=== PATIENT | male | born 1980 | race Caucasian/White ===

== ENCOUNTER 2018-12-18 14:22 | Emergency (ER) | payer OTHER ==
--- NOTE | 2018-12-18 14:38 | PDOC ---
History of Present Illness - General Chief Complaint: Seizure Stated Complaint: Seizure Time Seen by Provider: 12/18/18 14:38 - History of Present Illness Initial Comments: 38 year old male with PMH of seizures presenting from [place] for a seizure ( witnessed by staff at 13:15, lasting three minutes). They noted tonic clonic movement. They were concerned because of a prolonged pos-ictal phase. They say that he is currently not back to his baseline. His baseline is non-verbal, wheelchair bound but he is interactive with staff and plays. They were told by his physicians to bring him in for seizures that last over 3 minutes. Staff deny nausea, vomiting, fevers, chills, medication non-compliance or other issues. 12/18/18 15:05 Past History - Past Medical History Allergies/Adverse Reactions: Allergies Allergy/AdvReac Type Severity Reaction Status Date / Time No Known Allergies Allergy Verified 12/18/18 14:41 Home Medications: Ambulatory Orders Acetaminophen [Tylenol .Regular Strength -] 650 mg GT Q4H PRN 08/10/13 Bisacodyl Suppository [Dulcolax *Suppository*] 10 mg RC ONCE PRN 08/10/13 Calcium Carbonate/Vitamin D3 [Oyst-Alex-D 500 mg Tablet] 1 each GT BID 08/10/13 Clindamycin 1% Gel [Cleocin] 0 gm TP BID 08/10/13 Diazepam Rectal Gel [Diastat Rectal Gel -] 10 mg RC PRN PRN 08/10/13 FA/Mv,Ca,Iron,Min/Lycopene/Lut [Centrum Tablet] 1 each GT 08/10/13 Polyethylene Glycol 3350 [Miralax 255 gm Btl -] 17 gm GT DAILY 08/10/13 Sennosides [Senokot] 2 tab GT DAILY 08/10/13 levETIRAcetam [Keppra Oral Solution -] 1,500 mg PO BID #0 ml 08/21/13 Albuterol 2.5/Ipratropium 0.5 [Duoneb -] 1 neb NEB Q6H #0 vial 08/23/13 Lansoprazole [Prevacid] 30 mg GT DAILY #0 cap.sr.24h 08/23/13 predniSONE [Deltasone -] 50 mg PO DAILY #1 tablet 08/23/13 Cardiac Disorders: Yes (non traumatic epidural bleed.) CVA: (profund retardation, legally blind, cataracts) Seizures: Yes (EPILEPSY) - Surgical History Abdominal Surgery: (PEG) Neurologic Surgery: Yes (epilepsy, hematoma) Orthopedic Surgery: Yes (LT HIP/CONGENITAL DISLOCATION) - Suicide/Smoking/Psychosocial Hx Smoking Status: No Smoking History: Never smoked Have you smoked in the past 12 months: No Number of Cigarettes Smoked Daily: 0 Hx Alcohol Use: No Drug/Substance Use Hx: No Substance Use Type: None Hx Substance Use Treatment: No Review of Systems - Review of Systems Able to Perform ROS?: No (non verbal so difficult) Constitutional: No: Chills, Diaphoresis, Fever HEENTM: No: Eye Pain, Blurred Vision Respiratory: No: Cough, Orthopnea Cardiac (ROS): No: Chest Pain ABD/GI: No: Diarrhea, Nausea, Vomiting *Physical Exam - Physical Exam General Appearance: Yes: Nourished, Appropriately Dressed, Other (patient sleeping with upper arms pulled toward body). No: Apparent Distress HEENT: positive: Other (unable to open eys as patient was activly resisiting) Neck: positive: Trachea midline, Normal Thyroid, Supple. negative: Tender, Rigid Respiratory/Chest: positive: Lungs Clear, Normal Breath Sounds. negative: Chest Tender, Respiratory Distress Gastrointestinal/Abdominal: positive: Flat, Soft. negative: Tender Lymphatic: negative: Adenopathy, Tenderness Musculoskeletal: positive: Muscle Spasm. negative: Normal Inspection (upper arms contracted) Extremity: positive: Normal Capillary Refill. negative: Normal Inspection, Normal Range of Motion, Tender Integumentary: positive: Normal Color, Dry, Warm Neurologic: positive: Alert (sleeping but arrousable), Motor Strength 5/5. negative: Fully Oriented ED Treatment Course - LABORATORY CBC & Chemistry Diagram: 12/18/18 15:31 12/18/18 15:31 Medical Decision Making - Medical Decision Making 38 year old with history of seizures presenting from [place] for another seizure. Labs WNL here and keppra level sent. Patient had no more siezures and returned to his baseline. Spoke to Director Of Sales "RICARDA" at [facility] and will DC patient back. 12/18/18 19:51 *DC/Admit/Observation/Transfer Diagnosis at time of Disposition: Seizure - Discharge Dispostion Disposition: GROUP HOME FACILITY Condition at time of disposition: Stable Decision to Admit order: No - Referrals Referrals: Meek Lebron MD [Primary Care Provider] - - Patient Instructions Printed Discharge Instructions: DI for Seizure Disorder -- Adult Additional Instructions: Please call back to follow up on the Keppra level in a few days to adjust the Keppra dosage for the patient as needed. Please follow up with the neurologist at your facility. Please return to the ED if you have any new or worsening symptoms. - Post Discharge Activity
[2018-12-18 14:48] VITALS: BMI 35.2
--- NOTE | 2018-12-18 15:23 | PDOC ---
Attending Attestation - Resident Resident Name: MonaRonnakamrachelle - ED Attending Attestation I have performed the following: I have examined & evaluated the patient, The case was reviewed & discussed with the resident, I agree w/resident's findings & plan, Exceptions are as noted - HPI HPI: 12/18/18 15:27 Mr Emerson is a 38 yo M h/o cerebral palsy, profound mental retardation, non verbal at baseline, adrenal insufficiency, seizure disorder (on Keppra), PEG feeding tube placement, who presents to the ER from [place] due to seizure. Although pt has a h/o seizures, he apparently had a 3 minute seizure which is longer than his baseline No fevers or chills No recent illness The patient's ROS is limited due to patient's condition. - Physicial Exam PE: 12/18/18 15:40 General Appearance: Yes: resting, resists examiner opening his eyes, breathing comfortably HEENT: positive: Pupils are difficult to examine due to resistance. Respiratory/Chest: positive: Coarse breath sounds bilaterally Cardiovascular: Regular Rhythm, Regular Rate, S1, S2 Gastrointestinal/Abdominal: PEG feeding tube in place, site cleaned, No abdominal distention Extremity: positive: Contracted LUE Integumentary: Normal Color, Dry, Warm Neurologic: positive: Poorly cooperative, non verbal and does not follow command - Medical Decision Making 12/18/18 15:43 Labs pending Awaiting pt return to neurologic baseline Pt signed out to Dr. Yen
[2018-12-18 16:00] LABS: ALBUMIN 3.3 g/dl (3.4-5.0); ALK PHOS 103 U/L (45-117); ANION GAP 7 MMOL/L (8-16); BILIRUBIN,TOTAL 0.2 mg/dL (0.2-1); BLOOD UREA NITROGEN 13 mg/dL (7-18); CALCIUM 8.8 mg/dL (8.5-10.1); CHLORIDE 101 mmol/L (98-107); CO2 30 mmol/L (21-32); CREATININE 0.5 mg/dL (0.55-1.3); GLUCOSE,RANDOM 99 mg/dL (74-106); POTASSIUM 4.1 mmol/L (3.5-5.1); SGOT/AST 37 U/L (15-37); SGPT/ALT 67 U/L (13-61); SODIUM 138 mmol/L (136-145); TOT PROT 6.5 g/dl (6.4-8.2)
[2018-12-18 16:05] LABS: BASO % 0.5 % (0-2.0); EOS % 1.3 % (0-4.5); HEMATOCRIT 40.7 % (35.4-49); HEMOGLOBIN 14.1 GM/dL (11.7-16.9); MCH 31.2 pg (25.7-33.7); MCHC 34.8 g/dl (32.0-35.9); MEAN CELL VOLUME 89.7 fl (80-96); MEAN PLT VOLUME 12.3 fl (7.5-11.1); MONO % 7.9 % (3.8-10.2); NEUT % 67.3 % (42.8-82.8); PLATELET COUNT 138 K/MM3 (134-434); RBC 4.54 M/mm3 (4.00-5.60); RDW 12.8 % (11.9-15.9); WHITE BLOOD COUNT 6.3 K/mm3 (4.0-10.0)
[2018-12-18 16:31] VITALS: BP 97/61; TEMP 97.1
[2018-12-18 16:49] VITALS: PULSE 54
== END 2018-12-18 21:22 ==
LOC: JER 14:22
DX: G40.802 Other epilepsy, not intractable, without status epilepticus (principal); R47.01 Aphasia; F73 Profound intellectual disabilities; H54.8 Legal blindness, as defined in USA; Q65.02 Congenital dislocation of left hip, unilateral; Z99.3 Dependence on wheelchair
CPT/HCPCS: 36415; 80053; 80177; 85025; 99282-25

== ENCOUNTER 2019-07-23 18:38 | Inpatient (IN) | payer OTHER ==
--- NOTE | 2019-07-23 18:51 | PDOC ---
Rapid Medical Evaluation Time Seen by Provider: 07/23/19 18:48 Medical Evaluation: Allergies Allergy/AdvReac Type Severity Reaction Status Date / Time No Known Allergies Allergy Verified 12/18/18 14:41 07/23/19 18:49 The patient presents with a chief complaint of: lethargic and hypothermic today , sz x 2 today, hx sx, sent to r/o uti I have performed a brief in-person evaluation of this patient. Pertinent physical exam findings: vss ( no temp taken in triage needs rectal and in wheelchair), lcta I have ordered the following: labs, urine, cxr The patient will proceed to the ED for further evaluation. Discharge Disposition - Diagnosis Seizure - Discharge Dispostion Condition at time of disposition: Guarded - Referrals - Patient Instructions - Post Discharge Activity
[2019-07-23 19:55] LABS: BASO % 0.3 % (0-2.0); EOS % 1.9 % (0-4.5); HEMOGLOBIN 14.9 GM/dL (11.7-16.9); LYMPH % 20.6 % (8-40); MCH 30.1 pg (25.7-33.7); MCHC 33.2 g/dl (32.0-35.9); MEAN CELL VOLUME 90.7 fl (80-96); MEAN PLT VOLUME 12.3 fl (7.5-11.1); MONO % 7.3 % (3.8-10.2); NEUT % 69.9 % (42.8-82.8); PLATELET COUNT 128 K/MM3 (134-434); RBC 4.96 M/mm3 (4.00-5.60); RDW 13.2 % (11.9-15.9)
[2019-07-23 20:19] LABS: ALBUMIN 3.5 g/dl (3.4-5.0); BILIRUBIN,TOTAL 0.2 mg/dL (0.2-1); BLOOD UREA NITROGEN 13.1 mg/dL (7-18); CALCIUM 9.6 mg/dL (8.5-10.1); CREATININE 0.7 mg/dL (0.55-1.3); POTASSIUM 3.7 mmol/L (3.5-5.1); TOT PROT 7.2 g/dl (6.4-8.2)
--- NOTE | 2019-07-23 20:59 | PDOC ---
Attending Attestation - Resident Resident Name: JoseBinh - ED Attending Attestation I have performed the following: I have examined & evaluated the patient, The case was reviewed & discussed with the resident, I agree w/resident's findings & plan - HPI HPI: 07/23/19 21:46 see resident hpi - Physicial Exam PE: 07/23/19 21:46 see resident exam - Medical Decision Making 07/23/19 21:46 39-year-old male with history of seizure disorder now with multiple seizures witnessed by staff and altered mental status Plan for sepsis evaluation as well as CT scan of the brain Ativan for apparent focal seizure activity in the emergency department Patient will likely require admission for further evaluation
[2019-07-23 22:08] LABS: URINE APPEARANCE TURBID; URINE BILIRUBIN NEGATIVE (NEGATIVE); URINE COLOR RED; URINE GLUCOSE (UA) NEGATIVE (NEGATIVE); URINE KETONE NEGATIVE (NEGATIVE); URINE LEUK ESTERASE 3+ (NEGATIVE); URINE NITRITE POSITIVE (NEGATIVE); URINE PROTEIN 2+ (NEGATIVE); URINE UROBILINOGEN 0.2 mg/dL (0.2-1.0)
[2019-07-23] MEDS ORDERED: LORazepam 2 MG/ML SDV VIAL ONE (22:09)
[2019-07-23] MEDS ORDERED: CEFTRIAXONE 1,000 MG in DEXTROSE 5%-WATER - 50 ML IVPB ONE (22:20)
[2019-07-23] MEDS ORDERED: CEFTRIAXONE 1 GM/50 ML BAG ONE (22:30)
[2019-07-23 22:53] LABS: EPI CELLS 0.4 /HPF (0-5/HPF); HYALINE CASTS 24.16 /lpf (0-8); URINE BACTERIA 231.4 /hpf (NEGATIVE); URINE RBC 2389.3 /hpf (0-4); URINE WBC 55.9 /hpf (0-5)
--- NOTE | 2019-07-23 23:40 | PDOC ---
History of Present Illness - General Chief Complaint: Seizure Stated Complaint: POSSIBLE SEIZURE Time Seen by Provider: 07/23/19 18:48 History Source: Correction Records Exam Limitations: Clinical Condition - History of Present Illness Initial Comments: 07/23/19 23:34 39M with a PMH of cerebral palsy, profound mental retardation, non verbal at baseline, adrenal insufficiency, seizure disorder (on Keppra, 1500mg BID) who presents to the ER from [facility] for hypothermia and seizures. The patient is nonverbal and cannot provide any history. Aide is at bedside and does not know why the patient is here. Per [place] records, pt is here for evaluation of seizures x 2 today and hypothermia with concern for UTI. Past History - Past Medical History Allergies/Adverse Reactions: Allergies Allergy/AdvReac Type Severity Reaction Status Date / Time No Known Allergies Allergy Verified 07/23/19 18:52 Home Medications: Ambulatory Orders Unobtainable 07/23/19 Cardiac Disorders: Yes (non traumatic epidural bleed.) CVA: (profund retardation, legally blind, cataracts) COPD: No Seizures: Yes (EPILEPSY) Other medical history: QUAD - Surgical History Abdominal Surgery: (PEG) Neurologic Surgery: Yes (epilepsy, hematoma) Orthopedic Surgery: Yes (LT HIP/CONGENITAL DISLOCATION) - Suicide/Smoking/Psychosocial Hx Smoking Status: No Smoking History: Never smoked Have you smoked in the past 12 months: No Number of Cigarettes Smoked Daily: 0 Hx Alcohol Use: No Drug/Substance Use Hx: No Substance Use Type: None Hx Substance Use Treatment: No Review of Systems - Review of Systems Able to Perform ROS?: No (nonverbal) *Physical Exam - Vital Signs Last Vital Signs Temp Pulse Resp BP Pulse Ox 95.8 F L 52 L 12 103/70 99 07/23/19 20:38 07/23/19 18:45 07/23/19 18:45 07/23/19 18:45 07/23/19 18:45 - Physical Exam Comments: 07/23/19 23:36 GENERAL: Well developed, well nourished. No acute distress. HEENT: Normocephalic, atraumatic. Hearing grossly normal. Moist mucous membranes. PERRLA, EOMI. No conjunctival pallor. Sclera are non-icteric. NECK: Supple. Contracted. No JVD. CARDIOVASCULAR: Regular rate and rhythm. No murmurs, rubs, or gallops. PULMONARY: No evidence of respiratory distress. Lungs clear to auscultation bilaterally. No wheezing, rales or rhonchi. ABDOMINAL: Soft. Non-tender. Non-distended. No rebound or guarding. MUSCULOSKELETAL: Contracted with limited ROM. No bony deformities or tenderness. EXTREMITIES: No cyanosis. No clubbing. No edema. No calf tenderness or swelling. SKIN: Warm and dry. Normal capillary refill. No rashes. No jaundice. NEUROLOGICAL: Cranial nerves 2-12 intact. Normal speech. Gait is normal without ataxia. ED Treatment Course - LABORATORY CBC & Chemistry Diagram: 07/23/19 19:32 07/23/19 19:32 - ADDITIONAL ORDERS Additional order review: Laboratory Results 07/23/19 07/23/19 07/23/19 21:59 19:32 19:32 Sodium 138 Potassium 3.7 Chloride 98 Carbon Dioxide 35 H Anion Gap 5 L BUN 13.1 Creatinine 0.7 Est GFR (CKD-EPI)AfAm 135.86 Est GFR (CKD-EPI)NonAf 117.22 Random Glucose 91 Lactic Acid 1.1 Calcium 9.6 Total Bilirubin 0.2 AST 78 H ALT 122 H Alkaline Phosphatase 130 H Total Protein 7.2 Albumin 3.5 Urine Color Red Urine Appearance Turbid Urine pH 6.0 Ur Specific [place] 1.012 Urine Protein 2+ H Urine Glucose (UA) Negative Urine Ketones Negative Urine Blood 3+ H Urine Nitrite Positive H Urine Bilirubin Negative Urine Urobilinogen 0.2 Ur Leukocyte Esterase 3+ H Urine WBC (Auto) 55.9 Urine RBC (Auto) 2389.3 Urine Casts (Auto) 24.16 U Pathogenic Cast Auto None U Epithel Cells (Auto) 0.4 Urine Bacteria (Auto) 231.4 07/23/19 19:32 RBC 4.96 MCV 90.7 MCHC 33.2 RDW 13.2 MPV 12.3 H Neutrophils % 69.9 Lymphocytes % 20.6 Monocytes % 7.3 Eosinophils % 1.9 Basophils % 0.3 - RADIOLOGY Radiology Studies Ordered: Category Date Time Status HEAD CT WITHOUT CONTRAST [CT] Stat CT Scan 07/23/19 20:38 Taken - Medications Given in the ED: ED Medications Discontinued Medications Generic Name Dose Route Start Last Admin Trade Name Freq PRN Reason Stop Dose Admin Ceftriaxone Sodium 1,000 mg/ 50 mls @ 100 mls/hr 07/23/19 22:20 07/23/19 22: 31 Dextrose IVPB 07/23/19 22:49 100 mls/hr ONCE ONE Administration Lorazepam 0.5 mg 07/23/19 22:02 07/23/19 22:13 Ativan Injection - IVPUSH 07/23/19 22:03 0.5 mg ONCE ONE Administration Medical Decision Making - Medical Decision Making 07/23/19 23:38 39M with MMP who presents from [place] for evaluation of multiple seizures. CBC WNL. CMP shows mild transaminitis and alk phos elevation with normal T-bili. Rectal temp 95.9. Septic protocol being followed. Lactate WNL. UA shows UTI. Giving ceftriaxone. Will admit for UTI causing sepsis and decreasing seizure threshold. Pending CTH. 07/23/19 23:52 CTH negative for acute pathology. Will admit for seizure obs. 07/24/19 01:[address] Hinojosa for admission. *DC/Admit/Observation/Transfer Diagnosis at time of Disposition: Seizure - Discharge Dispostion Condition at time of disposition: Guarded Decision to Admit order: Yes Decision to Admit order Date/Time: Decision to Admit Order Category Date Time Status Decision to Admit to Hospital Routine Admission 07/23/19 22:55 Active - Referrals - Patient Instructions - Post Discharge Activity
--- NOTE | 2019-07-24 01:50 | HP ---
CHIEF COMPLAINT: seizure PCP: Dr. 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 The patient at baseline is awake but has been noted to be more lethargic over the last several days. Today it was noted by the [facility] that the patient had a witnessed 2 minute long seizure. Vitals at the time were HR 75, BP 117/77, temp <95, saturation of 95% on room air. Prior to this seizure, the staff did not know when his previous one was, however notes from this hospital note a seizure in December. Staff stated that all medications were administered regularly without any missed doses, no new medications were prescribed, no changes in diet (all feeds through G tube), no sick contacts. Patient was sent to the ED for further evaluation. Spoken with nurse Watson for history ([phone]) ER course was notable for: (1) UA 2+ protein, 3+ blood, + nitrities, 3+ LE, 56 WBC, 231 bacteria (2) Head CT with extensive chronic encephalomalacia involving the R cerebral hemisphere, anterior R frontal lobe, R cerebellum (3) Given ceftriaxone 1g, Ativan 0.5 PAST MEDICAL HISTORY: as above PAST SURGICAL HISTORY: PEG tube Social History: Smoking: negative Alcohol: negative Drugs: negative Lives at [facility] Family History: unknown due to patient's condition Allergies No Known Allergies Allergy (Verified 07/23/19 18:52) HOME MEDICATIONS: Home Medications Medication Instructions Recorded Unobtainable 07/23/19 REVIEW OF SYSTEMS Unable to obtain review of systems secondary to patient's medical conditions. All events noted from prior ED documentation and conversation with nursing staff at [facility] as above. PHYSICAL EXAMINATION Vital Signs - 24 hr 07/23/19 07/23/19 07/23/19 18:45 20:38 23:38 Temperature 95.8 F L Pulse Rate 52 L Pulse Rate [ 82 Apical] Respiratory 12 16 Rate Blood Pressure 103/70 Blood Pressure 98/60 [Right Arm] O2 Sat by Pulse 99 98 Oximetry (%) GENERAL: Sleeping in bed, no reaction to voice or tactile stimuli. HEAD: Mild bradycephalia noted, R sided scar temporally noted. EYES: Complete corneal opacity noted bilaterally. No pupil visualized. EARS, NOSE, THROAT: Moist mucous membranes. NECK: No noted JVD LUNGS: Breath sounds difficult to appreciate secondary to snoring. No wheezing, crackles appreciated. HEART: Regular rate and rhythm, normal S1 and S2 without murmur, rub. ABDOMEN: Soft, nontender, not distended, normoactive bowel sounds, no guarding, no rebound, no masses. MUSCULOSKELETAL: Contracted upper and lower extremities. UPPER EXTREMITIES: 2+ pulses, warm, well-perfused. No cyanosis. No clubbing. No peripheral edema. LOWER EXTREMITIES: 2+ pulses, warm, well-perfused. No calf tenderness. No peripheral edema. NEUROLOGICAL: Not awake, contracted extremities, spastic upper extremities, partially flaccid lower extremities, mild withdrawal and grimace to painful stimuli. SKIN: Warm, dry, normal turgor, no rashes or lesions noted, normal capillary refill. Laboratory Results - last 24 hr 07/23/19 07/23/19 07/23/19 19:32 19:32 19:32 WBC 7.0 RBC 4.96 Hgb 14.9 Hct 45.0 MCV 90.7 MCH 30.1 MCHC 33.2 RDW 13.2 Plt Count 128 L MPV 12.3 H Absolute Neuts (auto) 4.9 Neutrophils % 69.9 Lymphocytes % 20.6 Monocytes % 7.3 Eosinophils % 1.9 Basophils % 0.3 Nucleated RBC % 0 Sodium 138 Potassium 3.7 Chloride 98 Carbon Dioxide 35 H Anion Gap 5 L BUN 13.1 Creatinine 0.7 Est GFR (CKD-EPI)AfAm 135.86 Est GFR (CKD-EPI)NonAf 117.22 Random Glucose 91 Lactic Acid 1.1 Calcium 9.6 Total Bilirubin 0.2 AST 78 H ALT 122 H Alkaline Phosphatase 130 H Total Protein 7.2 Albumin 3.5 Urine Color Urine Appearance Urine pH Ur Specific [place] Urine Protein Urine Glucose (UA) Urine Ketones Urine Blood Urine Nitrite Urine Bilirubin Urine Urobilinogen Ur Leukocyte Esterase Urine WBC (Auto) Urine RBC (Auto) Urine Casts (Auto) U Pathogenic Cast Auto U Epithel Cells (Auto) Urine Bacteria (Auto) 07/23/19 21:59 WBC RBC Hgb Hct MCV MCH MCHC RDW Plt Count MPV Absolute Neuts (auto) Neutrophils % Lymphocytes % Monocytes % Eosinophils % Basophils % Nucleated RBC % Sodium Potassium Chloride Carbon Dioxide Anion Gap BUN Creatinine Est GFR (CKD-EPI)AfAm Est GFR (CKD-EPI)NonAf Random Glucose Lactic Acid Calcium Total Bilirubin AST ALT Alkaline Phosphatase Total Protein Albumin Urine Color Red Urine Appearance Turbid Urine pH 6.0 Ur Specific [place] 1.012 Urine Protein 2+ H Urine Glucose (UA) Negative Urine Ketones Negative Urine Blood 3+ H Urine Nitrite Positive H Urine Bilirubin Negative Urine Urobilinogen 0.2 Ur Leukocyte Esterase 3+ H Urine WBC (Auto) 55.9 Urine RBC (Auto) 2389.3 Urine Casts (Auto) 24.16 U Pathogenic Cast Auto None U Epithel Cells (Auto) 0.4 Urine Bacteria (Auto) 231.4 ASSESSMENT/PLAN: Jordan Emerson is a 39 year old male with a past medical history of cerebral palsy (secondary to intracranial hemorrhage), profound mental retardation, non- verbal at baseline, adrenal insufficiency, seizure disorder admitted for breakthrough seizure likely secondary to UTI. Seizure UTI Elevated LFTs Bradycardia Seizure - likely breakthrough secondary to UTI - continue home seizure medication Keppra and Lamictal - seizure precautions - monitor for any electrolyte abnormalities - neurology consulted UTI - UA positive for infection - given ceftriaxone, continue ceftriaxone - pending cultures Elevated LFTs - unclear reason for rise - RUQ U/S - hepatitis panel - continue to monitor Bradycardia - chronic, unclear reason - repeat EKG FEN - D5-NS at 75cc/hr, can titrate down and remove once feeds restarted - continue to monitor electrolytes and replete as necessary - NPO, tube feeds once calculated by rejector, on [employer] feeds at institution Prophylaxis - heparin 5000 units subq tid Code - full code ALEXANDER LOPEZ DO - PGY-1 Visit type - Emergency Visit Emergency Visit: Yes ED Registration Date: 07/23/19 Care time: The patient presented to the Emergency Department on the above date and was hospitalized for further evaluation of their emergent condition. - New Patient This patient is new to me today: Yes Date on this admission: 07/24/19 - Critical Care Critical Care patient: No
[2019-07-24] MEDS ORDERED: HEPARIN NA (PORCINE) 5,000 UNITS/ML 1ML VIAL SQ SCH (02:00)
[2019-07-24] MEDS: DEXTROSE 5%-NORMAL SALINE 1,000 ML IV SCH (02:48)
[2019-07-24] MEDS ORDERED: MAG CARB PEG SCH (06:00)
[2019-07-24] MEDS ORDERED: MAG HYDROX/AL HYDROX/SIMETH 30 ML UNIT-DOSE CUP PO PRN (06:00)
[2019-07-24] MEDS ORDERED: ALGIN PEG SCH (06:00)
[2019-07-24] MEDS ORDERED: [UNRECOGNIZED DRUG - OTHER] PEG SCH (06:00)
[2019-07-24] MEDS ORDERED: ALUMINUM HYDROX PEG SCH (06:00)
--- NOTE | 2019-07-24 06:58 | PN ---
Teaching Attending Note Name of Resident: Bernabe Kc ATTENDING PHYSICIAN STATEMENT I saw and evaluated the patient. I reviewed the resident's note and discussed the case with the resident. I agree with the resident's findings and plan as documented. 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 Seizure was 2 min long, tonic clonic. In ER was found to be bradycardic and hypothermic. OBJECTIVE: Last Vital Signs Temp Pulse Resp BP Pulse Ox 95.8 F L 82 18 90/57 L 97 07/23/19 20:38 07/24/19 06:51 07/24/19 06:51 07/24/19 06:51 07/24/19 06:51 general- bedbound, nontoxic heent -opaque eyes right head scar chest - b/l breath sounds cv-s1+s2+rrr abd - soft, nt - peg ext -contracted Abnormal Lab Results 07/23/19 07/23/19 07/23/19 19:32 19:32 21:59 Plt Count 128 L MPV 12.3 H Carbon Dioxide 35 H Anion Gap 5 L AST 78 H ALT 122 H Alkaline Phosphatase 130 H Urine Protein 2+ H Urine Blood 3+ H Urine Nitrite Positive H Ur Leukocyte Esterase 3+ H ASSESSMENT AND PLAN: S/p breakthrough seizure Possible UTI Cerebral palsy with profound MR adrenal insufficiency transaminitis -admit to med/surg -neurowatch -neuro consult -ceftriaxone for possible uti -urine culture -supplemental o2 -monitor VS closely -c/w home meds -neuro consult for possible med adjustment -NPO for now -aspiration precautions -elevate head of bed -liver u/s for transaminitis -send viral hepatitis serologies -trend LFTS -dvt ppx
[2019-07-24] MEDS: predniSONE 1 MG TABLET (FP) PEG SCH (07:15)
[2019-07-24 07:46] LABS: BASO % 0.5 % (0-2.0); EOS % 0.8 % (0-4.5); HEMATOCRIT 42.7 % (35.4-49); HEMOGLOBIN 14.2 GM/dL (11.7-16.9); LYMPH % 1.4 % (8-40); MCH 30.3 pg (25.7-33.7); MCHC 33.3 g/dl (32.0-35.9); MEAN CELL VOLUME 90.8 fl (80-96); MEAN PLT VOLUME 12.9 fl (7.5-11.1); MONO % 1.3 % (3.8-10.2); PLATELET COUNT 102 K/MM3 (134-434); RDW 13.5 % (11.9-15.9); WHITE BLOOD COUNT 12.7 K/mm3 (4.0-10.0)
[2019-07-24 07:51] LABS: ALBUMIN 3.3 g/dl (3.4-5.0); BILIRUBIN,TOTAL 0.4 mg/dL (0.2-1); BLOOD UREA NITROGEN 14.6 mg/dL (7-18); CALCIUM 9.7 mg/dL (8.5-10.1); CREATININE 1.5 mg/dL (0.55-1.3); MAGNESIUM 1.9 mg/dL (1.8-2.4); POTASSIUM 3.1 mmol/L (3.5-5.1); TOT PROT 6.6 g/dl (6.4-8.2)
[2019-07-24] MEDS: BUDESONIDE 0.5 MG/2 ML INH SUSP VIAL NEB SCH (08:05)
--- NOTE | 2019-07-24 08:37 | PN ---
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 The patient at baseline is awake but has been noted to be more lethargic over the last several days. Today it was noted by the halfway that the patient had a witnessed 2 minute long seizure. Vitals at the time were HR 75, BP 117/77, temp <95, saturation of 95% on room air. Prior to this seizure, the staff did not know when his previous one was, however notes from this hospital note a seizure in December. Staff stated that all medications were administered regularly without any missed doses, no new medications were prescribed, no changes in diet (all feeds through G tube), no sick contacts. Patient was sent to the ED for further evaluation. Spoken with nurse Watson for history ([phone]) - Current Medication List Current Medications: Active Medications Al Hydroxide/Mg Hydroxide (Mylanta Oral Suspension -) 30 ml PO TID PRN PRN Reason: INDIGESTION Budesonide (Pulmicort 0.5 Mg Nebulizer -) 1 amp NEB RBID AHYLEE Calcium Carbonate/Cholecalciferol (Os-Alex 500+D -) 1 tab PO BID HAYLEE Heparin Sodium (Porcine) (Heparin -) 5,000 unit SQ TID HAYLEE Ceftriaxone Sodium 1 gm/ (Dextrose) 50 mls @ 100 mls/hr IVPB DAILY HAYLEE; Protocol Dextrose/Sodium Chloride (D5-Ns -) 1,000 mls @ 75 mls/hr IV ASDIR HAYLEE Last Admin: 07/24/19 02:48 Dose: 75 mls/hr Lactulose (Cephulac (Oral Use)) 20 gm PO BID HAYLEE Lamotrigine (Lamictal -) 25 mg PO BID HAYLEE Levetiracetam (Keppra Oral Solution -) 1,500 mg PO BID HAYLEE Prednisone (Deltasone -) 1 mg PEG AM HAYLEE Ranitidine HCl (Zantac -) 150 mg PO BID HAYLEE - Objective Vital Signs: Vital Signs Temperature 95.8 F L 07/23/19 20:38 Pulse Rate 82 07/24/19 06:51 Respiratory Rate 18 07/24/19 06:51 Blood Pressure 90/57 L 07/24/19 06:51 O2 Sat by Pulse Oximetry (%) 97 07/24/19 06:51 Additional Findings/Remarks: GENERAL: supine on stretcher no reaction to voice or tactile stimuli. HEAD: Mild bradycephalia noted, R sided scar temporally noted. EYES: Complete corneal opacity noted bilaterally. No pupil visualized. EARS, NOSE, THROAT: Moist mucous membranes. NECK: No noted JVD LUNGS: Breath sounds difficult to appreciate secondary to snoring. No wheezing, crackles appreciated. HEART: Regular rate and rhythm, normal S1 and S2 without murmur, rub. ABDOMEN: Soft, nontender, not distended, normoactive bowel sounds, no guarding, no rebound, no masses. MUSCULOSKELETAL: Contracted upper and lower extremities. UPPER EXTREMITIES: 2+ pulses, warm, well-perfused. No cyanosis. No clubbing. No peripheral edema. LOWER EXTREMITIES: 2+ pulses, warm, well-perfused. No calf tenderness. No peripheral edema. NEUROLOGICAL: Not awake, contracted extremities, spastic upper extremities, partially flaccid lower extremities, mild withdrawal and grimace to painful stimuli. SKIN: Warm, dry, normal turgor, no rashes or lesions noted, normal capillary refill. Labs: CBC, BMP 07/24/19 06:45 07/24/19 06:45 - ....Imaging Cat Scan: Report Reviewed (Head CT with extensive chronic encephalomalacia involving the R cerebral hemisphere, anterior R frontal lobe, R cerebellum) Problem List - Problems (1) Prophylactic measure Assessment/Plan: FEN D5-NS at 75cc/hr, can titrate down and remove once feeds restarted - continue to monitor electrolytes and replete as necessary - NPO, tube feeds once calculated by nougat candy maker helper, on [facility] feeds at [facility] DVT heparin sq Dispo maintain as inpatient full code discharge planning Code(s): Z29.9 - ENCOUNTER FOR PROPHYLACTIC MEASURES, UNSPECIFIED (2) LFTs abnormal Assessment/Plan: unclear retiology - RUQ U/S pending - hepatitis panel pending - continue to monitor Code(s): R94.5 - ABNORMAL RESULTS OF LIVER FUNCTION STUDIES (3) UTI (urinary tract infection) Assessment/Plan: UA positive c/w ceftriaxone pending cultures Code(s): N39.0 - URINARY TRACT INFECTION, SITE NOT SPECIFIED (4) Cerebral palsy Assessment/Plan: supportive care PT eval Code(s): G80.9 - CEREBRAL PALSY, UNSPECIFIED (5) Seizure Assessment/Plan: leveteracitam and lamotrigine levels pending Continue leveteracitam 1500 mg BID via GT Continue lamotrigine 25 mg BID via GT Code(s): R56.9 - UNSPECIFIED CONVULSIONS Visit type - Emergency Visit Emergency Visit: Yes ED Registration Date: 07/23/19 Care time: The patient presented to the Emergency Department on the above date and was hospitalized for further evaluation of their emergent condition. - New Patient This patient is new to me today: Yes Date on this admission: 07/24/19 - Critical Care Critical Care patient: No - Discharge Referral Referred to [facility] Med P.C.: No
[2019-07-24] MEDS ORDERED: PT OWN MED DRAWER 7, Y5N ONE ×2 (08:50→22:20)
[2019-07-24] MEDS: lamoTRIgine 25 MG TABLET PO SCH (09:47)
[2019-07-24] MEDS: LACTULOSE 20 GM/30 ML UDC (FOR ORAL USE ONLY) PO SCH ×2 (09:47→22:16)
[2019-07-24] MEDS: levETIRAcetam 500 MG/5 ML ORAL SOLUTION (UNIT-DOSE CUPS) PO SCH (09:47)
[2019-07-24] MEDS: CALCIUM 500MG/VIT-D 200 UNITS COMBO TABLET (FP) PO SCH ×2 (09:47→22:16)
[2019-07-24] MEDS: RANITIDINE HCL 150 MG TABLET (FP) PO SCH ×2 (09:47→22:16)
[2019-07-24] MEDS ORDERED: PATIENT'S OWN MEDICATION (NON-FORMULARY) (Lactulose [Lactulose] 30 ML) PEG SCH (10:00)
[2019-07-24] MEDS ORDERED: LEVETIRACETAM PEG SCH (10:00)
--- NOTE | 2019-07-24 11:10 | EKG ---
Test Reason : Blood Pressure : / mmHG Vent. Rate : 089 BPM Atrial Rate : 089 BPM P-R Int : 132 ms QRS Dur : 086 ms QT Int : 336 ms P-R-T Axes : 041 030 055 degrees QTc Int : 408 ms NORMAL SINUS RHYTHM T WAVE ABNORMALITY, CONSIDER ANTERIOR ISCHEMIA ABNORMAL ECG WHEN COMPARED WITH ECG OF 06-AUG-2013 16:59, VENT. RATE HAS INCREASED BY 35 BPM QRS DURATION HAS DECREASED T WAVE INVERSION NOW EVIDENT IN ANTERIOR LEADS Confirmed by IWONA CARRERA MD ([id number]) on 07/24/2019 11:09:59 AM Referred By: Toñito BALES Confirmed By:IWONA CARRERA MD
[2019-07-24 12:19] LABS: ANISOCYTOSIS 0; MACROCYTOSIS 0; PLATELET ESTIMATE DECREASED
--- NOTE | 2019-07-24 12:22 | CONSULT ---
Consult - text type - Consultation Consultation Note: NEUROLOGY CONSULT GREATLY APPRECIATED: This 39 yo man lives in [facility] and essentially W/C bound. NH attendant at bedside. PMHX: R cerebral palsy s/p ICH, dysphagia s/p PEG, seizures, L hip congenital deformity, cataracts, blindness. On: budesonide, OsCal, heparin, lactulose, lamotrigine 25 mg BID, leveteracitam 1500 mg BID, prednisone 1 mg qd (?), ranitidine. Per NH, patient sent to ED for new onset lethargy, hypothermia and 2 seizures. Now S/P IV Ativan 0.5 mg x 1, with resolution of seizure. No prior description of seizure or events can be provided by patient or attendant. Head CT in ER (reviewed): Large dense area of encephalomalacia of R cerebrum as well as left frontal region with ex vacuo ventricular dilation. WBC= 12.7 Urine WBC= 55.9 K now on IV ceftriaxone AST- 78, ALT- 172, ALk phos - 130; Mg- 1.9 NHUNG: Old surgical scar R hemicranium. T95.8. Cor reg. Neck supple. Fixed L arm/ wrist contracture. Early contractures knees. Wearing diaper. PEG. NEURO: Found sleeping, but moans to tactile stimuli. Follows no commands. + glabella, snout, suck CNII-CNXII: Blind. Resists eye opening. Motor: Unable to test drift or strength. No clonus. Reflexes normal. Toes downgoing. Coordination: Unable to test. Sensation: Semipurposeful mvm'ts of R hand over face with pinch to right side and left leg. Gait: deferred. Impression: Moderate-Severe R cerebral dysfunction (secondary to ICH and/or Left hemiplegic Cerebral Palsy). Seizure Disorder Worsened by Toxic-Metabolic Encephalopathy (urosepsis) Suggest: Continue antibiotics and hydration per ID Check leveteracitam and lamotrigine levels Continue leveteracitam 1500 mg BID via GT Increase lamotrigine to 50 mg BID via GT Thank you very much, Jordan Butler MD
[2019-07-24] MEDS: HEPARIN NA (PORCINE) 5,000 UNITS/ML 1ML VIAL SQ SCH ×2 (13:18→22:24)
[2019-07-24] MEDS ORDERED: SODIUM CHLORIDE 1,000 ML IV STA (16:42)
[2019-07-24] MEDS: ACETAMINOPHEN 1000 MG/100 ML VIAL (NON FORMULARY) IVPB PRN (18:08)
[2019-07-24] MEDS ORDERED: cefTRIAXone SODIUM 1 GM VIAL ONE (22:04)
[2019-07-24] MEDS ORDERED: DEXTROSE 5%-WATER - 50 ML IVPB ONE (22:04)
[2019-07-24] MEDS: CEFTRIAXONE 1 GM in DEXTROSE 5%-WATER - 50 ML IVPB SCH (22:15)
[2019-07-25] MEDS: lamoTRIgine 25 MG TABLET PO SCH ×3 (00:18→22:30)
[2019-07-25] MEDS: levETIRAcetam 500 MG/5 ML ORAL SOLUTION (UNIT-DOSE CUPS) PO SCH ×3 (00:18→22:29)
[2019-07-25] MEDS ORDERED: PT OWN MED DRAWER 7, Y5N ONE ×2 (05:40→08:54)
[2019-07-25] MEDS: DEXTROSE 5%-NORMAL SALINE 1,000 ML IV SCH (06:17)
[2019-07-25] MEDS: HEPARIN NA (PORCINE) 5,000 UNITS/ML 1ML VIAL SQ SCH ×3 (06:17→22:30)
[2019-07-25] MEDS ORDERED: POTASSIUM CHLORIDE ORAL LIQUID 20 MEQ/15 ML GT ONE (08:03)
[2019-07-25] MEDS ORDERED: SODIUM CHLORIDE 1,000 ML IV STA (08:05)
--- NOTE | 2019-07-25 08:06 | PN ---
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 The patient at baseline is awake but has been noted to be more lethargic over the last several days. Today it was noted by the senior care that the patient had a witnessed 2 minute long seizure. Vitals at the time were HR 75, BP 117/77, temp <95, saturation of 95% on room air. Prior to this seizure, the staff did not know when his previous one was, however notes from this hospital note a seizure in December. Staff stated that all medications were administered regularly without any missed doses, no new medications were prescribed, no changes in diet (all feeds through G tube), no sick contacts. Patient was sent to the ED for further evaluation. Spoken with nurse Watson for history ([phone]) - Current Medication List Current Medications: Active Medications Acetaminophen (Ofirmev Injection -) 1,000 mg IVPB Q6H PRN PRN Reason: PAIN OR FEVER Last Admin: 07/24/19 18:08 Dose: 1,000 mg Al Hydroxide/Mg Hydroxide (Mylanta Oral Suspension -) 30 ml PO TID PRN PRN Reason: INDIGESTION Budesonide (Pulmicort 0.5 Mg Nebulizer -) 1 amp NEB RBID HAYLEE Last Admin: 07/24/19 08:05 Dose: 1 amp Calcium Carbonate/Cholecalciferol (Os-Alxe 500+D -) 1 tab PO BID HAYLEE Last Admin: 07/24/19 22:16 Dose: 1 tab Heparin Sodium (Porcine) (Heparin -) 5,000 unit SQ TID HAYLEE Last Admin: 07/25/19 06:17 Dose: 5,000 unit Ceftriaxone Sodium 1 gm/ (Dextrose) 50 mls @ 100 mls/hr IVPB DAILY HAYLEE; Protocol Last Admin: 07/24/19 22:15 Dose: 100 mls/hr Dextrose/Sodium Chloride (D5-Ns -) 1,000 mls @ 75 mls/hr IV ASDIR HAYLEE Last Admin: 07/25/19 06:17 Dose: 75 mls/hr Sodium Chloride (Normal Saline -) 1,000 mls @ 1,000 mls/hr IV ASDIR STA Stop: 07/25/19 09:04 Lactulose (Cephulac (Oral Use)) 20 gm PO BID [facility] Last Admin: 07/24/19 22:16 Dose: 20 gm Lamotrigine (Lamictal -) 25 mg PO BID [facility] Last Admin: 07/25/19 00:18 Dose: 25 mg Levetiracetam (Keppra Oral Solution -) 1,500 mg PO BID [facility] Last Admin: 07/25/19 00:18 Dose: 1,500 mg Prednisone (Deltasone -) 1 mg PEG AM [facility] Last Admin: 07/24/19 07:15 Dose: 1 mg Ranitidine HCl (Zantac -) 150 mg PO BID [facility] Last Admin: 07/24/19 22:16 Dose: 150 mg - Objective Vital Signs: Vital Signs Temperature 98.2 F 07/25/19 06:00 Pulse Rate 84 07/25/19 06:00 Respiratory Rate 17 07/25/19 06:00 Blood Pressure 113/71 07/25/19 06:00 O2 Sat by Pulse Oximetry (%) 100 07/24/19 22:42 Additional Findings/Remarks: GENERAL: supine on stretcher no reaction to voice or tactile stimuli. HEAD: Mild bradycephalia noted, R sided scar temporally noted. EYES: Complete corneal opacity noted bilaterally. No pupil visualized. EARS, NOSE, THROAT: Moist mucous membranes. NECK: No noted JVD LUNGS: Breath sounds difficult to appreciate secondary to snoring. No wheezing, crackles appreciated. HEART: Regular rate and rhythm, normal S1 and S2 without murmur, rub. ABDOMEN: Soft, nontender, not distended, normoactive bowel sounds, no guarding, no rebound, no masses. MUSCULOSKELETAL: Contracted upper and lower extremities. UPPER EXTREMITIES: 2+ pulses, warm, well-perfused. No cyanosis. No clubbing. No peripheral edema. LOWER EXTREMITIES: 2+ pulses, warm, well-perfused. No calf tenderness. No peripheral edema. NEUROLOGICAL: Not awake, contracted extremities, spastic upper extremities, partially flaccid lower extremities, mild withdrawal and grimace to painful stimuli. SKIN: Warm, dry, normal turgor, no rashes or lesions noted, normal capillary refill. Labs: CBC, BMP 07/24/19 06:45 07/24/19 06:45 Problem List - Problems (1) Prophylactic measure Assessment/Plan: FEN D5-NS at 75cc/hr, can titrate down and remove once feeds restarted - continue to monitor electrolytes and replete as necessary - jevity at 20cc and increase as per protocol, on [facility] feeds at [facility] DVT heparin sq Dispo maintain as inpatient full code discharge planning Code(s): Z29.9 - ENCOUNTER FOR PROPHYLACTIC MEASURES, UNSPECIFIED (2) LFTs abnormal Assessment/Plan: unclear retiology - RUQ U/S with fatty liver vs hepatocellular dz - hepatitis panel pending - continue to monitor Code(s): R94.5 - ABNORMAL RESULTS OF LIVER FUNCTION STUDIES (3) UTI (urinary tract infection) Assessment/Plan: UA positive c/w ceftriaxone cultures w/ LF neg bacilli Code(s): N39.0 - URINARY TRACT INFECTION, SITE NOT SPECIFIED (4) Cerebral palsy Assessment/Plan: supportive care PT eval Code(s): G80.9 - CEREBRAL PALSY, UNSPECIFIED (5) Seizure Assessment/Plan: leveteracitam and lamotrigine levels pending Continue leveteracitam 1500 mg BID via GT increase lamotrigine 50 mg BID via GT appreciate neurology consultation Code(s): R56.9 - UNSPECIFIED CONVULSIONS (6) CHENTE (acute kidney injury) Assessment/Plan: Cr increased to 1.5 from baseline of .7 most likely dehydrated, absence of TF fluid resuscitated with NS if Cr does not come back to baseline will consult renal Code(s): N17.9 - ACUTE KIDNEY FAILURE, UNSPECIFIED Visit type - Emergency Visit Emergency Visit: Yes ED Registration Date: 07/23/19 Care time: The patient presented to the Emergency Department on the above date and was hospitalized for further evaluation of their emergent condition. - New Patient This patient is new to me today: No - Critical Care Critical Care patient: No - Discharge Referral Referred to [facility] Med P.C.: No
[2019-07-25] MEDS: BUDESONIDE 0.5 MG/2 ML INH SUSP VIAL NEB SCH ×2 (08:50→20:42)
[2019-07-25] MEDS ORDERED: cefTRIAXone SODIUM 1 GM VIAL ONE (08:54)
[2019-07-25] MEDS ORDERED: DEXTROSE 5%-WATER - 50 ML IVPB ONE (08:54)
[2019-07-25 09:33] LABS: BASO % 0.1 % (0-2.0); EOS % 0.3 % (0-4.5); HEMATOCRIT 46.2 % (35.4-49); LYMPH % 4.7 % (8-40); MCH 29.5 pg (25.7-33.7); MCHC 32.4 g/dl (32.0-35.9); MEAN CELL VOLUME 90.9 fl (80-96); MEAN PLT VOLUME 14.2 fl (7.5-11.1); MONO % 9.3 % (3.8-10.2); NEUT % 85.6 % (42.8-82.8); PLATELET COUNT 72 K/MM3 (134-434); RBC 5.08 M/mm3 (4.00-5.60); WHITE BLOOD COUNT 21.5 K/mm3 (4.0-10.0)
[2019-07-25 09:51] LABS: ALBUMIN 2.7 g/dl (3.4-5.0); BILIRUBIN,TOTAL 0.4 mg/dL (0.2-1); BLOOD UREA NITROGEN 20.5 mg/dL (7-18); CALCIUM 9.3 mg/dL (8.5-10.1); CREATININE 1.2 mg/dL (0.55-1.3); MAGNESIUM 2.4 mg/dL (1.8-2.4); POTASSIUM 3.5 mmol/L (3.5-5.1); TOT PROT 6.1 g/dl (6.4-8.2)
[2019-07-25] MEDS: predniSONE 1 MG TABLET (FP) PEG SCH (09:52)
[2019-07-25] MEDS: LACTULOSE 20 GM/30 ML UDC (FOR ORAL USE ONLY) PO SCH ×2 (09:52→22:29)
[2019-07-25] MEDS: CEFTRIAXONE 1 GM in DEXTROSE 5%-WATER - 50 ML IVPB SCH (09:53)
[2019-07-25] MEDS: RANITIDINE HCL 150 MG TABLET (FP) PO SCH ×2 (09:53→22:30)
[2019-07-25] MEDS: CALCIUM 500MG/VIT-D 200 UNITS COMBO TABLET (FP) PO SCH ×2 (09:54→22:30)
[2019-07-25 11:23] LABS: ANISOCYTOSIS 0; MACROCYTOSIS 0; PLATELET ESTIMATE DECREASED
[2019-07-25 11:57] LABS: TOXIC GRANULATION 2+
[2019-07-25 15:25] VITALS: BMI 23.1
[2019-07-25] MEDS: ACETAMINOPHEN 1000 MG/100 ML VIAL (NON FORMULARY) IVPB PRN (22:59)
[2019-07-26] MEDS: HEPARIN NA (PORCINE) 5,000 UNITS/ML 1ML VIAL SQ SCH ×3 (06:12→22:08)
[2019-07-26] MEDS: predniSONE 1 MG TABLET (FP) PEG SCH (06:12)
--- NOTE | 2019-07-26 08:22 | PN ---
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 The patient at baseline is awake but has been noted to be more lethargic over the last several days. Today it was noted by the snf that the patient had a witnessed 2 minute long seizure. Vitals at the time were HR 75, BP 117/77, temp <95, saturation of 95% on room air. Prior to this seizure, the staff did not know when his previous one was, however notes from this hospital note a seizure in December. Staff stated that all medications were administered regularly without any missed doses, no new medications were prescribed, no changes in diet (all feeds through G tube), no sick contacts. Patient was sent to the ED for further evaluation. Spoken with nurse Watson for history ([phone]) - Current Medication List Current Medications: Active Medications Acetaminophen (Ofirmev Injection -) 1,000 mg IVPB Q6H PRN PRN Reason: PAIN OR FEVER Last Admin: 07/25/19 22:59 Dose: 1,000 mg Al Hydroxide/Mg Hydroxide (Mylanta Oral Suspension -) 30 ml PO TID PRN PRN Reason: INDIGESTION Budesonide (Pulmicort 0.5 Mg Nebulizer -) 1 amp NEB RBID HAYLEE Last Admin: 07/25/19 20:42 Dose: 1 amp Calcium Carbonate/Cholecalciferol (Os-Alex 500+D -) 1 tab PO BID HAYLEE Last Admin: 07/25/19 22:30 Dose: 1 tab Heparin Sodium (Porcine) (Heparin -) 5,000 unit SQ TID HAYLEE Last Admin: 07/26/19 06:12 Dose: 5,000 unit Ceftriaxone Sodium 1 gm/ (Dextrose) 50 mls @ 100 mls/hr IVPB DAILY HAYLEE; Protocol Last Admin: 07/25/19 09:53 Dose: 100 mls/hr Dextrose/Sodium Chloride (D5-Ns -) 1,000 mls @ 75 mls/hr IV ASDIR HAYLEE Last Admin: 07/25/19 06:17 Dose: 75 mls/hr Lactulose (Cephulac (Oral Use)) 20 gm PO BID HAYLEE Last Admin: 07/25/19 22:29 Dose: 20 gm Lamotrigine (Lamictal -) 50 mg PO BID [facility] Last Admin: 07/25/19 22:30 Dose: 50 mg Levetiracetam (Keppra Oral Solution -) 1,500 mg PO BID [facility] Last Admin: 07/25/19 22:29 Dose: 1,500 mg Prednisone (Deltasone -) 1 mg PEG AM [facility] Last Admin: 07/26/19 06:12 Dose: 1 mg Ranitidine HCl (Zantac -) 150 mg PO BID [facility] Last Admin: 07/25/19 22:30 Dose: 150 mg - Objective Vital Signs: Vital Signs Temperature 98.8 F 07/26/19 05:00 Pulse Rate 89 07/26/19 05:00 Respiratory Rate 18 07/26/19 05:00 Blood Pressure 114/67 07/26/19 05:00 O2 Sat by Pulse Oximetry (%) 98 07/25/19 21:00 Additional Findings/Remarks: GENERAL: supine on stretcher no reaction to voice or tactile stimuli. HEAD: Mild bradycephalia noted, R sided scar temporally noted. EYES: Complete corneal opacity noted bilaterally. No pupil visualized. EARS, NOSE, THROAT: Moist mucous membranes. NECK: No noted JVD LUNGS: Breath sounds difficult to appreciate secondary to snoring. No wheezing, crackles appreciated. HEART: Regular rate and rhythm, normal S1 and S2 without murmur, rub. ABDOMEN: Soft, nontender, not distended, normoactive bowel sounds, no guarding, no rebound, no masses. GT noted MUSCULOSKELETAL: Contracted upper and lower extremities. UPPER EXTREMITIES: 2+ pulses, warm, well-perfused. No cyanosis. No clubbing. RUE edematous compared to LUE. LOWER EXTREMITIES: 2+ pulses, warm, well-perfused. No calf tenderness. No peripheral edema. NEUROLOGICAL: Not awake, contracted extremities, spastic upper extremities, partially flaccid lower extremities, mild withdrawal and grimace to painful stimuli. SKIN: Warm, dry, normal turgor, no rashes or lesions noted, normal capillary refill. Problem List - Problems (1) Prophylactic measure Assessment/Plan: FEN D5-NS at 75cc/hr, can titrate down and remove once feeds restarted - continue to monitor electrolytes and replete as necessary - jevity at goal on [facility] feeds at [facility] DVT heparin sq Dispo maintain as inpatient full code discharge planning Code(s): Z29.9 - ENCOUNTER FOR PROPHYLACTIC MEASURES, UNSPECIFIED (2) LFTs abnormal Assessment/Plan: unclear retiology - RUQ U/S with fatty liver vs hepatocellular dz - hepatitis panel negative - continue to monitor Code(s): R94.5 - ABNORMAL RESULTS OF LIVER FUNCTION STUDIES (3) UTI (urinary tract infection) Assessment/Plan: UA positive c/w ceftriaxone UCX with ESBL-ID following isolation precautions Code(s): N39.0 - URINARY TRACT INFECTION, SITE NOT SPECIFIED (4) Cerebral palsy Assessment/Plan: supportive care PT eval Code(s): G80.9 - CEREBRAL PALSY, UNSPECIFIED (5) Seizure Assessment/Plan: leveteracitam (pending) and lamotrigine 1.8 (low) Continue leveteracitam 1500 mg BID via GT increase lamotrigine 50 mg BID via GT appreciate neurology consultation (6) CHENTE (acute kidney injury) Assessment/Plan: Cr increased to 1.5 from baseline of .7 yesterday-hydrated overnight and back to .8 Code(s): N17.9 - ACUTE KIDNEY FAILURE, UNSPECIFIED (7) Edema of upper extremity Assessment/Plan: edema to RUE compared to left Venous doppler pending elevation of arm, no IV placed Code(s): R60.0 - LOCALIZED EDEMA Visit type - Emergency Visit Emergency Visit: Yes ED Registration Date: 07/23/19 Care time: The patient presented to the Emergency Department on the above date and was hospitalized for further evaluation of their emergent condition. - New Patient This patient is new to me today: No - Critical Care Critical Care patient: No - Discharge Referral Referred to [facility] Med P.C.: No
[2019-07-26] MEDS: BUDESONIDE 0.5 MG/2 ML INH SUSP VIAL NEB SCH ×2 (08:25→20:15)
[2019-07-26 08:28] LABS: BASO % 0.1 % (0-2.0); EOS % 1.5 % (0-4.5); HEMATOCRIT 42.6 % (35.4-49); HEMOGLOBIN 14.1 GM/dL (11.7-16.9); LYMPH % 9.9 % (8-40); MCH 30.1 pg (25.7-33.7); MCHC 33.1 g/dl (32.0-35.9); MEAN CELL VOLUME 90.8 fl (80-96); MEAN PLT VOLUME 13.9 fl (7.5-11.1); MONO % 6.3 % (3.8-10.2); NEUT % 82.2 % (42.8-82.8); PLATELET COUNT 64 K/MM3 (134-434); RBC 4.69 M/mm3 (4.00-5.60); RDW 14.4 % (11.9-15.9); WHITE BLOOD COUNT 15.3 K/mm3 (4.0-10.0)
[2019-07-26] MEDS ORDERED: cefTRIAXone SODIUM 1 GM VIAL ONE (09:02)
[2019-07-26 09:03] LABS: ALBUMIN 2.6 g/dl (3.4-5.0); BILIRUBIN,TOTAL 0.3 mg/dL (0.2-1); BLOOD UREA NITROGEN 15.9 mg/dL (7-18); CREATININE 0.8 mg/dL (0.55-1.3); MAGNESIUM 2.1 mg/dL (1.8-2.4); TOT PROT 5.9 g/dl (6.4-8.2)
[2019-07-26] MEDS ORDERED: DEXTROSE 5%-WATER - 50 ML IVPB ONE (09:03)
[2019-07-26] MEDS ORDERED: RANITIDINE HCL 150 MG TABLET (FP) PO SCH (09:31)
[2019-07-26] MEDS ORDERED: RANITIDINE HCL 150 MG TABLET (FP) NR SCH (09:35)
[2019-07-26] MEDS ORDERED: LACTULOSE 20 GM/30 ML UDC (FOR ORAL USE ONLY) GT SCH (09:35)
[2019-07-26] MEDS ORDERED: MAG HYDROX/AL HYDROX/SIMETH 30 ML UNIT-DOSE CUP GT PRN (09:35)
[2019-07-26] MEDS ORDERED: PT OWN MED DRAWER 7, Y5N ONE ×2 (10:12→10:28)
[2019-07-26] MEDS: CEFTRIAXONE 1 GM in DEXTROSE 5%-WATER - 50 ML IVPB SCH (10:26)
[2019-07-26] MEDS ORDERED: levETIRAcetam 500 MG/5 ML ORAL SOLUTION (UNIT-DOSE CUPS) GT SCH ×2 (11:07→11:30)
[2019-07-26] MEDS ORDERED: CALCIUM 500MG/VIT-D 200 UNITS COMBO TABLET (FP) GT SCH (11:08)
[2019-07-26] MEDS: CALCIUM 500MG/VIT-D 200 UNITS COMBO TABLET (FP) PO SCH (11:52)
[2019-07-26] MEDS: levETIRAcetam 500 MG/5 ML ORAL SOLUTION (UNIT-DOSE CUPS) PO SCH (11:52)
[2019-07-26] MEDS: DEXTROSE 5%-NORMAL SALINE 1,000 ML IV SCH (11:52)
[2019-07-26 11:54] LABS: ANISOCYTOSIS 2+; MACROCYTOSIS 0; PLATELET ESTIMATE DECREASED; TEAR DROP CELLS 1+
[2019-07-26] MEDS: lamoTRIgine 25 MG TABLET PO SCH (12:19)
--- NOTE | 2019-07-26 14:24 | PN ---
Progress Note (short form) - Note Progress Note: NEUROLOGY PROGRESS: Events reviewed and discussed with RN this afternoon. Lamictal level noted at 1.8 mg/L. No further seizure activity noted on leveteracitam 1500 mg Q12 and increased lamictal 50 mg q12H via GT. Urine culture + > 100,000 ESBL and on IV Ceftriaxone. WBC 21.5 -> 12.5K. AST 78-> 424; ALT 122-> 161; Alk P 130-> 170 NEURO: Resting comfortably and groans with fine touch. More vocalizations today. Follows no commands. + glabella, snout, suck Resists eye opening. Spastic L arm hemiparesis. Hyperreflexic L > R. Feels pinch in all fours with groan. Impression: R cerebral dysfunction (R ICH) Seizures Worsened by Toxic Metabolic Encephalopathy (urosepsis, ? Worsening transaminitis) Suggest: Continue antibiotics and hydration Continue leveteracitam 1500 mg Q12 and lamictal 50 mg q12 Check GGTP and ammonia levels Hepatology consult to evaluate transaminitis Thank you very much, Jordan Butler MD
[2019-07-26] MEDS ORDERED: SODIUM CHLORIDE 1,000 ML IV SCH (16:45)
--- NOTE | 2019-07-26 17:36 | HOSP ---
Subjective - Review of Symptoms Gastrointestinal: Yes: Vomiting (bilious emesis approx 200cc) Physical Examination Vital Signs: Vital Signs Temperature 97.8 F 07/26/19 13:32 Pulse Rate 94 H 07/26/19 13:32 Respiratory Rate 20 07/26/19 13:32 Blood Pressure 115/81 07/26/19 13:32 O2 Sat by Pulse Oximetry (%) 98 07/26/19 09:00 Gastrointestinal: Yes: Normal Bowel Sounds, Soft, Vomiting, Other (GT noted) Labs: CBC, BMP 07/26/19 06:50 07/26/19 06:50 Hospitalist Encounter Assessment: 200cc biluous vomitus when turned in bed AXR ordered TF to be held, no residual noted rectal exam done and negative for occult blood protonix IV x 1 given if continued vomiting or findings on AXR, with consult GI
[2019-07-26] MEDS: PANTOPRAZOLE SODIUM 40 MG VIAL IVPUSH SCH (18:21)
[2019-07-26] MEDS: levETIRAcetam 500 MG/5 ML INJECTION VIAL IVPB SCH (22:08)
[2019-07-26] MEDS: SODIUM CHLORIDE 1,000 ML IV SCH (23:07)
[2019-07-27] MEDS: SODIUM CHLORIDE 1,000 ML IV SCH (04:38)
[2019-07-27] MEDS: DEXTROSE 5%-NORMAL SALINE 1,000 ML IV SCH (04:41)
[2019-07-27] MEDS: HEPARIN NA (PORCINE) 5,000 UNITS/ML 1ML VIAL SQ SCH ×3 (06:04→22:24)
[2019-07-27] MEDS: BUDESONIDE 0.5 MG/2 ML INH SUSP VIAL NEB SCH ×2 (08:01→20:36)
[2019-07-27 08:04] LABS: BASO % 0.2 % (0-2.0); EOS % 0.3 % (0-4.5); HEMATOCRIT 37.9 % (35.4-49); HEMOGLOBIN 12.6 GM/dL (11.7-16.9); LYMPH % 12.3 % (8-40); MCH 29.9 pg (25.7-33.7); MCHC 33.1 g/dl (32.0-35.9); MEAN CELL VOLUME 90.4 fl (80-96); MEAN PLT VOLUME 12.2 fl (7.5-11.1); MONO % 7.2 % (3.8-10.2); PLATELET COUNT 62 K/MM3 (134-434); RBC 4.19 M/mm3 (4.00-5.60); RDW 14.1 % (11.9-15.9); WHITE BLOOD COUNT 15.2 K/mm3 (4.0-10.0)
[2019-07-27 08:52] LABS: ALBUMIN 2.4 g/dl (3.4-5.0); BILIRUBIN,TOTAL 0.4 mg/dL (0.2-1); CALCIUM 9.2 mg/dL (8.5-10.1); CREATININE 0.6 mg/dL (0.55-1.3); MAGNESIUM 1.6 mg/dL (1.8-2.4); TOT PROT 5.4 g/dl (6.4-8.2)
[2019-07-27] MEDS ORDERED: DEXTROSE 5%-WATER - 50 ML IVPB ONE (09:11)
[2019-07-27] MEDS ORDERED: cefTRIAXone SODIUM 1 GM VIAL ONE (09:11)
[2019-07-27] MEDS: PANTOPRAZOLE SODIUM 40 MG VIAL IVPUSH SCH (09:53)
[2019-07-27] MEDS: CEFTRIAXONE 1 GM in DEXTROSE 5%-WATER - 50 ML IVPB SCH (09:54)
[2019-07-27 10:26] LABS: ANISOCYTOSIS 0; MACROCYTOSIS 0; PLATELET ESTIMATE DECREASED
[2019-07-27] MEDS: levETIRAcetam 500 MG/5 ML INJECTION VIAL IVPB SCH ×2 (10:47→22:24)
--- NOTE | 2019-07-27 12:14 | PN ---
Physical Exam: Jordan Emerson is a 39 year old male with a past medical history of cerebral palsy (secondary to intracranial hemorrhage), profound mental retardation, non- verbal at baseline, adrenal insufficiency, seizure disorder. The patient at baseline is awake but has been noted to be more lethargic over the last several days. Today it was noted by the snf that the patient had a witnessed 2 minute long seizure. Vitals at the time were HR 75, BP 117/77, temp <95, saturation of 95% on room air. Prior to this seizure, the staff did not know when his previous one was, however notes from this hospital note a seizure in December. Staff stated that all medications were administered regularly without any missed doses, no new medications were prescribed, no changes in diet (all feeds through G tube), no sick contacts. Patient was sent to the ED for further evaluation. Spoken with nurse Watson for history ([phone]) SUBJECTIVE: Patient seen and examined OBJECTIVE: Vital Signs Period Temp Pulse Resp BP Sys/Vences Pulse Ox Last 24 Hr 97.3 F-98.7 F 68-95 18-20 115-142/67-90 96 GENERAL: supine on stretcher no reaction to voice or tactile stimuli. HEAD: Mild bradycephalia noted, R sided scar temporally noted. EYES: Complete corneal opacity noted bilaterally. No pupil visualized. EARS, NOSE, THROAT: Moist mucous membranes. NECK: No noted JVD LUNGS: Breath sounds difficult to appreciate secondary to snoring. No wheezing, crackles appreciated. HEART: Regular rate and rhythm, normal S1 and S2 without murmur, rub. ABDOMEN: Soft, nontender, not distended, normoactive bowel sounds, no guarding, no rebound, no masses. GT noted MUSCULOSKELETAL: Contracted upper and lower extremities. UPPER EXTREMITIES: 2+ pulses, warm, well-perfused. No cyanosis. No clubbing. RUE edematous compared to LUE. LOWER EXTREMITIES: 2+ pulses, warm, well-perfused. No calf tenderness. No peripheral edema. NEUROLOGICAL: Not awake, contracted extremities, spastic upper extremities, partially flaccid lower extremities, mild withdrawal and grimace to painful stimuli. SKIN: Warm, dry, normal turgor, no rashes or lesions noted, normal capillary refill. Laboratory Results - last 24 hr 07/26/19 07/27/19 07/27/19 06:50 06:30 06:30 WBC 15.2 H RBC 4.19 Hgb 12.6 Hct 37.9 MCV 90.4 MCH 29.9 MCHC 33.1 RDW 14.1 Plt Count 62 L MPV 12.2 H D Absolute Neuts (auto) 12.2 H Neutrophils % 80.0 Neutrophils % (Manual) 68.0 86.8 H D Band Neutrophils % 16.0 0.0 Lymphocytes % 12.3 D Lymphocytes % (Manual) 1.0 L D 6.1 L D Monocytes % 7.2 Monocytes % (Manual) 5 6 Eosinophils % 0.3 Eosinophils % (Manual) 0.0 0.0 Basophils % 0.2 Basophils % (Manual) 0.0 0.0 Myelocytes % (Man) 0 0 Promyelocytes % (Man) 0 0 Blast Cells % (Manual) 0 0 Nucleated RBC % 0 Metamyelocytes 8 H D 0 D Hypochromia 0 0 Platelet Estimate Decreased Decreased Platelet Comment Present Present Polychromasia 1+ 0 Poikilocytosis 1+ 0 Anisocytosis 2+ 0 Microcytosis 1+ 0 Macrocytosis 0 0 Spherocytes 1+ Tear Drop Cells 1+ Acanthocytes (Spur) 1+ Sodium 141 Potassium 4.0 Chloride 106 Carbon Dioxide 29 Anion Gap 6 L BUN 17.0 Creatinine 0.6 Est GFR (CKD-EPI)AfAm 144.74 Est GFR (CKD-EPI)NonAf 124.89 Random Glucose 61 L Calcium 9.2 Magnesium 1.6 L Total Bilirubin 0.4 AST 294 H ALT 136 H Alkaline Phosphatase 179 H Ammonia Total Protein 5.4 L Albumin 2.4 L 07/27/19 06:30 WBC RBC Hgb Hct MCV MCH MCHC RDW Plt Count MPV Absolute Neuts (auto) Neutrophils % Neutrophils % (Manual) Band Neutrophils % Lymphocytes % Lymphocytes % (Manual) Monocytes % Monocytes % (Manual) Eosinophils % Eosinophils % (Manual) Basophils % Basophils % (Manual) Myelocytes % (Man) Promyelocytes % (Man) Blast Cells % (Manual) Nucleated RBC % Metamyelocytes Hypochromia Platelet Estimate Platelet Comment Polychromasia Poikilocytosis Anisocytosis Microcytosis Macrocytosis Spherocytes Tear Drop Cells Acanthocytes (Spur) Sodium Potassium Chloride Carbon Dioxide Anion Gap BUN Creatinine Est GFR (CKD-EPI)AfAm Est GFR (CKD-EPI)NonAf Random Glucose Calcium Magnesium Total Bilirubin AST ALT Alkaline Phosphatase Ammonia 20.30 Total Protein Albumin Active Medications Generic Name Dose Route Start Last Admin Trade Name Paulina PRN Reason Stop Dose Admin Acetaminophen 1,000 mg 07/24/19 18:00 07/25/19 22:59 Ofirmev Injection - IVPB 1,000 mg Q6H PRN Administration PAIN OR FEVER Budesonide 1 amp 07/24/19 08:00 07/27/19 08:01 Pulmicort 0.5 Mg Nebulizer - NEB 1 amp RBID HAYLEE Administration Heparin Sodium (Porcine) 5,000 unit 07/24/19 07:06 07/27/19 06:04 Heparin - SQ 5,000 unit TID HAYLEE Administration Ceftriaxone Sodium 1 gm/ 50 mls @ 100 mls/hr 07/24/19 22:30 07/27/19 09:54 Dextrose IVPB 100 mls/hr DAILY HAYLEE Administration Protocol Sodium Chloride 1,000 mls @ 75 mls/hr 07/26/19 19:22 07/27/19 04:38 Normal Saline - IV 07/27/19 16:32 75 mls/hr ASDIR HAYLEE Administration Lamotrigine 50 mg 07/25/19 17:36 07/26/19 12:19 Lamictal - PO 50 mg BID HAYLEE Administration Levetiracetam 1,500 mg 07/26/19 22:00 07/27/19 10:47 Keppra Injection - IVPB 1,500 mg BID HAYLEE Administration Pantoprazole Sodium 40 mg 07/26/19 16:45 07/27/19 09:53 Protonix Iv IVPUSH 40 mg DAILY HAYLEE Administration ASSESSMENT/PLAN: Problem List - Problems (1) Prophylactic measure Assessment/Plan: FEN D5-NS at 75cc/hr, can titrate down and remove once feeds restarted - continue to monitor electrolytes and replete as necessary - jevity at goal on [employer] feeds at [facility] DVT heparin sq Dispo maintain as inpatient full code discharge planning Code(s): Z29.9 - ENCOUNTER FOR PROPHYLACTIC MEASURES, UNSPECIFIED (2) LFTs abnormal Assessment/Plan: unclear retiology - RUQ U/S with fatty liver vs hepatocellular dz - hepatitis panel negative - continue to monitor Code(s): R94.5 - ABNORMAL RESULTS OF LIVER FUNCTION STUDIES (3) UTI (urinary tract infection) Assessment/Plan: UA positive c/w ceftriaxone UCX with ESBL-ID following isolation precautions Code(s): N39.0 - URINARY TRACT INFECTION, SITE NOT SPECIFIED (4) Cerebral palsy Assessment/Plan: supportive care PT eval Code(s): G80.9 - CEREBRAL PALSY, UNSPECIFIED (5) Seizure Assessment/Plan: leveteracitam (pending) and lamotrigine 1.8 (low) Continue leveteracitam 1500 mg BID IV Hold lamotrigine 50 mg BID until Pt can handle feedings. No new IV meds recommended Per Neuro-Dr. Butler. (6) CHENTE (acute kidney injury) Assessment/Plan: Cr increased to 1.5 from baseline of .7 yesterday-hydrated overnight and back to .8 Code(s): N17.9 - ACUTE KIDNEY FAILURE, UNSPECIFIED (7) Edema of upper extremity Assessment/Plan: edema to RUE compared to left Venous doppler pending elevation of arm, no IV placed Code(s): R60.0 - LOCALIZED EDEMA Visit type - Emergency Visit Emergency Visit: Yes ED Registration Date: 07/23/19 Care time: The patient presented to the Emergency Department on the above date and was hospitalized for further evaluation of their emergent condition. - New Patient This patient is new to me today: Yes Date on this admission: 07/28/19 - Critical Care Critical Care patient: No - Discharge Referral Referred to [facility] Med P.C.: No
--- NOTE | 2019-07-27 13:54 | CONSULT ---
Consult Consult Specialty:: General Surgery Reason for Consultation:: abdominal distension - History of Present Illness Chief Complaint: non-communicative History of Present Illness: 39 yo male PMH cerebral palsy (secondary to intracranial hemorrhage), profound mental retardation, non-verbal at baseline, adrenal insufficiency, seizure disorder. The patient at baseline is awake but has been noted to be more lethargic over the last several days. Today it was noted by the [facility] that the patient had a witnessed 2 minute long seizure. Vitals at the time were HR 75, BP 117/77, temp <95, saturation of 95% on room air. Prior to this seizure , the staff did not know when his previous one was, however notes from this hospital note a seizure in December. Staff stated that all medications were administered regularly without any missed doses, no new medications were prescribed, no changes in diet (all feeds through G tube), no sick contacts. Patient was sent to the ED for further evaluation. - History Source History Provided By: Medical Record, Caregiver Limitations to Obtaining History: No Limitations - Past Medical History Additional Medical History: 1. CP. 2. MR. 3. Chronic Respiratory Failure. 4. Chronic Hypothermia. 5. h/o Adrenal Insufficiency. 6. Recurrent HCAP's. 7. PEG Tube Dysfunction. 8. h/o epidural hematoma. 9. chronic encephalomalacia - Alcohol/Substance Use Hx Alcohol Use: No History of Substance Use: reports: None - Smoking History Smoking history: Never smoked Have you smoked in the past 12 months: No Aproximately how many cigarettes per day: 0 - Social History Usual Living Arrangement: Group Home ADL: Support Services History of Recent Travel: No Home Medications - Allergies Allergies/Adverse Reactions: Allergies Allergy/AdvReac Type Severity Reaction Status Date / Time No Known Allergies Allergy Verified 07/23/19 18:52 - Home Medications Home Medications: Ambulatory Orders Budesonide [Pulmicort 0.5 mg Nebulizer -] 1 amp IN BID 07/24/19 Calcium Citrate/Vitamin D3 [Calcium Cit 315-Vit D3 250 Cpt] 1 tab PEG BID Diazepam Rectal Gel [Diastat Rectal Gel -] 10 mg [place] PRN 07/24/19 Lactulose 30 ml PEG BID 07/24/19 Lamotrigine [Lamictal] 25 mg PEG BID 07/24/19 Mag Carb/Aluminum Hydrox/Algin [Gaviscon Extra Strength Liquid] 2 tbs PEG TID Nut.tx.pulm.disord.soy,Lacfree [Pulmocare] 4 can PEG AM 07/24/19 Ranitidine HCl [Zantac] 150 mg PEG BID 07/24/19 levETIRAcetam [levETIRAcetam ORAL SUSPENSION] 15 ml PEG BID 07/24/19 predniSONE [Deltasone -] 1 mg PEG AM 07/24/19 Review of Systems - Review of Systems Constitutional: denies: Chills, Fever Eyes: denies: Blind Spots, Recent Change in Vision HENT: denies: Difficult Swallowing, Throat Pain Neck: denies: Swollen Glands, Tenderness Cardiovascular: denies: Chest Pain, Palpitations Respiratory: denies: Cough, SOB Gastrointestinal: reports: Abdominal Pain, Vomiting. denies: Bloating, Constipation Breasts: reports: No Symptoms Reported. denies: Pain, Skin Changes Musculoskeletal: denies: Joint Pain, Muscle Pain Integumentary: denies: Incision, Pallor Neurological: denies: Seizure, Syncope Endocrine: denies: Unexplained Weight Gain, Unexplained Weight Loss Hematology/Lymphatic: denies: Easily Bruised, Excessive Bleeding Psychiatric: denies: Anxiety, Depression, Suicidal Physical Exam Vital Signs: Vital Signs Temperature 97.3 F L 07/27/19 10:00 Pulse Rate 68 07/27/19 10:00 Respiratory Rate 20 07/27/19 10:00 Blood Pressure 136/84 07/27/19 10:00 O2 Sat by Pulse Oximetry (%) 96 07/26/19 21:00 Constitutional: Yes: No Distress, Calm, Thin Eyes: Yes: Conjunctiva Clear, EOM Intact HENT: Yes: Atraumatic, Drooling, Other (microcepahlic) Neck: Yes: Supple, Trachea Midline Cardiovascular: Yes: Regular Rate and Rhythm, S1, S2 Respiratory: Yes: Regular, CTA Bilaterally Gastrointestinal: Yes: Normal Bowel Sounds, Soft, Other (PEG) ...Rectal Exam: Yes: Sphincter Tone Normal. No: Hemorrhoids/External, Hemorrhoids/Internal, Induration, Inflammation, Mass Renal/: No: CVA Tenderness - Left, CVA Tenderness - Right Breast(s): No: Dimpling, Gynecomastia, Mass Musculoskeletal: No: Muscle Pain, Muscle Weakness Extremities: No: Cool, Cyanosis Edema: No Peripheral Pulses WNL: Yes Integumentary: No: Tenting, Venous Stasis Changes Neurological: Yes: Alert, Other (non-verbal, profounfly developmetally delayed) . No: Oriented Psychiatric: Yes: Alert. No: Oriented Labs: CBC, BMP 07/27/19 06:30 07/27/19 06:30 Imaging - Results X-ray: Report Reviewed, Image Reviewed (mostly colonic distension with distal stool) Cat Scan: Pending Problem List - Problems (1) Colon atonic Assessment/Plan: 39 yo male MMP with colonic atony functional CT scan of Abdomen and Pelvis with PO contrast suppository daily correct electrolyes, send lactic acid will follow Thank you for the opportunity to participate in the care of this patient. Code(s): K59.8 - OTHER SPECIFIED FUNCTIONAL INTESTINAL DISORDERS (2) Constipation by delayed colonic transit Code(s): K59.01 - SLOW TRANSIT CONSTIPATION (3) CHENTE (acute kidney injury) Code(s): N17.9 - ACUTE KIDNEY FAILURE, UNSPECIFIED (4) Cerebral palsy Code(s): G80.9 - CEREBRAL PALSY, UNSPECIFIED (5) Seizure Code(s): R56.9 - UNSPECIFIED CONVULSIONS (6) UTI (urinary tract infection) Code(s): N39.0 - URINARY TRACT INFECTION, SITE NOT SPECIFIED
[2019-07-28] MEDS: HEPARIN NA (PORCINE) 5,000 UNITS/ML 1ML VIAL SQ SCH ×3 (06:57→22:40)
[2019-07-28] MEDS: BUDESONIDE 0.5 MG/2 ML INH SUSP VIAL NEB SCH ×2 (07:38→19:50)
[2019-07-28] MEDS ORDERED: PT OWN MED DRAWER 7, Y5N ONE ×2 (07:46→23:04)
[2019-07-28 08:15] LABS: BASO % 0.3 % (0-2.0); EOS % 1.1 % (0-4.5); HEMATOCRIT 36.1 % (35.4-49); HEMOGLOBIN 12.2 GM/dL (11.7-16.9); LYMPH % 17.7 % (8-40); MCH 30.3 pg (25.7-33.7); MCHC 33.7 g/dl (32.0-35.9); MEAN CELL VOLUME 89.9 fl (80-96); MEAN PLT VOLUME 11.7 fl (7.5-11.1); NEUT % 69.9 % (42.8-82.8); PLATELET COUNT 61 K/MM3 (134-434); RBC 4.01 M/mm3 (4.00-5.60); RDW 13.7 % (11.9-15.9); WHITE BLOOD COUNT 9.8 K/mm3 (4.0-10.0)
[2019-07-28 08:29] LABS: ALBUMIN 2.4 g/dl (3.4-5.0); BILIRUBIN,TOTAL 0.5 mg/dL (0.2-1); BLOOD UREA NITROGEN 15.7 mg/dL (7-18); CALCIUM 8.8 mg/dL (8.5-10.1); CREATININE 0.4 mg/dL (0.55-1.3); MAGNESIUM 1.7 mg/dL (1.8-2.4); POTASSIUM 3.7 mmol/L (3.5-5.1); TOT PROT 5.3 g/dl (6.4-8.2)
--- NOTE | 2019-07-28 09:26 | PN ---
Progress Note, Physician Chief Complaint: Non verbal, grimaces on exam History of Present Illness: Jordan Emerson is a 39 year old male with a past medical history of cerebral palsy (secondary to intracranial hemorrhage), profound mental retardation, non- verbal at baseline, adrenal insufficiency, seizure disorder. The patient at baseline is awake but has been noted to be more lethargic over the last several days. Today it was noted by the [facility] that the patient had a witnessed 2 minute long seizure. Vitals at the time were HR 75, BP 117/77, temp <95, saturation of 95% on room air. Prior to this seizure, the staff did not know when his previous one was, however notes from this hospital note a seizure in December. Staff stated that all medications were administered regularly without any missed doses, no new medications were prescribed, no changes in diet (all feeds through G tube), no sick contacts. Patient was sent to the ED for further evaluation. Spoken with nurse Watson for history ([phone]) - Current Medication List Current Medications: Active Medications Acetaminophen (Ofirmev Injection -) 1,000 mg IVPB Q6H PRN PRN Reason: PAIN OR FEVER Last Admin: 07/25/19 22:59 Dose: 1,000 mg Budesonide (Pulmicort 0.5 Mg Nebulizer -) 1 amp NEB RBID [facility] Last Admin: 07/28/19 07:38 Dose: 1 amp Heparin Sodium (Porcine) (Heparin -) 5,000 unit SQ TID HAYLEE Last Admin: 07/28/19 06:57 Dose: 5,000 unit Dextrose/Sodium Chloride (D5-Ns -) 1,000 mls @ 42 mls/hr IV ASDIR HAYLEE Lamotrigine (Lamictal -) 50 mg PO BID [facility] Last Admin: 07/26/19 12:19 Dose: 50 mg Levetiracetam (Keppra Injection -) 1,500 mg IVPB BID [facility] Last Admin: 07/27/19 22:24 Dose: 1,500 mg Pantoprazole Sodium (Protonix Iv) 40 mg IVPUSH DAILY [facility] Last Admin: 07/27/19 09:53 Dose: 40 mg - Objective Vital Signs: Vital Signs Temperature 97.7 F 07/28/19 07:01 Pulse Rate 76 07/28/19 07:01 Respiratory Rate 20 07/28/19 07:01 Blood Pressure 137/79 09/15/19 07:01 O2 Sat by Pulse Oximetry (%) 97 07/27/19 21:00 Additional Findings/Remarks: GENERAL: supine on stretcher no reaction to voice or tactile stimuli. HEAD: Mild bradycephalia noted, R sided scar temporally noted. EYES: Complete corneal opacity noted bilaterally. No pupil visualized. EARS, NOSE, THROAT: Moist mucous membranes. NECK: No noted JVD LUNGS: Breath sounds difficult to appreciate secondary to snoring. No wheezing, crackles appreciated. HEART: Regular rate and rhythm, normal S1 and S2 without murmur, rub. ABDOMEN: Soft, nontender, mildly distended, normoactive bowel sounds, grimaces on palpation. GT noted MUSCULOSKELETAL: Contracted upper and lower extremities. UPPER EXTREMITIES: 2+ pulses, warm, well-perfused. No cyanosis. No clubbing. RUE edematous compared to LUE. LOWER EXTREMITIES: 2+ pulses, warm, well-perfused. No calf tenderness. No peripheral edema. NEUROLOGICAL: Not awake, contracted extremities, spastic upper extremities, partially flaccid lower extremities, mild withdrawal and grimace to painful stimuli. SKIN: Warm, dry, normal turgor, no rashes or lesions noted, normal capillary refill. Labs: CBC, BMP 07/28/19 06:30 07/28/19 06:30 - ....Imaging X-ray: Report Reviewed (AXR with pattern of loops of dilated bowel and cecal enlargement consistent with ileus), Image Reviewed Problem List - Problems (1) Prophylactic measure Assessment/Plan: FEN D5-NS at 42cc continue to monitor electrolytes and replete as necessary TF on hold DVT heparin sq Dispo maintain as inpatient full code discharge planning Code(s): Z29.9 - ENCOUNTER FOR PROPHYLACTIC MEASURES, UNSPECIFIED (2) LFTs abnormal Assessment/Plan: unclear etiology - RUQ U/S with fatty liver vs hepatocellular dz - hepatitis panel negative - continue to monitor Code(s): R94.5 - ABNORMAL RESULTS OF LIVER FUNCTION STUDIES (3) UTI (urinary tract infection) Assessment/Plan: UA positive c/w ceftriaxone UCX with ESBL ID consultation requested isolation precautions Code(s): N39.0 - URINARY TRACT INFECTION, SITE NOT SPECIFIED (4) Cerebral palsy Assessment/Plan: supportive care PT eval Code(s): G80.9 - CEREBRAL PALSY, UNSPECIFIED (5) Seizure Assessment/Plan: leveteracitam (pending) and lamotrigine 1.8 (low) Continue leveteracitam 1500 mg IV lamotrigine 50 mg BID on hold (no need for additional anti- epileptic agent ) appreciate neurology consultation (6) CHENTE (acute kidney injury) Assessment/Plan: Resolved with hydration Code(s): N17.9 - ACUTE KIDNEY FAILURE, UNSPECIFIED (7) Edema of upper extremity Assessment/Plan: edema to RUE compared to left Venous doppler negative for DVT elevation of arm Code(s): R60.0 - LOCALIZED EDEMA (8) Ileus Assessment/Plan: AXR with pattern of loops of dilated bowel and cecal enlargement sugical consult by Dr Huddleston appreciated Maintain ARJUN abd/pelvic CT with oral contrast to r/o SBO rectal exam with no stool in vault ducolax [facility] Code(s): K56.7 - ILEUS, UNSPECIFIED Visit type - Emergency Visit Emergency Visit: Yes ED Registration Date: 07/23/19 Care time: The patient presented to the Emergency Department on the above date and was hospitalized for further evaluation of their emergent condition. - New Patient This patient is new to me today: No - Critical Care Critical Care patient: No - Discharge Referral Referred to [facility] Med P.C.: No
[2019-07-28] MEDS ORDERED: BISACODYL 10 MG SUPP.RECT RC ONE (10:00)
[2019-07-28] MEDS: levETIRAcetam 500 MG/5 ML INJECTION VIAL IVPB SCH ×2 (10:05→22:40)
[2019-07-28] MEDS: PANTOPRAZOLE SODIUM 40 MG VIAL IVPUSH SCH (10:05)
[2019-07-28] MEDS: lamoTRIgine 25 MG TABLET PO SCH ×2 (10:06→22:40)
[2019-07-28] MEDS: DEXTROSE 5%-NORMAL SALINE 1,000 ML IV SCH (10:06)
[2019-07-28 11:41] LABS: ANISOCYTOSIS 1+; MACROCYTOSIS 0; PLATELET ESTIMATE DECREASED; TARGET CELLS 1+; TEAR DROP CELLS 1+; TOXIC GRANULATION 2+
[2019-07-28] MEDS ORDERED: BISACODYL 10 MG SUPP.RECT PR PRN (12:15)
[2019-07-28] MEDS ORDERED: CEFTRIAXONE 1 GM in DEXTROSE 5%-WATER - 50 ML IVPB SCH (16:00)
[2019-07-28] MEDS ORDERED: cefTRIAXone SODIUM 1 GM VIAL ONE (16:25)
[2019-07-28] MEDS ORDERED: DEXTROSE 5%-WATER - 50 ML IVPB ONE (16:25)
--- NOTE | 2019-07-28 21:21 | CON.ID ---
Consult - History of Present Illness History of Present Illness: Asked to evaluate this 39 y.o. male with PMH of Cerebral Palsy, mental retardation, ICH, encephalomalacia, adrenal insufficiency, seizure d.o., chronic resp failure, and recurrent PNAs initially admitted after a witnessed seizure and hypothermia. Pt was noted to have a UTI and Ceftriaxone was initiated. Neurology currently following for seizure management. During hospitalization pt had worsening leukocytosis up to 21K. Pt noted to develop abdominal distension and vomiting with AXR on 07/26/2019 revealing possible ileus vs. distal obstruction. Currently pt without leukocytosis, afebrile, awaiting CTAP. Urine culture +ESBL E. coli. At bedside pt is afebrile, without distress, nonverbal at baseline. - History Source History Provided By: Medical Record Limitations to Obtaining History: No Limitations - Past Medical History FABRICATION WELDER: Yes: Seizure, Other (cerebral palsy, mental retardation, s/p ICH) Endocrine: Yes: Other (adrenal insufficiency) Additional Medical History: 1. CP. 2. MR. 3. Chronic Respiratory Failure. 4. Chronic Hypothermia. 5. h/o Adrenal Insufficiency. 6. Recurrent HCAP's. 7. PEG Tube Dysfunction. 8. h/o epidural hematoma. 9. chronic encephalomalacia - Alcohol/Substance Use Hx Alcohol Use: No History of Substance Use: reports: None - Smoking History Smoking history: Never smoked Have you smoked in the past 12 months: No Aproximately how many cigarettes per day: 0 - Social History Usual Living Arrangement: Prison ADL: Support Services History of Recent Travel: No Home Medications - Allergies Allergies/Adverse Reactions: Allergies Allergy/AdvReac Type Severity Reaction Status Date / Time No Known Allergies Allergy Verified 07/23/19 18:52 - Home Medications Home Medications: Ambulatory Orders Budesonide [Pulmicort 0.5 mg Nebulizer -] 1 amp IN BID 07/24/19 Calcium Citrate/Vitamin D3 [Calcium Cit 315-Vit D3 250 Cpt] 1 tab PEG BID Diazepam Rectal Gel [Diastat Rectal Gel -] 10 mg [place] PRN 07/24/19 Lactulose 30 ml PEG BID 07/24/19 Lamotrigine [Lamictal] 25 mg PEG BID 07/24/19 Mag Carb/Aluminum Hydrox/Algin [Gaviscon Extra Strength Liquid] 2 tbs PEG TID Nut.tx.pulm.disord.soy,Lacfree [Pulmocare] 4 can PEG AM 07/24/19 Ranitidine HCl [Zantac] 150 mg PEG BID 07/24/19 levETIRAcetam [levETIRAcetam ORAL SUSPENSION] 15 ml PEG BID 07/24/19 predniSONE [Deltasone -] 1 mg PEG AM 07/24/19 Review of Systems Unable to obtain ROS, reason: mental retardation Physical Exam Vital Signs: Vital Signs Temperature 98.3 F 07/28/19 19:09 Pulse Rate 78 07/28/19 19:09 Respiratory Rate 20 07/28/19 19:09 Blood Pressure 144/60 07/28/19 19:09 O2 Sat by Pulse Oximetry (%) 98 07/28/19 09:00 Constitutional: Yes: No Distress, Calm Eyes: Yes: Conjunctiva Clear HENT: Yes: Atraumatic Neck: Yes: Supple Cardiovascular: Yes: Regular Rate and Rhythm Respiratory: Yes: CTA Bilaterally Gastrointestinal: Yes: Soft, Hypoactive Bowel Sounds Renal/: Yes: [place] Present Musculoskeletal: Yes: Other (contracted extremities) Integumentary: Yes: WNL Neurological: Yes: Other (noncommunicative at baseline) Labs: CBC, BMP 07/28/19 06:30 07/28/19 06:30 Microbiology 07/23/19 19:32 Blood - Peripheral Venous Blood Culture - Final NO GROWTH AFTER 5 DAYS INCUBATION 07/23/19 19:32 Blood - Peripheral Venous Blood Culture - Final NO GROWTH AFTER 5 DAYS INCUBATION 07/23/19 21:59 Urine - Urine Clean Catch Urine Culture - Final Escherichia Coli Esbl [employer] [facility] - Results Chest X-ray: Report Reviewed X-ray: Report Reviewed Cat Scan: Pending Problem List - Problems (1) CHENTE (acute kidney injury) Code(s): N17.9 - ACUTE KIDNEY FAILURE, UNSPECIFIED (2) Cerebral palsy Code(s): G80.9 - CEREBRAL PALSY, UNSPECIFIED (3) Constipation by delayed colonic transit Code(s): K59.01 - SLOW TRANSIT CONSTIPATION (4) Ileus Code(s): K56.7 - ILEUS, UNSPECIFIED (5) Seizure Code(s): R56.9 - UNSPECIFIED CONVULSIONS (6) UTI (urinary tract infection) Code(s): N39.0 - URINARY TRACT INFECTION, SITE NOT SPECIFIED Assessment/Plan Asked to evaluate this 39 y.o. male with PMH of Cerebral Palsy, mental retardation, ICH, encephalomalacia, adrenal insufficiency, seizure d.o., chronic resp failure, and recurrent PNAs initially admitted after a witnessed seizure and hypothermia. Developed worsening leukocytosis, low grade fever, abdominal distension. Currently on Ceftriaxone for UTI. ESBL + E. coli UTI Ileus vs. SBO Seizures Cerebral palsy mental retardation Hx of ICH Adrenal insufficiency Chronic respiratory failure -- d/c Ceftriaxone -- In light of recent seizures will avoid Carbapenems -- Start Ceftazidime-avibactam and Flagyl IV -- CTAP pending, if no evidence of obstruction will consider d/c Flagyl -- continue monitor vitals/cbc -- seizure/aspiration precautions Will follow Thank you
[2019-07-28] MEDS: CEFTAZIDIME/AVIBACTAM 2.5 GM in DEXTROSE 5%-WATER - 250 ML IVPB SCH (23:01)
[2019-07-29] MEDS: ACETAMINOPHEN 1000 MG/100 ML VIAL (NON FORMULARY) IVPB PRN (00:21)
[2019-07-29] MEDS ORDERED: CEFTAZIDIME/AVIBACTAM 2.5 GM in DEXTROSE 5%-WATER - 250 ML IVPB SCH ×2 (06:19→06:23)
[2019-07-29] MEDS: HEPARIN NA (PORCINE) 5,000 UNITS/ML 1ML VIAL SQ SCH ×3 (06:26→21:15)
[2019-07-29] MEDS: CEFTAZIDIME/AVIBACTAM 2.5 GM in DEXTROSE 5%-WATER - 250 ML IVPB SCH ×4 (07:06→11:46)
[2019-07-29 07:30] LABS: BASO % 0.1 % (0-2.0); EOS % 2.1 % (0-4.5); HEMATOCRIT 33.5 % (35.4-49); HEMOGLOBIN 11.5 GM/dL (11.7-16.9); LYMPH % 24.4 % (8-40); MCH 30.4 pg (25.7-33.7); MCHC 34.3 g/dl (32.0-35.9); MEAN CELL VOLUME 88.7 fl (80-96); MEAN PLT VOLUME 11.5 fl (7.5-11.1); MONO % 21.3 % (3.8-10.2); NEUT % 52.1 % (42.8-82.8); PLATELET COUNT 71 K/MM3 (134-434); RBC 3.78 M/mm3 (4.00-5.60); RDW 13.4 % (11.9-15.9); WHITE BLOOD COUNT 6.6 K/mm3 (4.0-10.0)
--- NOTE | 2019-07-29 07:59 | PN ---
Progress Note, Physician Chief Complaint: Non verbal, grimaces on abdominal exam History of Present Illness: Jordan Emerson is a 39 year old male with a past medical history of cerebral palsy (secondary to intracranial hemorrhage), profound mental retardation, non- verbal at baseline, adrenal insufficiency, seizure disorder. The patient at baseline is awake but has been noted to be more lethargic over the last several days. Today it was noted by the retirement that the patient had a witnessed 2 minute long seizure. Vitals at the time were HR 75, BP 117/77, temp <95, saturation of 95% on room air. Prior to this seizure, the staff did not know when his previous one was, however notes from this hospital note a seizure in December. Staff stated that all medications were administered regularly without any missed doses, no new medications were prescribed, no changes in diet (all feeds through G tube), no sick contacts. Patient was sent to the ED for further evaluation. Spoken with nurse Watson for history ([phone]) - Current Medication List Current Medications: Active Medications Acetaminophen (Ofirmev Injection -) 1,000 mg IVPB Q6H PRN PRN Reason: PAIN OR FEVER Last Admin: 07/29/19 00:21 Dose: 1,000 mg Bisacodyl (Dulcolax Suppository -) 10 mg RC DAILY [facility] Budesonide (Pulmicort 0.5 Mg Nebulizer -) 1 amp NEB RBID [facility] Last Admin: 07/28/19 19:50 Dose: 1 amp Heparin Sodium (Porcine) (Heparin -) 5,000 unit SQ TID [facility] Last Admin: 07/29/19 06:26 Dose: 5,000 unit Dextrose/Sodium Chloride (D5-Ns -) 1,000 mls @ 42 mls/hr IV ASDIR [facility] Last Admin: 07/28/19 10:06 Dose: 42 mls/hr Metronidazole (Flagyl 500mg Premixed Ivpb -) 500 mg in 100 mls @ 100 mls/hr IVPB TID [facility] Last Admin: 07/29/19 06:25 Dose: 100 mls/hr Ceftazidime/Avibactam 2.5 gm/ (Dextrose) 250 mls @ 125 mls/hr IVPB Q8H-IV [facility]; Protocol Last Admin: 07/29/19 07:26 Dose: Not Given Lamotrigine (Lamictal -) 50 mg PO BID [facility] Last Admin: 07/28/19 22:40 Dose: 50 mg Levetiracetam (Keppra Injection -) 1,500 mg IVPB BID [facility] Last Admin: 07/28/19 22:40 Dose: 1,500 mg Pantoprazole Sodium (Protonix Iv) 40 mg IVPUSH DAILY [facility] Last Admin: 07/28/19 10:05 Dose: 40 mg - Objective Vital Signs: Vital Signs Temperature 98.5 F 07/29/19 06:00 Pulse Rate 71 07/29/19 06:00 Respiratory Rate 18 07/29/19 06:00 Blood Pressure 108/50 L 07/29/19 06:00 O2 Sat by Pulse Oximetry (%) 97 07/28/19 21:00 Additional Findings/Remarks: GENERAL: supine on stretcher no reaction to voice or tactile stimuli. HEAD: Mild bradycephalia noted, R sided scar temporally noted. EYES: Complete corneal opacity noted bilaterally. No pupil visualized. EARS, NOSE, THROAT: Moist mucous membranes. NECK: No noted JVD LUNGS: Breath sounds difficult to appreciate secondary to snoring. No wheezing, crackles appreciated. HEART: Regular rate and rhythm, normal S1 and S2 without murmur, rub. ABDOMEN: Soft, grimaces to palpation, mildly distended, normoactive bowel sounds , grimaces on palpation. GT noted MUSCULOSKELETAL: Contracted upper and lower extremities. UPPER EXTREMITIES: 2+ pulses, warm, well-perfused. No cyanosis. No clubbing. RUE edematous compared to LUE. LOWER EXTREMITIES: 2+ pulses, warm, well-perfused. No calf tenderness. No peripheral edema. NEUROLOGICAL: Not awake, contracted extremities, spastic upper extremities, partially flaccid lower extremities, mild withdrawal and grimace to painful stimuli. SKIN: Warm, dry, normal turgor, no rashes or lesions noted, normal capillary refill. Labs: CBC, BMP 07/29/19 06:19 - ....Imaging Chest X-ray: Image Reviewed X-ray: Image Reviewed, Other (AXR with pattern of loops of dilated bowel and cecal enlargement consistent with ileus) Cat Scan: Image Reviewed (CT A/P: mild inflammatory standing about the parcreas suggestive of pancreatatis) Problem List - Problems (1) LFTs abnormal Assessment/Plan: unclear etiology - RUQ U/S with fatty liver vs hepatocellular dz - hepatitis panel negative - continue to monitor Code(s): R94.5 - ABNORMAL RESULTS OF LIVER FUNCTION STUDIES (2) UTI (urinary tract infection) Assessment/Plan: UCX with ESBL ID consultation appreciated isolation precautions d/c Ceftriaxone -- In light of recent seizures will avoid Carbapenems -- Start Ceftazidime-avibactam and Flagyl IV Code(s): N39.0 - URINARY TRACT INFECTION, SITE NOT SPECIFIED (3) Cerebral palsy Assessment/Plan: supportive care PT eval Code(s): G80.9 - CEREBRAL PALSY, UNSPECIFIED (4) Seizure Assessment/Plan: leveteracitam (pending) and lamotrigine 1.8 (low) Continue leveteracitam 1500 mg IV lamotrigine 50 mg BID on hold (no need for additional anti- epileptic agent as Dr Butler)) appreciate neurology consultation (5) CHENTE (acute kidney injury) Assessment/Plan: Resolved with hydration Code(s): N17.9 - ACUTE KIDNEY FAILURE, UNSPECIFIED (6) Edema of upper extremity Assessment/Plan: edema to RUE compared to left Venous doppler negative for DVT elevation of arm Code(s): R60.0 - LOCALIZED EDEMA (7) Ileus Assessment/Plan: AXR with pattern of loops of dilated bowel and cecal enlargement CT A/P: mild inflammatory standing about the parcreas suggestive of pancreatatis , no SBO surgical consult by Dr Huddleston appreciated Maintain NPO rectal exam with no stool in vault however large amount of stool seen ducolax and if no response then enema Code(s): K56.7 - ILEUS, UNSPECIFIED (8) Prophylactic measure Assessment/Plan: FEN Clinimix started continue to monitor electrolytes and replete as necessary TF on hold DVT heparin sq Dispo maintain as inpatient full code discharge planning Code(s): Z29.9 - ENCOUNTER FOR PROPHYLACTIC MEASURES, UNSPECIFIED (9) Acute pancreatitis Assessment/Plan: CT A/P: mild inflammatory standing about the parcreas suggestive of pancreatatis , no SBO Lip 765 will cont to trend Maintain NPO will review medication for contributing factors clinimix started while NPO Code(s): K85.90 - ACUTE PANCREATITIS WITHOUT NECROSIS OR INFECTION, UNSP Visit type - Emergency Visit Emergency Visit: Yes ED Registration Date: 07/23/19 Care time: The patient presented to the Emergency Department on the above date and was hospitalized for further evaluation of their emergent condition. - New Patient This patient is new to me today: No - Critical Care Critical Care patient: No - Discharge Referral Referred to [facility] Med P.C.: No
[2019-07-29 08:16] LABS: ALBUMIN 2.2 g/dl (3.4-5.0); BILIRUBIN,TOTAL 0.4 mg/dL (0.2-1); BLOOD UREA NITROGEN 9.3 mg/dL (7-18); CALCIUM 8.4 mg/dL (8.5-10.1); CREATININE 0.4 mg/dL (0.55-1.3); MAGNESIUM 1.9 mg/dL (1.8-2.4); POTASSIUM 3.1 mmol/L (3.5-5.1); TOT PROT 5.1 g/dl (6.4-8.2)
[2019-07-29] MEDS: levETIRAcetam 500 MG/5 ML INJECTION VIAL IVPB SCH ×2 (10:58→21:15)
[2019-07-29] MEDS: PANTOPRAZOLE SODIUM 40 MG VIAL IVPUSH SCH (11:01)
[2019-07-29] MEDS: BISACODYL 10 MG SUPP.RECT RC SCH (11:02)
[2019-07-29] MEDS: DEXTROSE 5%-NORMAL SALINE 1,000 ML IV SCH (11:02)
[2019-07-29 11:22] LABS: ANISOCYTOSIS 1+; MACROCYTOSIS 0; PLATELET ESTIMATE DECREASED
[2019-07-29] MEDS: lamoTRIgine 25 MG TABLET PO SCH ×2 (11:34→21:15)
--- NOTE | 2019-07-29 11:46 | PN ---
Progress Note, Physician History of Present Illness: stable no new issues - Current Medication List Current Medications: Active Medications Acetaminophen (Ofirmev Injection -) 1,000 mg IVPB Q6H PRN PRN Reason: PAIN OR FEVER Last Admin: 07/29/19 00:21 Dose: 1,000 mg Bisacodyl (Dulcolax Suppository -) 10 mg RC DAILY [facility] Last Admin: 07/29/19 11:02 Dose: 10 mg Budesonide (Pulmicort 0.5 Mg Nebulizer -) 1 amp NEB RBID [facility] Last Admin: 07/28/19 19:50 Dose: 1 amp Heparin Sodium (Porcine) (Heparin -) 5,000 unit SQ TID [facility] Last Admin: 07/29/19 06:26 Dose: 5,000 unit Dextrose/Sodium Chloride (D5-Ns -) 1,000 mls @ 42 mls/hr IV ASDIR [facility] Last Admin: 07/29/19 11:02 Dose: Not Given Metronidazole (Flagyl 500mg Premixed Ivpb -) 500 mg in 100 mls @ 100 mls/hr IVPB TID [facility] Last Admin: 07/29/19 06:25 Dose: 100 mls/hr Ceftazidime/Avibactam 2.5 gm/ (Dextrose) 250 mls @ 125 mls/hr IVPB Q8H-IV [facility]; Protocol Last Admin: 07/29/19 07:26 Dose: Not Given Lamotrigine (Lamictal -) 50 mg PO BID [facility] Last Admin: 07/29/19 11:34 Dose: Not Given Levetiracetam (Keppra Injection -) 1,500 mg IVPB BID [facility] Last Admin: 07/29/19 10:58 Dose: 1,500 mg Pantoprazole Sodium (Protonix Iv) 40 mg IVPUSH DAILY [facility] Last Admin: 07/29/19 11:01 Dose: 40 mg - Objective Vital Signs: Vital Signs Temperature 97.9 F 07/29/19 10:00 Pulse Rate 75 07/29/19 10:00 Respiratory Rate 20 07/29/19 10:00 Blood Pressure 129/70 07/29/19 10:00 O2 Sat by Pulse Oximetry (%) 97 07/28/19 21:00 Constitutional: Yes: No Distress, Calm Cardiovascular: Yes: S1, S2 Respiratory: Yes: Regular, CTA Bilaterally Gastrointestinal: Yes: Soft, Distention, Other Musculoskeletal: Yes: WNL Extremities: Yes: Other Neurological: Yes: Other Psychiatric: Yes: Other Labs: CBC, BMP 07/29/19 06:19 07/29/19 06:19 Assessment/Plan Problem List - Problems (1) CHENTE (acute kidney injury) Code(s): N17.9 - ACUTE KIDNEY FAILURE, UNSPECIFIED (2) Cerebral palsy Code(s): G80.9 - CEREBRAL PALSY, UNSPECIFIED (3) Constipation by delayed colonic transit Code(s): K59.01 - SLOW TRANSIT CONSTIPATION (4) Ileus Code(s): K56.7 - ILEUS, UNSPECIFIED (5) Seizure Code(s): R56.9 - UNSPECIFIED CONVULSIONS (6) UTI (urinary tract infection) Code(s): N39.0 - URINARY TRACT INFECTION, SITE NOT SPECIFIED 7 pancreatitis plan will change abx to meropenam rest continue current mgmt close watch
[2019-07-29] MEDS ORDERED: MEROPENEM 1 GM VIAL (RESTRICTED TO ID) IVPB ONE (13:14)
[2019-07-29] MEDS ORDERED: DEXTROSE 5%-WATER 100 ML IVPB ONE (13:15)
[2019-07-29] MEDS: MEROPENEM 1 GM in DEXTROSE 5%-WATER 100 ML IVPB SCH ×2 (13:23→20:24)
--- NOTE | 2019-07-29 13:51 | PN ---
Progress Note, Physician Chief Complaint: abdominal distension History of Present Illness: 39 yo male PMH cerebral palsy (secondary to intracranial hemorrhage), profound mental retardation, non-verbal at baseline, adrenal insufficiency, seizure disorder. CT scan show some pancreatitis and fecal impaction - Current Medication List Current Medications: Active Medications Acetaminophen (Ofirmev Injection -) 1,000 mg IVPB Q6H PRN PRN Reason: PAIN OR FEVER Last Admin: 07/29/19 00:21 Dose: 1,000 mg Bisacodyl (Dulcolax Suppository -) 10 mg RC DAILY [facility] Last Admin: 07/29/19 11:02 Dose: 10 mg Budesonide (Pulmicort 0.5 Mg Nebulizer -) 1 amp NEB RBID [facility] Last Admin: 07/28/19 19:50 Dose: 1 amp Heparin Sodium (Porcine) (Heparin -) 5,000 unit SQ TID [facility] Last Admin: 07/29/19 06:26 Dose: 5,000 unit Dextrose/Sodium Chloride (D5-Ns -) 1,000 mls @ 42 mls/hr IV ASDIR [facility] Last Admin: 07/29/19 11:02 Dose: Not Given Metronidazole (Flagyl 500mg Premixed Ivpb -) 500 mg in 100 mls @ 100 mls/hr IVPB TID [facility] Last Admin: 07/29/19 06:25 Dose: 100 mls/hr Meropenem 1 gm/ Dextrose 100 mls @ 200 mls/hr IVPB Q8H-IV [facility] Last Admin: 07/29/19 13:23 Dose: 200 mls/hr Lamotrigine (Lamictal -) 50 mg PO BID [facility] Last Admin: 07/29/19 11:34 Dose: Not Given Levetiracetam (Keppra Injection -) 1,500 mg IVPB BID [facility] Last Admin: 07/29/19 10:58 Dose: 1,500 mg Pantoprazole Sodium (Protonix Iv) 40 mg IVPUSH DAILY [facility] Last Admin: 07/29/19 11:01 Dose: 40 mg - Objective Vital Signs: Vital Signs Temperature 97.9 F 07/29/19 10:00 Pulse Rate 75 07/29/19 10:00 Respiratory Rate 20 07/29/19 10:00 Blood Pressure 129/70 07/29/19 10:00 O2 Sat by Pulse Oximetry (%) 97 07/28/19 21:00 Vital Signs Period Temp Pulse Resp BP Sys/Vences Pulse Ox Last 24 Hr 97.8 F-98.5 F 71-81 18-20 108-144/50-91 97 Constitutional: Yes: Well Nourished, No Distress, Calm Eyes: Yes: Conjunctiva Clear, EOM Intact HENT: Yes: Atraumatic, Drooling, Other (microcephalic). No: Normocephalic Neck: Yes: Supple, Trachea Midline Cardiovascular: Yes: Regular Rate and Rhythm, S1, S2 Respiratory: Yes: Regular, CTA Bilaterally Gastrointestinal: Yes: Soft, Distention, Hypoactive Bowel Sounds, Tenderness, Epigastrium (minimal). No: Normal Bowel Sounds, Hepatomegaly, Hernia, Melena, Splenomegaly Genitourinary: No: CVA Tenderness - Left, CVA Tenderness - Right Breast(s): No: Dimpling, Mass, Skin Changes Musculoskeletal: No: Muscle Pain, Muscle Weakness Extremities: No: Cool, Cyanosis Edema: No Peripheral Pulses WNL: Yes Peripheral Pulses: Left Radial: 2+, Right Radial: 2+, Left Doralis Pedis: 2+, Right Dorsalis Pedis: 2+, Left Femoral: 2+, Right Femoral: 2+ Integumentary: No: Jaundice, Rash Neurological: Yes: Alert. No: Oriented Psychiatric: No: Oriented Labs: CBC, BMP 07/29/19 06:19 07/29/19 06:19 Problem List - Problems (1) Colon atonic Assessment/Plan: 39 yo male MMP with colonic atony functional, pancreatitis seen on CT scan. Lipase >700, no clear gallstone disease. Recovering from non-stone related pancreatitis there is no indication for surgical intervention NPO and IVF is the mainstay of management of pancreatitis serial labs suppository daily consider enemas and manual disimpaction correct electrolyes GI evaluation recall as needed. Code(s): K59.8 - OTHER SPECIFIED FUNCTIONAL INTESTINAL DISORDERS (2) Constipation by delayed colonic transit Code(s): K59.01 - SLOW TRANSIT CONSTIPATION (3) CHENTE (acute kidney injury) Code(s): N17.9 - ACUTE KIDNEY FAILURE, UNSPECIFIED (4) Cerebral palsy Code(s): G80.9 - CEREBRAL PALSY, UNSPECIFIED (5) Seizure Code(s): R56.9 - UNSPECIFIED CONVULSIONS (6) UTI (urinary tract infection) Code(s): N39.0 - URINARY TRACT INFECTION, SITE NOT SPECIFIED
[2019-07-29] MEDS ORDERED: AMINO ACIDS 4.25%/D5W 1,000 ML IV SCH (14:45)
[2019-07-29] MEDS: KCL 10 MEQ IVPB 10 MEQ/100 ML INFUS.BAG IVPB SCH ×2 (15:31→17:36)
[2019-07-29] MEDS: BUDESONIDE 0.5 MG/2 ML INH SUSP VIAL NEB SCH ×2 (20:23→20:35)
[2019-07-29] MEDS: POTASSIUM CHLORIDE 40 MEQ in AMINO ACIDS 4.25%/D5W 1,000 ML IVPB SCH (23:13)
[2019-07-30] MEDS: MEROPENEM 1 GM in DEXTROSE 5%-WATER 100 ML IVPB SCH ×3 (01:07→18:34)
[2019-07-30] MEDS: HEPARIN NA (PORCINE) 5,000 UNITS/ML 1ML VIAL SQ SCH ×3 (05:17→22:40)
[2019-07-30] MEDS: BUDESONIDE 0.5 MG/2 ML INH SUSP VIAL NEB SCH ×2 (08:00→20:40)
[2019-07-30] MEDS ORDERED: DEXTROSE 5%-WATER 100 ML IVPB ONE ×2 (09:03→18:17)
[2019-07-30] MEDS ORDERED: MEROPENEM 1 GM VIAL (RESTRICTED TO ID) IVPB ONE ×2 (09:03→18:16)
--- NOTE | 2019-07-30 10:34 | PN ---
Progress Note, Physician History of Present Illness: Patient is a 39 year old male with a past medical history of cerebral palsy ( secondary to intracranial hemorrhage), profound mental retardation, non-verbal at baseline, adrenal insufficiency, seizure disorder. The patient at baseline is awake but has been noted to be more lethargic over the last several days at the facility. He was noted by the intermediate that the patient had a witnessed 2 minute long seizure. Patient found to have esbl in urine, with a repeat urine showing no growth. his lipase is 793 and he is being treated for pancreatitis and is therefore NPO. He is also noted to have fecal impaction on imaging. He is being followed by surgery and ID. Awaiting today's labs. including lipase. start on IVF. he has been NPO since (on clinimax). - Current Medication List Current Medications: Active Medications Acetaminophen (Ofirmev Injection -) 1,000 mg IVPB Q6H PRN PRN Reason: PAIN OR FEVER Last Admin: 07/29/19 00:21 Dose: 1,000 mg Bisacodyl (Dulcolax Suppository -) 10 mg RC DAILY [facility] Last Admin: 07/29/19 11:02 Dose: 10 mg Budesonide (Pulmicort 0.5 Mg Nebulizer -) 1 amp NEB RBID [facility] Last Admin: 07/30/19 08:00 Dose: Not Given Heparin Sodium (Porcine) (Heparin -) 5,000 unit SQ TID [facility] Last Admin: 07/30/19 05:17 Dose: 5,000 unit Metronidazole (Flagyl 500mg Premixed Ivpb -) 500 mg in 100 mls @ 100 mls/hr IVPB TID [facility] Last Admin: 07/30/19 05:18 Dose: 100 mls/hr Meropenem 1 gm/ Dextrose 100 mls @ 200 mls/hr IVPB Q8H-IV [facility] Last Admin: 07/30/19 01:07 Dose: 200 mls/hr Potassium Chloride 40 meq/ (Amino Acids) 1,020 mls @ 42 mls/hr IVPB Q24H [facility] Last Admin: 07/29/19 23:13 Dose: 42 mls/hr Lamotrigine (Lamictal -) 50 mg PO BID [facility] Last Admin: 07/29/19 21:15 Dose: Not Given Levetiracetam (Keppra Injection -) 1,500 mg IVPB BID [facility] Last Admin: 07/29/19 21:15 Dose: 1,500 mg Pantoprazole Sodium (Protonix Iv) 40 mg IVPUSH DAILY [facility] Last Admin: 07/29/19 11:01 Dose: 40 mg - Objective Vital Signs: Vital Signs Temperature 98.3 F 07/30/19 07:09 Pulse Rate 73 07/30/19 07:09 Respiratory Rate 20 07/30/19 07:09 Blood Pressure 117/69 07/30/19 07:09 O2 Sat by Pulse Oximetry (%) 97 07/29/19 21:00 Constitutional: Yes: No Distress, Calm Eyes: Yes: WNL HENT: Yes: WNL Neck: Yes: Supple Cardiovascular: Yes: Regular Rate and Rhythm Respiratory: Yes: CTA Bilaterally Gastrointestinal: Yes: Distention, Other (+ bowel sounds.) ...Rectal Exam: Yes: Deferred Musculoskeletal: Yes: Muscle Weakness Extremities: Yes: Deformity Edema: No Wound/Incision: Yes: Other Labs: CBC, BMP 07/29/19 06:19 07/29/19 06:19 Problem List - Problems (1) Acute pancreatitis Assessment/Plan: CT A/P: mild inflammatory standing about the pancreas suggestive of pancreatatis , no SBO Lip 800s Maintain NPO On clinimix Code(s): K85.90 - ACUTE PANCREATITIS WITHOUT NECROSIS OR INFECTION, UNSP (2) CHENTE (acute kidney injury) Assessment/Plan: Resolved with hydration. monitor daily. Code(s): N17.9 - ACUTE KIDNEY FAILURE, UNSPECIFIED (3) Cerebral palsy Assessment/Plan: continue supportive care Code(s): G80.9 - CEREBRAL PALSY, UNSPECIFIED (4) Colon atonic Assessment/Plan: AXR with pattern of loops of dilated bowel and cecal enlargement CT A/P: mild inflammatory standing about the parcreas suggestive of pancreatatis , no SBO surgical consult by Dr Huddleston appreciated Maintain NPO rectal exam with no stool in vault however large amount of stool seen ducolax and if no response then enema GI consulted Code(s): K59.8 - OTHER SPECIFIED FUNCTIONAL INTESTINAL DISORDERS (5) Constipation by delayed colonic transit Assessment/Plan: daily enema and monitor Code(s): K59.01 - SLOW TRANSIT CONSTIPATION (6) Edema of upper extremity Code(s): R60.0 - LOCALIZED EDEMA (7) Ileus Code(s): K56.7 - ILEUS, UNSPECIFIED (8) LFTs abnormal Assessment/Plan: trending down, monitor daily Code(s): R94.5 - ABNORMAL RESULTS OF LIVER FUNCTION STUDIES (9) Seizure Assessment/Plan: leveteracitam levels slightly elevated and lamotrigine 1.8 (low) Continue leveteracitam 1500 mg IV lamotrigine 50 mg BID on hold (no need for additional anti-epileptic agent as Dr Butler)) appreciate neurology consultation Code(s): R56.9 - UNSPECIFIED CONVULSIONS (10) UTI (urinary tract infection) Assessment/Plan: UCX with ESBL ID consultation appreciated isolation precautions d/c Ceftriaxone -- In light of recent seizures will avoid Carbapenems -- Start Ceftazidime-avibactam and Flagyl Code(s): N39.0 - URINARY TRACT INFECTION, SITE NOT SPECIFIED (11) Prophylactic measure Assessment/Plan: Clinimix started continue to monitor electrolytes and replete as necessary TF on hold DVT heparin sq Dispo maintain as inpatient full code Code(s): Z29.9 - ENCOUNTER FOR PROPHYLACTIC MEASURES, UNSPECIFIED Visit type - Emergency Visit Emergency Visit: Yes ED Registration Date: 07/23/19 Care time: The patient presented to the Emergency Department on the above date and was hospitalized for further evaluation of their emergent condition. - New Patient This patient is new to me today: Yes Date on this admission: 07/30/19 - Critical Care Critical Care patient: No - Discharge Referral Referred to [facility] Med P.C.: No
[2019-07-30] MEDS: PANTOPRAZOLE SODIUM 40 MG VIAL IVPUSH SCH (10:58)
[2019-07-30] MEDS: levETIRAcetam 500 MG/5 ML INJECTION VIAL IVPB SCH ×2 (10:58→22:39)
[2019-07-30] MEDS: lamoTRIgine 25 MG TABLET PO SCH ×2 (10:59→22:42)
[2019-07-30] MEDS: BISACODYL 10 MG SUPP.RECT RC SCH (10:59)
--- NOTE | 2019-07-30 11:52 | PN ---
Progress Note, Physician History of Present Illness: patient stable no new issues - Current Medication List Current Medications: Active Medications Acetaminophen (Ofirmev Injection -) 1,000 mg IVPB Q6H PRN PRN Reason: PAIN OR FEVER Last Admin: 07/29/19 00:21 Dose: 1,000 mg Bisacodyl (Dulcolax Suppository -) 10 mg RC DAILY [facility] Last Admin: 07/30/19 10:59 Dose: 10 mg Budesonide (Pulmicort 0.5 Mg Nebulizer -) 1 amp NEB RBID [facility] Last Admin: 07/30/19 08:00 Dose: Not Given Heparin Sodium (Porcine) (Heparin -) 5,000 unit SQ TID [facility] Last Admin: 07/30/19 05:17 Dose: 5,000 unit Metronidazole (Flagyl 500mg Premixed Ivpb -) 500 mg in 100 mls @ 100 mls/hr IVPB TID [facility] Last Admin: 07/30/19 05:18 Dose: 100 mls/hr Meropenem 1 gm/ Dextrose 100 mls @ 200 mls/hr IVPB Q8H-IV [facility] Last Admin: 07/30/19 10:59 Dose: 200 mls/hr Potassium Chloride 40 meq/ (Amino Acids) 1,020 mls @ 42 mls/hr IVPB Q24H [facility] Last Admin: 07/29/19 23:13 Dose: 42 mls/hr Sodium Chloride (Normal Saline -) 1,000 mls @ 100 mls/hr IV ASDIR [facility] Lamotrigine (Lamictal -) 50 mg PO BID [facility] Last Admin: 07/30/19 10:59 Dose: Not Given Levetiracetam (Keppra Injection -) 1,500 mg IVPB BID [facility] Last Admin: 07/30/19 10:58 Dose: 1,500 mg Pantoprazole Sodium (Protonix Iv) 40 mg IVPUSH DAILY [facility] Last Admin: 07/30/19 10:58 Dose: 40 mg - Objective Vital Signs: Vital Signs Temperature 98.3 F 07/30/19 07:09 Pulse Rate 73 07/30/19 07:09 Respiratory Rate 20 07/30/19 07:09 Blood Pressure 117/69 07/30/19 07:09 O2 Sat by Pulse Oximetry (%) 97 07/29/19 21:00 Constitutional: Yes: No Distress, Calm Cardiovascular: Yes: S1, S2 Gastrointestinal: Yes: Normal Bowel Sounds, Soft Musculoskeletal: Yes: WNL Extremities: Yes: WNL Neurological: Yes: Alert, Other Psychiatric: Yes: Other Labs: CBC, BMP 07/29/19 06:19 07/29/19 06:19 Assessment/Plan Problem List - Problems (1) CHENTE (acute kidney injury) Code(s): N17.9 - ACUTE KIDNEY FAILURE, UNSPECIFIED (2) Cerebral palsy Code(s): G80.9 - CEREBRAL PALSY, UNSPECIFIED (3) Constipation by delayed colonic transit Code(s): K59.01 - SLOW TRANSIT CONSTIPATION (4) Ileus Code(s): K56.7 - ILEUS, UNSPECIFIED (5) Seizure Code(s): R56.9 - UNSPECIFIED CONVULSIONS (6) UTI (urinary tract infection) Code(s): N39.0 - URINARY TRACT INFECTION, SITE NOT SPECIFIED 7 pancreatitis plan meropenam monitor rest as per the team
[2019-07-30] MEDS: SODIUM CHLORIDE 1,000 ML IV SCH ×2 (12:12→22:42)
[2019-07-30 12:59] LABS: BASO % 0.4 % (0-2.0); EOS % 0.8 % (0-4.5); HEMOGLOBIN 11.6 GM/dL (11.7-16.9); LYMPH % 14.4 % (8-40); MEAN CELL VOLUME 88.1 fl (80-96); MEAN PLT VOLUME 10.4 fl (7.5-11.1); MONO % 15.7 % (3.8-10.2); NEUT % 68.7 % (42.8-82.8); PLATELET COUNT 129 K/MM3 (134-434); RBC 3.86 M/mm3 (4.00-5.60); RDW 13.1 % (11.9-15.9); WHITE BLOOD COUNT 11.1 K/mm3 (4.0-10.0)
[2019-07-30 13:36] LABS: ALBUMIN 2.3 g/dl (3.4-5.0); BILIRUBIN,TOTAL 0.4 mg/dL (0.2-1); BLOOD UREA NITROGEN 6.6 mg/dL (7-18); CALCIUM 8.3 mg/dL (8.5-10.1); CREATININE 0.5 mg/dL (0.55-1.3); MAGNESIUM 1.7 mg/dL (1.8-2.4); POTASSIUM 3.1 mmol/L (3.5-5.1); TOT PROT 5.6 g/dl (6.4-8.2)
[2019-07-30] MEDS ORDERED: MAGNESIUM SULF 50% (8.12 MEQ/2 ML-1 GM VIAL) IVPB ONE (15:29)
[2019-07-30] MEDS: KCL 10 MEQ IVPB 10 MEQ/100 ML INFUS.BAG IVPB SCH (16:14)
--- NOTE | 2019-07-30 17:35 | CON.GI ---
Consult Consult Specialty:: GI Referred by:: Hospitalist DIRECTOR CORPORATE Reason for Consultation:: Pancreatitis - History of Present Illness Chief Complaint: Patient non-verbal. History obtained from the chart History of Present Illness: 39 year old male with a past medical history of cerebral palsy (secondary to intracranial hemorrhage), profound mental retardation, non-verbal at baseline, adrenal insufficiency, seizure disorder admitted for increased lethargy. he was also noted to have a 2 minute long seizure. There was no vomiting described leading up to admission. An X-Ray was done on 07/26 secondary to vomiting? that revealed ? ileus. this led to a CT scan being performed that revealed a right breast mass, fecal impaction and some stranding around the pancrease. Lipase was noted 700-800 (ULN 393). Asked to evaluate for pancreatitis. LFTs have been elevated since admission. Unclear if there has been a recent change in his medication regimen. He is being treated with Abx. for a UTI. No vomiting today. Abdominal US 07/24 revealed course liver echogenicity, no gallstones and no dilated biliary tract. - Past Medical History DIRECTOR OF BUSINESS APPLICATIONS: Yes: Seizure, Other (cerebral palsy, mental retardation, s/p ICH) Endocrine: Yes: Other (adrenal insufficiency) Additional Medical History: 1. CP. 2. MR. 3. Chronic Respiratory Failure. 4. Chronic Hypothermia. 5. h/o Adrenal Insufficiency. 6. Recurrent HCAP's. 7. PEG Tube Dysfunction. 8. h/o epidural hematoma. 9. chronic encephalomalacia - Alcohol/Substance Use Hx Alcohol Use: No History of Substance Use: reports: None - Smoking History Smoking history: Never smoked Have you smoked in the past 12 months: No Aproximately how many cigarettes per day: 0 - Social History Usual Living Arrangement: Intermediate ADL: Support Services History of Recent Travel: No Home Medications - Allergies Allergies/Adverse Reactions: Allergies Allergy/AdvReac Type Severity Reaction Status Date / Time No Known Allergies Allergy Verified 07/23/19 18:52 - Home Medications Home Medications: Ambulatory Orders Budesonide [Pulmicort 0.5 mg Nebulizer -] 1 amp IN BID 07/24/19 Calcium Citrate/Vitamin D3 [Calcium Cit 315-Vit D3 250 Cpt] 1 tab PEG BID Diazepam Rectal Gel [Diastat Rectal Gel -] 10 mg DE PRN 07/24/19 Lactulose 30 ml PEG BID 07/24/19 Lamotrigine [Lamictal] 25 mg PEG BID 07/24/19 Mag Carb/Aluminum Hydrox/Algin [Gaviscon Extra Strength Liquid] 2 tbs PEG TID Nut.tx.pulm.disord.soy,Lacfree [Pulmocare] 4 can PEG AM 07/24/19 Ranitidine HCl [Zantac] 150 mg PEG BID 07/24/19 levETIRAcetam [levETIRAcetam ORAL SUSPENSION] 15 ml PEG BID 07/24/19 predniSONE [Deltasone -] 1 mg PEG AM 07/24/19 Family Disease History - Family Disease History Family History: Unable to Obtain Review of Systems Unable to obtain ROS, reason: Patient non verbal Physical Exam-GI Vital Signs: Vital Signs Temperature 98.4 F 07/30/19 14:50 Pulse Rate 86 07/30/19 14:50 Respiratory Rate 20 07/30/19 14:50 Blood Pressure 113/77 07/30/19 14:50 O2 Sat by Pulse Oximetry (%) 97 07/29/19 21:00 Constitutional: Yes: Calm Eyes: No: Sclera Icterus Cardiovascular: Yes: Regular Rate and Rhythm Respiratory: Yes: Diminished (at bases) Gastrointestinal Inspection: Yes: Scars (midline vertical upper abdominal scar, + 20Fr. G-Tube in upper abomen). No: Distention ...Auscultate: Yes: Normoactive Bowel Sounds ...Palpate: Yes: Other (Unable to ascertain if palpation elicited any tenderness as the patient is non verbal and had spontaneous movement both before and during my exam) ...Percussion: No: Tympanitic ...Rectal Exam: Yes: Other (Pasty stool in diaper and rectal vault. No fecal impaction amenable to manual disimpaction.) Extremities: Yes: Other (Contracted extremities) Edema: No Neurological: Yes: Other (Awake) Labs: CBC, BMP 07/30/19 12:27 07/30/19 12:27 Problem List - Problems (1) Elevated lipase Assessment/Plan: Unclear if true pancreatitis. Patient non verbal and abdominal exam unreliable Repeat CT scan of the abdomen with and without contrast (pancreatic protocol, no PO contrast required) No need to hold tube feeds from GI perspective. Suspect fecal impaction contributing to vomiting. Needs aggressive bowel regimen. Add MiraLAX 17g via G-tube BID More aggressive IV hydration for now. Increased IV fluids to 200cc/hr for 1 liter Code(s): R74.8 - ABNORMAL LEVELS OF OTHER SERUM ENZYMES (2) Abnormal liver function Assessment/Plan: Abnl LFTs: Improving ? medication induced, ? if component of rhabdo in setting of seizure activity Avoid hepatotoxic agents as feasible. I discontinued tylenol. Monitor LFTs Screening hepatitis A/B/C serologies Code(s): R94.5 - ABNORMAL RESULTS OF LIVER FUNCTION STUDIES
[2019-07-30] MEDS ORDERED: SODIUM CHLORIDE 1,000 ML IV SCH (17:45)
[2019-07-30] MEDS: POTASSIUM CHLORIDE 40 MEQ in AMINO ACIDS 4.25%/D5W 1,000 ML IVPB SCH (17:58)
[2019-07-30] MEDS: POLYETHYLENE GLYCOL 3350 119 GM BTL GT SCH (22:40)
[2019-07-30] MEDS ORDERED: PT OWN MED DRAWER 7, Y5N ONE (23:44)
[2019-07-31] MEDS ORDERED: PT OWN MED DRAWER 7, Y5N ONE ×3 (00:29→23:59)
[2019-07-31] MEDS ORDERED: DEXTROSE 5%-WATER 100 ML IVPB ONE ×3 (01:51→16:57)
[2019-07-31] MEDS ORDERED: MEROPENEM 1 GM VIAL (RESTRICTED TO ID) IVPB ONE ×3 (01:51→16:57)
[2019-07-31] MEDS: MEROPENEM 1 GM in DEXTROSE 5%-WATER 100 ML IVPB SCH ×3 (01:56→19:22)
[2019-07-31] MEDS: HEPARIN NA (PORCINE) 5,000 UNITS/ML 1ML VIAL SQ SCH ×3 (06:06→21:46)
[2019-07-31] MEDS: BUDESONIDE 0.5 MG/2 ML INH SUSP VIAL NEB SCH ×2 (07:35→20:49)
[2019-07-31 07:56] LABS: BASO % 0.3 % (0-2.0); EOS % 1.3 % (0-4.5); HEMATOCRIT 32.4 % (35.4-49); HEMOGLOBIN 11.1 GM/dL (11.7-16.9); LYMPH % 13.9 % (8-40); MCH 30.3 pg (25.7-33.7); MCHC 34.2 g/dl (32.0-35.9); MEAN CELL VOLUME 88.6 fl (80-96); MEAN PLT VOLUME 9.9 fl (7.5-11.1); MONO % 12.7 % (3.8-10.2); NEUT % 71.8 % (42.8-82.8); PLATELET COUNT 174 K/MM3 (134-434); RBC 3.66 M/mm3 (4.00-5.60); RDW 13.5 % (11.9-15.9); WHITE BLOOD COUNT 9.9 K/mm3 (4.0-10.0)
[2019-07-31 08:36] LABS: ALBUMIN 2.1 g/dl (3.4-5.0); BILIRUBIN,TOTAL 0.8 mg/dL (0.2-1); BLOOD UREA NITROGEN 7.8 mg/dL (7-18); CALCIUM 7.7 mg/dL (8.5-10.1); CREATININE 0.3 mg/dL (0.55-1.3); MAGNESIUM 2.1 mg/dL (1.8-2.4); POTASSIUM 3.6 mmol/L (3.5-5.1); TOT PROT 5.2 g/dl (6.4-8.2)
[2019-07-31 10:03] LABS: ANISOCYTOSIS 0; HELMET CELLS 0; HOWELL-JOLLY BODIES 0; MACROCYTOSIS 0; OVALOCYTE 0; PLATELET ESTIMATE NORMAL; ROULEAU 0; SICKELED CELLS 0; TARGET CELLS 0; TEAR DROP CELLS 0; TOXIC GRANULATION 0
--- NOTE | 2019-07-31 11:11 | PN ---
Progress Note, Physician History of Present Illness: stable no new issues afebrile - Current Medication List Current Medications: Active Medications Bisacodyl (Dulcolax Suppository -) 10 mg RC DAILY [facility] Last Admin: 07/30/19 10:59 Dose: 10 mg Budesonide (Pulmicort 0.5 Mg Nebulizer -) 1 amp NEB RBID [facility] Last Admin: 07/31/19 07:35 Dose: 1 amp Heparin Sodium (Porcine) (Heparin -) 5,000 unit SQ TID [facility] Last Admin: 07/31/19 06:06 Dose: 5,000 unit Metronidazole (Flagyl 500mg Premixed Ivpb -) 500 mg in 100 mls @ 100 mls/hr IVPB TID [facility] Last Admin: 07/31/19 06:06 Dose: 100 mls/hr Meropenem 1 gm/ Dextrose 100 mls @ 200 mls/hr IVPB Q8H-IV [facility] Last Admin: 07/31/19 01:56 Dose: 200 mls/hr Potassium Chloride 40 meq/ (Amino Acids) 1,020 mls @ 42 mls/hr IVPB Q24H [facility] Last Admin: 07/30/19 17:58 Dose: 42 mls/hr Sodium Chloride (Normal Saline -) 1,000 mls @ 100 mls/hr IV ASDIR [facility] Last Admin: 07/30/19 12:12 Dose: 100 mls/hr Sodium Chloride (Normal Saline -) 1,000 mls @ 150 mls/hr IV ASDIR [facility] Last Admin: 07/30/19 22:42 Dose: 150 mls/hr Lamotrigine (Lamictal -) 50 mg PO BID [facility] Last Admin: 07/30/19 10:59 Dose: Not Given Levetiracetam (Keppra Injection -) 1,500 mg IVPB BID [facility] Last Admin: 07/30/19 22:39 Dose: 1,500 mg Polyethylene Glycol (Miralax (For Daily Use) -) 17 gm GT BID [facility] Last Admin: 07/30/19 22:40 Dose: 17 gm - Objective Vital Signs: Vital Signs Temperature 98.9 F 07/31/19 06:10 Pulse Rate 74 07/31/19 06:10 Respiratory Rate 20 07/31/19 06:10 Blood Pressure 105/66 07/31/19 06:10 O2 Sat by Pulse Oximetry (%) 98 09/17/19 21:00 Constitutional: Yes: No Distress, Calm Cardiovascular: Yes: S1, S2 Respiratory: Yes: Regular, CTA Bilaterally Gastrointestinal: Yes: Normal Bowel Sounds, Soft Musculoskeletal: Yes: Other Extremities: Yes: Other (contracted) Neurological: Yes: Alert, Other Psychiatric: Yes: Other Labs: CBC, BMP 07/31/19 06:45 07/31/19 06:45 Assessment/Plan Problem List - Problems (1) CHENTE (acute kidney injury) Code(s): N17.9 - ACUTE KIDNEY FAILURE, UNSPECIFIED (2) Cerebral palsy Code(s): G80.9 - CEREBRAL PALSY, UNSPECIFIED (3) Constipation by delayed colonic transit Code(s): K59.01 - SLOW TRANSIT CONSTIPATION (4) Ileus Code(s): K56.7 - ILEUS, UNSPECIFIED (5) Seizure Code(s): R56.9 - UNSPECIFIED CONVULSIONS (6) UTI (urinary tract infection) Code(s): N39.0 - URINARY TRACT INFECTION, SITE NOT SPECIFIED 7 pancreatitis plan continue current mgmt hydration rest as per the team gi on board
[2019-07-31] MEDS: levETIRAcetam 500 MG/5 ML INJECTION VIAL IVPB SCH ×2 (11:13→21:46)
[2019-07-31] MEDS: lamoTRIgine 25 MG TABLET PO SCH ×2 (11:13→21:46)
[2019-07-31] MEDS: BISACODYL 10 MG SUPP.RECT RC SCH (11:13)
[2019-07-31] MEDS: POLYETHYLENE GLYCOL 3350 119 GM BTL GT SCH ×2 (11:14→21:47)
--- NOTE | 2019-07-31 11:37 | PN.GI ---
GI Progress Note Subjective: Pt seen/examined at bedside. Nonverbal. Appears comfortable. No vomiting reported. Moving bowels per nursing staff. CT pending. - Objective Vital Signs: Vital Signs Temperature 98.4 F 07/31/19 10:00 Pulse Rate 77 07/31/19 10:00 Respiratory Rate 20 07/31/19 10:00 Blood Pressure 138/71 07/31/19 10:00 O2 Sat by Pulse Oximetry (%) 98 07/31/19 09:00 Constitutional: No Distress, Calm, Other (Nonverbal) Cardiovascular: Yes: WNL, Regular Rate and Rhythm Respiratory: Yes: WNL, Regular, CTA Bilaterally ...Palpate: Yes: Other (Abd soft, no tenderness elicited, non distended, +PEG in place) Labs: CBC, BMP 07/31/19 06:45 07/31/19 06:45 Problem List - Problems (1) Elevated lipase Assessment/Plan: 39yo male h/o cerebral palsy, profound mental retardation, non-verbal at baseline, adrenal insufficiency, seizure disorder admitted for increased lethargy with elevated lipase without definitive criteria currently for diagnosis of acute pancreatitis. Moving bowels and no further vomiting reported. Repeat CT with contrast pending. -Continue supportive measures, IVF -Follow up results of repeat CT -If no acute findings can resume feeds as tolerated -Continue miralax bid Code(s): R74.8 - ABNORMAL LEVELS OF OTHER SERUM ENZYMES (2) Abnormal liver function Assessment/Plan: Likely multifactorial, possibly secondary to medications, sepsis, rhabdomyolysis with recent seizure activity noted. LFTs downtrending. -Follow up results of complete hepatitis panel -Continue to monitor LFTs to ensure normalization -Continue to avoid nonessential hepatotoxic medications Code(s): R94.5 - ABNORMAL RESULTS OF LIVER FUNCTION STUDIES
--- NOTE | 2019-07-31 12:51 | PN ---
Progress Note, Physician History of Present Illness: Patient is a 39 year old male with a past medical history of cerebral palsy ( secondary to intracranial hemorrhage), profound mental retardation, non-verbal at baseline, adrenal insufficiency, seizure disorder. The patient at baseline is awake but has been noted to be more lethargic over the last several days at the facility. He was noted by the [facility] that the patient had a witnessed 2 minute long seizure. Patient found to have esbl in urine, with a repeat urine showing no growth. his lipase is 793 and he is being treated for pancreatitis and is therefore NPO. He is also noted to have fecal impaction on imaging. He is being followed by surgery and ID. He is pending a cat scan today. will restart feeds after ct scan results. GI following. - Current Medication List Current Medications: Active Medications Bisacodyl (Dulcolax Suppository -) 10 mg RC DAILY [facility] Last Admin: 07/31/19 11:13 Dose: 10 mg Budesonide (Pulmicort 0.5 Mg Nebulizer -) 1 amp NEB RBID [facility] Last Admin: 07/31/19 07:35 Dose: 1 amp Heparin Sodium (Porcine) (Heparin -) 5,000 unit SQ TID [facility] Last Admin: 07/31/19 06:06 Dose: 5,000 unit Metronidazole (Flagyl 500mg Premixed Ivpb -) 500 mg in 100 mls @ 100 mls/hr IVPB TID [facility] Last Admin: 07/31/19 06:06 Dose: 100 mls/hr Meropenem 1 gm/ Dextrose 100 mls @ 200 mls/hr IVPB Q8H-IV [facility] Last Admin: 07/31/19 11:14 Dose: 200 mls/hr Potassium Chloride 40 meq/ (Amino Acids) 1,020 mls @ 42 mls/hr IVPB Q24H [facility] Last Admin: 07/30/19 17:58 Dose: 42 mls/hr Sodium Chloride (Normal Saline -) 1,000 mls @ 100 mls/hr IV ASDIR [facility] Last Admin: 07/30/19 12:12 Dose: 100 mls/hr Sodium Chloride (Normal Saline -) 1,000 mls @ 150 mls/hr IV ASDIR [facility] Last Admin: 07/30/19 22:42 Dose: 150 mls/hr Lamotrigine (Lamictal -) 50 mg PO BID [facility] Last Admin: 07/31/19 11:13 Dose: 50 mg Levetiracetam (Keppra Injection -) 1,500 mg IVPB BID [facility] Last Admin: 07/31/19 11:13 Dose: 1,500 mg Polyethylene Glycol (Miralax (For Daily Use) -) 17 gm GT BID [facility] Last Admin: 07/31/19 11:14 Dose: 17 gm - Objective Vital Signs: Vital Signs Temperature 98.4 F 07/31/19 10:00 Pulse Rate 77 07/31/19 10:00 Respiratory Rate 20 07/31/19 10:00 Blood Pressure 138/71 07/31/19 10:00 O2 Sat by Pulse Oximetry (%) 98 07/31/19 09:00 Constitutional: Yes: Well Nourished, No Distress HENT: Yes: Atraumatic Neck: Yes: Supple Cardiovascular: Yes: Regular Rate and Rhythm Respiratory: Yes: Regular Gastrointestinal: Yes: Other (peg tube) ...Rectal Exam: Yes: Deferred Musculoskeletal: Yes: WNL Extremities: Yes: Deformity Edema: No Peripheral Pulses WNL: No Integumentary: Yes: WNL Neurological: Yes: Alert Labs: CBC, BMP 07/31/19 06:45 07/31/19 06:45 Problem List - Problems (1) Acute pancreatitis Assessment/Plan: CT A/P: mild inflammatory standing about the pancreas suggestive of pancreatatis , no SBO Lipase 800s Repeat ct scan/abdomen today to further evaluate. GI following Maintain NPO until after ct scan results. On clinimix at 42cc/hr and IV hydration (NS @ 150cc/hr) Code(s): K85.90 - ACUTE PANCREATITIS WITHOUT NECROSIS OR INFECTION, UNSP (2) CHENTE (acute kidney injury) Assessment/Plan: Resolved with hydration. monitor daily. Code(s): N17.9 - ACUTE KIDNEY FAILURE, UNSPECIFIED (3) Cerebral palsy Assessment/Plan: continue supportive care Code(s): G80.9 - CEREBRAL PALSY, UNSPECIFIED (4) Colon atonic Assessment/Plan: AXR with pattern of loops of dilated bowel and cecal enlargement CT A/P: mild inflammatory standing about the pancreas suggestive of pancreatatis , no SBO surgical consult by Dr Huddleston appreciated has been having BMs daily, no bm today. GI consulted Code(s): K59.8 - OTHER SPECIFIED FUNCTIONAL INTESTINAL DISORDERS (5) Constipation by delayed colonic transit Assessment/Plan: daily enema and monitor Code(s): K59.01 - SLOW TRANSIT CONSTIPATION (6) Edema of upper extremity Code(s): R60.0 - LOCALIZED EDEMA (7) Ileus Code(s): K56.7 - ILEUS, UNSPECIFIED (8) LFTs abnormal Assessment/Plan: trending down, monitor daily Code(s): R94.5 - ABNORMAL RESULTS OF LIVER FUNCTION STUDIES (9) Seizure Assessment/Plan: leveteracitam levels slightly elevated and lamotrigine 1.8 (low) Continue leveteracitam 1500 mg IV lamotrigine 50 mg BID on hold (no need for additional anti-epileptic agent as Dr Butler)) appreciate neurology consultation Code(s): R56.9 - UNSPECIFIED CONVULSIONS (10) UTI (urinary tract infection) Assessment/Plan: UCX with ESBL ID consultation appreciated isolation precautions d/c Ceftriaxone In light of recent seizures will avoid Carbapenems On meropenem and Flagyl Code(s): N39.0 - URINARY TRACT INFECTION, SITE NOT SPECIFIED (11) Elevated creatine kinase Assessment/Plan: elevated CPK. On aggressive hydration of IVF NS @ 150cc/hr monitor CPK daily Code(s): R74.8 - ABNORMAL LEVELS OF OTHER SERUM ENZYMES (12) Prophylactic measure Assessment/Plan: Clinimix started continue to monitor electrolytes and replete as necessary TF on hold DVT heparin sq Dispo maintain as inpatient full code Code(s): Z29.9 - ENCOUNTER FOR PROPHYLACTIC MEASURES, UNSPECIFIED Visit type - Emergency Visit Emergency Visit: Yes ED Registration Date: 07/23/19 Care time: The patient presented to the Emergency Department on the above date and was hospitalized for further evaluation of their emergent condition. - New Patient This patient is new to me today: No - Critical Care Critical Care patient: No - Discharge Referral [facility]erred to [facility] Med P.C.: No
[2019-07-31] MEDS: SODIUM CHLORIDE 1,000 ML IV SCH (15:58)
[2019-07-31] MEDS: POTASSIUM CHLORIDE 40 MEQ in AMINO ACIDS 4.25%/D5W 1,000 ML IVPB SCH (16:01)
[2019-08-01] MEDS ORDERED: MEROPENEM 1 GM VIAL (RESTRICTED TO ID) IVPB ONE ×2 (01:43→10:07)
[2019-08-01] MEDS ORDERED: DEXTROSE 5%-WATER 100 ML IVPB ONE ×2 (01:43→10:07)
[2019-08-01] MEDS: MEROPENEM 1 GM in DEXTROSE 5%-WATER 100 ML IVPB SCH ×3 (01:52→17:25)
[2019-08-01] MEDS: HEPARIN NA (PORCINE) 5,000 UNITS/ML 1ML VIAL SQ SCH ×3 (05:54→22:25)
[2019-08-01 07:28] LABS: BASO % 0.4 % (0-2.0); EOS % 2.7 % (0-4.5); HEMATOCRIT 33.9 % (35.4-49); HEMOGLOBIN 11.4 GM/dL (11.7-16.9); LYMPH % 20.5 % (8-40); MCH 29.9 pg (25.7-33.7); MCHC 33.5 g/dl (32.0-35.9); MEAN CELL VOLUME 89.1 fl (80-96); MEAN PLT VOLUME 9.9 fl (7.5-11.1); MONO % 12.6 % (3.8-10.2); NEUT % 63.8 % (42.8-82.8); PLATELET COUNT 194 K/MM3 (134-434); RBC 3.81 M/mm3 (4.00-5.60); RDW 13.5 % (11.9-15.9); WHITE BLOOD COUNT 6.9 K/mm3 (4.0-10.0)
[2019-08-01] MEDS: BUDESONIDE 0.5 MG/2 ML INH SUSP VIAL NEB SCH ×2 (07:30→20:50)
[2019-08-01 07:56] LABS: BILIRUBIN,TOTAL 0.4 mg/dL (0.2-1); BLOOD UREA NITROGEN 5.4 mg/dL (7-18); CALCIUM 7.7 mg/dL (8.5-10.1); CREATININE 0.3 mg/dL (0.55-1.3); MAGNESIUM 1.9 mg/dL (1.8-2.4); POTASSIUM 3.2 mmol/L (3.5-5.1); TOT PROT 4.9 g/dl (6.4-8.2)
[2019-08-01] MEDS ORDERED: PT OWN MED DRAWER 7, Y5N ONE (10:08)
[2019-08-01] MEDS: levETIRAcetam 500 MG/5 ML INJECTION VIAL IVPB SCH ×2 (10:13→22:25)
[2019-08-01] MEDS: BISACODYL 10 MG SUPP.RECT RC SCH (10:14)
--- NOTE | 2019-08-01 10:26 | PN ---
Progress Note, Physician History of Present Illness: stable doing well no issues - Current Medication List Current Medications: Active Medications Bisacodyl (Dulcolax Suppository -) 10 mg RC DAILY [facility] Last Admin: 08/01/19 10:14 Dose: 10 mg Budesonide (Pulmicort 0.5 Mg Nebulizer -) 1 amp NEB RBID [facility] Last Admin: 07/31/19 20:49 Dose: 1 amp Heparin Sodium (Porcine) (Heparin -) 5,000 unit SQ TID [facility] Last Admin: 08/01/19 05:54 Dose: 5,000 unit Meropenem 1 gm/ Dextrose 100 mls @ 200 mls/hr IVPB Q8H-IV [facility] Last Admin: 08/01/19 01:52 Dose: 200 mls/hr Potassium Chloride 40 meq/ (Amino Acids) 1,020 mls @ 42 mls/hr IVPB Q24H [facility] Last Admin: 07/31/19 16:01 Dose: 42 mls/hr Sodium Chloride (Normal Saline -) 1,000 mls @ 100 mls/hr IV ASDIR [facility] Last Admin: 07/31/19 15:58 Dose: 100 mls/hr Sodium Chloride (Normal Saline -) 1,000 mls @ 150 mls/hr IV ASDIR [facility] Last Admin: 08/01/19 00:00 Dose: 150 mls/hr Lamotrigine (Lamictal -) 50 mg PO BID [facility] Last Admin: 07/31/19 21:46 Dose: 50 mg Levetiracetam (Keppra Injection -) 1,500 mg IVPB BID [facility] Last Admin: 08/01/19 10:13 Dose: 1,500 mg Polyethylene Glycol (Miralax (For Daily Use) -) 17 gm GT BID [facility] Last Admin: 07/31/19 21:47 Dose: 17 gm - Objective Vital Signs: Vital Signs Temperature 97.6 F 08/01/19 06:13 Pulse Rate 78 08/01/19 06:13 Respiratory Rate 20 08/01/19 06:13 Blood Pressure 119/78 08/01/19 06:13 O2 Sat by Pulse Oximetry (%) 98 07/31/19 21:00 Constitutional: Yes: No Distress, Calm Cardiovascular: Yes: S1, S2 Respiratory: Yes: Regular, CTA Bilaterally Gastrointestinal: Yes: Soft, Other Musculoskeletal: Yes: WNL Extremities: Yes: Other (contracted) Neurological: Yes: Alert, Other Psychiatric: Yes: Other Labs: CBC, BMP 08/01/19 06:30 08/01/19 06:30 Assessment/Plan Problem List - Problems (1) CHENTE (acute kidney injury) Code(s): N17.9 - ACUTE KIDNEY FAILURE, UNSPECIFIED (2) Cerebral palsy Code(s): G80.9 - CEREBRAL PALSY, UNSPECIFIED (3) Constipation by delayed colonic transit Code(s): K59.01 - SLOW TRANSIT CONSTIPATION (4) Ileus Code(s): K56.7 - ILEUS, UNSPECIFIED (5) Seizure Code(s): R56.9 - UNSPECIFIED CONVULSIONS (6) UTI (urinary tract infection) Code(s): N39.0 - URINARY TRACT INFECTION, SITE NOT SPECIFIED 7 pancreatitis plan continue current mgmt hydration rest as per the team gi on board abx to complete the course
[2019-08-01] MEDS: lamoTRIgine 25 MG TABLET PO SCH ×2 (10:52→22:26)
[2019-08-01] MEDS: POLYETHYLENE GLYCOL 3350 119 GM BTL GT SCH ×2 (10:52→22:26)
[2019-08-01] MEDS: KCL 10 MEQ IVPB 10 MEQ/100 ML INFUS.BAG IVPB SCH ×2 (13:01→13:58)
[2019-08-01] MEDS: SODIUM CHLORIDE 1,000 ML IV SCH ×3 (13:58→22:27)
[2019-08-01] MEDS: POTASSIUM CHLORIDE 40 MEQ in AMINO ACIDS 4.25%/D5W 1,000 ML IVPB SCH ×2 (14:19→19:08)
--- NOTE | 2019-08-01 14:40 | PN ---
Progress Note, Physician Chief Complaint: patient is non verbal at baseline History of Present Illness: Patient is a 39 year old male with a past medical history of cerebral palsy ( secondary to intracranial hemorrhage), profound mental retardation, non-verbal at baseline, adrenal insufficiency, seizure disorder. The patient at baseline is awake but has been noted to be more lethargic over the last several days at the facility. He was noted by the snf that the patient had a witnessed 2 minute long seizure. Patient found to have esbl in urine, with a repeat urine showing no growth. his lipase is 793 and he is being treated for pancreatitis and is therefore NPO. He is also noted to have fecal impaction on imaging. He is being followed by surgery and ID. CTAP with IV contrast 07/31/2019: Thickening of the sigmoid and rectum which could be in the asis of stercoral colitis. underlying colitis not excluded. lungs: atelectasis/infiltration of the left base pancreas: peripancreatic stranding identifed at the body/tail with thickening of the body/tail suggesting edema. No pancreatic necrosis seen. the pancreatic duct is not dilated. - Current Medication List Current Medications: Active Medications Bisacodyl (Dulcolax Suppository -) 10 mg RC DAILY [facility] Last Admin: 08/01/19 10:14 Dose: 10 mg Budesonide (Pulmicort 0.5 Mg Nebulizer -) 1 amp NEB RBID [facility] Last Admin: 08/01/19 07:30 Dose: 1 amp Heparin Sodium (Porcine) (Heparin -) 5,000 unit SQ TID [facility] Last Admin: 08/01/19 13:58 Dose: 5,000 unit Meropenem 1 gm/ Dextrose 100 mls @ 200 mls/hr IVPB Q8H-IV [facility] Last Admin: 08/01/19 10:50 Dose: 200 mls/hr Potassium Chloride 40 meq/ (Amino Acids) 1,020 mls @ 42 mls/hr IVPB Q24H [facility] Last Admin: 08/01/19 14:19 Dose: Not Given Sodium Chloride (Normal Saline -) 1,000 mls @ 150 mls/hr IV ASDIR [facility] Last Admin: 08/01/19 13:58 Dose: 150 mls/hr Potassium Chloride (Potassium Chloride 10 Meq Premix Ivpb -) 10 meq in 100 mls @ 100 mls/hr IVPB Q60M [facility] Stop: 08/01/19 14:44 Last Admin: 08/01/19 13:58 Dose: 100 mls/hr Lamotrigine (Lamictal -) 50 mg PO BID [facility] Last Admin: 08/01/19 10:52 Dose: 50 mg Levetiracetam (Keppra Injection -) 1,500 mg IVPB BID [facility] Last Admin: 08/01/19 10:13 Dose: 1,500 mg Polyethylene Glycol (Miralax (For Daily Use) -) 17 gm GT BID [facility] Last Admin: 08/01/19 10:52 Dose: 17 gm - Objective Vital Signs: Vital Signs Temperature 98.3 F 08/01/19 10:00 Pulse Rate 78 08/01/19 10:00 Respiratory Rate 18 08/01/19 10:00 Blood Pressure 129/78 08/01/19 10:00 O2 Sat by Pulse Oximetry (%) 98 07/31/19 21:00 Constitutional: Yes: No Distress, Calm Eyes: Yes: WNL HENT: Yes: WNL, Atraumatic Neck: Yes: WNL Cardiovascular: Yes: WNL, Regular Rate and Rhythm Respiratory: Yes: CTA Bilaterally Gastrointestinal: Yes: Soft ...Rectal Exam: Yes: Deferred Genitourinary: Yes: WNL Musculoskeletal: Yes: Muscle Weakness Extremities: Yes: WNL Edema: No Integumentary: Yes: WNL Wound/Incision: Yes: Other Neurological: Yes: Alert Psychiatric: Yes: Alert Labs: CBC, BMP 08/01/19 06:30 08/01/19 06:30 Problem List - Problems (1) Acute pancreatitis Assessment/Plan: CTAP with IV contrast 07/31/2019: Thickening of the sigmoid and rectum which could be in the asis of stercoral colitis. underlying colitis not excluded. lungs: atelectasis/infiltration of the left base pancreas: peripancreatic stranding identifed at the body/tail with thickening of the body/tail suggesting edema. No pancreatic necrosis seen. the pancreatic duct is not dilated. Lipase 790 GI following, awaiting further recommendations from GI. Maintain NPO until cleared by GI to restart Jevity 1.5 On clinimix at 42cc/hr and IV hydration (NS @ 150cc/hr) Code(s): K85.90 - ACUTE PANCREATITIS WITHOUT NECROSIS OR INFECTION, UNSP (2) CHENTE (acute kidney injury) Assessment/Plan: Resolved with hydration. monitor daily. Code(s): N17.9 - ACUTE KIDNEY FAILURE, UNSPECIFIED (3) Cerebral palsy Assessment/Plan: continue supportive care Code(s): G80.9 - CEREBRAL PALSY, UNSPECIFIED (4) Colon atonic Assessment/Plan: AXR with pattern of loops of dilated bowel and cecal enlargement CT A/P: mild inflammatory standing about the pancreas suggestive of pancreatatis , no SBO surgical consult by Dr Huddleston appreciated has been having BMs daily, no bm today. GI consulted Code(s): K59.8 - OTHER SPECIFIED FUNCTIONAL INTESTINAL DISORDERS (5) Constipation by delayed colonic transit Assessment/Plan: daily enema and monitor on miralax bid Code(s): K59.01 - SLOW TRANSIT CONSTIPATION (6) Edema of upper extremity Code(s): R60.0 - LOCALIZED EDEMA (7) Ileus Code(s): K56.7 - ILEUS, UNSPECIFIED (8) LFTs abnormal Assessment/Plan: trending down, monitor daily Code(s): R94.5 - ABNORMAL RESULTS OF LIVER FUNCTION STUDIES (9) Seizure Assessment/Plan: leveteracitam levels slightly elevated and lamotrigine 1.8 (low) Continue leveteracitam 1500 mg IV lamotrigine 50 mg BID on hold (no need for additional anti-epileptic agent as Dr Butler)) appreciate neurology consultation Code(s): R56.9 - UNSPECIFIED CONVULSIONS (10) UTI (urinary tract infection) Assessment/Plan: UCX with ESBL ID consultation appreciated isolation precautions d/c Ceftriaxone In light of recent seizures will avoid Carbapenems On meropenem and Flagyl Code(s): N39.0 - URINARY TRACT INFECTION, SITE NOT SPECIFIED (11) Elevated creatine kinase Assessment/Plan: elevated CPK. On aggressive hydration of IVF NS @ 150cc/hr monitor CPK daily Code(s): R74.8 - ABNORMAL LEVELS OF OTHER SERUM ENZYMES (12) Prophylactic measure Assessment/Plan: Clinimix started continue to monitor electrolytes and replete as necessary TF on hold DVT heparin sq Dispo maintain as inpatient full code Code(s): Z29.9 - ENCOUNTER FOR PROPHYLACTIC MEASURES, UNSPECIFIED Visit type - Emergency Visit Emergency Visit: Yes ED Registration Date: 07/23/19 Care time: The patient presented to the Emergency Department on the above date and was hospitalized for further evaluation of their emergent condition. - New Patient This patient is new to me today: No - Critical Care Critical Care patient: No - Discharge Referral Referred to [facility] No
--- NOTE | 2019-08-01 15:41 | PN.GI ---
GI Progress Note Subjective: Patient resting comfortably No acute events On clinimix On imipenem Repeat CT scan reveals stranding and thickening at the body / tail of pancreas. No necrosis noted. CPK was elevated as well - Objective Vital Signs: Vital Signs Temperature 98.6 F 08/01/19 14:57 Pulse Rate 88 08/01/19 14:57 Respiratory Rate 18 08/01/19 14:57 Blood Pressure 114/71 08/01/19 14:57 O2 Sat by Pulse Oximetry (%) 98 07/31/19 21:00 Constitutional: Calm Eyes: No: Sclera Icterus Cardiovascular: Yes: Regular Rate and Rhythm Respiratory: Yes: Diminished (at bases but with poor insp effort) ...Auscultate: Yes: Normoactive Bowel Sounds ...Palpate: Yes: Soft. No: Tenderness (No grimacing upon palpation, difficult to interpret) ...Percussion: No: Tympanitic Neurological: Yes: Other (Somnolent) Labs: CBC, BMP 08/01/19 06:30 08/01/19 06:30 Laboratory Tests 07/31/19 06:45 Hep A IgM Ab Confirm Pending Hepatitis A Ab Total Pending Hep Bs Antigen Pending Hep Bs Antibody Pending Hep B Core Total Ab Pending Hep B Core IgM Ab Pending Hepatitis Be Antibody Pending Hepatitis Be Antigen Pending Hep C Ab Diagnostic 0.1 Problem List - Problems (1) Abnormal liver function Assessment/Plan: Likely multifactorial including rhabdomyolysis, indection. No gallstones or biliary tract dilatation that would be suggestive of biliary etiology hepatitis seroliogies pending. hep C Ab neg Avoid hepatotoxic agents Monitor LFTs Code(s): R94.5 - ABNORMAL RESULTS OF LIVER FUNCTION STUDIES (2) Acute pancreatitis Assessment/Plan: By ragiographic findings with mild lipase elevation. ? etiology. Abd US without gallstone or dilated biliary tract that would suggest bikliary source. Abdominal exam difficult to interpret No need to hold tube feeds. Restart them. Enteral feeding is beneficial in even severe pancreatitis. Parenteral nutrion is of no benefit in most circumstances. No need for empiric antibiotic coverage for interstitial pancreatitis. No need for imipenem from GI standpoint IV hydration. This will help treat his rhabdomyolysis as well. Treatment of rhabdo per primary team. Code(s): K85.90 - ACUTE PANCREATITIS WITHOUT NECROSIS OR INFECTION, UNSP (3) Breast mass in male Assessment/Plan: Noted on initial CT scan scan. Further evaluation per primary team Code(s): N63.0 - UNSPECIFIED LUMP IN UNSPECIFIED BREAST
[2019-08-01 23:10] LABS: HEP B CORE AB, TOT Negative (Negative)
[2019-08-02] MEDS ORDERED: MEROPENEM 1 GM VIAL (RESTRICTED TO ID) IVPB ONE ×3 (01:50→19:18)
[2019-08-02] MEDS ORDERED: DEXTROSE 5%-WATER 100 ML IVPB ONE ×3 (01:50→19:18)
[2019-08-02] MEDS: MEROPENEM 1 GM in DEXTROSE 5%-WATER 100 ML IVPB SCH ×3 (02:06→18:20)
[2019-08-02] MEDS: HEPARIN NA (PORCINE) 5,000 UNITS/ML 1ML VIAL SQ SCH ×3 (06:24→21:51)
[2019-08-02] MEDS: SODIUM CHLORIDE 1,000 ML IV SCH (06:24)
[2019-08-02] MEDS: BUDESONIDE 0.5 MG/2 ML INH SUSP VIAL NEB SCH ×2 (07:30→20:34)
[2019-08-02 09:02] LABS: ALBUMIN 2.1 g/dl (3.4-5.0); BILIRUBIN,TOTAL 0.3 mg/dL (0.2-1); BLOOD UREA NITROGEN 5.1 mg/dL (7-18); CALCIUM 8.3 mg/dL (8.5-10.1); CREATININE 0.4 mg/dL (0.55-1.3); MAGNESIUM 1.8 mg/dL (1.8-2.4); POTASSIUM 3.7 mmol/L (3.5-5.1); TOT PROT 5.3 g/dl (6.4-8.2)
--- NOTE | 2019-08-02 11:09 | PN ---
Progress Note, Physician History of Present Illness: stable no new issues - Current Medication List Current Medications: Active Medications Bisacodyl (Dulcolax Suppository -) 10 mg RC DAILY [facility] Last Admin: 08/01/19 10:14 Dose: 10 mg Budesonide (Pulmicort 0.5 Mg Nebulizer -) 1 amp NEB RBID [facility] Last Admin: 08/02/19 07:30 Dose: 1 amp Heparin Sodium (Porcine) (Heparin -) 5,000 unit SQ TID [facility] Last Admin: 08/02/19 06:24 Dose: 5,000 unit Meropenem 1 gm/ Dextrose 100 mls @ 200 mls/hr IVPB Q8H-IV [facility] Last Admin: 08/02/19 02:06 Dose: 200 mls/hr Potassium Chloride 40 meq/ (Amino Acids) 1,020 mls @ 42 mls/hr IVPB Q24H [facility] Last Admin: 08/01/19 19:08 Dose: 42 mls/hr Sodium Chloride (Normal Saline -) 1,000 mls @ 150 mls/hr IV ASDIR [facility] Last Admin: 08/02/19 06:24 Dose: 150 mls/hr Lamotrigine (Lamictal -) 50 mg PO BID [facility] Last Admin: 08/01/19 22:26 Dose: 50 mg Levetiracetam (Keppra Injection -) 1,500 mg IVPB BID [facility] Last Admin: 08/01/19 22:25 Dose: 1,500 mg Polyethylene Glycol (Miralax (For Daily Use) -) 17 gm GT BID [facility] Last Admin: 08/01/19 22:26 Dose: 17 gm - Objective Vital Signs: Vital Signs Temperature 98.5 F 08/02/19 06:11 Pulse Rate 71 08/02/19 06:11 Respiratory Rate 18 08/02/19 06:11 Blood Pressure 133/73 08/02/19 06:11 O2 Sat by Pulse Oximetry (%) 97 08/01/19 21:00 Constitutional: Yes: No Distress, Calm Cardiovascular: Yes: S1, S2 Respiratory: Yes: Regular, CTA Bilaterally Gastrointestinal: Yes: Normal Bowel Sounds, Soft Musculoskeletal: Yes: Other Extremities: Yes: Other Neurological: Yes: Other Psychiatric: Yes: Other Labs: CBC, BMP 08/02/19 07:40 08/02/19 07:40 Assessment/Plan Problem List - Problems (1) CHENTE (acute kidney injury) Code(s): N17.9 - ACUTE KIDNEY FAILURE, UNSPECIFIED (2) Cerebral palsy Code(s): G80.9 - CEREBRAL PALSY, UNSPECIFIED (3) Constipation by delayed colonic transit Code(s): K59.01 - SLOW TRANSIT CONSTIPATION (4) Ileus Code(s): K56.7 - ILEUS, UNSPECIFIED (5) Seizure Code(s): R56.9 - UNSPECIFIED CONVULSIONS (6) UTI (urinary tract infection) Code(s): N39.0 - URINARY TRACT INFECTION, SITE NOT SPECIFIED 7 pancreatitis plan continue current mgmt hydration rest as per the team gi on board abx to complete the course
[2019-08-02] MEDS: BISACODYL 10 MG SUPP.RECT RC SCH (11:15)
[2019-08-02] MEDS: lamoTRIgine 25 MG TABLET PO SCH ×2 (11:15→21:50)
[2019-08-02] MEDS: levETIRAcetam 500 MG/5 ML INJECTION VIAL IVPB SCH ×2 (11:15→21:50)
[2019-08-02] MEDS: POLYETHYLENE GLYCOL 3350 119 GM BTL GT SCH ×2 (11:16→21:51)
--- NOTE | 2019-08-02 15:00 | PN ---
Progress Note, Physician Chief Complaint: patient is non verbal at baseline History of Present Illness: Patient is a 39 year old male with a past medical history of cerebral palsy ( secondary to intracranial hemorrhage), profound mental retardation, non-verbal at baseline, adrenal insufficiency, seizure disorder. The patient at baseline is awake but has been noted to be more lethargic over the last several days at the facility. He was noted by the senior living that the patient had a witnessed 2 minute long seizure. Patient found to have esbl in urine, with a repeat urine showing no growth. his lipase is 793 and he is being treated for pancreatitis and is therefore NPO. He is also noted to have fecal impaction on imaging. He is being followed by surgery and ID. CTAP with IV contrast 07/31/2019: Thickening of the sigmoid and rectum which could be in the asis of stercoral colitis. underlying colitis not excluded. lungs: atelectasis/infiltration of the left base pancreas: peripancreatic stranding identifed at the body/tail with thickening of the body/tail suggesting edema. No pancreatic necrosis seen. the pancreatic duct is not dilated. - Current Medication List Current Medications: Active Medications Bisacodyl (Dulcolax Suppository -) 10 mg RC DAILY [facility] Last Admin: 08/02/19 11:15 Dose: 10 mg Budesonide (Pulmicort 0.5 Mg Nebulizer -) 1 amp NEB RBID [facility] Last Admin: 08/02/19 07:30 Dose: 1 amp Heparin Sodium (Porcine) (Heparin -) 5,000 unit SQ TID [facility] Last Admin: 08/02/19 13:49 Dose: 5,000 unit Meropenem 1 gm/ Dextrose 100 mls @ 200 mls/hr IVPB Q8H-IV [facility] Last Admin: 08/02/19 11:14 Dose: 200 mls/hr Sodium Chloride (Normal Saline -) 1,000 mls @ 150 mls/hr IV ASDIR [facility] Last Admin: 08/02/19 06:24 Dose: 150 mls/hr Lamotrigine (Lamictal -) 50 mg PO BID [facility] Last Admin: 08/02/19 11:15 Dose: 50 mg Levetiracetam (Keppra Injection -) 1,500 mg IVPB BID [facility] Last Admin: 08/02/19 11:15 Dose: 1,500 mg Polyethylene Glycol (Miralax (For Daily Use) -) 17 gm GT BID [facility] Last Admin: 08/02/19 11:16 Dose: 17 gm - Objective Vital Signs: Vital Signs Temperature 98.8 F 08/02/19 14:00 Pulse Rate 89 08/02/19 14:00 Respiratory Rate 17 08/02/19 14:00 Blood Pressure 139/82 08/02/19 14:00 O2 Sat by Pulse Oximetry (%) 97 08/01/19 21:00 Constitutional: Yes: No Distress, Calm Eyes: Yes: WNL HENT: Yes: Atraumatic Neck: Yes: Supple Cardiovascular: Yes: Regular Rate and Rhythm Respiratory: Yes: Regular, CTA Bilaterally Gastrointestinal: Yes: Normal Bowel Sounds ...Rectal Exam: Yes: Deferred Musculoskeletal: Yes: WNL Extremities: Yes: WNL Edema: No Labs: CBC, BMP 08/02/19 07:40 08/02/19 07:40 Problem List - Problems (1) Acute pancreatitis Assessment/Plan: CTAP with IV contrast 07/31/2019: Thickening of the sigmoid and rectum which could be in the basis of stercoral colitis. underlying colitis not excluded. lungs: atelectasis/infiltration of the left base pancreas: peripancreatic stranding identified at the body/tail with thickening of the body/tail suggesting edema. No pancreatic necrosis seen. the pancreatic duct is not dilated. Lipase 400s GI following, recommendations noted and appreciated. will re-start feeds and monitor. On IV hydration (NS @ 150cc/hr) Code(s): K85.90 - ACUTE PANCREATITIS WITHOUT NECROSIS OR INFECTION, UNSP (2) CHENTE (acute kidney injury) Assessment/Plan: Resolved with hydration. monitor daily. Code(s): N17.9 - ACUTE KIDNEY FAILURE, UNSPECIFIED (3) Cerebral palsy Assessment/Plan: continue supportive care Code(s): G80.9 - CEREBRAL PALSY, UNSPECIFIED (4) Colon atonic Assessment/Plan: AXR with pattern of loops of dilated bowel and cecal enlargement CT A/P: mild inflammatory standing about the pancreas suggestive of pancreatatis , no SBO surgical consult by Dr Huddleston appreciated has been having BMs daily GI consulted and following. appreciate recommendations. Code(s): K59.8 - OTHER SPECIFIED FUNCTIONAL INTESTINAL DISORDERS (5) Constipation by delayed colonic transit Assessment/Plan: daily enema and monitor on miralax bid Code(s): K59.01 - SLOW TRANSIT CONSTIPATION (6) Edema of upper extremity Assessment/Plan: no edema Code(s): R60.0 - LOCALIZED EDEMA (7) Ileus Code(s): K56.7 - ILEUS, UNSPECIFIED (8) LFTs abnormal Assessment/Plan: trending down, monitor daily Code(s): R94.5 - ABNORMAL RESULTS OF LIVER FUNCTION STUDIES (9) Seizure Assessment/Plan: leveteracitam levels slightly elevated and lamotrigine 1.8 (low) Continue leveteracitam 1500 mg IV lamotrigine 50 mg BID on hold (no need for additional anti-epileptic agent as Dr Butler)) appreciate neurology consultation Code(s): R56.9 - UNSPECIFIED CONVULSIONS (10) UTI (urinary tract infection) Assessment/Plan: UCX with ESBL ID consultation appreciated isolation precautions On meropenem Code(s): N39.0 - URINARY TRACT INFECTION, SITE NOT SPECIFIED (11) Elevated creatine kinase Assessment/Plan: elevated CPK improving. On aggressive hydration of IVF NS @ 150cc/hr monitor CPK daily until normalizes Code(s): R74.8 - ABNORMAL LEVELS OF OTHER SERUM ENZYMES (12) Prophylactic measure Assessment/Plan: Clinimix stopped, jevity feeds started continue to monitor electrolytes and replete as necessary DVT heparin sq Dispo maintain as inpatient full code Code(s): Z29.9 - ENCOUNTER FOR PROPHYLACTIC MEASURES, UNSPECIFIED Visit type - Emergency Visit Emergency Visit: Yes ED Registration Date: 07/23/19 Care time: The patient presented to the Emergency Department on the above date and was hospitalized for further evaluation of their emergent condition. - New Patient This patient is new to me today: No - Critical Care Critical Care patient: No - Discharge Referral Referred to [facility] No
[2019-08-02] MEDS ORDERED: PT OWN MED DRAWER 7, Y5N ONE (22:54)
[2019-08-03] MEDS ORDERED: MEROPENEM 1 GM VIAL (RESTRICTED TO ID) IVPB ONE ×3 (00:58→16:56)
[2019-08-03] MEDS ORDERED: DEXTROSE 5%-WATER 100 ML IVPB ONE ×3 (00:58→16:56)
[2019-08-03] MEDS: MEROPENEM 1 GM in DEXTROSE 5%-WATER 100 ML IVPB SCH ×3 (01:03→17:37)
[2019-08-03] MEDS: SODIUM CHLORIDE 1,000 ML IV SCH ×2 (01:03→05:40)
[2019-08-03] MEDS: HEPARIN NA (PORCINE) 5,000 UNITS/ML 1ML VIAL SQ SCH ×3 (05:40→21:31)
[2019-08-03 07:50] LABS: BASO % 0.4 % (0-2.0); EOS % 3.3 % (0-4.5); HEMATOCRIT 34.2 % (35.4-49); HEMOGLOBIN 11.7 GM/dL (11.7-16.9); LYMPH % 30.5 % (8-40); MCH 30.3 pg (25.7-33.7); MCHC 34.2 g/dl (32.0-35.9); MEAN CELL VOLUME 88.5 fl (80-96); MEAN PLT VOLUME 10.4 fl (7.5-11.1); MONO % 12.7 % (3.8-10.2); NEUT % 53.1 % (42.8-82.8); PLATELET COUNT 303 K/MM3 (134-434); RBC 3.86 M/mm3 (4.00-5.60); RDW 13.5 % (11.9-15.9); WHITE BLOOD COUNT 4.6 K/mm3 (4.0-10.0)
[2019-08-03] MEDS: BUDESONIDE 0.5 MG/2 ML INH SUSP VIAL NEB SCH ×2 (08:00→21:10)
[2019-08-03 08:23] LABS: ALBUMIN 2.2 g/dl (3.4-5.0); BILIRUBIN,TOTAL 0.3 mg/dL (0.2-1); CALCIUM 8.5 mg/dL (8.5-10.1); CREATININE 0.3 mg/dL (0.55-1.3); MAGNESIUM 1.9 mg/dL (1.8-2.4); POTASSIUM 3.7 mmol/L (3.5-5.1); TOT PROT 5.5 g/dl (6.4-8.2)
[2019-08-03 08:50] LABS: BLOOD UREA NITROGEN 2.7 mg/dL (7-18)
[2019-08-03] MEDS ORDERED: PT OWN MED DRAWER 7, Y5N ONE (09:55)
--- NOTE | 2019-08-03 10:34 | PN ---
Progress Note, Physician History of Present Illness: stable no new issues - Current Medication List Current Medications: Active Medications Bisacodyl (Dulcolax Suppository -) 10 mg RC DAILY [facility] Last Admin: 08/02/19 11:15 Dose: 10 mg Budesonide (Pulmicort 0.5 Mg Nebulizer -) 1 amp NEB RBID [facility] Last Admin: 08/03/19 08:00 Dose: 1 amp Heparin Sodium (Porcine) (Heparin -) 5,000 unit SQ TID [facility] Last Admin: 08/03/19 05:40 Dose: 5,000 unit Meropenem 1 gm/ Dextrose 100 mls @ 200 mls/hr IVPB Q8H-IV [facility] Last Admin: 08/03/19 01:03 Dose: 200 mls/hr Sodium Chloride (Normal Saline -) 1,000 mls @ 150 mls/hr IV ASDIR [facility] Last Admin: 08/03/19 05:40 Dose: 150 mls/hr Lamotrigine (Lamictal -) 50 mg PO BID [facility] Last Admin: 08/02/19 21:50 Dose: 50 mg Levetiracetam (Keppra Injection -) 1,500 mg IVPB BID [facility] Last Admin: 08/02/19 21:50 Dose: 1,500 mg Polyethylene Glycol (Miralax (For Daily Use) -) 17 gm GT BID [facility] Last Admin: 08/02/19 21:51 Dose: 17 gm - Objective Vital Signs: Vital Signs Temperature 97.5 F L 08/02/19 22:00 Pulse Rate 90 08/02/19 22:00 Respiratory Rate 20 08/02/19 22:00 Blood Pressure 128/55 L 08/02/19 22:00 O2 Sat by Pulse Oximetry (%) 98 08/02/19 21:00 Constitutional: Yes: No Distress, Calm Cardiovascular: Yes: S1, S2 Respiratory: Yes: Regular, CTA Bilaterally Gastrointestinal: Yes: Normal Bowel Sounds, Soft Musculoskeletal: Yes: WNL Extremities: Yes: WNL Neurological: Yes: Alert, Other Psychiatric: Yes: Other Labs: CBC, BMP 08/03/19 06:05 08/03/19 06:05 Assessment/Plan Problem List - Problems (1) CHENTE (acute kidney injury) Code(s): N17.9 - ACUTE KIDNEY FAILURE, UNSPECIFIED (2) Cerebral palsy Code(s): G80.9 - CEREBRAL PALSY, UNSPECIFIED (3) Constipation by delayed colonic transit Code(s): K59.01 - SLOW TRANSIT CONSTIPATION (4) Ileus Code(s): K56.7 - ILEUS, UNSPECIFIED (5) Seizure Code(s): R56.9 - UNSPECIFIED CONVULSIONS (6) UTI (urinary tract infection) Code(s): N39.0 - URINARY TRACT INFECTION, SITE NOT SPECIFIED 7 pancreatitis plan continue current mgmt hydration rest as per the team complete course of abx
[2019-08-03] MEDS: lamoTRIgine 25 MG TABLET PO SCH ×2 (11:08→21:34)
[2019-08-03] MEDS: levETIRAcetam 500 MG/5 ML INJECTION VIAL IVPB SCH ×2 (11:08→21:31)
[2019-08-03] MEDS: BISACODYL 10 MG SUPP.RECT RC SCH (11:09)
[2019-08-03] MEDS: POLYETHYLENE GLYCOL 3350 119 GM BTL GT SCH ×2 (11:09→21:37)
--- NOTE | 2019-08-03 13:21 | PN ---
Physical Exam: SUBJECTIVE: Patient seen and examined at the bedside. non verbal. appears to be at his baseline. grinds his teeth often, no sure if it can be related to anxiety. OBJECTIVE: Patient is a 39 year old male with a past medical history of cerebral palsy ( secondary to intracranial hemorrhage), profound mental retardation, non-verbal at baseline, adrenal insufficiency, seizure disorder. The patient at baseline is awake but has been noted to be more lethargic over the last several days at [facility]. He was noted by the snf that the patient had a witnessed 2 minute long seizure. On admission, he was found to have esbl in urine, with a repeat urine showing no growth. his lipase was elevated in the 700s and GI is following. CTAP with IV contrast 07/31/2019: Thickening of the sigmoid and rectum which could be in the basis of stercoral colitis. underlying colitis not excluded. lungs: atelectasis/infiltration of the left base pancreas: peripancreatic stranding identifed at the body/tail with thickening of the body/tail suggesting edema. No pancreatic necrosis seen. the pancreatic duct is not dilated. Vital Signs Period Temp Pulse Resp BP Sys/Vences Pulse Ox Last 24 Hr 97.5 F-98.8 F 85-90 17-20 107-139/55-87 98 GENERAL: awake, alert, non verbal. teeth grinding HEAD: Normal with no signs of trauma. EYES: PERRL, extraocular movements intact, sclera anicteric, conjunctiva clear. No ptosis. ENT: Ears normal, nares patent, oropharynx clear without exudates, moist mucous membranes. NECK: Trachea midline, full range of motion, supple. LUNGS: Breath sounds equal, clear to auscultation bilaterally HEART: Regular rate and rhythm ABDOMEN: Soft, nontender, nondistended, normoactive bowel sounds + peg tube. EXTREMITIES: no edema. NEUROLOGICAL: Normal speech, bedbound PSYCH: Normal mood, normal affect. Laboratory Results - last 24 hr 08/03/19 08/03/19 06:05 06:05 WBC 4.6 RBC 3.86 L Hgb 11.7 Hct 34.2 L MCV 88.5 MCH 30.3 MCHC 34.2 RDW 13.5 Plt Count 303 D MPV 10.4 Absolute Neuts (auto) 2.5 Neutrophils % 53.1 Lymphocytes % 30.5 D Monocytes % 12.7 H Eosinophils % 3.3 Basophils % 0.4 Nucleated RBC % 0 Sodium 143 Potassium 3.7 Chloride 107 Carbon Dioxide 29 Anion Gap 6 L BUN 2.7 L* Creatinine 0.3 L Est GFR (CKD-EPI)AfAm 192.45 Est GFR (CKD-EPI)NonAf 166.05 Random Glucose 103 Calcium 8.5 Magnesium 1.9 Total Bilirubin 0.3 AST 40 H ALT 51 Alkaline Phosphatase 191 H Creatine Kinase 245 Creatine Kinase Index 0.6 CK-MB (CK-2) 1.6 Total Protein 5.5 L Albumin 2.2 L Active Medications Generic Name Dose Route Start Last Admin Trade Name Freq PRN Reason Stop Dose Admin Bisacodyl 10 mg 07/29/19 10:00 08/03/19 11:09 Dulcolax Suppository - RC 10 mg DAILY [facility] Administration Budesonide 1 amp 07/24/19 08:00 08/03/19 08:00 Pulmicort 0.5 Mg Nebulizer - NEB 1 amp RBID [facility] Administration Heparin Sodium (Porcine) 5,000 unit 07/24/19 07:06 08/03/19 05:40 Heparin - SQ 5,000 unit TID [facility] Administration Meropenem 1 gm/ Dextrose 100 mls @ 200 mls/hr 07/29/19 12:00 08/03/19 11:07 IVPB 200 mls/hr Q8H-IV [facility] Administration Sodium Chloride 1,000 mls @ 150 mls/hr 07/30/19 23:00 08/03/19 05:40 Normal Saline - IV 150 mls/hr ASDIR [facility]E Administration Lamotrigine 50 mg 07/25/19 17:36 08/03/19 11:08 Lamictal - PO 50 mg BID [facility] Administration Levetiracetam 1,500 mg 07/26/19 22:00 08/03/19 11:08 Keppra Injection - IVPB 1,500 mg BID [facility] Administration Polyethylene Glycol 17 gm 07/30/19 22:00 08/03/19 11:09 Miralax (For Daily Use) - GT 17 gm BID [facility] Administration ASSESSMENT/PLAN: Problem List - Problems (1) Acute pancreatitis Assessment/Plan: CTAP with IV contrast 07/31/2019: Thickening of the sigmoid and rectum which could be in the basis of stercoral colitis. underlying colitis not excluded. lungs: atelectasis/infiltration of the left base pancreas: peripancreatic stranding identified at the body/tail with thickening of the body/tail suggesting edema. No pancreatic necrosis seen. the pancreatic duct is not dilated. Lipase 700s, will repeat lipase in a.m. GI following, recommendations noted and appreciated. will re-start feeds and monitor. stop ivf Code(s): K85.90 - ACUTE PANCREATITIS WITHOUT NECROSIS OR INFECTION, UNSP (2) CHENTE (acute kidney injury) Assessment/Plan: Resolved with hydration. monitor daily. Code(s): N17.9 - ACUTE KIDNEY FAILURE, UNSPECIFIED (3) Cerebral palsy Assessment/Plan: continue supportive care Code(s): G80.9 - CEREBRAL PALSY, UNSPECIFIED (4) Colon atonic Assessment/Plan: AXR with pattern of loops of dilated bowel and cecal enlargement CT A/P: mild inflammatory standing about the pancreas suggestive of pancreatatis , no SBO surgical consult by Dr Huddleston appreciated has been having [facility] daily GI consulted and following. appreciate recommendations. Code(s): K59.8 - OTHER SPECIFIED FUNCTIONAL INTESTINAL DISORDERS (5) Constipation by delayed colonic transit Assessment/Plan: daily enema and monitor on miralax bid Code(s): K59.01 - SLOW TRANSIT CONSTIPATION (6) Ileus Code(s): K56.7 - ILEUS, UNSPECIFIED (7) LFTs abnormal Assessment/Plan: trending down, monitor daily Code(s): R94.5 - ABNORMAL RESULTS OF LIVER FUNCTION STUDIES (8) Seizure Assessment/Plan: leveteracitam levels slightly elevated and lamotrigine 1.8 (low) Continue leveteracitam 1500 mg IV lamotrigine 50 mg BID on hold (no need for additional anti-epileptic agent as Dr Butler)) appreciate neurology consultation Code(s): R56.9 - UNSPECIFIED CONVULSIONS (9) UTI (urinary tract infection) Assessment/Plan: UCX with ESBL ID consultation appreciated isolation precautions On meropenem Code(s): N39.0 - URINARY TRACT INFECTION, SITE NOT SPECIFIED (10) Elevated creatine kinase Assessment/Plan: resolved. Code(s): R74.8 - ABNORMAL LEVELS OF OTHER SERUM ENZYMES (11) Abnormal liver function Assessment/Plan: monitor ast/alt Code(s): R94.5 - ABNORMAL RESULTS OF LIVER FUNCTION STUDIES (12) Breast mass in male Assessment/Plan: soft tissue mass seen on imaging. will need outpatient follow up. Code(s): N63.0 - UNSPECIFIED LUMP IN UNSPECIFIED BREAST (13) Elevated lipase Assessment/Plan: lipase 700s, repeat in a.m. Code(s): R74.8 - ABNORMAL LEVELS OF OTHER SERUM ENZYMES (14) Prophylactic measure Assessment/Plan: Clinimix stopped, jevity feeds started continue to monitor electrolytes and replete as necessary DVT heparin sq Dispo maintain as inpatient full code Code(s): Z29.9 - ENCOUNTER FOR PROPHYLACTIC MEASURES, UNSPECIFIED Visit type - Emergency Visit Emergency Visit: Yes ED Registration Date: 07/23/19 Care time: The patient presented to the Emergency Department on the above date and was hospitalized for further evaluation of their emergent condition. - New Patient This patient is new to me today: No - Critical Care Critical Care patient: No - Discharge Referral Referred to [facility] Med P.C.: No
[2019-08-04] MEDS ORDERED: DEXTROSE 5%-WATER 100 ML IVPB ONE ×2 (00:58→09:03)
[2019-08-04] MEDS ORDERED: MEROPENEM 1 GM VIAL (RESTRICTED TO ID) IVPB ONE ×3 (00:58→17:06)
[2019-08-04] MEDS: MEROPENEM 1 GM in DEXTROSE 5%-WATER 100 ML IVPB SCH ×3 (01:23→17:23)
[2019-08-04] MEDS: HEPARIN NA (PORCINE) 5,000 UNITS/ML 1ML VIAL SQ SCH ×3 (05:34→21:55)
[2019-08-04] MEDS: BUDESONIDE 0.5 MG/2 ML INH SUSP VIAL NEB SCH ×2 (08:00→19:10)
[2019-08-04] MEDS ORDERED: PT OWN MED DRAWER 7, Y5N ONE (09:04)
[2019-08-04 09:37] LABS: EOS % 4.6 % (0-4.5); HEMATOCRIT 35.6 % (35.4-49); HEMOGLOBIN 12.2 GM/dL (11.7-16.9); LYMPH % 44.6 % (8-40); MCH 30.2 pg (25.7-33.7); MCHC 34.2 g/dl (32.0-35.9); MEAN CELL VOLUME 88.5 fl (80-96); MEAN PLT VOLUME 9.8 fl (7.5-11.1); MONO % 13.7 % (3.8-10.2); NEUT % 36.1 % (42.8-82.8); PLATELET COUNT 384 K/MM3 (134-434); RBC 4.02 M/mm3 (4.00-5.60); RDW 13.9 % (11.9-15.9); WHITE BLOOD COUNT 4.9 K/mm3 (4.0-10.0)
[2019-08-04 09:55] LABS: MAGNESIUM 2.1 mg/dL (1.8-2.4)
[2019-08-04 10:10] LABS: ALBUMIN 2.3 g/dl (3.4-5.0); BILIRUBIN,TOTAL 0.3 mg/dL (0.2-1); CALCIUM 8.7 mg/dL (8.5-10.1); CREATININE 0.4 mg/dL (0.55-1.3); POTASSIUM 3.6 mmol/L (3.5-5.1); TOT PROT 5.6 g/dl (6.4-8.2)
[2019-08-04 10:13] LABS: BLOOD UREA NITROGEN 2.9 mg/dL (7-18)
[2019-08-04] MEDS: levETIRAcetam 500 MG/5 ML INJECTION VIAL IVPB SCH ×2 (10:56→21:55)
[2019-08-04] MEDS: lamoTRIgine 25 MG TABLET PO SCH ×2 (10:56→21:56)
[2019-08-04] MEDS: BISACODYL 10 MG SUPP.RECT RC SCH (10:56)
[2019-08-04] MEDS: POLYETHYLENE GLYCOL 3350 119 GM BTL GT SCH ×2 (10:57→21:56)
--- NOTE | 2019-08-04 11:25 | PN ---
Progress Note, Physician History of Present Illness: stable no new issues - Current Medication List Current Medications: Active Medications Bisacodyl (Dulcolax Suppository -) 10 mg RC DAILY [facility] Last Admin: 08/04/19 10:56 Dose: 10 mg Budesonide (Pulmicort 0.5 Mg Nebulizer -) 1 amp NEB RBID [facility] Last Admin: 08/04/19 08:00 Dose: 1 amp Heparin Sodium (Porcine) (Heparin -) 5,000 unit SQ TID [facility] Last Admin: 08/04/19 05:34 Dose: 5,000 unit Meropenem 1 gm/ Dextrose 100 mls @ 200 mls/hr IVPB Q8H-IV [facility] Last Admin: 08/04/19 10:56 Dose: 200 mls/hr Lamotrigine (Lamictal -) 50 mg PO BID [facility] Last Admin: 08/04/19 10:56 Dose: 50 mg Levetiracetam (Keppra Injection -) 1,500 mg IVPB BID [facility] Last Admin: 08/04/19 10:56 Dose: 1,500 mg Polyethylene Glycol (Miralax (For Daily Use) -) 17 gm GT BID [facility] Last Admin: 08/04/19 10:57 Dose: 17 gm - Objective Vital Signs: Vital Signs Temperature 99.1 F 08/04/19 06:00 Pulse Rate 84 08/04/19 06:00 Respiratory Rate 18 08/04/19 06:00 Blood Pressure 113/76 08/04/19 06:00 O2 Sat by Pulse Oximetry (%) 98 08/02/19 21:00 Constitutional: Yes: No Distress, Calm Cardiovascular: Yes: S1, S2 Respiratory: Yes: Regular, CTA Bilaterally Gastrointestinal: Yes: Normal Bowel Sounds, Soft Musculoskeletal: Yes: Other Extremities: Yes: Other Neurological: Yes: Other Labs: CBC, BMP 08/04/19 09:15 08/04/19 09:15 Assessment/Plan Problem List - Problems (1) CHENTE (acute kidney injury) Code(s): N17.9 - ACUTE KIDNEY FAILURE, UNSPECIFIED (2) Cerebral palsy Code(s): G80.9 - CEREBRAL PALSY, UNSPECIFIED (3) Constipation by delayed colonic transit Code(s): K59.01 - SLOW TRANSIT CONSTIPATION (4) Ileus Code(s): K56.7 - ILEUS, UNSPECIFIED (5) Seizure Code(s): R56.9 - UNSPECIFIED CONVULSIONS (6) UTI (urinary tract infection) Code(s): N39.0 - URINARY TRACT INFECTION, SITE NOT SPECIFIED 7 pancreatitis plan continue current mgmt hydration rest as per the team complete course of abx
--- NOTE | 2019-08-04 12:02 | PN ---
Physical Exam: SUBJECTIVE: Patient seen and examined at the bedside. non verbal. appears more anxious today, reported to have increased teeth grinding all morning. . OBJECTIVE: Patient is a 39 year old male with a past medical history of cerebral palsy ( secondary to intracranial hemorrhage), profound mental retardation, non-verbal at baseline, adrenal insufficiency, seizure disorder. The patient at baseline is awake but has been noted to be more lethargic over the last several days at [place]. He was noted by the [facility] that the patient had a witnessed 2 minute long seizure. On admission, he was found to have esbl in urine, with a repeat urine showing no growth. his lipase increased today and GI is following. CTAP with IV contrast 07/31/2019: Thickening of the sigmoid and rectum which could be in the basis of stercoral colitis. underlying colitis not excluded. lungs: atelectasis/infiltration of the left base pancreas: peripancreatic stranding identified at the body/tail with thickening of the body/tail suggesting edema. No pancreatic necrosis seen. the pancreatic duct is not dilated. OBJECTIVE: Vital Signs Period Temp Pulse Resp BP Sys/Vences Pulse Ox Last 24 Hr 97.9 F-99.1 F 82-90 18-20 113-126/74-84 GENERAL: awake, alert, non verbal. teeth grinding increased. will give ativan. HEAD: Normal with no signs of trauma. EYES: PERRL, extraocular movements intact, sclera anicteric, conjunctiva clear. No ptosis. ENT: Ears normal, nares patent, oropharynx clear without exudates, moist mucous membranes. NECK: Trachea midline, full range of motion, supple. LUNGS: Breath sounds equal, clear to auscultation bilaterally HEART: Regular rate and rhythm ABDOMEN: Soft, nontender, nondistended, normoactive bowel sounds + peg tube. EXTREMITIES: no edema. NEUROLOGICAL: Normal speech, bedbound PSYCH: Normal mood, normal affect. Laboratory Results - last 24 hr 08/04/19 08/04/19 08/04/19 09:15 09:15 09:15 WBC 4.9 RBC 4.02 Hgb 12.2 Hct 35.6 MCV 88.5 MCH 30.2 MCHC 34.2 RDW 13.9 Plt Count 384 D MPV 9.8 Absolute Neuts (auto) 1.8 Neutrophils % 36.1 L D Lymphocytes % 44.6 H D Monocytes % 13.7 H Eosinophils % 4.6 H Basophils % 1.0 Nucleated RBC % 0 Sodium 143 Potassium 3.6 Chloride 105 Carbon Dioxide 33 H Anion Gap 5 L BUN 2.9 L* Creatinine 0.4 L Est GFR (CKD-EPI)AfAm 170.99 Est GFR (CKD-EPI)NonAf 147.53 Random Glucose 114 H Calcium 8.7 Magnesium 2.1 Total Bilirubin 0.3 AST 41 H ALT 51 Alkaline Phosphatase 188 H Creatine Kinase 485 H Creatine Kinase Index 0.4 CK-MB (CK-2) 2.1 Total Protein 5.6 L Albumin 2.3 L Lipase 904 H Active Medications Generic Name Dose Route Start Last Admin Trade Name Freq PRN Reason Stop Dose Admin Bisacodyl 10 mg 07/29/19 10:00 08/04/19 10:56 Dulcolax Suppository - RC 10 mg DAILY HAYLEE Administration Budesonide 1 amp 07/24/19 08:00 08/04/19 08:00 Pulmicort 0.5 Mg Nebulizer - NEB 1 amp RBID HAYLEE Administration Heparin Sodium (Porcine) 5,000 unit 07/24/19 07:06 08/04/19 05:34 Heparin - SQ 5,000 unit TID HAYLEE Administration Meropenem 1 gm/ Dextrose 100 mls @ 200 mls/hr 07/29/19 12:00 08/04/19 10:56 IVPB 200 mls/hr Q8H-IV HAYLEE Administration Lamotrigine 50 mg 07/25/19 17:36 08/04/19 10:56 Lamictal - PO 50 mg BID [facility]LEE Administration Levetiracetam 1,500 mg 07/26/19 22:00 08/04/19 10:56 Keppra Injection - IVPB 1,500 mg BID [facility]AYLEE Administration Polyethylene Glycol 17 gm 07/30/19 22:00 08/04/19 10:57 Miralax (For Daily Use) - GT 17 gm BID HAYLEE Administration ASSESSMENT/PLAN: Problem List - Problems (1) Acute pancreatitis Assessment/Plan: lipase elevated in the 900s. GI following and notes/recommendations greatly appreciated. will continue feeds. CTAP with IV contrast 07/31/2019: Thickening of the sigmoid and rectum which could be in the basis of stercoral colitis. underlying colitis not excluded. lungs: atelectasis/infiltration of the left base pancreas: peripancreatic stranding identified at the body/tail with thickening of the body/tail suggesting edema. No pancreatic necrosis seen. the pancreatic duct is not dilated. Code(s): K85.90 - ACUTE PANCREATITIS WITHOUT NECROSIS OR INFECTION, UNSP (2) CHENTE (acute kidney injury) Assessment/Plan: Resolved with hydration. monitor daily. bun low, value noted. Code(s): N17.9 - ACUTE KIDNEY FAILURE, UNSPECIFIED (3) Cerebral palsy Assessment/Plan: continue supportive care Code(s): G80.9 - CEREBRAL PALSY, UNSPECIFIED (4) Colon atonic Assessment/Plan: AXR with pattern of loops of dilated bowel and cecal enlargement CT A/P: mild inflammatory standing about the pancreas suggestive of pancreatatis , no SBO surgical consult by Dr Huddleston appreciated has been having [facility] daily GI consulted and following. appreciate recommendations. Code(s): K59.8 - OTHER SPECIFIED FUNCTIONAL INTESTINAL DISORDERS (5) Constipation by delayed colonic transit Assessment/Plan: daily enema and monitor on miralax bid Code(s): K59.01 - SLOW TRANSIT CONSTIPATION (6) Ileus Code(s): K56.7 - ILEUS, UNSPECIFIED (7) LFTs abnormal Assessment/Plan: trending down, monitor daily Code(s): R94.5 - ABNORMAL RESULTS OF LIVER FUNCTION STUDIES (8) Seizure Assessment/Plan: leveteracitam levels slightly elevated and lamotrigine 1.8 (low) Continue leveteracitam 1500 mg IV appreciate neurology consultation Code(s): R56.9 - UNSPECIFIED CONVULSIONS (9) UTI (urinary tract infection) Code(s): N39.0 - URINARY TRACT INFECTION, SITE NOT SPECIFIED (10) Elevated creatine kinase Assessment/Plan: elevated again, no reported seizures. will trend until normalizes. Code(s): R74.8 - ABNORMAL LEVELS OF OTHER SERUM ENZYMES (11) Abnormal liver function Assessment/Plan: monitor ast/alt Code(s): R94.5 - ABNORMAL RESULTS OF LIVER FUNCTION STUDIES (12) Breast mass in male Assessment/Plan: soft tissue mass seen on imaging. will need outpatient follow up. Code(s): N63.0 - UNSPECIFIED LUMP IN UNSPECIFIED BREAST (13) Elevated lipase Assessment/Plan: lipase 900s, monitor. continue feeds per gi. Code(s): R74.8 - ABNORMAL LEVELS OF OTHER SERUM ENZYMES (14) Bruxism (teeth grinding) Assessment/Plan: appears to be anxiety related. on ativan 0.5mg prn. can increase ativan if this dose is ineffective. Code(s): F45.8 - OTHER SOMATOFORM DISORDERS (15) Prophylactic measure Assessment/Plan: Clinimix stopped, jevity feeds started continue to monitor electrolytes and replete as necessary DVT heparin sq Dispo maintain as inpatient full code Code(s): Z29.9 - ENCOUNTER FOR PROPHYLACTIC MEASURES, UNSPECIFIED Visit type - Emergency Visit Emergency Visit: Yes ED Registration Date: 07/23/19 Care time: The patient presented to the Emergency Department on the above date and was hospitalized for further evaluation of their emergent condition. - New Patient This patient is new to me today: No - Critical Care Critical Care patient: No - Discharge Referral Referred to [facility] Med [facility].C.: No
[2019-08-04] MEDS ORDERED: LORazepam 2 MG/ML SDV VIAL IVPUSH ONE (12:30)
--- NOTE | 2019-08-04 14:32 | PN.GI ---
GI Progress Note Subjective: coveriing for Dr Gaxiola patient seen yesturday Tolerating tube feeds, no nausea and no vomiting, no melena ct --mild peripancreatic stranding lipase mildly elevated, lfts mild elevation - Objective Vital Signs: Vital Signs Temperature 99.1 F 08/04/19 06:00 Pulse Rate 84 08/04/19 06:00 Respiratory Rate 18 08/04/19 06:00 Blood Pressure 113/76 08/04/19 06:00 O2 Sat by Pulse Oximetry (%) 98 08/02/19 21:00 Constitutional: No Distress Eyes: Yes: Conjunctiva Clear HENT: Yes: Atraumatic ...Palpate: Yes: Soft. No: Firm/Rigid, Guarding, Hepatomegaly, Pulsatile Mass, Splenomegaly, Tenderness, Tenderness, Epigastium Labs: CBC, BMP 08/04/19 09:15 08/04/19 09:15 Problem List - Problems (1) Abnormal liver function Assessment/Plan: multifactorial possibly secondary to medication Code(s): R94.5 - ABNORMAL RESULTS OF LIVER FUNCTION STUDIES (2) Elevated lipase Assessment/Plan: R> continue tube feeds serial abdiominal examinations Code(s): R74.8 - ABNORMAL LEVELS OF OTHER SERUM ENZYMES
[2019-08-05] MEDS ORDERED: MEROPENEM 1 GM VIAL (RESTRICTED TO ID) IVPB ONE ×3 (01:29→17:13)
[2019-08-05] MEDS ORDERED: DEXTROSE 5%-WATER 100 ML IVPB ONE ×3 (01:30→17:13)
[2019-08-05] MEDS: MEROPENEM 1 GM in DEXTROSE 5%-WATER 100 ML IVPB SCH ×3 (01:58→17:19)
[2019-08-05] MEDS ORDERED: PT OWN MED DRAWER 7, Y5N ONE (02:18)
[2019-08-05] MEDS: HEPARIN NA (PORCINE) 5,000 UNITS/ML 1ML VIAL SQ SCH ×3 (06:32→22:13)
[2019-08-05] MEDS: BUDESONIDE 0.5 MG/2 ML INH SUSP VIAL NEB SCH ×2 (07:25→20:00)
--- NOTE | 2019-08-05 08:07 | PN ---
Progress Note, Physician History of Present Illness: no new issues - Current Medication List Current Medications: Active Medications Bisacodyl (Dulcolax Suppository -) 10 mg RC DAILY [facility] Last Admin: 08/04/19 10:56 Dose: 10 mg Budesonide (Pulmicort 0.5 Mg Nebulizer -) 1 amp NEB RBID [facility] Last Admin: 08/05/19 07:25 Dose: 1 amp Heparin Sodium (Porcine) (Heparin -) 5,000 unit SQ TID [facility] Last Admin: 08/05/19 06:32 Dose: 5,000 unit Meropenem 1 gm/ Dextrose 100 mls @ 200 mls/hr IVPB Q8H-IV [facility] Last Admin: 08/05/19 01:58 Dose: 200 mls/hr Lamotrigine (Lamictal -) 50 mg PO BID [facility] Last Admin: 08/04/19 21:56 Dose: 50 mg Levetiracetam (Keppra Injection -) 1,500 mg IVPB BID [facility] Last Admin: 08/04/19 21:55 Dose: 1,500 mg Lorazepam (Ativan Injection -) 0.5 mg IVPUSH Q6H PRN PRN Reason: ANXIETY Polyethylene Glycol (Miralax (For Daily Use) -) 17 gm GT BID [facility] Last Admin: 08/04/19 21:56 Dose: Not Given - Objective Vital Signs: Vital Signs Temperature 98.2 F 08/05/19 06:00 Pulse Rate 104 H 08/05/19 06:00 Respiratory Rate 18 08/05/19 06:00 Blood Pressure 122/76 08/05/19 06:00 O2 Sat by Pulse Oximetry (%) 96 08/04/19 21:00 Constitutional: Yes: No Distress, Calm Cardiovascular: Yes: S1, S2 Respiratory: Yes: Regular, CTA Bilaterally Musculoskeletal: Yes: Other Extremities: Yes: Other (contracted) Neurological: Yes: Alert, Other Labs: CBC, BMP 08/04/19 09:15 08/04/19 09:15 Assessment/Plan Problem List - Problems (1) CHENTE (acute kidney injury) Code(s): N17.9 - ACUTE KIDNEY FAILURE, UNSPECIFIED (2) Cerebral palsy Code(s): G80.9 - CEREBRAL PALSY, UNSPECIFIED (3) Constipation by delayed colonic transit Code(s): K59.01 - SLOW TRANSIT CONSTIPATION (4) Ileus Code(s): K56.7 - ILEUS, UNSPECIFIED (5) Seizure Code(s): R56.9 - UNSPECIFIED CONVULSIONS (6) UTI (urinary tract infection) Code(s): N39.0 - URINARY TRACT INFECTION, SITE NOT SPECIFIED 7 pancreatitis plan continue current mgmt hydration rest as per the team complete course of abx total 14 days
[2019-08-05] MEDS: levETIRAcetam 500 MG/5 ML INJECTION VIAL IVPB SCH ×2 (10:30→22:14)
[2019-08-05] MEDS: BISACODYL 10 MG SUPP.RECT RC SCH (10:31)
[2019-08-05] MEDS: POLYETHYLENE GLYCOL 3350 119 GM BTL GT SCH ×2 (10:31→22:15)
[2019-08-05] MEDS: lamoTRIgine 25 MG TABLET PO SCH ×2 (10:31→22:14)
--- NOTE | 2019-08-05 13:02 | PN ---
Physical Exam: SUBJECTIVE: Patient seen and examined OBJECTIVE: Patient is a 39 year old male with a past medical history of cerebral palsy ( secondary to intracranial hemorrhage), profound mental retardation, non-verbal at baseline, adrenal insufficiency, seizure disorder. The patient at baseline is awake but has been noted to be more lethargic over the last several days at [place]. He was noted by the mcc that the patient had a witnessed 2 minute long seizure. On admission, he was found to have esbl in urine, with a repeat urine showing no growth. his lipase is elevated and GI is following. CTAP with IV contrast 07/31/2019: Thickening of the sigmoid and rectum which could be in the basis of stercoral colitis. underlying colitis not excluded. lungs: atelectasis/infiltration of the left base pancreas: peripancreatic stranding identified at the body/tail with thickening of the body/tail suggesting edema. No pancreatic necrosis seen. the pancreatic duct is not dilated. Vital Signs Period Temp Pulse Resp BP Sys/Vences Pulse Ox Last 24 Hr 98.2 F-98.9 F 93-108 18-20 111-127/70-95 96-96 GENERAL: awake, alert, non verbal. teeth grinding increased. will give ativan. HEAD: Normal with no signs of trauma. EYES: PERRL, extraocular movements intact, sclera anicteric, conjunctiva clear. No ptosis. ENT: Ears normal, nares patent, oropharynx clear without exudates, moist mucous membranes. NECK: Trachea midline, full range of motion, supple. LUNGS: Breath sounds equal, clear to auscultation bilaterally HEART: Regular rate and rhythm ABDOMEN: Soft, nontender, nondistended, normoactive bowel sounds + peg tube. EXTREMITIES: no edema. Active Medications Generic Name Dose Route Start Last Admin Trade Name Freq PRN Reason Stop Dose Admin Bisacodyl 10 mg 07/29/19 10:00 08/05/19 10:31 Dulcolax Suppository - RC Not Given DAILY HAYLEE Budesonide 1 amp 07/24/19 08:00 08/05/19 07:25 Pulmicort 0.5 Mg Nebulizer - NEB 1 amp RBID H[facility]E Administration Heparin Sodium (Porcine) 5,000 unit 07/24/19 07:06 08/05/19 06:32 Heparin - SQ 5,000 unit TID H[facility]E Administration Meropenem 1 gm/ Dextrose 100 mls @ 200 mls/hr 07/29/19 12:00 08/05/19 10:29 IVPB 200 mls/hr Q8H-IV [facility]E Administration Lamotrigine 50 mg 07/25/19 17:36 08/05/19 10:31 Lamictal - PO 50 mg BID H[facility]E Administration Levetiracetam 1,500 mg 07/26/19 22:00 08/05/19 10:30 Keppra Injection - IVPB 1,500 mg BID H[facility]E Administration Lorazepam 0.5 mg 08/04/19 12:19 Ativan Injection - IVPUSH Q6H PRN ANXIETY Polyethylene Glycol 17 gm 07/30/19 22:00 08/05/19 10:31 Miralax (For Daily Use) - GT Not Given BID [facility] ASSESSMENT/PLAN: Problem List - Problems (1) Acute pancreatitis Assessment/Plan: lipase elevated in the 900s. GI following and notes/recommendations greatly appreciated. will continue feeds. abdomen soft, non distended, having daily BMs. CTAP with IV contrast 07/31/2019: Thickening of the sigmoid and rectum which could be in the basis of stercoral colitis. underlying colitis not excluded. lungs: atelectasis/infiltration of the left base pancreas: peripancreatic stranding identified at the body/tail with thickening of the body/tail suggesting edema. No pancreatic necrosis seen. the pancreatic duct is not dilated. Code(s): K85.90 - ACUTE PANCREATITIS WITHOUT NECROSIS OR INFECTION, UNSP (2) CHENTE (acute kidney injury) Assessment/Plan: Resolved with hydration. monitor daily. bun low, value noted. Code(s): N17.9 - ACUTE KIDNEY FAILURE, UNSPECIFIED (3) Cerebral palsy Assessment/Plan: continue supportive care Code(s): G80.9 - CEREBRAL PALSY, UNSPECIFIED (4) Colon atonic Assessment/Plan: AXR with pattern of loops of dilated bowel and cecal enlargement CT A/P: mild inflammatory standing about the pancreas suggestive of pancreatatis , no SBO surgical consult by Dr Huddleston appreciated has been having BMs daily GI consulted and following. appreciate recommendations. Code(s): K59.8 - OTHER SPECIFIED FUNCTIONAL INTESTINAL DISORDERS (5) Constipation by delayed colonic transit Assessment/Plan: daily enema and monitor on miralax bid Code(s): K59.01 - SLOW TRANSIT CONSTIPATION (6) Ileus Code(s): K56.7 - ILEUS, UNSPECIFIED (7) LFTs abnormal Assessment/Plan: trending down, monitor daily Code(s): R94.5 - ABNORMAL RESULTS OF LIVER FUNCTION STUDIES (8) Seizure Assessment/Plan: leveteracitam levels slightly elevated and lamotrigine 1.8 (low) Continue leveteracitam 1500 mg IV appreciate neurology consultation Code(s): R56.9 - UNSPECIFIED CONVULSIONS (9) UTI (urinary tract infection) Assessment/Plan: UCX with ESBL ID consultation appreciated isolation precautions On meropenem. per ID will need 14 days total of meropenem (started 07/29/19) Code(s): N39.0 - URINARY TRACT INFECTION, SITE NOT SPECIFIED (10) Elevated creatine kinase Assessment/Plan: elevated again, no reported seizures. will trend until normalizes. Code(s): R74.8 - ABNORMAL LEVELS OF OTHER SERUM ENZYMES (11) Abnormal liver function Assessment/Plan: monitor ast/alt Code(s): R94.5 - ABNORMAL RESULTS OF LIVER FUNCTION STUDIES (12) Breast mass in male Assessment/Plan: soft tissue mass seen on imaging. will need outpatient follow up Code(s): N63.0 - UNSPECIFIED LUMP IN UNSPECIFIED BREAST (13) Elevated lipase Assessment/Plan: lipase 900s, monitor. continue feeds per gi. Code(s): R74.8 - ABNORMAL LEVELS OF OTHER SERUM ENZYMES (14) Bruxism (teeth grinding) Assessment/Plan: appears to be anxiety related. on ativan 0.5mg prn. can increase ativan if this dose is ineffective. Code(s): F45.8 - OTHER SOMATOFORM DISORDERS (15) Prophylactic measure Assessment/Plan: Clinimix stopped, jevity feeds being tolerated continue to monitor electrolytes and replete as necessary DVT heparin sq Dispo maintain as inpatient full code Code(s): Z29.9 - ENCOUNTER FOR PROPHYLACTIC MEASURES, UNSPECIFIED Visit type - Emergency Visit Emergency Visit: Yes ED Registration Date: 07/23/19 Care time: The patient presented to the Emergency Department on the above date and was hospitalized for further evaluation of their emergent condition. - New Patient This patient is new to me today: No - Critical Care Critical Care patient: No - Discharge Referral Referred to [facility] Med P.C.: No
[2019-08-05 13:15] LABS: BASO % 0.7 % (0-2.0); EOS % 2.7 % (0-4.5); HEMATOCRIT 35.3 % (35.4-49); HEMOGLOBIN 11.9 GM/dL (11.7-16.9); LYMPH % 32.8 % (8-40); MCHC 33.6 g/dl (32.0-35.9); MEAN CELL VOLUME 89.4 fl (80-96); MEAN PLT VOLUME 9.9 fl (7.5-11.1); MONO % 17.8 % (3.8-10.2); PLATELET COUNT 421 K/MM3 (134-434); RBC 3.95 M/mm3 (4.00-5.60); RDW 13.7 % (11.9-15.9); WHITE BLOOD COUNT 5.5 K/mm3 (4.0-10.0)
[2019-08-05] MEDS: LORazepam 2 MG/ML SDV VIAL IVPUSH PRN ×2 (13:24→22:18)
[2019-08-05 14:02] LABS: ALBUMIN 2.4 g/dl (3.4-5.0); BILIRUBIN,TOTAL 0.2 mg/dL (0.2-1); BLOOD UREA NITROGEN 6.5 mg/dL (7-18); CREATININE 0.4 mg/dL (0.55-1.3); POTASSIUM 4.1 mmol/L (3.5-5.1); TOT PROT 5.7 g/dl (6.4-8.2)
--- NOTE | 2019-08-05 14:18 | PN.GI ---
GI Progress Note Subjective: Pt seen/examined at bedside, nonverbal. Tolerating feeds at goal per nursing staff. Moving bowels. Teeth grinding noted, not new per staff. - Objective Vital Signs: Vital Signs Temperature 98.9 F 08/05/19 13:55 Pulse Rate 96 H 08/05/19 13:55 Respiratory Rate 20 08/05/19 13:55 Blood Pressure 118/65 08/05/19 13:55 O2 Sat by Pulse Oximetry (%) 96 08/05/19 09:00 Constitutional: No Distress, Calm, Other (nonverbal) Cardiovascular: Yes: WNL, Regular Rate and Rhythm Respiratory: Yes: WNL, Regular, CTA Bilaterally ...Palpate: Yes: Other (Abd soft, no tenderness elicited (examination limited), PEG in place, no rebound, guarding or rigidity) Labs: CBC, BMP 08/05/19 12:40 08/05/19 12:40 Problem List - Problems (1) Elevated lipase Assessment/Plan: CT imaging revealing peripancreatic edema consistent with pancreatitis, no obvious fluid collections. Exact etiology unclear. No stones or biliary dilation. Unable to determine if pt with abdominal pain. Tolerating feeds at goal and moving bowels. -Recommend continue enteral feeds as tolerated -Check triglycerides -Continue to monitor LFT trend -No indication for antibiotics for treatment of pancreatitis as this time as previously noted Code(s): R74.8 - ABNORMAL LEVELS OF OTHER SERUM ENZYMES (2) Abnormal liver function Assessment/Plan: Likely multifactorial, possibly secondary to medications, sepsis, rhabdomyolysis. LFTs have improved overall. Hepatitis panel negative ( consistent with HBV immunity) -Continue to monitor LFTs to ensure normalization -Continue to avoid nonessential hepatotoxic medications -Treatment of rhabdomyolysis per primary team Code(s): R94.5 - ABNORMAL RESULTS OF LIVER FUNCTION STUDIES
[2019-08-06] MEDS: MEROPENEM 1 GM in DEXTROSE 5%-WATER 100 ML IVPB SCH ×3 (02:17→17:13)
[2019-08-06] MEDS ORDERED: MEROPENEM 1 GM VIAL (RESTRICTED TO ID) IVPB ONE ×3 (03:06→17:07)
[2019-08-06] MEDS ORDERED: DEXTROSE 5%-WATER 100 ML IVPB ONE ×3 (03:07→17:07)
[2019-08-06] MEDS: HEPARIN NA (PORCINE) 5,000 UNITS/ML 1ML VIAL SQ SCH ×3 (05:36→22:34)
[2019-08-06] MEDS: BUDESONIDE 0.5 MG/2 ML INH SUSP VIAL NEB SCH ×2 (07:44→20:16)
--- NOTE | 2019-08-06 08:40 | PN ---
Progress Note, Physician Chief Complaint: Non verbal, grimaces and teeth grinding noted on exam History of Present Illness: Jordan Emerson is a 39 year old male with a past medical history of cerebral palsy (secondary to intracranial hemorrhage), profound mental retardation, non- verbal at baseline, adrenal insufficiency, seizure disorder. The patient at baseline is awake but has been noted to be more lethargic over the last several days. Today it was noted by the mcc that the patient had a witnessed 2 minute long seizure. Vitals at the time were HR 75, BP 117/77, temp <95, saturation of 95% on room air. Prior to this seizure, the staff did not know when his previous one was, however notes from this hospital note a seizure in December. Staff stated that all medications were administered regularly without any missed doses, no new medications were prescribed, no changes in diet (all feeds through G tube), no sick contacts. Patient was sent to the ED for further evaluation. Spoken with nurse Watson for history ([phone]) - Current Medication List Current Medications: Active Medications Bisacodyl (Dulcolax Suppository -) 10 mg RC DAILY [facility] Last Admin: 08/05/19 10:31 Dose: Not Given Budesonide (Pulmicort 0.5 Mg Nebulizer -) 1 amp NEB RBID [facility]LEE Last Admin: 08/06/19 07:44 Dose: 1 amp Heparin Sodium (Porcine) (Heparin -) 5,000 unit SQ TID [facility]AYLEE Last Admin: 08/06/19 05:36 Dose: 5,000 unit Meropenem 1 gm/ Dextrose 100 mls @ 200 mls/hr IVPB Q8H-IV [facility]E Last Admin: 08/06/19 02:17 Dose: 200 mls/hr Lamotrigine (Lamictal -) 50 mg PO BID [facility]E Last Admin: 08/05/19 22:14 Dose: 50 mg Levetiracetam (Keppra Injection -) 1,500 mg IVPB BID [facility]LEE Last Admin: 08/05/19 22:14 Dose: 1,500 mg Lorazepam (Ativan Injection -) 0.5 mg IVPUSH Q6H PRN PRN Reason: ANXIETY Last Admin: 08/05/19 22:18 Dose: 0.5 mg Polyethylene Glycol (Miralax (For Daily Use) -) 17 gm GT BID HAYLEE Last Admin: 08/05/19 22:15 Dose: 17 gm - Objective Vital Signs: Vital Signs Temperature 98.4 F 08/06/19 06:00 Pulse Rate 92 H 08/06/19 06:00 Respiratory Rate 20 08/06/19 06:00 Blood Pressure 130/71 08/06/19 06:00 O2 Sat by Pulse Oximetry (%) 95 08/05/19 21:00 Constitutional: Yes: Well Nourished, No Distress, Anxious (during exam) Eyes: Yes: WNL, Conjunctiva Clear HENT: Yes: WNL, Atraumatic, Normocephalic Neck: Yes: WNL, Supple, Trachea Midline Cardiovascular: Yes: WNL, Regular Rate and Rhythm Respiratory: Yes: WNL, Regular, CTA Bilaterally Gastrointestinal: Yes: WNL, Normal Bowel Sounds, Soft ...Rectal Exam: Yes: Deferred Genitourinary: Yes: Incontinence Breast(s): Yes: WNL Musculoskeletal: Yes: Joint Stiffness, Other (contracted to upper and lower extrem) Extremities: Yes: WNL Edema: No Peripheral Pulses WNL: Yes Peripheral Pulses: Left Radial: 2+, Right Radial: 2+, Left Doralis Pedis: 2+, Right Dorsalis Pedis: 2+, Left Femoral: 2+, Right Femoral: 2+ Integumentary: Yes: WNL Neurological: Yes: Other (resposive to tactile stimuli) - ....Imaging Cat Scan: Report Reviewed (CTAP with IV contrast 07/31/2019: Thickening of the sigmoid and rectum which could be in the basis of stercoral colitis. underlying colitis not excluded. lungs: atelectasis/infiltration of the left base pancreas: peripancreatic stranding identified at the body/tail with thickening of the body/tail suggesting edema. No pancreatic necrosis seen. the pancreatic duct is not dilated.) Problem List - Problems (1) LFTs abnormal Assessment/Plan: - RUQ U/S with fatty liver vs hepatocellular dz - hepatitis panel negative - trending down, continue to monitor -Continue to avoid nonessential hepatotoxic medications Code(s): R94.5 - ABNORMAL RESULTS OF LIVER FUNCTION STUDIES (2) UTI (urinary tract infection) Assessment/Plan: UCX with ESBL ID consultation appreciated isolation precautions On meropenem. per ID will need 14 days total of meropenem (started 07/29/19) Code(s): N39.0 - URINARY TRACT INFECTION, SITE NOT SPECIFIED (3) Cerebral palsy Assessment/Plan: supportive care PT eval Code(s): G80.9 - CEREBRAL PALSY, UNSPECIFIED (4) Seizure Assessment/Plan: change leveteracitam 1500 mg IV back to PO c/w lamictal appreciate neurology consultation (5) CHENTE (acute kidney injury) Assessment/Plan: Resolved with hydration Code(s): N17.9 - ACUTE KIDNEY FAILURE, UNSPECIFIED (6) Edema of upper extremity Assessment/Plan: edema resolved Venous doppler negative for DVT Code(s): R60.0 - LOCALIZED EDEMA (7) Ileus Assessment/Plan: resolved tolerating TF, having BMs c/w bowel regimen Code(s): K56.7 - ILEUS, UNSPECIFIED (8) Prophylactic measure Assessment/Plan: FEN Clinimix stopped, jevity feeds being tolerated continue to monitor electrolytes and replete as necessary DVT heparin sq Dispo maintain as inpatient full code discharge planning back to [place] when abx complete Code(s): Z29.9 - ENCOUNTER FOR PROPHYLACTIC MEASURES, UNSPECIFIED (9) Acute pancreatitis Assessment/Plan: lipase elevated in the 900s, cont to trend GI following and notes/recommendations greatly appreciated. will continue feeds. abdomen soft, non distended, having daily BMs. CTAP with IV contrast 07/31/2019:Thickening of the sigmoid and rectum which could be in the basis of stercoral colitis.l Code(s): K85.90 - ACUTE PANCREATITIS WITHOUT NECROSIS OR INFECTION, UNSP (10) Colon atonic Assessment/Plan: c/w bowel regimen Code(s): K59.8 - OTHER SPECIFIED FUNCTIONAL INTESTINAL DISORDERS (11) Constipation by delayed colonic transit Assessment/Plan: daily enema and monitor on miralax bid Code(s): K59.01 - SLOW TRANSIT CONSTIPATION (12) Elevated creatine kinase Assessment/Plan: elevated again, no reported seizures. will trend until normalizes. Code(s): R74.8 - ABNORMAL LEVELS OF OTHER SERUM ENZYMES (13) Elevated lipase Assessment/Plan: lipase 900s, monitor. continue feeds per GI cont to trend Code(s): R74.8 - ABNORMAL LEVELS OF OTHER SERUM ENZYMES (14) Bruxism (teeth grinding) Assessment/Plan: appears to be anxiety related c/w ativan 0.5mg prn Code(s): F45.8 - OTHER SOMATOFORM DISORDERS Visit type - Emergency Visit Emergency Visit: Yes ED Registration Date: 07/23/19 Care time: The patient presented to the Emergency Department on the above date and was hospitalized for further evaluation of their emergent condition. - New Patient This patient is new to me today: No - Critical Care Critical Care patient: No - Discharge Referral Referred to [facility] Med P.C.: No
[2019-08-06 08:43] LABS: BASO % 0.7 % (0-2.0); HEMATOCRIT 38.9 % (35.4-49); HEMOGLOBIN 13.1 GM/dL (11.7-16.9); MCH 30.6 pg (25.7-33.7); MCHC 33.7 g/dl (32.0-35.9); MEAN CELL VOLUME 90.6 fl (80-96); MEAN PLT VOLUME 10.1 fl (7.5-11.1); MONO % 17.8 % (3.8-10.2); NEUT % 37.5 % (42.8-82.8); PLATELET COUNT 472 K/MM3 (134-434); RBC 4.29 M/mm3 (4.00-5.60); RDW 13.9 % (11.9-15.9); WHITE BLOOD COUNT 5.7 K/mm3 (4.0-10.0)
[2019-08-06 09:13] LABS: ALBUMIN 2.6 g/dl (3.4-5.0); BILIRUBIN,TOTAL 0.3 mg/dL (0.2-1); CALCIUM 9.1 mg/dL (8.5-10.1); CREATININE 0.5 mg/dL (0.55-1.3); MAGNESIUM 2.3 mg/dL (1.8-2.4); TOT PROT 6.2 g/dl (6.4-8.2)
[2019-08-06] MEDS: lamoTRIgine 25 MG TABLET PO SCH ×2 (10:09→22:34)
[2019-08-06] MEDS: BISACODYL 10 MG SUPP.RECT RC SCH (10:10)
[2019-08-06] MEDS: POLYETHYLENE GLYCOL 3350 119 GM BTL GT SCH ×2 (10:11→22:36)
[2019-08-06] MEDS: levETIRAcetam 500 MG/5 ML INJECTION VIAL IVPB SCH (10:11)
--- NOTE | 2019-08-06 12:14 | PN ---
Progress Note, Physician History of Present Illness: no new issues - Current Medication List Current Medications: Active Medications Bisacodyl (Dulcolax Suppository -) 10 mg RC DAILY [facility] Last Admin: 08/06/19 10:10 Dose: 10 mg Budesonide (Pulmicort 0.5 Mg Nebulizer -) 1 amp NEB RBID [facility] Last Admin: 08/06/19 07:44 Dose: 1 amp Heparin Sodium (Porcine) (Heparin -) 5,000 unit SQ TID [facility] Last Admin: 08/06/19 05:36 Dose: 5,000 unit Meropenem 1 gm/ Dextrose 100 mls @ 200 mls/hr IVPB Q8H-IV [facility] Last Admin: 08/06/19 09:48 Dose: 200 mls/hr Lamotrigine (Lamictal -) 50 mg PO BID [facility] Last Admin: 08/06/19 10:09 Dose: 50 mg Levetiracetam (Keppra Injection -) 1,500 mg IVPB BID [facility] Last Admin: 08/06/19 10:11 Dose: 1,500 mg Lorazepam (Ativan Injection -) 0.5 mg IVPUSH Q6H PRN PRN Reason: ANXIETY Last Admin: 08/05/19 22:18 Dose: 0.5 mg Polyethylene Glycol (Miralax (For Daily Use) -) 17 gm GT BID [facility] Last Admin: 08/06/19 10:11 Dose: 17 gm - Objective Vital Signs: Vital Signs Temperature 98.4 F 08/06/19 06:00 Pulse Rate 92 H 08/06/19 06:00 Respiratory Rate 20 08/06/19 06:00 Blood Pressure 130/71 08/06/19 06:00 O2 Sat by Pulse Oximetry (%) 95 08/05/19 21:00 Constitutional: Yes: No Distress, Calm Cardiovascular: Yes: S1, S2 Respiratory: Yes: Regular, CTA Bilaterally Gastrointestinal: Yes: Normal Bowel Sounds, Soft Musculoskeletal: Yes: WNL Extremities: Yes: WNL Neurological: Yes: Other Psychiatric: Yes: Other Labs: CBC, BMP 08/06/19 08:10 08/06/19 08:10 Assessment/Plan Problem List - Problems (1) CHENTE (acute kidney injury) Code(s): N17.9 - ACUTE KIDNEY FAILURE, UNSPECIFIED (2) Cerebral palsy Code(s): G80.9 - CEREBRAL PALSY, UNSPECIFIED (3) Constipation by delayed colonic transit Code(s): K59.01 - SLOW TRANSIT CONSTIPATION (4) Ileus Code(s): K56.7 - ILEUS, UNSPECIFIED (5) Seizure Code(s): R56.9 - UNSPECIFIED CONVULSIONS (6) UTI (urinary tract infection) Code(s): N39.0 - URINARY TRACT INFECTION, SITE NOT SPECIFIED 7 pancreatitis plan continue current mgmt hydration rest as per the team complete course of abx total 14 days
[2019-08-06] MEDS ORDERED: PT OWN MED DRAWER 7, Y5N ONE (21:23)
[2019-08-06] MEDS: levETIRAcetam 500 MG/5 ML ORAL SOLUTION (UNIT-DOSE CUPS) GT SCH (22:34)
[2019-08-07] MEDS ORDERED: MEROPENEM 1 GM VIAL (RESTRICTED TO ID) IVPB ONE ×3 (00:52→17:22)
[2019-08-07] MEDS ORDERED: DEXTROSE 5%-WATER 100 ML IVPB ONE ×3 (00:52→17:23)
[2019-08-07] MEDS: MEROPENEM 1 GM in DEXTROSE 5%-WATER 100 ML IVPB SCH ×3 (01:07→17:42)
[2019-08-07] MEDS: HEPARIN NA (PORCINE) 5,000 UNITS/ML 1ML VIAL SQ SCH ×3 (06:23→23:06)
--- NOTE | 2019-08-07 08:02 | PN ---
Progress Note, Physician Chief Complaint: Non verbal, grimaces no teeth grinding noted on exam today History of Present Illness: Jordan Emerson is a 39 year old male with a past medical history of cerebral palsy (secondary to intracranial hemorrhage), profound mental retardation, non- verbal at baseline, adrenal insufficiency, seizure disorder. The patient at baseline is awake but has been noted to be more lethargic over the last several days. Today it was noted by the skilled nursing that the patient had a witnessed 2 minute long seizure. Vitals at the time were HR 75, BP 117/77, temp <95, saturation of 95% on room air. Prior to this seizure, the staff did not know when his previous one was, however notes from this hospital note a seizure in December. Staff stated that all medications were administered regularly without any missed doses, no new medications were prescribed, no changes in diet (all feeds through G tube), no sick contacts. Patient was sent to the ED for further evaluation. Spoken with nurse Watson for history ([phone]) - Current Medication List Current Medications: Active Medications Bisacodyl (Dulcolax Suppository -) 10 mg RC DAILY [facility] Last Admin: 08/06/19 10:10 Dose: 10 mg Budesonide (Pulmicort 0.5 Mg Nebulizer -) 1 amp NEB RBID [facility] Last Admin: 08/06/19 20:16 Dose: 1 amp Heparin Sodium (Porcine) (Heparin -) 5,000 unit SQ TID [facility] Last Admin: 08/07/19 06:23 Dose: 5,000 unit Meropenem 1 gm/ Dextrose 100 mls @ 200 mls/hr IVPB Q8H-IV [facility] Last Admin: 08/07/19 01:07 Dose: 200 mls/hr Lamotrigine (Lamictal -) 50 mg PO BID [facility]LEE Last Admin: 08/06/19 22:34 Dose: 50 mg Levetiracetam (Keppra Oral Solution -) 1,500 mg GT BID [facility]LEE Last Admin: 08/06/19 22:34 Dose: 1,500 mg Lorazepam (Ativan Injection -) 0.5 mg IVPUSH Q6H PRN PRN Reason: ANXIETY Last Admin: 08/05/19 22:18 Dose: 0.5 mg Polyethylene Glycol (Miralax (For Daily Use) -) 17 gm GT BID HAYLEE Last Admin: 08/06/19 22:36 Dose: 17 gm - Objective Vital Signs: Vital Signs Temperature 97.7 F 08/07/19 06:26 Pulse Rate 85 08/07/19 06:26 Respiratory Rate 17 08/07/19 06:26 Blood Pressure 113/56 L 08/07/19 06:26 O2 Sat by Pulse Oximetry (%) 98 08/06/19 21:00 Constitutional: Yes: Well Nourished, No Distress, Calm Eyes: Yes: WNL, Conjunctiva Clear HENT: Yes: WNL, Atraumatic, Normocephalic Neck: Yes: WNL, Supple, Trachea Midline Cardiovascular: Yes: WNL, Regular Rate and Rhythm Respiratory: Yes: WNL, Regular, CTA Bilaterally Gastrointestinal: Yes: WNL, Normal Bowel Sounds, Other (PEG noted with TF) ...Rectal Exam: Yes: Deferred Genitourinary: Yes: Incontinence Breast(s): Yes: WNL Musculoskeletal: Yes: Other (contractues to upper and lower extrem) Extremities: Yes: Deformity Edema: No Peripheral Pulses WNL: Yes Peripheral Pulses: Left Radial: 2+, Right Radial: 2+, Left Doralis Pedis: 2+, Right Dorsalis Pedis: 2+, Left Femoral: 2+, Right Femoral: 2+ Integumentary: Yes: WNL Neurological: Yes: Other (responds to voice) ...Motor Strength: LUE (resists with UE), RUE Problem List - Problems (1) LFTs abnormal Assessment/Plan: - RUQ U/S with fatty liver vs hepatocellular dz - hepatitis panel negative - trending down, continue to monitor -Continue to avoid nonessential hepatotoxic medications Code(s): R94.5 - ABNORMAL RESULTS OF LIVER FUNCTION STUDIES (2) UTI (urinary tract infection) Assessment/Plan: UCX with ESBL ID consultation appreciated isolation precautions On meropenem. per ID will need 14 days total of meropenem (started 07/29/19, last dose 08/12) Code(s): N39.0 - URINARY TRACT INFECTION, SITE NOT SPECIFIED (3) Cerebral palsy Assessment/Plan: supportive care PT eval Code(s): G80.9 - CEREBRAL PALSY, UNSPECIFIED (4) Seizure Assessment/Plan: c/w leveteracitam c/w lamictal appreciate neurology consultation (5) CHENTE (acute kidney injury) Assessment/Plan: Resolved with hydration Problems reviewed: Yes Code(s): N17.9 - ACUTE KIDNEY FAILURE, UNSPECIFIED (6) Edema of upper extremity Assessment/Plan: edema resolved Venous doppler negative for DVT Problems reviewed: Yes Code(s): R60.0 - LOCALIZED EDEMA (7) Ileus Assessment/Plan: resolved tolerating TF, having BMs c/w bowel regimen Problems reviewed: Yes Code(s): K56.7 - ILEUS, UNSPECIFIED (8) Prophylactic measure Assessment/Plan: FEN Jevity feeds being tolerated continue to monitor electrolytes and replete as necessary DVT heparin sq Dispo maintain as inpatient full code discharge planning back to [place] when abx complete Code(s): Z29.9 - ENCOUNTER FOR PROPHYLACTIC MEASURES, UNSPECIFIED (9) Acute pancreatitis Assessment/Plan: lipase elevated in the 900s, cont to trend GI following and notes/recommendations greatly appreciated. will continue feeds. abdomen soft, non distended, having daily BMs. CTAP with IV contrast 07/31/2019:Thickening of the sigmoid and rectum which could be in the basis of stercoral colitis.l Code(s): K85.90 - ACUTE PANCREATITIS WITHOUT NECROSIS OR INFECTION, UNSP (10) Colon atonic Assessment/Plan: c/w bowel regimen Code(s): K59.8 - OTHER SPECIFIED FUNCTIONAL INTESTINAL DISORDERS (11) Constipation by delayed colonic transit Assessment/Plan: daily enema and monitor on miralax bid Code(s): K59.01 - SLOW TRANSIT CONSTIPATION (12) Elevated creatine kinase Assessment/Plan: trending down Code(s): R74.8 - ABNORMAL LEVELS OF OTHER SERUM ENZYMES (13) Elevated lipase Assessment/Plan: lipase 177 continue feeds per GI cont to trend Code(s): R74.8 - ABNORMAL LEVELS OF OTHER SERUM ENZYMES (14) Bruxism (teeth grinding) Assessment/Plan: appears to be anxiety related c/w ativan 0.5mg prn Code(s): F45.8 - OTHER SOMATOFORM DISORDERS Visit type - Emergency Visit Emergency Visit: Yes ED Registration Date: 07/23/19 Care time: The patient presented to the Emergency Department on the above date and was hospitalized for further evaluation of their emergent condition. - New Patient This patient is new to me today: No - Critical Care Critical Care patient: No - Discharge Referral Referred to [facility] No
[2019-08-07 08:19] LABS: BASO % 0.4 % (0-2.0); EOS % 0.6 % (0-4.5); HEMATOCRIT 40.5 % (35.4-49); HEMOGLOBIN 13.5 GM/dL (11.7-16.9); LYMPH % 17.9 % (8-40); MCH 30.1 pg (25.7-33.7); MCHC 33.4 g/dl (32.0-35.9); MEAN CELL VOLUME 90.1 fl (80-96); MEAN PLT VOLUME 10.6 fl (7.5-11.1); MONO % 16.3 % (3.8-10.2); NEUT % 64.8 % (42.8-82.8); PLATELET COUNT 528 K/MM3 (134-434); RBC 4.49 M/mm3 (4.00-5.60); WHITE BLOOD COUNT 6.9 K/mm3 (4.0-10.0)
[2019-08-07] MEDS: BUDESONIDE 0.5 MG/2 ML INH SUSP VIAL NEB SCH ×2 (08:24→20:54)
[2019-08-07 08:44] LABS: ALBUMIN 2.7 g/dl (3.4-5.0); BILIRUBIN,TOTAL 0.4 mg/dL (0.2-1); BLOOD UREA NITROGEN 10.9 mg/dL (7-18); CALCIUM 9.7 mg/dL (8.5-10.1); CREATININE 0.5 mg/dL (0.55-1.3); MAGNESIUM 2.4 mg/dL (1.8-2.4); POTASSIUM 4.8 mmol/L (3.5-5.1); TOT PROT 6.9 g/dl (6.4-8.2)
[2019-08-07] MEDS: POLYETHYLENE GLYCOL 3350 119 GM BTL GT SCH ×2 (10:52→23:06)
[2019-08-07] MEDS: lamoTRIgine 25 MG TABLET PO SCH ×2 (10:53→23:06)
[2019-08-07] MEDS: BISACODYL 10 MG SUPP.RECT RC SCH (10:54)
[2019-08-07] MEDS: levETIRAcetam 500 MG/5 ML ORAL SOLUTION (UNIT-DOSE CUPS) GT SCH ×2 (10:54→23:06)
--- NOTE | 2019-08-07 12:11 | PN ---
Progress Note, Physician History of Present Illness: no new issues - Current Medication List Current Medications: Active Medications Bisacodyl (Dulcolax Suppository -) 10 mg RC DAILY [facility] Last Admin: 08/07/19 10:54 Dose: 10 mg Budesonide (Pulmicort 0.5 Mg Nebulizer -) 1 amp NEB RBID [facility] Last Admin: 08/07/19 08:24 Dose: 1 amp Heparin Sodium (Porcine) (Heparin -) 5,000 unit SQ TID [facility] Last Admin: 08/07/19 06:23 Dose: 5,000 unit Meropenem 1 gm/ Dextrose 100 mls @ 200 mls/hr IVPB Q8H-IV [facility] Stop: 08/12/19 02:29 Last Admin: 08/07/19 10:53 Dose: 200 mls/hr Lamotrigine (Lamictal -) 50 mg PO BID [facility] Last Admin: 08/07/19 10:53 Dose: 50 mg Levetiracetam (Keppra Oral Solution -) 1,500 mg GT BID [facility] Last Admin: 08/07/19 10:54 Dose: 1,500 mg Lorazepam (Ativan Injection -) 0.5 mg IVPUSH Q6H PRN PRN Reason: ANXIETY Last Admin: 08/05/19 22:18 Dose: 0.5 mg Polyethylene Glycol (Miralax (For Daily Use) -) 17 gm GT BID [facility] Last Admin: 08/07/19 10:52 Dose: 17 gm - Objective Vital Signs: Vital Signs Temperature 98.1 F 08/07/19 10:00 Pulse Rate 92 H 08/07/19 10:00 Respiratory Rate 20 08/07/19 10:00 Blood Pressure 124/78 08/07/19 10:00 O2 Sat by Pulse Oximetry (%) 98 08/06/19 21:00 Constitutional: Yes: No Distress, Calm Cardiovascular: Yes: S1, S2 Respiratory: Yes: Regular, Other Gastrointestinal: Yes: Normal Bowel Sounds, Soft, Other (peg) Musculoskeletal: Yes: WNL Extremities: Yes: Other Neurological: Yes: Other Labs: CBC, BMP 08/07/19 06:15 08/07/19 06:59 Assessment/Plan Problem List - Problems (1) CHENTE (acute kidney injury) Code(s): N17.9 - ACUTE KIDNEY FAILURE, UNSPECIFIED (2) Cerebral palsy Code(s): G80.9 - CEREBRAL PALSY, UNSPECIFIED (3) Constipation by delayed colonic transit Code(s): K59.01 - SLOW TRANSIT CONSTIPATION (4) Ileus Code(s): K56.7 - ILEUS, UNSPECIFIED (5) Seizure Code(s): R56.9 - UNSPECIFIED CONVULSIONS (6) UTI (urinary tract infection) Code(s): N39.0 - URINARY TRACT INFECTION, SITE NOT SPECIFIED 7 pancreatitis plan continue current mgmt hydration rest as per the team complete course of abx total 14 days
[2019-08-08] MEDS: MEROPENEM 1 GM in DEXTROSE 5%-WATER 100 ML IVPB SCH ×3 (02:15→17:32)
[2019-08-08] MEDS ORDERED: MEROPENEM 1 GM VIAL (RESTRICTED TO ID) IVPB ONE ×3 (02:29→17:09)
[2019-08-08] MEDS ORDERED: DEXTROSE 5%-WATER 100 ML IVPB ONE ×3 (02:29→17:09)
[2019-08-08] MEDS: HEPARIN NA (PORCINE) 5,000 UNITS/ML 1ML VIAL SQ SCH ×3 (05:19→22:07)
[2019-08-08] MEDS: BUDESONIDE 0.5 MG/2 ML INH SUSP VIAL NEB SCH ×2 (07:25→20:16)
[2019-08-08 08:12] LABS: ALBUMIN 2.7 g/dl (3.4-5.0); BILIRUBIN,TOTAL 0.4 mg/dL (0.2-1); BLOOD UREA NITROGEN 9.7 mg/dL (7-18); CALCIUM 9.4 mg/dL (8.5-10.1); CREATININE 0.5 mg/dL (0.55-1.3); MAGNESIUM 2.4 mg/dL (1.8-2.4); POTASSIUM 4.5 mmol/L (3.5-5.1); TOT PROT 6.8 g/dl (6.4-8.2)
--- NOTE | 2019-08-08 08:18 | PN ---
Progress Note, Physician Chief Complaint: Non verbal, no teeth grinding noted on exam today History of Present Illness: Jordan Emerson is a 39 year old male with a past medical history of cerebral palsy (secondary to intracranial hemorrhage), profound mental retardation, non- verbal at baseline, adrenal insufficiency, seizure disorder. The patient at baseline is awake but has been noted to be more lethargic over the last several days. Today it was noted by the senior care that the patient had a witnessed 2 minute long seizure. Vitals at the time were HR 75, BP 117/77, temp <95, saturation of 95% on room air. Prior to this seizure, the staff did not know when his previous one was, however notes from this hospital note a seizure in December. Staff stated that all medications were administered regularly without any missed doses, no new medications were prescribed, no changes in diet (all feeds through G tube), no sick contacts. Patient was sent to the ED for further evaluation. Spoken with nurse Watson for history ([phone]) - Current Medication List Current Medications: Active Medications Bisacodyl (Dulcolax Suppository -) 10 mg RC DAILY [facility] Last Admin: 08/07/19 10:54 Dose: 10 mg Budesonide (Pulmicort 0.5 Mg Nebulizer -) 1 amp NEB RBID [facility] Last Admin: 08/08/19 07:25 Dose: 1 amp Heparin Sodium (Porcine) (Heparin -) 5,000 unit SQ TID [facility] Last Admin: 08/08/19 05:19 Dose: 5,000 unit Meropenem 1 gm/ Dextrose 100 mls @ 200 mls/hr IVPB Q8H-IV [facility] Stop: 08/12/19 02:29 Last Admin: 08/08/19 02:15 Dose: 200 mls/hr Lamotrigine (Lamictal -) 50 mg PO BID [facility] Last Admin: 08/07/19 23:06 Dose: 50 mg Levetiracetam (Keppra Oral Solution -) 1,500 mg GT BID [facility] Last Admin: 08/07/19 23:06 Dose: 1,500 mg Lorazepam (Ativan Injection -) 0.5 mg IVPUSH Q6H PRN PRN Reason: ANXIETY Last Admin: 08/05/19 22:18 Dose: 0.5 mg Polyethylene Glycol (Miralax (For Daily Use) -) 17 gm GT BID [facility] Last Admin: 08/07/19 23:06 Dose: 17 gm - Objective Vital Signs: Vital Signs Temperature 97.7 F 08/08/19 06:21 Pulse Rate 106 H 08/08/19 06:21 Respiratory Rate 20 08/08/19 06:21 Blood Pressure 122/71 08/08/19 06:21 O2 Sat by Pulse Oximetry (%) 96 08/07/19 21:00 Additional Findings/Remarks: Constitutional: Yes: Well Nourished, No Distress, Calm Eyes: Yes: WNL, Conjunctiva Clear HENT: Yes: WNL, Atraumatic, Normocephalic Neck: Yes: WNL, Supple, Trachea Midline Cardiovascular: Yes: WNL, Regular Rate and Rhythm Respiratory: Yes: WNL, Regular, CTA Bilaterally Gastrointestinal: Yes: WNL, Normal Bowel Sounds, Other (PEG noted with TF) ...Rectal Exam: Yes: Deferred Genitourinary: Yes: Incontinence Breast(s): Yes: WNL Musculoskeletal: Yes: Other (contractues to upper and lower extrem) Extremities: Yes: Deformity Edema: No Peripheral Pulses WNL: Yes Peripheral Pulses: Left Radial: 2+, Right Radial: 2+, Left Doralis Pedis: 2+, Right Dorsalis Pedis: 2+, Left Femoral: 2+, Right Femoral: 2+ Integumentary: Yes: WNL Neurological: Yes: Other (responds to voice) ...Motor Strength: LUE (resists with UE), RUE Labs: CBC, BMP 08/08/19 06:10 Problem List - Problems (1) LFTs abnormal Assessment/Plan: - RUQ U/S with fatty liver vs hepatocellular dz - hepatitis panel negative - trending down, continue to monitor -Continue to avoid nonessential hepatotoxic medications Code(s): R94.5 - ABNORMAL RESULTS OF LIVER FUNCTION STUDIES (2) UTI (urinary tract infection) Assessment/Plan: UCX with ESBL ID consultation appreciated isolation precautions On meropenem. per ID will need 14 days total of meropenem (started 07/29/19, last dose 08/12) Code(s): N39.0 - URINARY TRACT INFECTION, SITE NOT SPECIFIED (3) Cerebral palsy Assessment/Plan: supportive care PT eval Code(s): G80.9 - CEREBRAL PALSY, UNSPECIFIED (4) Seizure Assessment/Plan: c/w leveteracitam c/w lamictal appreciate neurology consultation (5) CHENTE (acute kidney injury) Assessment/Plan: Resolved with hydration Problems reviewed: Yes Code(s): N17.9 - ACUTE KIDNEY FAILURE, UNSPECIFIED (6) Edema of upper extremity Assessment/Plan: edema resolved Venous doppler negative for DVT Problems reviewed: Yes Code(s): R60.0 - LOCALIZED EDEMA (7) Ileus Assessment/Plan: resolved tolerating TF, having BMs c/w bowel regimen Problems reviewed: Yes Code(s): K56.7 - ILEUS, UNSPECIFIED (8) Prophylactic measure Assessment/Plan: FEN Jevity feeds being tolerated continue to monitor electrolytes and replete as necessary DVT heparin sq Dispo maintain as inpatient full code discharge planning back to [place] when abx complete Code(s): Z29.9 - ENCOUNTER FOR PROPHYLACTIC MEASURES, UNSPECIFIED (9) Acute pancreatitis Assessment/Plan: resolved GI following and notes/recommendations greatly appreciated. will continue feeds. abdomen soft, non distended, having daily BMs. CTAP with IV contrast 07/31/2019:Thickening of the sigmoid and rectum which could be in the basis of stercoral colitis.l Code(s): K85.90 - ACUTE PANCREATITIS WITHOUT NECROSIS OR INFECTION, UNSP (10) Colon atonic Assessment/Plan: c/w bowel regimen having Bms Code(s): K59.8 - OTHER SPECIFIED FUNCTIONAL INTESTINAL DISORDERS (11) Constipation by delayed colonic transit Assessment/Plan: daily enema and monitor on miralax bid Code(s): K59.01 - SLOW TRANSIT CONSTIPATION (12) Elevated creatine kinase Assessment/Plan: trending down Code(s): R74.8 - ABNORMAL LEVELS OF OTHER SERUM ENZYMES (13) Elevated lipase Assessment/Plan: lipase 781 continue feeds per GI cont to trend Code(s): R74.8 - ABNORMAL LEVELS OF OTHER SERUM ENZYMES (14) Bruxism (teeth grinding) Assessment/Plan: appears to be anxiety related, not noted as frequently c/w ativan 0.5mg prn Code(s): F45.8 - OTHER SOMATOFORM DISORDERS Visit type - Emergency Visit Emergency Visit: Yes ED Registration Date: 07/23/19 Care time: The patient presented to the Emergency Department on the above date and was hospitalized for further evaluation of their emergent condition. - New Patient This patient is new to me today: No - Critical Care Critical Care patient: No - Discharge Referral Referred to [facility] No
[2019-08-08 08:44] LABS: BASO % 0.5 % (0-2.0); EOS % 0.5 % (0-4.5); HEMOGLOBIN 13.6 GM/dL (11.7-16.9); LYMPH % 25.2 % (8-40); MCHC 33.1 g/dl (32.0-35.9); MEAN CELL VOLUME 90.5 fl (80-96); MONO % 18.5 % (3.8-10.2); NEUT % 55.3 % (42.8-82.8); PLATELET COUNT 547 K/MM3 (134-434); RBC 4.54 M/mm3 (4.00-5.60); RDW 14.4 % (11.9-15.9); WHITE BLOOD COUNT 7.2 K/mm3 (4.0-10.0)
[2019-08-08] MEDS: lamoTRIgine 25 MG TABLET PO SCH ×2 (10:38→22:07)
[2019-08-08] MEDS: BISACODYL 10 MG SUPP.RECT RC SCH (10:38)
[2019-08-08] MEDS: POLYETHYLENE GLYCOL 3350 119 GM BTL GT SCH ×2 (11:02→22:17)
[2019-08-08] MEDS: levETIRAcetam 500 MG/5 ML ORAL SOLUTION (UNIT-DOSE CUPS) GT SCH ×2 (11:02→22:07)
[2019-08-08] MEDS: LORazepam 2 MG/ML SDV VIAL IVPUSH PRN (11:45)
--- NOTE | 2019-08-08 21:15 | PN ---
Progress Note, Physician History of Present Illness: Pt seen and examined. Appears comfortable. Noted to have low grade fevers today , 100.6 currently. Having BM x 1 today, no noted seizure activity, no tachypnea. Responds to tactile stimuli but without distress. - Current Medication List Current Medications: Active Medications Bisacodyl (Dulcolax Suppository -) 10 mg RC DAILY [facility] Last Admin: 08/08/19 10:38 Dose: 10 mg Budesonide (Pulmicort 0.5 Mg Nebulizer -) 1 amp NEB RBID [facility] Last Admin: 08/08/19 20:16 Dose: 1 amp Heparin Sodium (Porcine) (Heparin -) 5,000 unit SQ TID [facility] Last Admin: 08/08/19 14:28 Dose: 5,000 unit Meropenem 1 gm/ Dextrose 100 mls @ 200 mls/hr IVPB Q8H-IV [facility] Stop: 08/12/19 02:29 Last Admin: 08/08/19 17:32 Dose: 200 mls/hr Lamotrigine (Lamictal -) 50 mg PO BID [facility] Last Admin: 08/08/19 10:38 Dose: 50 mg Levetiracetam (Keppra Oral Solution -) 1,500 mg GT BID [facility] Last Admin: 08/08/19 11:02 Dose: 1,500 mg Polyethylene Glycol (Miralax (For Daily Use) -) 17 gm GT BID [facility] Last Admin: 08/08/19 11:02 Dose: 17 gm - Objective Vital Signs: Vital Signs Temperature 100.5 F H 08/08/19 14:38 Pulse Rate 126 H 08/08/19 14:38 Respiratory Rate 20 08/08/19 14:38 Blood Pressure 103/89 08/08/19 14:38 O2 Sat by Pulse Oximetry (%) 96 08/08/19 09:00 Constitutional: Yes: No Distress, Calm Cardiovascular: Yes: Tachycardia Respiratory: Yes: Regular, Other (poor inspiratory effort, no audible wheeze/ rhonchi) Gastrointestinal: Yes: Normal Bowel Sounds, Soft Genitourinary: Yes: [place] Present Edema: No Integumentary: Yes: WNL Neurological: Yes: Other (easily arousable) Labs: CBC, BMP 08/08/19 06:10 08/08/19 06:10 Laboratory Results - last 24 hr 08/08/19 08/08/19 06:10 06:10 WBC 7.2 RBC 4.54 Hgb 13.6 Hct 41.0 MCV 90.5 MCH 30.0 MCHC 33.1 RDW 14.4 Plt Count 547 H MPV 11.0 Absolute Neuts (auto) 4.0 Neutrophils % 55.3 Lymphocytes % 25.2 D Monocytes % 18.5 H Eosinophils % 0.5 Basophils % 0.5 Nucleated RBC % 0 Sodium 138 Potassium 4.5 Chloride 96 L Carbon Dioxide 32 Anion Gap 9 BUN 9.7 Creatinine 0.5 L Est GFR (CKD-EPI)AfAm 156.00 Est GFR (CKD-EPI)NonAf 134.60 Random Glucose 126 H Calcium 9.4 Magnesium 2.4 Total Bilirubin 0.4 AST 33 ALT 48 Alkaline Phosphatase 188 H Creatine Kinase 378 H Creatine Kinase Index 0.8 CK-MB (CK-2) 3.1 Total Protein 6.8 Albumin 2.7 L Problem List - Problems (1) CHENTE (acute kidney injury) Code(s): N17.9 - ACUTE KIDNEY FAILURE, UNSPECIFIED (2) Cerebral palsy Code(s): G80.9 - CEREBRAL PALSY, UNSPECIFIED (3) Constipation by delayed colonic transit Code(s): K59.01 - SLOW TRANSIT CONSTIPATION (4) Ileus Code(s): K56.7 - ILEUS, UNSPECIFIED (5) Seizure Code(s): R56.9 - UNSPECIFIED CONVULSIONS (6) UTI (urinary tract infection) Code(s): N39.0 - URINARY TRACT INFECTION, SITE NOT SPECIFIED Assessment/Plan ESBL + E. coli UTI Ileus vs. SBO - resolved Seizures - no recent seizures noted Cerebral palsy mental retardation Hx of ICH Adrenal insufficiency Chronic respiratory failure Fever -- pt with fever today, tachycardia, wbc slowly trending up although still within normal range -- repeat blood cultures,suggest CXR -- continue meropenem, will add vancomycin empirically for now -- repeat labs including CPK, monitor vitals closely -- monitor for seizure activity -- No sob/n/v/d/constipation noted, no rash, no change in mental status at this time
[2019-08-08] MEDS: VANCOMYCIN 1 GRAM (PRE-DOCKED) 1,000 MG/250 ML BAG IVPB SCH (22:07)
[2019-08-09] MEDS ORDERED: DEXTROSE 5%-WATER 100 ML IVPB ONE ×3 (02:38→15:47)
[2019-08-09] MEDS ORDERED: MEROPENEM 1 GM VIAL (RESTRICTED TO ID) IVPB ONE ×3 (02:38→15:47)
[2019-08-09] MEDS: MEROPENEM 1 GM in DEXTROSE 5%-WATER 100 ML IVPB SCH ×3 (02:52→17:53)
[2019-08-09] MEDS ORDERED: LORazepam 0.5 MG TABLET GT ONE (04:00)
[2019-08-09] MEDS ORDERED: LORazepam 0.5 MG TABLET PO ONE (04:00)
[2019-08-09] MEDS: HEPARIN NA (PORCINE) 5,000 UNITS/ML 1ML VIAL SQ SCH ×3 (05:45→21:06)
[2019-08-09] MEDS: ACETAMINOPHEN 650 MG SUPP.RECT PR PRN ×2 (07:16→18:53)
[2019-08-09 07:30] LABS: BASO % 1.1 % (0-2.0); EOS % 0.6 % (0-4.5); HEMATOCRIT 37.3 % (35.4-49); HEMOGLOBIN 12.6 GM/dL (11.7-16.9); LYMPH % 31.1 % (8-40); MCH 30.7 pg (25.7-33.7); MCHC 33.8 g/dl (32.0-35.9); MEAN PLT VOLUME 10.9 fl (7.5-11.1); MONO % 22.1 % (3.8-10.2); NEUT % 45.1 % (42.8-82.8); PLATELET COUNT 498 K/MM3 (134-434); WHITE BLOOD COUNT 7.2 K/mm3 (4.0-10.0)
[2019-08-09] MEDS ORDERED: PT OWN MED DRAWER 7, Y5N ONE ×3 (07:42→19:40)
[2019-08-09] MEDS: BUDESONIDE 0.5 MG/2 ML INH SUSP VIAL NEB SCH ×2 (07:45→20:58)
[2019-08-09 07:49] LABS: ALBUMIN 2.4 g/dl (3.4-5.0); BILIRUBIN,TOTAL 0.4 mg/dL (0.2-1); BLOOD UREA NITROGEN 10.2 mg/dL (7-18); CALCIUM 9.1 mg/dL (8.5-10.1); CREATININE 0.5 mg/dL (0.55-1.3); MAGNESIUM 2.4 mg/dL (1.8-2.4); TOT PROT 6.4 g/dl (6.4-8.2)
--- NOTE | 2019-08-09 07:55 | PN ---
Progress Note, Physician Chief Complaint: Non verbal, open eyes to verbal stimuli History of Present Illness: Jordan Emerson is a 39 year old male with a past medical history of cerebral palsy (secondary to intracranial hemorrhage), profound mental retardation, non- verbal at baseline, adrenal insufficiency, seizure disorder. The patient at baseline is awake but has been noted to be more lethargic over the last several days. Today it was noted by the half-way that the patient had a witnessed 2 minute long seizure. Vitals at the time were HR 75, BP 117/77, temp <95, saturation of 95% on room air. Prior to this seizure, the staff did not know when his previous one was, however notes from this hospital note a seizure in December. Staff stated that all medications were administered regularly without any missed doses, no new medications were prescribed, no changes in diet (all feeds through G tube), no sick contacts. Patient was sent to the ED for further evaluation. Spoken with nurse Watson for history ([phone]) - Current Medication List Current Medications: Active Medications Acetaminophen (Tylenol Suppository -) 650 mg ME Q6H PRN PRN Reason: FEVER Last Admin: 08/09/19 07:16 Dose: 650 mg Bisacodyl (Dulcolax Suppository -) 10 mg RC DAILY [facility] Last Admin: 08/08/19 10:38 Dose: 10 mg Budesonide (Pulmicort 0.5 Mg Nebulizer -) 1 amp NEB RBID [facility] Last Admin: 08/09/19 07:45 Dose: 1 amp Heparin Sodium (Porcine) (Heparin -) 5,000 unit SQ TID [facility] Last Admin: 08/09/19 05:45 Dose: 5,000 unit Meropenem 1 gm/ Dextrose 100 mls @ 200 mls/hr IVPB Q8H-IV [facility] Stop: 08/12/19 02:29 Last Admin: 08/09/19 02:52 Dose: 200 mls/hr Vancomycin HCl (Vancomycin (Pre-Docked)) 1,000 mg in 250 mls @ 166.667 mls/hr IVPB BID [facility]; Protocol Last Admin: 08/08/19 22:07 Dose: 166.667 mls/hr Lamotrigine (Lamictal -) 50 mg PO BID [facility] Last Admin: 08/08/19 22:07 Dose: 50 mg Levetiracetam (Keppra Oral Solution -) 1,500 mg GT BID [facility] Last Admin: 08/08/19 22:07 Dose: 1,500 mg Polyethylene Glycol (Miralax (For Daily Use) -) 17 gm GT BID [facility] Last Admin: 08/08/19 22:17 Dose: 17 gm - Objective Vital Signs: Vital Signs Temperature 100.5 F H 08/09/19 06:11 Pulse Rate 110 H 08/09/19 06:11 Respiratory Rate 20 08/09/19 06:11 Blood Pressure 108/81 08/09/19 06:11 O2 Sat by Pulse Oximetry (%) 95 08/08/19 21:00 Additional Findings/Remarks: Constitutional: Yes: Well Nourished, No Distress, Calm Eyes: Yes: WNL, Conjunctiva Clear HENT: Yes: WNL, Atraumatic, Normocephalic Neck: Yes: WNL, Supple, Trachea Midline Cardiovascular: Yes: WNL, Regular Rate and Rhythm Respiratory: Yes: WNL, Regular, CTA Bilaterally Gastrointestinal: Yes: WNL, Normal Bowel Sounds, Other (PEG noted with TF) ...Rectal Exam: Yes: Deferred Genitourinary: Yes: Incontinence Breast(s): Yes: WNL Musculoskeletal: Yes: Other (contractues to upper and lower extrem) Extremities: Yes: Deformity Edema: No Peripheral Pulses WNL: Yes Peripheral Pulses: Left Radial: 2+, Right Radial: 2+, Left Doralis Pedis: 2+, Right Dorsalis Pedis: 2+, Left Femoral: 2+, Right Femoral: 2+ Integumentary: Yes: WNL Neurological: Yes: Other (responds to voice) ...Motor Strength: LUE (resists with UE), RUE Labs: CBC, BMP 08/09/19 06:45 Problem List - Problems (1) LFTs abnormal Assessment/Plan: - RUQ U/S with fatty liver vs hepatocellular dz - hepatitis panel negative - trending down, continue to monitor -Continue to avoid nonessential hepatotoxic medications Code(s): R94.5 - ABNORMAL RESULTS OF LIVER FUNCTION STUDIES (2) UTI (urinary tract infection) Assessment/Plan: UCX with ESBL ID consultation appreciated isolation precautions On meropenem. per ID will need 14 days total of meropenem (started 07/29/19, last dose 08/12) Code(s): N39.0 - URINARY TRACT INFECTION, SITE NOT SPECIFIED (3) Cerebral palsy Assessment/Plan: supportive care PT eval Code(s): G80.9 - CEREBRAL PALSY, UNSPECIFIED (4) Seizure Assessment/Plan: no seizure activity c/w leveteracitam c/w lamictal appreciate neurology consultation (5) CHENTE (acute kidney injury) Assessment/Plan: Resolved with hydration Code(s): N17.9 - ACUTE KIDNEY FAILURE, UNSPECIFIED (6) Edema of upper extremity Assessment/Plan: edema resolved Venous doppler negative for DVT Code(s): R60.0 - LOCALIZED EDEMA (7) Ileus Assessment/Plan: resolved tolerating TF, having BMs c/w bowel regimen Code(s): K56.7 - ILEUS, UNSPECIFIED (8) Prophylactic measure Assessment/Plan: FEN Jevity feeds being tolerated continue to monitor electrolytes and replete as necessary DVT heparin sq Dispo maintain as inpatient full code discharge planning back to [place] when abx complete Code(s): Z29.9 - ENCOUNTER FOR PROPHYLACTIC MEASURES, UNSPECIFIED (9) Acute pancreatitis Assessment/Plan: resolved abdomen soft, non distended, having daily BMs. CTAP with IV contrast 07/31/2019:Thickening of the sigmoid and rectum which could be in the basis of stercoral colitis.l Code(s): K85.90 - ACUTE PANCREATITIS WITHOUT NECROSIS OR INFECTION, UNSP (10) Colon atonic Assessment/Plan: c/w bowel regimen having BMs Code(s): K59.8 - OTHER SPECIFIED FUNCTIONAL INTESTINAL DISORDERS (11) Constipation by delayed colonic transit Assessment/Plan: daily enema and monitor on miralax bid Code(s): K59.01 - SLOW TRANSIT CONSTIPATION (12) Elevated creatine kinase Assessment/Plan: cont to trend 351 today Code(s): R74.8 - ABNORMAL LEVELS OF OTHER SERUM ENZYMES (13) Elevated lipase Assessment/Plan: lipase 581 continue feeds per GI cont to trend Code(s): R74.8 - ABNORMAL LEVELS OF OTHER SERUM ENZYMES (14) Bruxism (teeth grinding) Assessment/Plan: not noted as frequently c/w ativan 0.5mg prn Code(s): F45.8 - OTHER SOMATOFORM DISORDERS Visit type - Emergency Visit Emergency Visit: Yes ED Registration Date: 07/23/19 Care time: The patient presented to the Emergency Department on the above date and was hospitalized for further evaluation of their emergent condition. - New Patient This patient is new to me today: No - Critical Care Critical Care patient: No - Discharge Referral Referred to [facility] No
--- NOTE | 2019-08-09 10:34 | PN ---
Progress Note, Physician History of Present Illness: patient stable no new issues - Current Medication List Current Medications: Active Medications Acetaminophen (Tylenol Suppository -) 650 mg RI Q6H PRN PRN Reason: FEVER Last Admin: 08/09/19 07:16 Dose: 650 mg Bisacodyl (Dulcolax Suppository -) 10 mg RC DAILY [facility] Last Admin: 08/08/19 10:38 Dose: 10 mg Budesonide (Pulmicort 0.5 Mg Nebulizer -) 1 amp NEB RBID [facility] Last Admin: 08/09/19 07:45 Dose: 1 amp Heparin Sodium (Porcine) (Heparin -) 5,000 unit SQ TID [facility] Last Admin: 08/09/19 05:45 Dose: 5,000 unit Meropenem 1 gm/ Dextrose 100 mls @ 200 mls/hr IVPB Q8H-IV [facility] Stop: 08/12/19 02:29 Last Admin: 08/09/19 02:52 Dose: 200 mls/hr Vancomycin HCl (Vancomycin (Pre-Docked)) 1,000 mg in 250 mls @ 166.667 mls/hr IVPB BID [facility]; Protocol Last Admin: 08/08/19 22:07 Dose: 166.667 mls/hr Lamotrigine (Lamictal -) 50 mg PO BID [facility] Last Admin: 08/08/19 22:07 Dose: 50 mg Levetiracetam (Keppra Oral Solution -) 1,500 mg GT BID [facility] Last Admin: 08/08/19 22:07 Dose: 1,500 mg Polyethylene Glycol (Miralax (For Daily Use) -) 17 gm GT BID [facility] Last Admin: 08/08/19 22:17 Dose: 17 gm - Objective Vital Signs: Vital Signs Temperature 100.5 F H 08/09/19 06:11 Pulse Rate 110 H 08/09/19 06:11 Respiratory Rate 20 08/09/19 06:11 Blood Pressure 108/81 08/09/19 06:11 O2 Sat by Pulse Oximetry (%) 95 08/08/19 21:00 Constitutional: Yes: No Distress, Calm Cardiovascular: Yes: S1, S2 Respiratory: Yes: Regular, CTA Bilaterally Gastrointestinal: Yes: Normal Bowel Sounds, Soft, Other Musculoskeletal: Yes: Other Extremities: Yes: Other Labs: CBC, BMP 08/09/19 06:45 08/09/19 06:45 Assessment/Plan Problem List - Problems (1) CHENTE (acute kidney injury) Code(s): N17.9 - ACUTE KIDNEY FAILURE, UNSPECIFIED (2) Cerebral palsy Code(s): G80.9 - CEREBRAL PALSY, UNSPECIFIED (3) Constipation by delayed colonic transit Code(s): K59.01 - SLOW TRANSIT CONSTIPATION (4) Ileus Code(s): K56.7 - ILEUS, UNSPECIFIED (5) Seizure Code(s): R56.9 - UNSPECIFIED CONVULSIONS (6) UTI (urinary tract infection) Code(s): N39.0 - URINARY TRACT INFECTION, SITE NOT SPECIFIED 7 pancreatitis plan continue current mgmt hydration rest as per the team complete course of abx total 14 days
[2019-08-09] MEDS: lamoTRIgine 25 MG TABLET PO SCH ×2 (10:44→21:06)
[2019-08-09] MEDS: BISACODYL 10 MG SUPP.RECT RC SCH (10:45)
[2019-08-09] MEDS: levETIRAcetam 500 MG/5 ML ORAL SOLUTION (UNIT-DOSE CUPS) GT SCH ×2 (10:45→21:07)
[2019-08-09] MEDS: POLYETHYLENE GLYCOL 3350 119 GM BTL GT SCH ×2 (10:45→21:06)
[2019-08-09 10:53] LABS: ANISOCYTOSIS 2+; MACROCYTOSIS 0; PLATELET ESTIMATE INCREASED; TEAR DROP CELLS 1+
[2019-08-09] MEDS: VANCOMYCIN 1 GRAM (PRE-DOCKED) 1,000 MG/250 ML BAG IVPB SCH ×2 (11:07→21:07)
[2019-08-10] MEDS ORDERED: PT OWN MED DRAWER 7, Y5N ONE (01:22)
[2019-08-10] MEDS: MEROPENEM 1 GM in DEXTROSE 5%-WATER 100 ML IVPB SCH ×3 (03:00→17:33)
[2019-08-10] MEDS ORDERED: MEROPENEM 1 GM VIAL (RESTRICTED TO ID) IVPB ONE ×3 (03:41→16:50)
[2019-08-10] MEDS ORDERED: DEXTROSE 5%-WATER 100 ML IVPB ONE ×3 (03:41→16:50)
[2019-08-10] MEDS: HEPARIN NA (PORCINE) 5,000 UNITS/ML 1ML VIAL SQ SCH ×3 (05:30→22:14)
[2019-08-10] MEDS: ACETAMINOPHEN 650 MG SUPP.RECT PR PRN (05:56)
[2019-08-10] MEDS: BUDESONIDE 0.5 MG/2 ML INH SUSP VIAL NEB SCH ×2 (07:42→20:30)
[2019-08-10 07:59] LABS: BASO % 1.2 % (0-2.0); EOS % 0.5 % (0-4.5); HEMATOCRIT 36.9 % (35.4-49); HEMOGLOBIN 12.6 GM/dL (11.7-16.9); LYMPH % 26.5 % (8-40); MCH 30.8 pg (25.7-33.7); MEAN CELL VOLUME 90.4 fl (80-96); MEAN PLT VOLUME 11.2 fl (7.5-11.1); MONO % 16.7 % (3.8-10.2); NEUT % 55.1 % (42.8-82.8); PLATELET COUNT 484 K/MM3 (134-434); RBC 4.08 M/mm3 (4.00-5.60); RDW 14.1 % (11.9-15.9); WHITE BLOOD COUNT 6.4 K/mm3 (4.0-10.0)
[2019-08-10 08:20] LABS: ALBUMIN 2.5 g/dl (3.4-5.0); BILIRUBIN,TOTAL 0.5 mg/dL (0.2-1); BLOOD UREA NITROGEN 11.4 mg/dL (7-18); CALCIUM 9.2 mg/dL (8.5-10.1); CREATININE 0.5 mg/dL (0.55-1.3); MAGNESIUM 2.3 mg/dL (1.8-2.4); POTASSIUM 4.3 mmol/L (3.5-5.1); TOT PROT 6.6 g/dl (6.4-8.2)
--- NOTE | 2019-08-10 08:40 | PN ---
Physical Exam: HPI: Patient is a 39 year old male with a past medical history of cerebral palsy ( secondary to intracranial hemorrhage), profound mental retardation, non-verbal at baseline, adrenal insufficiency, seizure disorder. The patient at baseline is awake but has been noted to be more lethargic over the last several days at [place]. He was noted by the residential that the patient had a witnessed 2 minute long seizure. On admission, he was found to have esbl in urine, with a repeat urine showing no growth. his lipase is elevated and GI is following. SUBJECTIVE: Patient seen and examined. [place] to his name. NO signs of symptoms of distress. OBJECTIVE: Vital Signs Period Temp Pulse Resp BP Sys/Vences Pulse Ox Last 24 Hr 98.3 F-101.1 F 106-113 18-22 91-117/67-80 92-95 GENERAL: awake, alert, non verbal. teeth grinding increased. will give ativan. HEAD: Normal with no signs of trauma. EYES: PERRL, extraocular movements intact, sclera anicteric, conjunctiva clear. No ptosis. ENT: Ears normal, nares patent, oropharynx clear without exudates, moist mucous membranes. NECK: Trachea midline, full range of motion, supple. LUNGS: Breath sounds equal, clear to auscultation bilaterally HEART: Regular rate and rhythm ABDOMEN: Soft, nontender, nondistended, normoactive bowel sounds + peg tube. EXTREMITIES: no edema. Laboratory Results - last 24 hr 08/09/19 08/09/19 08/10/19 06:45 06:45 06:15 WBC 6.4 RBC 4.08 Hgb 12.6 Hct 36.9 MCV 90.4 MCH 30.8 MCHC 34.0 RDW 14.1 Plt Count 484 H MPV 11.2 H Absolute Neuts (auto) 3.5 Neutrophils % 55.1 D Neutrophils % (Manual) 46.5 D Band Neutrophils % 1.0 Lymphocytes % 26.5 Lymphocytes % (Manual) 33.3 D Monocytes % 16.7 H Monocytes % (Manual) 16 H Eosinophils % 0.5 Eosinophils % (Manual) 0.0 D Basophils % 1.2 Basophils % (Manual) 1.0 D Myelocytes % (Man) 0 Promyelocytes % (Man) 0 Blast Cells % (Manual) 0 Nucleated RBC % 0 Metamyelocytes 0 Hypochromia 0 Platelet Estimate Increased Platelet Comment Present Polychromasia 1+ Poikilocytosis 1+ Basophilic Stippling 1+ Anisocytosis 2+ Microcytosis 1+ Macrocytosis 0 Spherocytes 1+ Tear Drop Cells 1+ Stomatocytes 1+ Sodium 138 Potassium 4.0 Chloride 97 L Carbon Dioxide 35 H Anion Gap 6 L BUN 10.2 Creatinine 0.5 L Est GFR (CKD-EPI)AfAm 156.00 Est GFR (CKD-EPI)NonAf 134.60 Random Glucose 122 H Lactic Acid Calcium 9.1 Magnesium 2.4 Total Bilirubin 0.4 AST 30 ALT 39 Alkaline Phosphatase 157 H Creatine Kinase 351 H Creatine Kinase Index 0.3 CK-MB (CK-2) 1.2 Total Protein 6.4 Albumin 2.4 L Lipase 578 H 08/10/19 08/10/19 06:15 06:15 WBC RBC Hgb Hct MCV MCH MCHC RDW Plt Count MPV Absolute Neuts (auto) Neutrophils % Neutrophils % (Manual) Band Neutrophils % Lymphocytes % Lymphocytes % (Manual) Monocytes % Monocytes % (Manual) Eosinophils % Eosinophils % (Manual) Basophils % Basophils % (Manual) Myelocytes % (Man) Promyelocytes % (Man) Blast Cells % (Manual) Nucleated RBC % Metamyelocytes Hypochromia Platelet Estimate Platelet Comment Polychromasia Poikilocytosis Basophilic Stippling Anisocytosis Microcytosis Macrocytosis Spherocytes Tear Drop Cells Stomatocytes Sodium 139 Potassium 4.3 Chloride 98 Carbon Dioxide 34 H Anion Gap 7 L BUN 11.4 Creatinine 0.5 L Est GFR (CKD-EPI)AfAm 156.00 Est GFR (CKD-EPI)NonAf 134.60 Random Glucose 135 H Lactic Acid 1.3 Calcium 9.2 Magnesium 2.3 Total Bilirubin 0.5 AST 31 ALT 42 Alkaline Phosphatase 150 H Creatine Kinase Creatine Kinase Index CK-MB (CK-2) Total Protein 6.6 Albumin 2.5 L Lipase Active Medications Generic Name Dose Route Start Last Admin Trade Name Freq PRN Reason Stop Dose Admin Acetaminophen 650 mg 08/09/19 06:27 08/10/19 05:56 Tylenol Suppository - [place] 650 mg Q6H PRN Administration FEVER Bisacodyl 10 mg 07/29/19 10:00 08/09/19 10:45 Dulcolax Suppository - RC 10 mg DAILY [facility]AY[facility]E Administration Budesonide 1 amp 07/24/19 08:00 08/10/19 07:42 Pulmicort 0.5 Mg Nebulizer - NEB 1 amp RBID [facility]E Administration Heparin Sodium (Porcine) 5,000 unit 07/24/19 07:06 08/10/19 05:30 Heparin - SQ 5,000 unit TID H[facility]E Administration Meropenem 1 gm/ Dextrose 100 mls @ 200 mls/hr 07/29/19 12:00 08/10/19 03:00 IVPB 08/12/19 02:29 200 mls/hr Q8H-IV HAYLEE Administration Vancomycin HCl 1,000 mg in 250 mls @ 166.667 mls/hr 08/08/19 22:00 08/09/19 21:07 Vancomycin (Pre-Docked) IVPB 166.667 mls/hr BID [facility]E Administration Protocol Lamotrigine 50 mg 07/25/19 17:36 08/09/19 21:06 Lamictal - PO 50 mg BID [facility]E Administration Levetiracetam 1,500 mg 08/06/19 22:00 08/09/19 21:07 Keppra Oral Solution - GT 1,500 mg BID [facility]E Administration Polyethylene Glycol 17 gm 07/30/19 22:00 08/09/19 21:06 Miralax (For Daily Use) - GT 17 gm BID [facility]E Administration ASSESSMENT/PLAN: Problem List - Problems (1) CHENTE (acute kidney injury) Code(s): N17.9 - ACUTE KIDNEY FAILURE, UNSPECIFIED (2) Cerebral palsy Code(s): G80.9 - CEREBRAL PALSY, UNSPECIFIED (3) Constipation by delayed colonic transit Code(s): K59.01 - SLOW TRANSIT CONSTIPATION (4) Ileus Code(s): K56.7 - ILEUS, UNSPECIFIED (5) Seizure Code(s): R56.9 - UNSPECIFIED CONVULSIONS (6) UTI (urinary tract infection) Code(s): N39.0 - URINARY TRACT INFECTION, SITE NOT SPECIFIED Assessment/Plan ESBL + E. coli UTI Ileus vs. SBO - resolved Seizures - no recent seizures noted Cerebral palsy mental retardation Hx of ICH Adrenal insufficiency Chronic respiratory failure -- pt with afebrile today, tachycardia, wbc slowly trending down -- repeat blood cultures, suggest CXR -- continue meropenem, ID to renew Vanco -- repeat labs including CPK, monitor vitals closely -- monitor for seizure activity -- No sob/n/v/d/constipation noted, no rash, no change in mental status at this time Visit type - Emergency Visit Emergency Visit: Yes ED Registration Date: 07/23/19 Care time: The patient presented to the Emergency Department on the above date and was hospitalized for further evaluation of their emergent condition. - New Patient This patient is new to me today: No - Critical Care Critical Care patient: No - Discharge Referral Referred to [facility] Med P.C.: No
[2019-08-10] MEDS ORDERED: LORazepam 0.5 MG TABLET GT ONE (08:45)
[2019-08-10] MEDS: lamoTRIgine 25 MG TABLET PO SCH ×2 (10:48→22:14)
[2019-08-10] MEDS: VANCOMYCIN 1 GRAM (PRE-DOCKED) 1,000 MG/250 ML BAG IVPB SCH ×2 (10:48→22:15)
[2019-08-10] MEDS: levETIRAcetam 500 MG/5 ML ORAL SOLUTION (UNIT-DOSE CUPS) GT SCH ×2 (10:50→22:14)
[2019-08-10] MEDS: POLYETHYLENE GLYCOL 3350 119 GM BTL GT SCH ×2 (10:51→22:15)
[2019-08-10] MEDS: BISACODYL 10 MG SUPP.RECT RC SCH (10:51)
--- NOTE | 2019-08-10 18:48 | PN ---
Progress Note, Physician History of Present Illness: Pt with recent fevers. Tmax 101.1F last evening, currently 99.4F. He is easily arousable, without distress. No cough/SOB noted. Having regular BMs daily, no vomiting episodes. - Current Medication List Current Medications: Active Medications Acetaminophen (Tylenol Suppository -) 650 mg AR Q6H PRN PRN Reason: FEVER Last Admin: 08/10/19 05:56 Dose: 650 mg Bisacodyl (Dulcolax Suppository -) 10 mg RC DAILY [facility] Last Admin: 08/10/19 10:51 Dose: 10 mg Budesonide (Pulmicort 0.5 Mg Nebulizer -) 1 amp NEB RBID [facility] Last Admin: 08/10/19 07:42 Dose: 1 amp Heparin Sodium (Porcine) (Heparin -) 5,000 unit SQ TID [facility] Last Admin: 08/10/19 16:52 Dose: 5,000 unit Meropenem 1 gm/ Dextrose 100 mls @ 200 mls/hr IVPB Q8H-IV [facility]E Stop: 08/12/19 02:29 Last Admin: 08/10/19 17:33 Dose: 200 mls/hr Vancomycin HCl (Vancomycin (Pre-Docked)) 1,000 mg in 250 mls @ 166.667 mls/hr IVPB BID [facility]; Protocol Last Admin: 08/10/19 10:48 Dose: 166.667 mls/hr Lamotrigine (Lamictal -) 50 mg PO BID [facility] Last Admin: 08/10/19 10:48 Dose: 50 mg Levetiracetam (Keppra Oral Solution -) 1,500 mg GT BID [facility] Last Admin: 08/10/19 10:50 Dose: 1,500 mg Polyethylene Glycol (Miralax (For Daily Use) -) 17 gm GT BID [facility] Last Admin: 08/10/19 10:51 Dose: 17 gm - Objective Vital Signs: Vital Signs Temperature 99.4 F 08/10/19 13:59 Pulse Rate 96 H 08/10/19 13:59 Respiratory Rate 20 08/10/19 13:59 Blood Pressure 111/76 08/10/19 13:59 O2 Sat by Pulse Oximetry (%) 99 08/10/19 09:00 Constitutional: Yes: No Distress, Calm Cardiovascular: Yes: Tachycardia Respiratory: Yes: CTA Bilaterally Gastrointestinal: Yes: Normal Bowel Sounds, Soft Genitourinary: Yes: [place] Present (clear, yellow urine) Integumentary: Yes: WNL Neurological: Yes: Other (arousable, doesnt communicate at baseline) Labs: CBC, BMP 08/10/19 06:15 08/10/19 06:15 Microbiology 08/08/19 06:50 Blood - Peripheral Venous Blood Culture - Preliminary NO GROWTH OBTAINED AFTER 24 HOURS, INCUBATION TO CONTINUE FOR 4 DAYS. 08/08/19 06:45 Blood - Peripheral Venous Blood Culture - Preliminary NO GROWTH OBTAINED AFTER 24 HOURS, INCUBATION TO CONTINUE FOR 4 DAYS. 07/29/19 01:30 Urine - Urine Clean Catch Urine Culture - Final NO GROWTH OBTAINED 07/23/19 19:32 Blood - Peripheral Venous Blood Culture - Final NO GROWTH AFTER 5 DAYS INCUBATION 07/23/19 19:32 Blood - Peripheral Venous Blood Culture - Final NO GROWTH AFTER 5 DAYS INCUBATION 07/23/19 21:59 Urine - Urine Clean Catch Urine Culture - Final Escherichia Coli Esbl Case Resolution Specialist - ....Imaging Chest X-ray: Report Reviewed Problem List - Problems (1) CHENTE (acute kidney injury) Code(s): N17.9 - ACUTE KIDNEY FAILURE, UNSPECIFIED (2) Cerebral palsy Code(s): G80.9 - CEREBRAL PALSY, UNSPECIFIED (3) Constipation by delayed colonic transit Code(s): K59.01 - SLOW TRANSIT CONSTIPATION (4) Ileus Code(s): K56.7 - ILEUS, UNSPECIFIED (5) Seizure Code(s): R56.9 - UNSPECIFIED CONVULSIONS (6) UTI (urinary tract infection) Code(s): N39.0 - URINARY TRACT INFECTION, SITE NOT SPECIFIED Assessment/Plan Fever - etiology unclear ESBL + E. coli UTI Ileus vs. SBO - resolved Seizures - no recent seizures noted Cerebral palsy mental retardation Hx of ICH Adrenal insufficiency Chronic respiratory failure Fever -- pt with fevers noted , continue monitor vitals closely -- Blood cultures neg 24h, CXR with atelectasis, no clear infiltrates, abdomen benign -- continue Meropenem, Vancomycin added empirically -- CPK trended back to normal -- monitor for seizure activity -- Pt without distress If fevers persist suggest further imaging
[2019-08-11] MEDS: MEROPENEM 1 GM in DEXTROSE 5%-WATER 100 ML IVPB SCH ×3 (02:37→17:38)
[2019-08-11] MEDS ORDERED: MEROPENEM 1 GM VIAL (RESTRICTED TO ID) IVPB ONE ×3 (02:55→16:39)
[2019-08-11] MEDS ORDERED: DEXTROSE 5%-WATER 100 ML IVPB ONE ×3 (02:56→16:40)
[2019-08-11] MEDS: HEPARIN NA (PORCINE) 5,000 UNITS/ML 1ML VIAL SQ SCH ×2 (05:42→13:03)
[2019-08-11] MEDS: BUDESONIDE 0.5 MG/2 ML INH SUSP VIAL NEB SCH ×2 (07:46→20:08)
--- NOTE | 2019-08-11 08:09 | PN ---
Progress Note, Physician Chief Complaint: Non verbal, open eyes to verbal stimuli [place] T to 101.1 on 08/09 now 99.9. History of Present Illness: Jordan Emerson is a 39 year old male with a past medical history of cerebral palsy (secondary to intracranial hemorrhage), profound mental retardation, non- verbal at baseline, adrenal insufficiency, seizure disorder. The patient at baseline is awake but has been noted to be more lethargic over the last several days. Today it was noted by the shelter that the patient had a witnessed 2 minute long seizure. Vitals at the time were HR 75, BP 117/77, temp <95, saturation of 95% on room air. Prior to this seizure, the staff did not know when his previous one was, however notes from this hospital note a seizure in December. Staff stated that all medications were administered regularly without any missed doses, no new medications were prescribed, no changes in diet (all feeds through G tube), no sick contacts. Patient was sent to the ED for further evaluation. - Current Medication List Current Medications: Active Medications Acetaminophen (Tylenol Suppository -) 650 mg AR Q6H PRN PRN Reason: FEVER Last Admin: 08/10/19 05:56 Dose: 650 mg Bisacodyl (Dulcolax Suppository -) 10 mg RC DAILY [facility] Last Admin: 08/10/19 10:51 Dose: 10 mg Budesonide (Pulmicort 0.5 Mg Nebulizer -) 1 amp NEB RBID [facility] Last Admin: 08/11/19 07:46 Dose: 1 amp Heparin Sodium (Porcine) (Heparin -) 5,000 unit SQ TID [facility] Last Admin: 08/11/19 05:42 Dose: 5,000 unit Meropenem 1 gm/ Dextrose 100 mls @ 200 mls/hr IVPB Q8H-IV [facility]LEE Stop: 08/12/19 02:29 Last Admin: 08/11/19 02:37 Dose: 200 mls/hr Vancomycin HCl (Vancomycin (Pre-Docked)) 1,000 mg in 250 mls @ 166.667 mls/hr IVPB BID [facility]; Protocol Last Admin: 08/10/19 22:15 Dose: 166.667 mls/hr Lamotrigine (Lamictal -) 50 mg PO BID [facility] Last Admin: 08/10/19 22:14 Dose: 50 mg Levetiracetam (Keppra Oral Solution -) 1,500 mg GT BID [facility] Last Admin: 08/10/19 22:14 Dose: 1,500 mg Polyethylene Glycol (Miralax (For Daily Use) -) 17 gm GT BID [facility] Last Admin: 08/10/19 22:15 Dose: 17 gm - Objective Vital Signs: Vital Signs Temperature 99.9 F H 08/11/19 06:51 Pulse Rate 106 H 08/11/19 06:51 Respiratory Rate 20 08/11/19 06:51 Blood Pressure 120/79 08/11/19 06:51 O2 Sat by Pulse Oximetry (%) 99 08/10/19 21:00 Additional Findings/Remarks: Constitutional: Yes: Well Nourished, No Distress, Calm Eyes: Yes: WNL, Conjunctiva Clear HENT: Yes: WNL, Atraumatic, Normocephalic Neck: Yes: WNL, Supple, Trachea Midline Cardiovascular: Yes: WNL, Regular Rate and Rhythm Respiratory: Yes: WNL, Regular, CTA Bilaterally Gastrointestinal: Yes: WNL, Normal Bowel Sounds, Other (PEG noted with TF) ...Rectal Exam: Yes: Deferred Genitourinary: Yes: Incontinence Breast(s): Yes: WNL Musculoskeletal: Yes: Other (contractues to upper and lower extrem) Extremities: Yes: Deformity Edema: No Peripheral Pulses WNL: Yes Peripheral Pulses: Left Radial: 2+, Right Radial: 2+, Left Doralis Pedis: 2+, Right Dorsalis Pedis: 2+, Left Femoral: 2+, Right Femoral: 2+ Integumentary: Yes: WNL Neurological: Yes: Other (responds to voice) ...Motor Strength: LUE (resists with UE), RUE Labs: CBC, BMP 08/10/19 06:15 08/10/19 06:15 Problem List - Problems (1) LFTs abnormal Code(s): R94.5 - ABNORMAL RESULTS OF LIVER FUNCTION STUDIES (2) UTI (urinary tract infection) Code(s): N39.0 - URINARY TRACT INFECTION, SITE NOT SPECIFIED (3) Cerebral palsy Code(s): G80.9 - CEREBRAL PALSY, UNSPECIFIED (4) Seizure Assessment/Plan: no seizure activity c/w leveteracitam c/w lamictal appreciate neurology consultation (5) CHENTE (acute kidney injury) Assessment/Plan: Resolved with hydration Code(s): N17.9 - ACUTE KIDNEY FAILURE, UNSPECIFIED (6) Edema of upper extremity Assessment/Plan: edema resolved Venous doppler negative for DVT Code(s): R60.0 - LOCALIZED EDEMA (7) Ileus Assessment/Plan: resolved tolerating TF, having BMs c/w bowel regimen, ducolax PRN, will stop miralax-frequent BMS Code(s): K56.7 - ILEUS, UNSPECIFIED (8) Prophylactic measure Assessment/Plan: FEN Jevity feeds being tolerated continue to monitor electrolytes and replete as necessary DVT heparin sq Dispo maintain as inpatient full code discharge planning back to [place] when abx complete Code(s): Z29.9 - ENCOUNTER FOR PROPHYLACTIC MEASURES, UNSPECIFIED (9) Acute pancreatitis Assessment/Plan: resolved abdomen soft, non distended, having daily BMs. CTAP with IV contrast 07/31/2019:Thickening of the sigmoid and rectum which could be in the basis of stercoral colitis.l Code(s): K85.90 - ACUTE PANCREATITIS WITHOUT NECROSIS OR INFECTION, UNSP (10) Colon atonic Assessment/Plan: c/w bowel regimen having BMs Code(s): K59.8 - OTHER SPECIFIED FUNCTIONAL INTESTINAL DISORDERS (11) Constipation by delayed colonic transit Assessment/Plan: bowel regimine Code(s): K59.01 - SLOW TRANSIT CONSTIPATION (12) Elevated creatine kinase Assessment/Plan: 920 today, 250 yesterday afebrile, Blood NGTD, CXR with atelectasis, no clear infiltrates, abdomen benign c/w Meropenem, Vancomycin added empirically (level 14.9)l Code(s): R74.8 - ABNORMAL LEVELS OF OTHER SERUM ENZYMES (13) Elevated lipase Assessment/Plan: lipase trending down 493 continue feeds per GI cont to trend Code(s): R74.8 - ABNORMAL LEVELS OF OTHER SERUM ENZYMES (14) Bruxism (teeth grinding) Assessment/Plan: not noted as frequently c/w ativan 0.5mg prn Code(s): F45.8 - OTHER SOMATOFORM DISORDERS Visit type - Emergency Visit Emergency Visit: Yes ED Registration Date: 07/23/19 Care time: The patient presented to the Emergency Department on the above date and was hospitalized for further evaluation of their emergent condition. - New Patient This patient is new to me today: No - Critical Care Critical Care patient: No - Discharge Referral Referred to [facility] Med P.C.: No
[2019-08-11 08:41] LABS: BASO % 1.1 % (0-2.0); EOS % 0.1 % (0-4.5); HEMOGLOBIN 12.6 GM/dL (11.7-16.9); LYMPH % 19.3 % (8-40); MCH 29.6 pg (25.7-33.7); MCHC 32.4 g/dl (32.0-35.9); MEAN CELL VOLUME 91.5 fl (80-96); MEAN PLT VOLUME 11.5 fl (7.5-11.1); MONO % 16.4 % (3.8-10.2); NEUT % 63.1 % (42.8-82.8); PLATELET COUNT 515 K/MM3 (134-434); RBC 4.27 M/mm3 (4.00-5.60); RDW 14.1 % (11.9-15.9); WHITE BLOOD COUNT 10.5 K/mm3 (4.0-10.0)
[2019-08-11] MEDS ORDERED: PT OWN MED DRAWER 7, Y5N ONE (08:57)
[2019-08-11 09:11] LABS: ALBUMIN 2.6 g/dl (3.4-5.0); BILIRUBIN,TOTAL 0.4 mg/dL (0.2-1); BLOOD UREA NITROGEN 11.2 mg/dL (7-18); CALCIUM 9.4 mg/dL (8.5-10.1); CREATININE 0.5 mg/dL (0.55-1.3); MAGNESIUM 2.4 mg/dL (1.8-2.4); POTASSIUM 4.3 mmol/L (3.5-5.1); TOT PROT 6.8 g/dl (6.4-8.2)
[2019-08-11] MEDS: BISACODYL 10 MG SUPP.RECT RC SCH (10:02)
[2019-08-11] MEDS: levETIRAcetam 500 MG/5 ML ORAL SOLUTION (UNIT-DOSE CUPS) GT SCH (10:03)
[2019-08-11] MEDS: POLYETHYLENE GLYCOL 3350 119 GM BTL GT SCH (10:04)
[2019-08-11] MEDS: lamoTRIgine 25 MG TABLET PO SCH ×2 (10:04→15:38)
[2019-08-11] MEDS: VANCOMYCIN 1 GRAM (PRE-DOCKED) 1,000 MG/250 ML BAG IVPB SCH ×2 (10:05→22:41)
[2019-08-11] MEDS ORDERED: BISACODYL 10 MG SUPP.RECT RC PRN (13:38)
[2019-08-11] MEDS ORDERED: levETIRAcetam 500 MG/5 ML INJECTION VIAL IVPB SCH (13:45)
[2019-08-11] MEDS ORDERED: LIPASE/PROTEASE/AMYLASE 6,000 UNIT CAPSULE NR ONE (15:00)
[2019-08-11] MEDS ORDERED: levETIRAcetam 500 MG/5 ML INJECTION VIAL IVPB ONE (15:00)
[2019-08-11] MEDS ORDERED: ACETAMINOPHEN 650 MG SUPP.RECT PR PRN (16:27)
--- NOTE | 2019-08-11 17:21 | PN ---
Progress Note, Physician History of Present Illness: Pt still spiking fevers. No distress noted. No cough/SOB/diarrhea/vomiting/ rash. Is at baseline mental status. Peg tube not functioning today. - Current Medication List Current Medications: Active Medications Acetaminophen (Tylenol Suppository -) 650 mg [place] Q6H PRN PRN Reason: FEVER Last Admin: 08/10/19 05:56 Dose: 650 mg Bisacodyl (Dulcolax Suppository -) 10 mg RC DAILY PRN PRN Reason: CONSTIPATION Budesonide (Pulmicort 0.5 Mg Nebulizer -) 1 amp NEB RBID [facility] Last Admin: 08/11/19 07:46 Dose: 1 amp Meropenem 1 gm/ Dextrose 100 mls @ 200 mls/hr IVPB Q8H-IV [facility]AYLEE Stop: 08/12/19 02:29 Last Admin: 08/11/19 10:02 Dose: 200 mls/hr Vancomycin HCl (Vancomycin (Pre-Docked)) 1,000 mg in 250 mls @ 166.667 mls/hr IVPB BID [facility]; Protocol Last Admin: 08/11/19 10:05 Dose: 166.667 mls/hr Lamotrigine (Lamictal -) 50 mg PO BID [facility] Last Admin: 08/11/19 15:38 Dose: Not Given Levetiracetam (Keppra Oral Solution -) 1,500 mg GT BID [facility] Last Admin: 08/11/19 10:03 Dose: Not Given - Objective Vital Signs: Vital Signs Temperature 100.5 F H 08/11/19 14:49 Pulse Rate 99 H 08/11/19 14:49 Respiratory Rate 18 08/11/19 14:49 Blood Pressure 112/86 08/11/19 14:49 O2 Sat by Pulse Oximetry (%) 99 08/10/19 21:00 Constitutional: Yes: No Distress Cardiovascular: Yes: Tachycardia Respiratory: Yes: CTA Bilaterally Gastrointestinal: Yes: Normal Bowel Sounds, Soft, Other (peg) Genitourinary: Yes: WNL Integumentary: Yes: WNL Neurological: Yes: Other (nonverbal/not communicating at baseline) Labs: CBC, BMP 08/11/19 07:02 08/11/19 07:02 Microbiology 08/08/19 06:50 Blood - Peripheral Venous Blood Culture - Preliminary NO GROWTH OBTAINED AFTER 48 HOURS, INCUBATION TO CONTINUE FOR 3 DAYS. 08/08/19 06:45 Blood - Peripheral Venous Blood Culture - Preliminary NO GROWTH OBTAINED AFTER 48 HOURS, INCUBATION TO CONTINUE FOR 3 DAYS. 07/29/19 01:30 Urine - Urine Clean Catch Urine Culture - Final NO GROWTH OBTAINED 07/23/19 19:32 Blood - Peripheral Venous Blood Culture - Final NO GROWTH AFTER 5 DAYS INCUBATION 07/23/19 19:32 Blood - Peripheral Venous Blood Culture - Final NO GROWTH AFTER 5 DAYS INCUBATION 07/23/19 21:59 Urine - Urine Clean Catch Urine Culture - Final Escherichia Coli Esbl Supervisor [employer] Problem List - Problems (1) CHENTE (acute kidney injury) Code(s): N17.9 - ACUTE KIDNEY FAILURE, UNSPECIFIED (2) Cerebral palsy Code(s): G80.9 - CEREBRAL PALSY, UNSPECIFIED (3) Constipation by delayed colonic transit Code(s): K59.01 - SLOW TRANSIT CONSTIPATION (4) Ileus Code(s): K56.7 - ILEUS, UNSPECIFIED (5) Seizure Code(s): R56.9 - UNSPECIFIED CONVULSIONS (6) UTI (urinary tract infection) Code(s): N39.0 - URINARY TRACT INFECTION, SITE NOT SPECIFIED Assessment/Plan Persistent Fever - etiology unclear ESBL + E. coli UTI Ileus vs. SBO - resolved Seizures - no recent seizures noted Cerebral palsy mental retardation Hx of ICH Adrenal insufficiency Chronic respiratory failure Fever -- pt with fevers noted despite broad spectrum antimicrobial coverage -- Blood cultures neg 48h, CXR with no clear infiltrates, abdomen benign -- suggest CT chest/A/P to r/o occult source of infection -- continue antibiotics for now -- other possibility is drug fever , if CT neg. will consider d/c antibiotics and monitor closely (pt completes course of Meropenem for ESBL UTI today) -- monitor for seizure activity -- Pt without distress , BP stable -- continue monitor vitals, wbc trend Case d/w ANALYTICAL ENGINEER
[2019-08-11] MEDS: ACETAMINOPHEN 650 MG SUPP.RECT PR PRN (17:54)
[2019-08-12] MEDS: MEROPENEM 1 GM in DEXTROSE 5%-WATER 100 ML IVPB SCH (02:20)
[2019-08-12] MEDS ORDERED: MEROPENEM 1 GM VIAL (RESTRICTED TO ID) IVPB ONE (02:22)
[2019-08-12] MEDS ORDERED: DEXTROSE 5%-WATER 100 ML IVPB ONE (02:22)
[2019-08-12] MEDS: DEXTROSE 5%-0.45% SALINE 1,000 ML IV SCH (03:20)
[2019-08-12] MEDS: BUDESONIDE 0.5 MG/2 ML INH SUSP VIAL NEB SCH ×2 (07:35→21:25)
[2019-08-12] MEDS ORDERED: PT OWN MED DRAWER 7, Y5N ONE ×4 (07:39→18:34)
[2019-08-12] MEDS ORDERED: ACETAMINOPHEN 650 MG SUPP.RECT PR PRN (07:54)
[2019-08-12] MEDS: VANCOMYCIN 1 GRAM (PRE-DOCKED) 1,000 MG/250 ML BAG IVPB SCH (10:17)
--- NOTE | 2019-08-12 10:44 | PN ---
Progress Note, Physician History of Present Illness: patient spiking low grade fever completed course for esbl uti - Current Medication List Current Medications: Active Medications Acetaminophen (Tylenol Suppository -) 650 mg [place] Q6H PRN PRN Reason: FEVER Last Admin: 08/11/19 17:54 Dose: 650 mg Bisacodyl (Dulcolax Suppository -) 10 mg RC DAILY PRN PRN Reason: CONSTIPATION Budesonide (Pulmicort 0.5 Mg Nebulizer -) 1 amp NEB RBID [facility] Last Admin: 08/12/19 07:35 Dose: 1 amp Vancomycin HCl (Vancomycin (Pre-Docked)) 1,000 mg in 250 mls @ 166.667 mls/hr IVPB BID [facility]; Protocol Last Admin: 08/12/19 10:17 Dose: 166.667 mls/hr Dextrose/Sodium Chloride (D5-1/2ns -) 1,000 mls @ 30 mls/hr IV ASDIR [facility] Last Admin: 08/12/19 03:20 Dose: 30 mls/hr Lamotrigine (Lamictal -) 50 mg PO BID [facility] Last Admin: 08/11/19 15:38 Dose: Not Given Levetiracetam (Keppra Oral Solution -) 1,500 mg GT BID [facility] Last Admin: 08/11/19 10:03 Dose: Not Given - Objective Vital Signs: Vital Signs Temperature 100.1 F H 08/12/19 06:36 Pulse Rate 113 H 08/12/19 06:36 Respiratory Rate 18 08/12/19 06:36 Blood Pressure 125/81 08/12/19 06:36 O2 Sat by Pulse Oximetry (%) 96 08/11/19 21:00 Constitutional: Yes: No Distress, Calm Cardiovascular: Yes: S1, S2 Respiratory: Yes: On Nasal O2, Poor Air Entry Gastrointestinal: Yes: Normal Bowel Sounds, Soft, Other (peg) Musculoskeletal: Yes: WNL Extremities: Yes: Other Labs: CBC, BMP 08/11/19 07:02 08/11/19 07:02 Assessment/Plan Problem List - Problems (1) CHENTE (acute kidney injury) Code(s): N17.9 - ACUTE KIDNEY FAILURE, UNSPECIFIED (2) Cerebral palsy Code(s): G80.9 - CEREBRAL PALSY, UNSPECIFIED (3) Constipation by delayed colonic transit Code(s): K59.01 - SLOW TRANSIT CONSTIPATION (4) Ileus Code(s): K56.7 - ILEUS, UNSPECIFIED (5) Seizure Code(s): R56.9 - UNSPECIFIED CONVULSIONS (6) UTI (urinary tract infection) Code(s): N39.0 - URINARY TRACT INFECTION, SITE NOT SPECIFIED 7 pancreatitis Persistent Fever - etiology probably aspiraton ESBL + E. coli UTI Ileus vs. SBO - resolved Seizures - no recent seizures noted Cerebral palsy mental retardation Hx of ICH Adrenal insufficiency Chronic respiratory failure Fever patients wbc has also jumped up i am worried if he is aspirating and having the fevers i am going to give him augmentin orally and see if that helps monitor wbc rest as per the team
[2019-08-12] MEDS: lamoTRIgine 25 MG TABLET PO SCH ×3 (11:02→21:40)
[2019-08-12] MEDS: levETIRAcetam 500 MG/5 ML ORAL SOLUTION (UNIT-DOSE CUPS) GT SCH ×3 (11:02→21:40)
--- NOTE | 2019-08-12 12:43 | PN ---
Progress Note (short form) - Note Progress Note: Brief GI f/u Called bc PEG was clogged. [place] used to unclog PEG, easily flushed. Spoke to nurse, PEG is being flushed with pump and manually. Discussed with nurse that PEG should be flushed maually at least every shift ok for meds and feeds now
--- NOTE | 2019-08-12 17:38 | PN ---
Progress Note, Physician Chief Complaint: 24 HR events -NGT clogged- unable to obtain patent with usual measures (GI called to assist) -CPK uptrending -vanco d/adeline, augmenting started as per ID - Current Medication List Current Medications: Active Medications Acetaminophen (Tylenol Suppository -) 650 mg TN Q6H PRN PRN Reason: FEVER Last Admin: 08/11/19 17:54 Dose: 650 mg Amoxicillin/Clavulanate Potassium (Augmentin 600 Mg/5 Ml Oral Suspension -) 600 mg PO BID@0800,1730 [facility] Bisacodyl (Dulcolax Suppository -) 10 mg RC DAILY PRN PRN Reason: CONSTIPATION Budesonide (Pulmicort 0.5 Mg Nebulizer -) 1 amp NEB RBID [facility] Last Admin: 08/12/19 07:35 Dose: 1 amp Dextrose/Sodium Chloride (D5-1/2ns -) 1,000 mls @ 30 mls/hr IV ASDIR [facility] Last Admin: 08/12/19 03:20 Dose: 30 mls/hr Lamotrigine (Lamictal -) 50 mg PO BID [facility] Last Admin: 08/12/19 11:54 Dose: 50 mg Levetiracetam (Keppra Oral Solution -) 1,500 mg GT BID [facility] Last Admin: 08/12/19 11:54 Dose: 1,500 mg - Objective Vital Signs: Vital Signs Temperature 99.6 F 08/12/19 15:34 Pulse Rate 98 H 08/12/19 15:34 Respiratory Rate 18 08/12/19 15:34 Blood Pressure 117/65 08/12/19 15:34 O2 Sat by Pulse Oximetry (%) 96 08/12/19 09:00 Constitutional: Yes: No Distress, Calm Eyes: Yes: Other (no reaction, opaque pupils) HENT: Yes: Other (asymmetric head) Neck: Yes: Supple Cardiovascular: Yes: Regular Rate and Rhythm Respiratory: Yes: Regular Gastrointestinal: Yes: Soft, Hypoactive Bowel Sounds ...Rectal Exam: Yes: Deferred Musculoskeletal: Yes: Joint Stiffness, Muscle Weakness, Other (contractures) Extremities: Yes: Deformity Edema: No Peripheral Pulses WNL: Yes Peripheral Pulses: Left Radial: 2+, Right Radial: 2+, Left Doralis Pedis: 1+, Right Dorsalis Pedis: 1+ Neurological: Yes: Other (responds to mild stimulation) Labs: CBC, BMP 08/11/19 07:02 08/11/19 07:02 - ....Imaging Cat Scan: Report Reviewed (CT abd and pelvis 08/11/2019 IMPRESSION: 1. Trace pericardial effusion, no acute pathology within the chest. 2. Essential resolution of acute pancreatitis since 07/31/2019. 3. Fecal retention with mild dilatation of the left colon. 4. Hyperdense material within the right posterior urinary bladder. 5. No evidence of intra-abdominal abscess or acute pathology within the abdomen or pelvis. Limited study as described above. Reported By: Brenton Mendoza MD 08/12/19 1104) Ultrasound: Report Reviewed (Bladder sono 08/12/2019 IMPRESSION: Focal slightly echogenic nonmobile plaque shaped masslike density inseparable from the posterior wall of the urinary bladder measuring 7 mm in thickness and 2.7 cm in width without vascular flow which is of uncertain etiology. Consider cystoscopy. Clinical correlation is needed. Bilateral ureteral jets were identified. Normal size prostate gland with a volume of 18 cc. Reported By: Claudia Villasenor MD 08/12/19 [id number]) Impression/Plan Impression/Plan: 1) LFTs abnormal continue to trend (2) UTI (urinary tract infection - resolved (3) Cerebral palsy Code(s): G80.9 - CEREBRAL PALSY, UNSPECIFIED (4) Seizure c/w leveteracitam c/w lamictal appreciate neurology consultation (5) Ileus -resolved GT declogged - restart tube feeds c/w bowel regimen, ducolax PRN, (6) Acute pancreatitis -resolved abdomen soft, non distended, having daily BMs. CTAP with IV contrast 07/31/2019:Thickening of the sigmoid and rectum which could be in the basis of stercoral colitis.l Code(s): K85.90 - ACUTE PANCREATITIS WITHOUT NECROSIS OR INFECTION, UNSP (7) Elevated creatine kinase trend CPK levels gentle hydration afebrile, Blood NGTD, d/c vanco Code(s): R74.8 - ABNORMAL LEVELS OF OTHER SERUM ENZYMES (8) Bruxism (teeth grinding) c/w ativan 0.5mg prn Code(s): F45.8 - OTHER SOMATOFORM DISORDERS (9) Prophylactic measure Turn and position q2hrs continue to monitor electrolytes and replete as necessary DVT -heparin sq Dispo - consider d/c back to retirement if fever resolves Code status: full code Code(s): Z29.9 - ENCOUNTER FOR PROPHYLACTIC MEASURES, UNSPECIFIED (10) bladder lesion - urology consulted for incidental posterior bladder lesion Visit type - Emergency Visit Emergency Visit: Yes ED Registration Date: 07/23/19 Care time: The patient presented to the Emergency Department on the above date and was hospitalized for further evaluation of their emergent condition. - New Patient This patient is new to me today: Yes Date on this admission: 08/12/19 - Critical Care Critical Care patient: No - Discharge Referral Referred to [facility] Med P.C.: No
[2019-08-12] MEDS: LACTATED RINGERS SOLUTION 1,000 ML/1,000 ML INFUS.BAG IV SCH (21:38)
[2019-08-12] MEDS: AMOX TR/POTASSIUM CLAVULANATE 600 MG/5 ML PO SCH (21:39)
[2019-08-13] MEDS: DEXTROSE 5%-0.45% SALINE 1,000 ML IV SCH (06:00)
[2019-08-13] MEDS: ACETAMINOPHEN 650 MG SUPP.RECT PR PRN (06:01)
[2019-08-13 06:35] LABS: EOS % 0.1 % (0-4.5); HEMATOCRIT 37.1 % (35.4-49); HEMOGLOBIN 12.5 GM/dL (11.7-16.9); LYMPH % 22.3 % (8-40); MCH 30.4 pg (25.7-33.7); MCHC 33.8 g/dl (32.0-35.9); MEAN PLT VOLUME 10.9 fl (7.5-11.1); MONO % 16.8 % (3.8-10.2); NEUT % 59.8 % (42.8-82.8); PLATELET COUNT 424 K/MM3 (134-434); RBC 4.13 M/mm3 (4.00-5.60); RDW 13.3 % (11.9-15.9)
[2019-08-13 06:57] LABS: ALBUMIN 2.3 g/dl (3.4-5.0); BILIRUBIN,TOTAL 0.3 mg/dL (0.2-1); BLOOD UREA NITROGEN 13.8 mg/dL (7-18); CALCIUM 8.7 mg/dL (8.5-10.1); CREATININE 0.5 mg/dL (0.55-1.3); POTASSIUM 4.3 mmol/L (3.5-5.1); TOT PROT 6.3 g/dl (6.4-8.2)
--- NOTE | 2019-08-13 07:51 | PN ---
Progress Note, Physician History of Present Illness: spiked low grade fever wbc trended down - Current Medication List Current Medications: Active Medications Acetaminophen (Tylenol Suppository -) 650 mg MI Q6H PRN PRN Reason: FEVER Last Admin: 08/13/19 06:01 Dose: 650 mg Amoxicillin/Clavulanate Potassium (Augmentin 600 Mg/5 Ml Oral Suspension -) 600 mg PO BID@0800,1730 [facility] Last Admin: 08/12/19 21:39 Dose: 600 mg Bisacodyl (Dulcolax Suppository -) 10 mg RC DAILY PRN PRN Reason: CONSTIPATION Budesonide (Pulmicort 0.5 Mg Nebulizer -) 1 amp NEB RBID [facility] Last Admin: 08/12/19 21:25 Dose: 1 amp Dextrose/Sodium Chloride (D5-1/2ns -) 1,000 mls @ 30 mls/hr IV [facility] Last Admin: 08/13/19 06:00 Dose: Not Given Lactated Ringer's (Lactated Ringers Solution) 1,000 ml in 1,000 mls @ 42 mls/ hr IV [facility] Last Admin: 08/12/19 21:38 Dose: 42 mls/hr Lamotrigine (Lamictal -) 50 mg PO BID [facility] Last Admin: 08/12/19 21:40 Dose: 50 mg Levetiracetam (Keppra Oral Solution -) 1,500 mg GT BID [facility] Last Admin: 08/12/19 21:40 Dose: 1,500 mg - Objective Vital Signs: Vital Signs Temperature 99.9 F H 08/13/19 07:19 Pulse Rate 116 H 08/13/19 06:18 Respiratory Rate 18 08/13/19 06:18 Blood Pressure 117/83 08/13/19 06:18 O2 Sat by Pulse Oximetry (%) 96 08/12/19 21:00 Constitutional: Yes: No Distress, Calm Cardiovascular: Yes: S1, S2 Respiratory: Yes: Regular, CTA Bilaterally Gastrointestinal: Yes: Normal Bowel Sounds, Soft, Other Extremities: Yes: Other Neurological: Yes: Alert, Other Psychiatric: Yes: Other Labs: CBC, BMP 08/13/19 05:28 08/13/19 05:28 Assessment/Plan Problem List - Problems (1) CHENTE (acute kidney injury) Code(s): N17.9 - ACUTE KIDNEY FAILURE, UNSPECIFIED (2) Cerebral palsy Code(s): G80.9 - CEREBRAL PALSY, UNSPECIFIED (3) Constipation by delayed colonic transit Code(s): K59.01 - SLOW TRANSIT CONSTIPATION (4) Ileus Code(s): K56.7 - ILEUS, UNSPECIFIED (5) Seizure Code(s): R56.9 - UNSPECIFIED CONVULSIONS (6) UTI (urinary tract infection) Code(s): N39.0 - URINARY TRACT INFECTION, SITE NOT SPECIFIED 7 pancreatitis Persistent Fever - etiology probably aspiraton ESBL + E. coli UTI Ileus vs. SBO - resolved Seizures - no recent seizures noted Cerebral palsy mental retardation Hx of ICH Adrenal insufficiency Chronic respiratory failure Fever continue oral abx for now monitor fevers asp precautions rest as per the team
[2019-08-13] MEDS: BUDESONIDE 0.5 MG/2 ML INH SUSP VIAL NEB SCH ×2 (08:00→20:05)
[2019-08-13] MEDS: lamoTRIgine 25 MG TABLET PO SCH ×2 (11:07→22:02)
[2019-08-13] MEDS: levETIRAcetam 500 MG/5 ML ORAL SOLUTION (UNIT-DOSE CUPS) GT SCH ×2 (11:07→22:02)
[2019-08-13] MEDS: AMOX TR/POTASSIUM CLAVULANATE 600 MG/5 ML PO SCH ×2 (11:08→16:53)
--- NOTE | 2019-08-13 15:45 | PN ---
Physical Exam: SUBJECTIVE: Patient seen and examined at the bedside. appears more comfortable. non verbal and unable to participate in ROS. OBJECTIVE: low grade fevers noted t max 100.6. monitor and will d/c once fever free x 24 hrs. Vital Signs Period Temp Pulse Resp BP Sys/Vences Pulse Ox Last 24 Hr 97.7 F-100.6 F 95-116 18-18 117-158/51-83 96-96 GENERAL: awake, alert, non verbal. teeth grinding intermittently. HEAD: Normal with no signs of trauma. EYES: PERRL, extraocular movements intact, sclera anicteric, conjunctiva clear. No ptosis. ENT: Ears normal, nares patent, oropharynx clear without exudates, moist mucous membranes. NECK: Trachea midline, full range of motion, supple. LUNGS: Breath sounds equal, clear to auscultation bilaterally HEART: Regular rate and rhythm ABDOMEN: Soft, nontender, nondistended, normoactive bowel sounds + peg tube. EXTREMITIES: no edema. Laboratory Results - last 24 hr 08/13/19 08/13/19 05:28 05:28 WBC 8.0 RBC 4.13 Hgb 12.5 Hct 37.1 MCV 90.0 MCH 30.4 MCHC 33.8 RDW 13.3 Plt Count 424 MPV 10.9 Absolute Neuts (auto) 4.8 Neutrophils % 59.8 Lymphocytes % 22.3 Monocytes % 16.8 H Eosinophils % 0.1 Basophils % 1.0 Nucleated RBC % 0 Sodium 134 L Potassium 4.3 Chloride 94 L Carbon Dioxide 35 H Anion Gap 5 L BUN 13.8 Creatinine 0.5 L Est GFR (CKD-EPI)AfAm 156.00 Est GFR (CKD-EPI)NonAf 134.60 Random Glucose 125 H Calcium 8.7 Total Bilirubin 0.3 AST 29 ALT 39 Alkaline Phosphatase 127 H LD Total 191 Creatine Kinase 471 H Creatine Kinase Index 0.3 CK-MB (CK-2) 1.8 Total Protein 6.3 L Albumin 2.3 L Total Amylase 44 Lipase 384 Active Medications Generic Name Dose Route Start Last Admin Trade Name Freq PRN Reason Stop Dose Admin Acetaminophen 650 mg 08/09/19 06:27 08/13/19 06:01 Tylenol Suppository - MA 650 mg Q6H PRN Administration FEVER Amoxicillin/Clavulanate Potassium 600 mg 08/12/19 17:30 08/13/19 11:08 Augmentin 600 Mg/5 Ml Oral Suspension - PO 600 mg BID@0800,1730 [facility] Administration Bisacodyl 10 mg 08/11/19 13:38 Dulcolax Suppository - RC DAILY PRN CONSTIPATION Budesonide 1 amp 07/24/19 08:00 08/13/19 08:00 Pulmicort 0.5 Mg Nebulizer - NEB 1 amp RBID [facility] Administration Lactated Ringer's 1,000 ml in 1,000 mls @ 42 mls/hr 08/12/19 18:00 08/12/19 21:38 Lactated Ringers Solution IV 42 mls/hr ASDIR [facility] Administration Lamotrigine 50 mg 07/25/19 17:36 08/13/19 11:07 Lamictal - PO 50 mg BID [facility] Administration Levetiracetam 1,500 mg 08/06/19 22:00 08/13/19 11:07 Keppra Oral Solution - GT 1,500 mg BID [facility] Administration ASSESSMENT/PLAN: Problem List - Problems (1) Acute pancreatitis Assessment/Plan: resolved. abdomen soft, non distended, having daily BMs. CTAP with IV contrast 07/31/2019:Thickening of the sigmoid and rectum which could be in the basis of stercoral colitis.l Code(s): K85.90 - ACUTE PANCREATITIS WITHOUT NECROSIS OR INFECTION, UNSP (2) CHENTE (acute kidney injury) Assessment/Plan: Resolved with hydration. monitor daily. bun low, value noted. Code(s): N17.9 - ACUTE KIDNEY FAILURE, UNSPECIFIED (3) Cerebral palsy Assessment/Plan: supportive care Code(s): G80.9 - CEREBRAL PALSY, UNSPECIFIED (4) Colon atonic Assessment/Plan: AXR with pattern of loops of dilated bowel and cecal enlargement GI consulted and following. tolerating feeds. Code(s): K59.8 - OTHER SPECIFIED FUNCTIONAL INTESTINAL DISORDERS (5) Constipation by delayed colonic transit Assessment/Plan: Code(s): K59.01 - SLOW TRANSIT CONSTIPATION (6) Ileus Code(s): K56.7 - ILEUS, UNSPECIFIED (7) LFTs abnormal Code(s): R94.5 - ABNORMAL RESULTS OF LIVER FUNCTION STUDIES (8) Seizure Code(s): R56.9 - UNSPECIFIED CONVULSIONS (9) UTI (urinary tract infection) Assessment/Plan: UCX with ESBL ID consultation appreciated isolation precautions completed meropenem. Code(s): N39.0 - URINARY TRACT INFECTION, SITE NOT SPECIFIED (10) Elevated creatine kinase Assessment/Plan: on ivf, trend Code(s): R74.8 - ABNORMAL LEVELS OF OTHER SERUM ENZYMES (11) Abnormal liver function Assessment/Plan: resolved Code(s): R94.5 - ABNORMAL RESULTS OF LIVER FUNCTION STUDIES (12) Breast mass in male Assessment/Plan: soft tissue mass seen on imaging. will need outpatient follow up Code(s): N63.0 - UNSPECIFIED LUMP IN UNSPECIFIED BREAST (13) Elevated lipase Assessment/Plan: lipase elevated. gi following. continue feeds per gi. Code(s): R74.8 - ABNORMAL LEVELS OF OTHER SERUM ENZYMES (14) Bruxism (teeth grinding) Code(s): F45.8 - OTHER SOMATOFORM DISORDERS (15) Prophylactic measure Code(s): Z29.9 - ENCOUNTER FOR PROPHYLACTIC MEASURES, UNSPECIFIED Visit type - Emergency Visit Emergency Visit: Yes ED Registration Date: 07/23/19 Care time: The patient presented to the Emergency Department on the above date and was hospitalized for further evaluation of their emergent condition. - New Patient This patient is new to me today: No - Critical Care Critical Care patient: No - Discharge Referral Referred to [facility] Med P.C.: No
[2019-08-13] MEDS ORDERED: PT OWN MED DRAWER 7, Y5N ONE (21:04)
[2019-08-13] MEDS: LACTATED RINGERS SOLUTION 1,000 ML/1,000 ML INFUS.BAG IV SCH (22:04)
[2019-08-14] MEDS ORDERED: HEPARIN NA (PORCINE) 5,000 UNITS/ML 1ML VIAL ONE ×4 (05:10→21:23)
[2019-08-14] MEDS: HEPARIN NA (PORCINE) 5,000 UNITS/ML 1ML VIAL SQ SCH ×3 (06:06→22:11)
[2019-08-14] MEDS: LACTATED RINGERS SOLUTION 1,000 ML/1,000 ML INFUS.BAG IV SCH ×2 (06:51→19:23)
[2019-08-14 07:07] LABS: BASO % 1.1 % (0-2.0); EOS % 0.6 % (0-4.5); HEMOGLOBIN 12.1 GM/dL (11.7-16.9); LYMPH % 20.8 % (8-40); MCH 29.8 pg (25.7-33.7); MCHC 32.7 g/dl (32.0-35.9); MEAN PLT VOLUME 11.2 fl (7.5-11.1); MONO % 14.1 % (3.8-10.2); NEUT % 63.4 % (42.8-82.8); PLATELET COUNT 395 K/MM3 (134-434); RBC 4.07 M/mm3 (4.00-5.60); RDW 13.8 % (11.9-15.9); WHITE BLOOD COUNT 8.3 K/mm3 (4.0-10.0)
[2019-08-14 07:32] LABS: ALBUMIN 2.5 g/dl (3.4-5.0); ALK PHOS 119 U/L (45-117); ANION GAP 7 MMOL/L (8-16); BILIRUBIN,TOTAL 0.3 mg/dL (0.2-1); BLOOD UREA NITROGEN 11.9 mg/dL (7-18); CALCIUM 9.2 mg/dL (8.5-10.1); CHLORIDE 96 mmol/L (98-107); CO2 35 mmol/L (21-32); CREATININE 0.5 mg/dL (0.55-1.3); GLUCOSE,RANDOM 116 mg/dL (74-106); MAGNESIUM 2.2 mg/dL (1.8-2.4); POTASSIUM 3.9 mmol/L (3.5-5.1); SGOT/AST 32 U/L (15-37); SGPT/ALT 40 U/L (13-61); SODIUM 138 mmol/L (136-145); TOT PROT 6.3 g/dl (6.4-8.2)
[2019-08-14] MEDS: BUDESONIDE 0.5 MG/2 ML INH SUSP VIAL NEB SCH ×2 (07:45→21:03)
[2019-08-14] MEDS ORDERED: PT OWN MED DRAWER 7, Y5N ONE ×2 (08:10→08:44)
[2019-08-14] MEDS: AMOX TR/POTASSIUM CLAVULANATE 600 MG/5 ML PO SCH ×2 (08:52→22:59)
[2019-08-14] MEDS: lamoTRIgine 25 MG TABLET PO SCH ×2 (08:59→23:00)
[2019-08-14] MEDS: levETIRAcetam 500 MG/5 ML ORAL SOLUTION (UNIT-DOSE CUPS) GT SCH ×2 (08:59→22:59)
--- NOTE | 2019-08-14 10:41 | PN ---
Progress Note, Physician History of Present Illness: stable relatively afebrile - Current Medication List Current Medications: Active Medications Acetaminophen (Tylenol Suppository -) 650 mg CO Q6H PRN PRN Reason: FEVER Last Admin: 08/13/19 06:01 Dose: 650 mg Amoxicillin/Clavulanate Potassium (Augmentin 600 Mg/5 Ml Oral Suspension -) 600 mg PO BID@0800,1730 [facility] Last Admin: 08/14/19 08:52 Dose: 600 mg Bisacodyl (Dulcolax Suppository -) 10 mg RC DAILY PRN PRN Reason: CONSTIPATION Budesonide (Pulmicort 0.5 Mg Nebulizer -) 1 amp NEB RBID [facility] Last Admin: 08/14/19 07:45 Dose: 1 amp Heparin Sodium (Porcine) (Heparin -) 5,000 unit SQ TID [facility] Last Admin: 08/14/19 06:06 Dose: 5,000 unit Lactated Ringer's (Lactated Ringers Solution) 1,000 ml in 1,000 mls @ 42 mls/ hr IV ASDIR [facility] Last Admin: 08/14/19 06:51 Dose: 42 mls/hr Lamotrigine (Lamictal -) 50 mg PO BID [facility] Last Admin: 08/14/19 08:59 Dose: 50 mg Levetiracetam (Keppra Oral Solution -) 1,500 mg GT BID [facility] Last Admin: 08/14/19 08:59 Dose: 1,500 mg - Objective Vital Signs: Vital Signs Temperature 98.0 F 08/14/19 08:56 Pulse Rate 100 H 08/14/19 08:56 Respiratory Rate 18 08/14/19 08:56 Blood Pressure 130/81 08/14/19 08:56 O2 Sat by Pulse Oximetry (%) 98 08/13/19 21:00 Constitutional: Yes: No Distress, Calm Cardiovascular: Yes: S1, S2 Respiratory: Yes: Regular, On Nasal O2 Gastrointestinal: Yes: Normal Bowel Sounds, Soft Musculoskeletal: Yes: WNL Extremities: Yes: WNL Neurological: Yes: Alert, Other Psychiatric: Yes: Other Labs: CBC, BMP 08/14/19 06:10 08/14/19 06:10 Assessment/Plan Problem List - Problems (1) CHENTE (acute kidney injury) Code(s): N17.9 - ACUTE KIDNEY FAILURE, UNSPECIFIED (2) Cerebral palsy Code(s): G80.9 - CEREBRAL PALSY, UNSPECIFIED (3) Constipation by delayed colonic transit Code(s): K59.01 - SLOW TRANSIT CONSTIPATION (4) Ileus Code(s): K56.7 - ILEUS, UNSPECIFIED (5) Seizure Code(s): R56.9 - UNSPECIFIED CONVULSIONS (6) UTI (urinary tract infection) Code(s): N39.0 - URINARY TRACT INFECTION, SITE NOT SPECIFIED 7 pancreatitis Persistent Fever - etiology probably aspiraton ESBL + E. coli UTI Ileus vs. SBO - resolved Seizures - no recent seizures noted Cerebral palsy mental retardation Hx of ICH Adrenal insufficiency Chronic respiratory failure Fever continue oral abx monitor fevers asp precautions rest as per the team
[2019-08-14] MEDS ORDERED: LORazepam 2 MG/ML SDV VIAL IVPUSH ONE (11:49)
--- NOTE | 2019-08-14 14:38 | PN ---
Progress Note (short form) - Note Progress Note: NEUROLOGY PROGRESS: Events reviewed and discussed with JOVANNY Mireles and GAURANG Atwood. Pt examined with Reilly at the bedside. GI, ID consults read and appreciated. Remains on leveteracitam 1500 mg Q12 and lamictal 50 mg q12H via GT. WBC now 8.3, with LFTS normalizing. Repeat UC and BC are now negative. Stay complicated by small bowel obstruction and pancreatitis, treated with conservative measures. Now on po Augmentin for aspiration pneumonia. More recent "grinding of teeth" noted by staff. Reilly doesn't know Pt well but believes this is new as well. Given Ativan 1 mg IVP and per nursing staff, grinding stopped approximately 5 minutes and then returned. Apparently disappears with sleep. CKs 800-1000s-> 297. NEURO: T 99.1. Neg Kernig's. Audible intermittent bruxism. Follows no commands. + glabella, snout, suck Spontaneous eye opening. Full roving EOM's Some stereotyped, repetitive mov'ts including "scratching" right mu-ism with right index finger and arching shoulders back with head rotation. Purposeful mov'ts of the right arm persist throughout Spastic L arm hemiparesis. Hyperreflexic L > R. Remainder of exam unchanged. Impression: B/L cerebral dysfunction _ R>>L (R ICH) Seizures - those present at admission are controlled on current AED New Bruxism- I doubt this is a manifestation of Pt's epilepsy but certainly cannot exclude Worsened by Toxic Metabolic Encephalopathy (aspiration pneumonia ) Suggest: Continue antibiotics and hydration Continue leveteracitam 1500 mg Q12 and lamictal 50 mg q12 Try Clonazepam 0.5 mg via GTube q 12 hours. Elevate HOB during GT feeds. Thank you very much, Jordan Butler MD
--- NOTE | 2019-08-14 14:51 | DS ---
Physical Exam: SUBJECTIVE: Patient seen and examined OBJECTIVE: Patient is a 39 year old male with a past medical history of cerebral palsy ( secondary to intracranial hemorrhage), profound mental retardation, non-verbal at baseline, adrenal insufficiency, seizure disorder. The patient at baseline is awake but has been noted to be more lethargic at [facility] and brought into the ED for further evaluation. [facility] facility also reported that patient had a witnessed seizure 2 minute long. On admission, patient was found to have esbl in urine, with a repeat urine showing no growth. He was also treated for acute pancreatities. During hospital stay, he was followed by ID, GI and neurology. He is stable for discharge back to [facility]. Period Temp Pulse Resp BP Sys/Vences Pulse Ox Last 24 Hr 98.0 F-99.1 F 95-104 18-20 115-137/65-81 98-98 PHYSICAL EXAM GENERAL: awake, alert, non verbal. teeth grinding intermittently. HEAD: Normal with no signs of trauma. EYES: PERRL, extraocular movements intact, sclera anicteric, conjunctiva clear. No ptosis. ENT: Ears normal, nares patent, oropharynx clear without exudates, moist mucous membranes. NECK: Trachea midline, full range of motion, supple. LUNGS: Breath sounds equal, clear to auscultation bilaterally HEART: Regular rate and rhythm ABDOMEN: Soft, nontender, nondistended, normoactive bowel sounds + peg tube. EXTREMITIES: no edema. LABS Laboratory Results - last 24 hr 08/14/19 08/14/19 06:10 06:10 WBC 8.3 RBC 4.07 Hgb 12.1 Hct 37.0 MCV 91.0 MCH 29.8 MCHC 32.7 RDW 13.8 Plt Count 395 MPV 11.2 H Absolute Neuts (auto) 5.3 Neutrophils % 63.4 Lymphocytes % 20.8 Monocytes % 14.1 H Eosinophils % 0.6 D Basophils % 1.1 Nucleated RBC % 0 Sodium 138 Potassium 3.9 Chloride 96 L Carbon Dioxide 35 H Anion Gap 7 L BUN 11.9 Creatinine 0.5 L Est GFR (CKD-EPI)AfAm 156.00 Est GFR (CKD-EPI)NonAf 134.60 Random Glucose 116 H Calcium 9.2 Magnesium 2.2 Total Bilirubin 0.3 AST 32 ALT 40 Alkaline Phosphatase 119 H Creatine Kinase 269 Creatine Kinase Index No Result Required. CK-MB (CK-2) < 1.0 Total Protein 6.3 L Albumin 2.5 L HOSPITAL COURSE: Date of Admission:07/23/19 Date of Discharge: 08/14/19 Minutes to complete discharge: 50 Discharge Summary Problems reviewed: Yes Reason For Visit: URINARY TRACT INFECTION, SEIZURE Current Active Problems CHENTE (acute kidney injury) (Acute) Abnormal liver function (Acute) Acute pancreatitis (Acute) Breast mass (Acute) Breast mass in male (Acute) Bruxism (teeth grinding) (Acute) Cerebral palsy (Acute) Colon atonic (Acute) Constipation by delayed colonic transit (Acute) Edema of upper extremity (Acute) Elevated creatine kinase (Acute) Elevated lipase (Acute) Ileus (Acute) LFTs abnormal (Acute) Prophylactic measure (Acute) Seizure (Acute) UTI (urinary tract infection) (Acute) Condition: Improved - Instructions Diet, Activity, Other Instructions: Mr. Emerson/[facility] Facility: Mr. Emerson was admitted to [facility] on 07/23/19 for acute pancreatitis, urine ESBL and elevated CPK. He was also noted to have increased teeth grinding. Here are our recommendations: #Acute pancreatitis. Followed by gastroentrologist. Treated with IV antibiotics and IVF. Pancreatities of unknown etiology treated. Lipase now within normal limits. Tolerating feeds of Jevity 1.5 42cc continuos. Now stable #Urine ESBL Treated with Meropenem, completed treatment. Maintained on strict contact precautions during your stay. #Elevated CPK Now normal. #Leukocytosis. Concern for aspiration. Aspiration precautions maintained Continue Augmentin 600mg TWICE per day for 5 more days then stop #Teeth Grinding (Bruxism) Lamictal increased to 50mg BID (twice per day), Keppra 1500 BID via GT. Please follow up with neurology (Dr. Butler). His teeth grinding increased during hospital stay and likely secondary to hospital stay, ESBL infection and possible aspiration (continue amoxicillin). Consider dental follow up for teeth grinding. He is already on diazepam rectal at [facility] (can also try clonozapam 0.5mg bid ). Please give this to him q 12 hours until symptoms of bruxism subside. It is important that he is seen by a dental specialist and follow up with neurology. #Breast mass/bladder lesion A mass of his left breast was found incidently. Please follow up outpatient. We will send the imaging with you. Please have patient follow up with urology for incidental posterior bladder lesion. Thank you for allowing us to care for Mr. Emerson. Referrals: Jordan Butler MD [Staff Physician] - 1 Week ON STAFF,NOT [Non Staff, Medical] - Disposition: SNF FACILITY - Home Medications Comprehensive Discharge Medication List: Ambulatory Orders Budesonide [Pulmicort 0.5 mg Nebulizer -] 1 amp IN BID 07/24/19 Calcium Citrate/Vitamin D3 [Calcium Cit 315-Vit D3 250 Cpt] 1 tab PEG BID Diazepam Rectal Gel [Diastat Rectal Gel -] 10 mg PA PRN 07/24/19 Lactulose 30 ml PEG BID 07/24/19 Mag Carb/Aluminum Hydrox/Algin [Gaviscon Extra Strength Liquid] 2 tbs PEG TID Nut.tx.pulm.disord.soy,Lacfree [Pulmocare] 4 can PEG AM 07/24/19 Ranitidine HCl [Zantac] 150 mg PEG BID 07/24/19 levETIRAcetam [levETIRAcetam ORAL SUSPENSION] 15 ml PEG BID 07/24/19 predniSONE [Deltasone -] 1 mg PEG AM 07/24/19 Amoxicillin/Potassium Clav [Amox Tr-K Clv 600-42.9/5 Susp] 600 mg PO BID #1 bottle 08/14/19 Amoxicillin/Potassium Clav [Augmentin ES Suspension] 600 mg PO BID #1 bottle 01/01 Bisacodyl Suppository [Dulcolax Suppository -] 10 mg RC DAILY PRN supp.rect 01/01 Lamotrigine [Lamictal -] 50 mg PO BID #120 tablet 08/14/19 levETIRAcetam [Keppra Oral Solution -] 1,500 mg GT BID cup 08/14/19 Prescription Drug Monitoring Program (I-STOP) results: I-STOP not reviewed Problem List - Problems (1) Acute pancreatitis Assessment/Plan: resolved. abdomen soft, non distended, having daily BMs. CTAP with IV contrast 07/31/2019:Thickening of the sigmoid and rectum which could be in the basis of stercoral colitis.l Code(s): K85.90 - ACUTE PANCREATITIS WITHOUT NECROSIS OR INFECTION, UNSP (2) CHENTE (acute kidney injury) Assessment/Plan: Resolved with hydration. monitor daily. bun low, value noted. Code(s): N17.9 - ACUTE KIDNEY FAILURE, UNSPECIFIED (3) Cerebral palsy Assessment/Plan: supportive care Code(s): G80.9 - CEREBRAL PALSY, UNSPECIFIED (4) Colon atonic Assessment/Plan: AXR with pattern of loops of dilated bowel and cecal enlargement GI consulted and following. tolerating feeds. Code(s): K59.8 - OTHER SPECIFIED FUNCTIONAL INTESTINAL DISORDERS (5) Constipation by delayed colonic transit Assessment/Plan: Code(s): K59.01 - SLOW TRANSIT CONSTIPATION (6) Ileus Code(s): K56.7 - ILEUS, UNSPECIFIED (7) LFTs abnormal Assessment/Plan: trending down, monitor daily Code(s): R94.5 - ABNORMAL RESULTS OF LIVER FUNCTION STUDIES (8) Seizure Assessment/Plan: leveteracitam levels slightly elevated and lamotrigine 1.8 (low) Continue leveteracitam 1500 mg IV appreciate neurology consultation Code(s): R56.9 - UNSPECIFIED CONVULSIONS (9) UTI (urinary tract infection) Assessment/Plan: UCX with ESBL ID consultation appreciated isolation precautions completed meropenem. Code(s): N39.0 - URINARY TRACT INFECTION, SITE NOT SPECIFIED (10) Elevated creatine kinase Assessment/Plan: on ivf, trend Code(s): R74.8 - ABNORMAL LEVELS OF OTHER SERUM ENZYMES (11) Abnormal liver function Assessment/Plan: resolved Code(s): R94.5 - ABNORMAL RESULTS OF LIVER FUNCTION STUDIES (12) Breast mass in male Assessment/Plan: soft tissue mass seen on imaging. will need outpatient follow up. Dr. Chou made aware of breast mass and bladder lesion. Code(s): N63.0 - UNSPECIFIED LUMP IN UNSPECIFIED BREAST (13) Elevated lipase Assessment/Plan: lipase elevated. gi following. continue feeds per gi. Code(s): R74.8 - ABNORMAL LEVELS OF OTHER SERUM ENZYMES (14) Bruxism (teeth grinding) Assessment/Plan: appears to be anxiety related. on ativan 0.5mg prn. can increase ativan if this dose is ineffective. Code(s): F45.8 - OTHER SOMATOFORM DISORDERS (15) Functional quadriplegia Code(s): R53.2 - FUNCTIONAL QUADRIPLEGIA (16) Breast mass Code(s): N63.0 - UNSPECIFIED LUMP IN UNSPECIFIED BREAST (17) Prophylactic measure Assessment/Plan: Clinimix stopped, jevity feeds being tolerated continue to monitor electrolytes and replete as necessary DVT heparin sq Dispo maintain as inpatient full code Code(s): Z29.9 - ENCOUNTER FOR PROPHYLACTIC MEASURES, UNSPECIFIED This patient is new to me today: No Emergency Visit: Yes ED Registration Date: 07/23/19 Care time: The patient presented to the Emergency Department on the above date and was hospitalized for further evaluation of their emergent condition. Critical Care patient: No - Discharge Referral Referred to [facility] Med P.C.: No
[2019-08-14 19:08] LABS: CK-MM 98 % (97-100)
[2019-08-14] MEDS: clonazePAM 0.5 MG TABLET PO SCH (23:00)
[2019-08-15] MEDS ORDERED: HEPARIN NA (PORCINE) 5,000 UNITS/ML 1ML VIAL ONE ×2 (06:01→13:19)
[2019-08-15] MEDS: HEPARIN NA (PORCINE) 5,000 UNITS/ML 1ML VIAL SQ SCH ×2 (06:44→13:27)
[2019-08-15] MEDS: BUDESONIDE 0.5 MG/2 ML INH SUSP VIAL NEB SCH (08:36)
[2019-08-15] MEDS ORDERED: PT OWN MED DRAWER 7, Y5N ONE (08:50)
--- NOTE | 2019-08-15 09:56 | PN ---
Progress Note, Physician History of Present Illness: stable no new issues - Current Medication List Current Medications: Active Medications Acetaminophen (Tylenol Suppository -) 650 mg UT Q6H PRN PRN Reason: FEVER Last Admin: 08/13/19 06:01 Dose: 650 mg Amoxicillin/Clavulanate Potassium (Augmentin 600 Mg/5 Ml Oral Suspension -) 600 mg PO BID@0800,1730 [facility] Last Admin: 08/14/19 22:59 Dose: 600 mg Bisacodyl (Dulcolax Suppository -) 10 mg RC DAILY PRN PRN Reason: CONSTIPATION Budesonide (Pulmicort 0.5 Mg Nebulizer -) 1 amp NEB RBID [facility] Last Admin: 08/15/19 08:36 Dose: 1 amp Clonazepam (Klonopin -) 0.5 mg PO BID [facility] Last Admin: 08/14/19 23:00 Dose: 0.5 mg Heparin Sodium (Porcine) (Heparin -) 5,000 unit SQ TID [facility] Last Admin: 08/15/19 06:44 Dose: 5,000 unit Lactated Ringer's (Lactated Ringers Solution) 1,000 ml in 1,000 mls @ 42 mls/ hr IV ASDIR [facility] Last Admin: 08/14/19 19:23 Dose: Not Given Lamotrigine (Lamictal -) 50 mg PO BID [facility] Last Admin: 08/14/19 23:00 Dose: 50 mg Levetiracetam (Keppra Oral Solution -) 1,500 mg GT BID [facility] Last Admin: 08/14/19 22:59 Dose: 1,500 mg - Objective Vital Signs: Vital Signs Temperature 97.4 F L 08/14/19 22:00 Pulse Rate 112 H 08/14/19 22:00 Respiratory Rate 18 08/14/19 22:00 Blood Pressure 111/70 08/14/19 22:00 O2 Sat by Pulse Oximetry (%) 96 08/14/19 21:00 Constitutional: Yes: No Distress, Calm Cardiovascular: Yes: S1, S2 Respiratory: Yes: Regular, On Nasal O2 Gastrointestinal: Yes: Normal Bowel Sounds, Soft, Other (peg) Musculoskeletal: Yes: WNL Extremities: Yes: WNL Neurological: Yes: Alert, Other Psychiatric: Yes: Other Labs: CBC, BMP 08/14/19 06:10 08/14/19 06:10 Assessment/Plan Problem List - Problems (1) CHENTE (acute kidney injury) Code(s): N17.9 - ACUTE KIDNEY FAILURE, UNSPECIFIED (2) Cerebral palsy Code(s): G80.9 - CEREBRAL PALSY, UNSPECIFIED (3) Constipation by delayed colonic transit Code(s): K59.01 - SLOW TRANSIT CONSTIPATION (4) Ileus Code(s): K56.7 - ILEUS, UNSPECIFIED (5) Seizure Code(s): R56.9 - UNSPECIFIED CONVULSIONS (6) UTI (urinary tract infection) Code(s): N39.0 - URINARY TRACT INFECTION, SITE NOT SPECIFIED 7 pancreatitis Persistent Fever - etiology probably aspiraton ESBL + E. coli UTI Ileus vs. SBO - resolved Seizures - no recent seizures noted Cerebral palsy mental retardation Hx of ICH Adrenal insufficiency Chronic respiratory failure Fever continue oral abx monitor fevers asp precautions rest as per the team
[2019-08-15] MEDS: lamoTRIgine 25 MG TABLET PO SCH (10:19)
[2019-08-15] MEDS: AMOX TR/POTASSIUM CLAVULANATE 600 MG/5 ML PO SCH (10:19)
[2019-08-15] MEDS: clonazePAM 0.5 MG TABLET PO SCH (10:20)
[2019-08-15] MEDS: levETIRAcetam 500 MG/5 ML ORAL SOLUTION (UNIT-DOSE CUPS) GT SCH (10:21)
[2019-08-15 15:16] VITALS: BP 120/76; PULSE 95; TEMP 99.1
== END 2019-08-15 15:18 | DRG 463 ==
LOC: JER 18:38 → JERBED 22:55 → J7W 07-24 21:20
PROVIDERS: ADMIT Internal Medicine; ATTEND Nurse Practitioner Family
DX: N39.0 Urinary tract infection, site not specified (principal); F73 Profound intellectual disabilities; G40.909 Epilepsy, unspecified, not intractable, without status epilepticus; G80.9 Cerebral palsy, unspecified; E27.40 Unspecified adrenocortical insufficiency; K85.90 Acute pancreatitis without necrosis or infection, unspecified; N17.9 Acute kidney failure, unspecified; K59.8 Other specified functional intestinal disorders; K59.01 Slow transit constipation; K56.7 Ileus, unspecified; R94.5 Abnormal results of liver function studies; N63.0 Unspecified lump in unspecified breast; R74.8 Abnormal levels of other serum enzymes; R53.2 Functional quadriplegia; R00.1 Bradycardia, unspecified; R50.9 Fever, unspecified; J98.11 Atelectasis; G93.41 Metabolic encephalopathy; R60.0 Localized edema; R68.0 Hypothermia, not associated with low environmental temperature; G93.89 Other specified disorders of brain; J96.10 Chronic respiratory failure, unspecified whether with hypoxia or hypercapnia; D72.829 Elevated white blood cell count, unspecified; B96.20 Unspecified Escherichia coli [E. coli] as the cause of diseases classified elsewhere; N32.9 Bladder disorder, unspecified; K94.23 Gastrostomy malfunction; Z74.01 Bed confinement status; Y84.8 Other medical procedures as the cause of abnormal reaction of the patient, or of later complication, without mention of misadventure at the time of the procedure
CPT/HCPCS: 36415; 70450-TC; 71045-TC-FY; 71250-TC; 74019-TC-FY; 74176-TC; 74178-TC; 76705-TC; 76856-TC; 80053; 80074; 80175; 80177; 81003; 82140; 82150; 82550; 82552; 82553; 83605; 83615; 83690; 83735; 84478; 85025; 86704; 86706; 86707; 86708; 86709; 86803; 87040; 87086; 87186; 87340; 93005; 93010; 93971; 94640; 97116-GP; 97162-GP; 99285-25; G0480; J0131; J1644; J7030; Q9967

== ENCOUNTER 2019-08-18 15:00 | Emergency (ER) | payer OTHER ==
[2019-08-18 15:47] VITALS: BMI 24.5
--- NOTE | 2019-08-18 16:08 | PDOC ---
History of Present Illness - General Chief Complaint: Nausea/Vomiting Stated Complaint: VOMITING Time Seen by Provider: 08/18/19 15:17 History Source: Care Home Records Exam Limitations: Physical Impairment - History of Present Illness Initial Comments: 08/18/19 16:04 This is a 39 year old male with PMH significant for cerebral palsy, profound mental retardation, seizures, and acute pancreatitis. He presents to the ER from [facility] with a health aide, who states that he vomited earlier today. As per review of documentation sent by [facility], he had 2 episodes of vomiting at 11:30AM and 1:30PM today, and he produced 1 wet diaper over the past 24 hours. In the ER, his diaper was found to have light green colored liquid stool. 08/18/19 17:23 Spoke to [place], the nurse who took care of him at [facility] yesterday and today. She states that the last time she saw him in his usual state of health was around 8PM last night. This morning at approximately 8AM he appeared drowsy, his abdomen was firm and upon palpation, he grimaced. He vomited twice (milky white in color with no blood), and he generally didn't "seem like his usual self ". His G tube was functioning normally before feeds were stopped, and his last BM was Monday 4AM. Past History - Past Medical History Allergies/Adverse Reactions: Allergies Allergy/AdvReac Type Severity Reaction Status Date / Time No Known Allergies Allergy Verified 08/18/19 15:14 Home Medications: Ambulatory Orders Budesonide [Pulmicort 0.5 mg Nebulizer -] 1 amp IN BID 07/24/19 Calcium Citrate/Vitamin D3 [Calcium Cit 315-Vit D3 250 Cpt] 1 tab PEG BID Diazepam Rectal Gel [Diastat Rectal Gel -] 10 mg ND PRN 07/24/19 Lactulose 30 ml PEG BID 07/24/19 Mag Carb/Aluminum Hydrox/Algin [Gaviscon Extra Strength Liquid] 2 tbs PEG TID levETIRAcetam [levETIRAcetam ORAL SUSPENSION] 15 ml PEG BID 07/24/19 predniSONE [Deltasone -] 1 mg PEG AM 07/24/19 Bisacodyl Suppository [Dulcolax Suppository -] 10 mg RC DAILY PRN supp.rect 01/01 Lamotrigine [Lamictal -] 50 mg PO BID #120 tablet 08/14/19 levETIRAcetam [Keppra Oral Solution -] 1,500 mg GT BID cup 08/14/19 Anemia: No Asthma: No Cancer: No Cardiac Disorders: Yes (non traumatic epidural bleed.) CVA: (profund retardation, legally blind, cataracts) COPD: No CHF: No Dementia: No Diabetes: No GI Disorders: (G tube) Disorders: No HTN: No Hypercholesterolemia: No Liver Disease: No Seizures: Yes (EPILEPSY) Thyroid Disease: No - Surgical History Abdominal Surgery: (PEG) Appendectomy: No Cardiac Surgery: No Cholecystectomy: No Lung Surgery: No Neurologic Surgery: Yes (epilepsy, hematoma) Orthopedic Surgery: Yes (LT HIP/CONGENITAL DISLOCATION) - Psycho Social/Smoking Cessation Hx Smoking Status: No Smoking History: Never smoked Have you smoked in the past 12 months: No Number of Cigarettes Smoked Daily: 0 Hx Alcohol Use: No Drug/Substance Use Hx: No Substance Use Type: None Hx Substance Use Treatment: No Review of Systems - Review of Systems Able to Perform ROS?: No Is the patient limited [place] proficient: Yes ABD/GI: Yes: Vomiting *Physical Exam - Vital Signs Last Vital Signs Temp Pulse Resp BP Pulse Ox 97.0 F L 102 H 20 131/94 96 08/18/19 15:40 08/18/19 15:40 08/18/19 15:40 08/18/19 15:40 08/18/19 15:40 - Physical Exam Comments: 08/18/19 16:20 - AOx0 - Lungs: Clear B/L - CVS: Elevated rate, regular rhythm - Abdomen: Firm, Appears distended (health aide states his abdomen usually looks the same), unable to assess tenderness - Extremities: No pitting edema ED Treatment Course - LABORATORY CBC & Chemistry Diagram: 08/18/19 16:45 08/18/19 17:55 Medical Decision Making - Medical Decision Making 08/18/19 16:23 - Sepsis vs pancreatitis vs SBO - CBC/CMP - UA - Lactic Acid - Lipase - Abdominal X Ray - CXR - NPO 08/18/19 18:54 - AXR shows dilated bowel loops - CT AP - Signed out to
[2019-08-18 17:08] LABS: BASO % 0.5 % (0-2.0); EOS % 0.2 % (0-4.5); HEMATOCRIT 38.2 % (35.4-49); HEMOGLOBIN 12.6 GM/dL (11.7-16.9); LYMPH % 10.4 % (8-40); MCH 29.7 pg (25.7-33.7); MEAN PLT VOLUME 10.2 fl (7.5-11.1); MONO % 8.4 % (3.8-10.2); NEUT % 80.5 % (42.8-82.8); PLATELET COUNT 368 K/MM3 (134-434); RBC 4.25 M/mm3 (4.00-5.60); RDW 13.8 % (11.9-15.9); WHITE BLOOD COUNT 8.8 K/mm3 (4.0-10.0)
[2019-08-18 18:27] LABS: BILIRUBIN,TOTAL 0.2 mg/dL (0.2-1); CALCIUM 9.4 mg/dL (8.5-10.1); CREATININE 0.6 mg/dL (0.55-1.3); POTASSIUM 3.7 mmol/L (3.5-5.1); TOT PROT 6.8 g/dl (6.4-8.2)
--- NOTE | 2019-08-18 19:33 | PDOC ---
*Physical Exam - Vital Signs Last Vital Signs Temp Pulse Resp BP Pulse Ox 97.0 F L 102 H 20 131/94 96 08/18/19 15:40 08/18/19 15:40 08/18/19 15:40 08/18/19 15:40 08/18/19 15:40 <Estela Olvera - Last Filed: 08/18/19 20:37> - Vital Signs Last Vital Signs Temp Pulse Resp BP Pulse Ox 97.0 F L 102 H 20 131/94 96 08/18/19 15:40 08/18/19 15:40 08/18/19 15:40 08/18/19 15:40 08/18/19 15:40 <Rosita Perez - Last Filed: 08/19/19 01:26> ED Treatment Course - LABORATORY CBC & Chemistry Diagram: 08/18/19 16:45 08/18/19 17:55 - ADDITIONAL ORDERS Additional order review: Laboratory Results 08/18/19 08/18/19 08/18/19 17:55 17:55 16:46 Sodium 139 Potassium 3.7 Chloride 100 Carbon Dioxide 31 Anion Gap 8 BUN 14.0 Creatinine 0.6 Est GFR (CKD-EPI)AfAm 144.74 Est GFR (CKD-EPI)NonAf 124.89 Random Glucose 117 H Lactic Acid 0.7 Calcium 9.4 Total Bilirubin 0.2 AST 24 ALT 43 Alkaline Phosphatase 128 H Total Protein 6.8 Albumin 3.0 L Lipase 188 08/18/19 08/18/19 16:45 16:45 Sodium Cancelled Potassium Cancelled Chloride Cancelled Carbon Dioxide Cancelled Anion Gap Cancelled BUN Cancelled Creatinine Cancelled Est GFR (CKD-EPI)AfAm Cancelled Est GFR (CKD-EPI)NonAf Cancelled Random Glucose Cancelled Lactic Acid Calcium Cancelled Total Bilirubin Cancelled AST Cancelled ALT Cancelled Alkaline Phosphatase Cancelled Total Protein Cancelled Albumin Cancelled Lipase Cancelled 08/18/19 16:45 RBC 4.25 MCV 90.0 MCHC 33.0 RDW 13.8 MPV 10.2 Neutrophils % 80.5 D Lymphocytes % 10.4 D Monocytes % 8.4 Eosinophils % 0.2 Basophils % 0.5 <Estela Olvera - Last Filed: 08/18/19 20:37> - LABORATORY CBC & Chemistry Diagram: 08/18/19 16:45 08/18/19 17:55 - ADDITIONAL ORDERS Additional order review: Laboratory Results 08/18/19 08/18/19 08/18/19 17:55 17:55 16:46 Sodium 139 Potassium 3.7 Chloride 100 Carbon Dioxide 31 Anion Gap 8 BUN 14.0 Creatinine 0.6 Est GFR (CKD-EPI)AfAm 144.74 Est GFR (CKD-EPI)NonAf 124.89 Random Glucose 117 H Lactic Acid 0.7 Calcium 9.4 Total Bilirubin 0.2 AST 24 ALT 43 Alkaline Phosphatase 128 H Total Protein 6.8 Albumin 3.0 L Lipase 188 08/18/19 08/18/19 16:45 16:45 Sodium Cancelled Potassium Cancelled Chloride Cancelled Carbon Dioxide Cancelled Anion Gap Cancelled BUN Cancelled Creatinine Cancelled Est GFR (CKD-EPI)AfAm Cancelled Est GFR (CKD-EPI)NonAf Cancelled Random Glucose Cancelled Lactic Acid Calcium Cancelled Total Bilirubin Cancelled AST Cancelled ALT Cancelled Alkaline Phosphatase Cancelled Total Protein Cancelled Albumin Cancelled Lipase Cancelled 08/18/19 16:45 RBC 4.25 MCV 90.0 MCHC 33.0 RDW 13.8 MPV 10.2 Neutrophils % 80.5 D Lymphocytes % 10.4 D Monocytes % 8.4 Eosinophils % 0.2 Basophils % 0.5 - Medications Given in the ED: ED Medications Discontinued Medications Generic Name Dose Route Start Last Admin Trade Name Freq PRN Reason Stop Dose Admin Glycerin 1 each 08/18/19 20:06 08/18/19 20:18 Glycerin Suppository Adult - GA 08/18/19 20:07 Not Given ONCE ONE <Rosita Perez - Last Filed: 08/19/19 01:26> Medical Decision Making - Medical Decision Making Pt was signed out to me by resident Dr. Almeida, who explained the presentation, ED course, any pending results, and needed interventions. Pending results include CT abd/pelvis with IV contrast, pt is there now. Will reassess for any continued nausea/vomiting, pt did have a BM here in the ED. 08/18/19 19:30 PT improved significantly with rectal tube placement. Passing gas and stool. No vomiting in the ED. Abdomen soft and nontender. Pt safe for d/c back to [facility]. Strict return precautions provided to criminal legal assistant with understanding. 08/18/19 20:37 08/18/19 20:40 <Estela Olvera - Last Filed: 08/18/19 20:37> - Medical Decision Making 08/18/19 20:32 Patient Name: AZAM CORBIN THIS IS A PRELIMINARY REPORT FROM [facility] DATE OF SERVICE: 2019-08-18 19:11:44 IMAGES: 475 EXAM: ABDOMEN \T\ PELVIS CT WITH IV CONTRAST. 100 CC OF OMNIPAQUE 350 UTILIZED IV. HISTORY: Severe periumbilical abdominal pain. 39-year-old male. COMPARISON: CT dated 08/11/2019. FINDINGS: Lung bases are clear. The heart is of normal size. Elevation of the hemidiaphragms noted. No pleural effusion. Uniform enhancement is seen throughout the liver spleen and pancreas. No biliary or pancreatic ductal dilatation. Normal gallbladder and right upper quadrant. No adrenal masses. Benign 1.5 cm left renal cyst. Good enhancement of both kidneys is noted without hydronephrosis or ureterectasis. The abdominal aorta and iliac arteries are normal in appearance. No marginal calcifications, aneurysmal dilatation or stenosis. No retroperitoneal adenopathy. The stomach demonstrates a gastrostomy tube in good position. The stomach is filled with gas and fluid. Diffuse distention of the colon is noted without an associated small bowel obstruction. The colon is dilated down to the rectosigmoid junctional zone. The sigmoid colon measures up to 6.7 cm in diameter. The transverse colon measures up to 6.8 cm in diameter and the right colon measures up to 5.8 cm in diameter. No wall thickening. No evidence of a volvulus at this time. Fluid is noted in the rectum. Bilateral inguinal hernias are present with the testicles in inguinal canals. Fluid is seen within the bladder. No distal ureterectasis. The bladder wall calcification is noted on the left posterolateral aspect. No pelvic adenopathy or vascular abnormality. There are large areas of low attenuation in the gluteal musculature bilaterally with marginal enhancement. This primarily involves the gluteus medius and minimus muscles on the right and measures 6.5 x 5.2 cm in cross-sectional dimension and extends over a 6.5 cm craniocaudal dimension. The region of the left hip, there are involves both the gluteus medius and gluteus antionette muscles as it crosses the greater trochanteric area. Low attenuation with some marginal enhancement in this area measures 4.8 x 1.5 cm in cross-sectional dimension and extends over a 4.5 cm craniocaudal dimension. IMPRESSION: The diffuse distention of the colon with air-fluid levels within it is most likely associated with chronic colonic pseudoobstruction or Cabery's syndrome. No evidence of a sigmoid volvulus at this time. The stomach has a gastrostomy tube in it in good position, but there is fluid and gas distending the stomach. No small bowel obstruction or ileus. Bilateral inguinal hernias are present which contain fat but no bowel. The testicles are noted in the inguinal canals bilaterally. Indeterminate bladder wall calcification is noted along the posterior aspect the left of midline. No distal ureterectasis or hydronephrosis. Large areas of muscle contusion or possibly early intramuscular abscesses involving the gluteal musculature bilaterally. These areas of marginal enhancement with low attenuation could also represent hematomas. Close follow-up with ultrasound recommended. The SI joints are normal in appearance. No significant degenerative disease of the lumbar spine. No pelvic adenopathy 08/19/19 01:24 rectal tube removed copious gas; pt's abd went from tense to soft. Also PEG tube was opened and gas and some feeds were drained. Pt is so comfy he fell asleep finally. <Rosita Perez - Last Filed: 08/19/19 01:26> Discharge - Discharge Information Problems reviewed: Yes - Admission No <Estela Olvera - Last Filed: 08/18/19 20:37> - Discharge Information Problems reviewed: Yes - Admission No <Rosita Perez - Last Filed: 08/19/19 01:26> - Discharge Information Clinical Impression/Diagnosis: Colon atonic, Gas bloat syndrome Condition: Improved Disposition: HOME - Patient Discharge Instructions Patient Printed Discharge Instructions: DI for Vomiting -- Adult Additional Instructions: You were seen in the ER today for vomiting and difficulty tolerating feeds. The results of your labs and imaging today showed a lot of air in your colon. Please follow-up with your primary care doctor within 1-2 days to discuss your visit and make sure your symptoms have improved. Please return to the ER if you have any worsening pain, development of fevers or chills, loss of consciousness , inability to tolerate food or fluids, or any other concerns.
[2019-08-18] MEDS ORDERED: GLYCERIN 1 RECTAL SUPPOSITORY, ADULT PR ONE (20:06)
[2019-08-18] MEDS ORDERED: GLYCERIN 1 RECTAL SUPPOSITORY, PEDIATRIC RC ONE (20:12)
[2019-08-18 21:36] VITALS: BP 128/86; PULSE 89; TEMP 97.9
--- NOTE | 2019-08-18 22:51 | PDOC ---
Documentation entered by Tom Rowland SCRIBE, acting as scribe for Amanda Amaya MD. Amanda Amaya MD: This documentation has been prepared by the Kashif marino Daniel, SCRIBE, under my direction and personally reviewed by me in its entirety. I confirm that the documentation accurately reflects all work, treatment, procedures, and medical decision making performed by me. Attending Attestation - Resident Resident Name: RubénmicaPhani - ED Attending Attestation I have performed the following: I have examined & evaluated the patient, The case was reviewed & discussed with the resident, I agree w/resident's findings & plan, Exceptions are as noted - HPI HPI: 08/18/19 16:11 The patient is a 39 year old male with a past medical history of cerebral palsy , mental retardation, seizure, acute pancreatitis, and G-tube here today from [place] for evaluation of vomiting. As per paperwork from [facility] as well as verbal report from RN at [facility], the patient had 2 episodes of NBNB vomiting today. Patient is nonverbal and could not provide history. Aide at bedside who is familiar with him states he is currently at his baselne and does not appear to be in pain. Allergies: NKA - Physicial Exam PE: 08/18/19 16:11 GENERAL: Awake, alert, non verbal, moving head up and down repetitively with smacking mouth movements HEAD: Right temporal scarring along scalp. EYES: B/l corneal opacities ENT: Moist mucosa NECK: Supple LUNGS: Breath sounds equal, clear to auscultation bilaterally. No wheezes, and no crackles HEART: Regular rate and rhythm, normal S1 and S2, no murmurs, rubs or gallops ABDOMEN: Distended, tympanitic to percussion, palpation does not cause discomfort. No masses. L sided PEG tube in place with no surrounding erythema : normal testicles. Wet diaper EXTREMITIES: LUE and LLE contractures. RUE and RLE with normal range of motion, no edema. No cords, erythema, or tenderness. WWP distally x4. BACK: No midline spinal tenderness in cervical/thoracic/lumbar region NEUROLOGICAL: LUE and LLE with minimal spontaneous movement, contracted. RUE and RLE with spontaneous movements. SKIN: Warm, Dry, normal turgor, no rashes or lesions noted. - Medical Decision Making 08/18/19 18:59 39yo M, severe MR presents from [place] with 2 episodes of NBNB emesis, questionable lethargy earlier this AM but at baseline at this time per aide at bedside who is famililar with pt. Vitals with mild tachycardia to 102, he is rectally afebrile Does not meet SIRS criteria for sepsis w/u Exam with abd distention, tympany Labs wnl, no white count, negative lactate, lipase wnl UA neg for infection Due to vomiting and distention, AXR was performed which revealed diffusely distended loops of bowel Pt had BM upon arrival to ED so unlikely SBO or LBO, but CTAP ordered to r/o other pathology such as volvulus Case signed out to Dr. Perez for f/u CTAP, reassessment, mgmt, dispo
== END 2019-08-18 21:36 | disposition home or self-care (01) ==
LOC: JER 15:00
PROC: 0D9P70Z Drainage of Rectum with Drainage Device, Via Natural or Artificial Opening (ICD-10-PCS; principal; 2019-08-18)
DX: K59.8 Other specified functional intestinal disorders (principal); K31.89 Other diseases of stomach and duodenum; R14.0 Abdominal distension (gaseous); G80.1 Spastic diplegic cerebral palsy; F73 Profound intellectual disabilities; G40.909 Epilepsy, unspecified, not intractable, without status epilepticus; K86.9 Disease of pancreas, unspecified; H54.8 Legal blindness, as defined in USA; Z93.1 Gastrostomy status
CPT/HCPCS: 36415; 45999; 71045-TC-FY; 74019-TC-FY; 74177-TC; 80053; 83605; 83690; 85025; 99283-25

== ENCOUNTER 2020-12-14 19:56 | Inpatient (IN) | payer OTHER ==
[2020-12-14] MEDS ORDERED: SODIUM CHLORIDE 2,245 ML IV ONE ×2 (20:10→20:17)
[2020-12-14 20:29] VITALS: BMI 28.3
[2020-12-14] MEDS ORDERED: lamoTRIgine 25 MG TABLET PO ONE (20:35)
[2020-12-14] MEDS ORDERED: levETIRAcetam 500 MG/5 ML INJECTION VIAL IVPB ONE ×2 (20:35→20:57)
[2020-12-14 20:42] LABS: VENOUS BASE EXCESS 4.8 mmol/L (-2-2); VENOUS PCO2 65.1 mmHg (38-52); VENOUS PH 7.322 (7.310-7.410)
[2020-12-14 20:46] LABS: INR 0.95 (0.83-1.09); PROTHROMBIN TIME (PATIENT) 11.7 SEC (9.7-13.0)
[2020-12-14 20:47] LABS: CHLORIDE 95 mmol/L (98-107); SODIUM 134 mmol/L (136-145)
[2020-12-14 20:48] LABS: ACTIVATED PTT 45.3 SECONDS (25.2-36.5); ALBUMIN 2.5 g/dl (3.4-5.0); CALCIUM 9.5 mg/dL (8.5-10.1)
[2020-12-14 20:50] LABS: ANION GAP 4 MMOL/L (8-16); BASO % 0.2 % (0-2.0); BLOOD UREA NITROGEN 15.7 mg/dL (7-18); CO2 36 mmol/L (21-32); EOS % 0.6 % (0-4.5); GLUCOSE,RANDOM 82 mg/dL (74-106); HEMATOCRIT 36.8 % (35.4-49); HEMOGLOBIN 12.4 GM/dL (11.7-16.9); LYMPH % 21.7 % (8-40); MCH 31.4 pg (25.7-33.7); MCHC 33.8 g/dl (32.0-35.9); MEAN CELL VOLUME 92.9 fl (80-96); MEAN PLT VOLUME 12.3 fl (7.5-11.1); MONO % 7.5 % (3.8-10.2); RBC 3.96 M/mm3 (4.00-5.60); RDW 17.9 % (11.9-15.9); WHITE BLOOD COUNT 5.1 K/mm3 (4.0-10.0)
[2020-12-14 20:52] LABS: CREATININE 0.5 mg/dL (0.55-1.3); SGOT/AST 162 U/L (15-37); SGPT/ALT 287 U/L (13-61)
[2020-12-14 20:53] LABS: BILIRUBIN,TOTAL 0.3 mg/dL (0.2-1); TOT PROT 6.3 g/dl (6.4-8.2)
[2020-12-14 20:55] LABS: ALK PHOS 195 U/L (45-117)
[2020-12-14 20:57] LABS: LDH 345 U/L (87-246)
[2020-12-14] MEDS ORDERED: lamoTRIgine 100 MG TABLET ONE (20:57)
[2020-12-14 21:09] LABS: PLATELET COUNT 38 K/MM3 (134-434); PLATELET ESTIMATE DECREASED
[2020-12-14] MEDS ORDERED: VANCOMYCIN HCL 1,500 MG in DEXTROSE 5%-WATER - 500 ML IVPB ONE (22:45)
[2020-12-14] MEDS ORDERED: PIPERACILLIN/TAZOB 4.5 GM 4.5 GM in DEXTROSE 5%-WATER 100 ML IVPB ONE (22:46)
[2020-12-14 22:48] LABS: URINE APPEARANCE TURBID; URINE BILIRUBIN NEGATIVE (NEGATIVE); URINE COLOR YELLOW; URINE GLUCOSE (UA) NEGATIVE (NEGATIVE); URINE KETONE NEGATIVE (NEGATIVE); URINE LEUK ESTERASE NEGATIVE (NEGATIVE); URINE NITRITE NEGATIVE (NEGATIVE); URINE PROTEIN NEGATIVE (NEGATIVE)
[2020-12-14] MEDS ORDERED: VANCOMYCIN 500 MG VIAL (RESTRICTED TO ID ONLY) ONE (22:54)
[2020-12-14] MEDS ORDERED: PIPERACILLIN/TAZOB 4.5 GM 4.5 GM/100 ML BAG IVPB ONE (22:54)
[2020-12-14] MEDS ORDERED: VANCOMYCIN 1 GRAM (PRE-DOCKED) 1,000 MG/250 ML BAG IVPB ONE (22:55)
[2020-12-15 00:14] LABS: EPI CELLS >36 /uL (0-25.1); HYALINE CASTS 133 /uL (0-3.1); PH,URINE 6.5 (5.0-8.0); URINE APPEARANCE TURBID; URINE BACTERIA 430 /uL (0-1359); URINE BILIRUBIN NEGATIVE (NEGATIVE); URINE COLOR YELLOW; URINE GLUCOSE (UA) NEGATIVE (NEGATIVE); URINE KETONE NEGATIVE (NEGATIVE); URINE LEUK ESTERASE NEGATIVE (NEGATIVE); URINE NITRITE NEGATIVE (NEGATIVE); URINE PROTEIN NEGATIVE (NEGATIVE); URINE RBC 2485 /uL (0-23.9); URINE UROBILINOGEN 0.2 mg/dL (0.2-1.0)
[2020-12-15] MEDS ORDERED: VANCOMYCIN PREMIX 1.5 GM 1,500 MG/300 ML BAG IVPB ONE (01:57)
[2020-12-15 04:28] LABS: URINE CRYSTALS MANY /hpf; URINE WBC 317 /uL (0-25.8)
[2020-12-15] MEDS: PIPERACILLIN/TAZOB 4.5 GM 4.5 GM in DEXTROSE 5%-WATER 100 ML IVPB SCH ×3 (05:55→12:13)
[2020-12-15] MEDS ORDERED: PIPERACILLIN/TAZOB 4.5 GM 4.5 GM/100 ML BAG IVPB ONE ×2 (05:59→12:12)
[2020-12-15] MEDS ORDERED: SODIUM CHLORIDE 1,000 ML IV SCH (07:45)
[2020-12-15 09:29] LABS: BASO % 0.4 % (0-2.0); EOS % 0.9 % (0-4.5); HEMATOCRIT 30.7 % (35.4-49); HEMOGLOBIN 10.2 GM/dL (11.7-16.9); LYMPH % 31.4 % (8-40); MCH 31.5 pg (25.7-33.7); MCHC 33.2 g/dl (32.0-35.9); MEAN CELL VOLUME 94.7 fl (80-96); MEAN PLT VOLUME 11.1 fl (7.5-11.1); MONO % 14.6 % (3.8-10.2); NEUT % 52.7 % (42.8-82.8); RBC 3.24 M/mm3 (4.00-5.60); RDW 18.1 % (11.9-15.9)
[2020-12-15 09:49] LABS: PLATELET COUNT 26 K/MM3 (134-434)
[2020-12-15 10:10] LABS: ALBUMIN 1.8 g/dl (3.4-5.0); BLOOD UREA NITROGEN 13.2 mg/dL (7-18); CALCIUM 7.5 mg/dL (8.5-10.1); MAGNESIUM 1.8 mg/dL (1.8-2.4)
[2020-12-15 10:12] LABS: CREATININE 0.5 mg/dL (0.55-1.3)
[2020-12-15 10:14] LABS: BILIRUBIN,TOTAL 0.9 mg/dL (0.2-1); TOT PROT 4.5 g/dl (6.4-8.2)
[2020-12-15 10:22] LABS: PHOSPHOROUS 0.9 mg/dL (2.5-4.9)
[2020-12-15] MEDS ORDERED: diazePAM RECTAL GEL 10 MG KIT (PRE-CALIBRATED) RC PRN (11:15)
[2020-12-15] MEDS ORDERED: LEVETIRACETAM 100 MG/ML GT SCH (11:30)
[2020-12-15] MEDS ORDERED: ENOXAPARIN NA (PORCINE) 40 MG/0.4 ML DISP.SYRIN SQ SCH (11:45)
[2020-12-15 11:56] LABS: PLATELET ESTIMATE DECREASED
[2020-12-15] MEDS ORDERED: lamoTRIgine 25 MG TABLET ONE (11:57)
[2020-12-15 11:58] LABS: WHITE BLOOD COUNT 1.3 K/mm3 (4.0-10.0)
[2020-12-15] MEDS ORDERED: levETIRAcetam 500 MG/5 ML ORAL SOLUTION (UNIT-DOSE CUPS) GT SCH ×2 (12:00→16:37)
[2020-12-15] MEDS: lamoTRIgine 25 MG TABLET PO SCH ×2 (12:13→21:59)
[2020-12-15] MEDS: BUDESONIDE 0.5 MG/2 ML INH SUSP VIAL NEB SCH ×2 (12:13→20:30)
[2020-12-15] MEDS: predniSONE 1 MG TABLET (FP) GT SCH (12:13)
[2020-12-15] MEDS ORDERED: NAPH,MB-DB/K PH,MBDB POWDER PACKET ONE (12:17)
[2020-12-15] MEDS ORDERED: ENOXAPARIN NA (PORCINE) 40 MG/0.4 ML DISP.SYRIN SQ ONE (12:17)
[2020-12-15] MEDS ORDERED: SODIUM CHLORIDE IVPB SCH (13:05)
[2020-12-15] MEDS ORDERED: POTASSIUM PHOSPHATE IVPB SCH (13:05)
[2020-12-15] MEDS: NAPH,MB-DB/K PH,MBDB POWDER PACKET GT SCH ×2 (14:12→22:00)
[2020-12-15] MEDS ORDERED: SODIUM CHLORIDE 500 ML with POTASSIUM PHOSPHATE 30 MM IVPB SCH (16:50)
[2020-12-15] MEDS ORDERED: DEXTROSE 5%-WATER - 50 ML IVPB ONE (16:52)
[2020-12-15] MEDS ORDERED: PIPERACILLIN/TAZOBACTAM 2.25 GM VIAL IVPB ONE (16:52)
[2020-12-15] MEDS ORDERED: POTASSIUM PHOSPHATE 30 MM in SODIUM CHLORIDE 500 ML IVPB SCH (17:21)
[2020-12-15] MEDS: LACTATED RINGERS SOLUTION 1,000 ML/1,000 ML INFUS.BAG IV SCH (17:33)
[2020-12-15] MEDS: PIPERACILLIN/TAZOB 2.25 GM 2.25 GM in DEXTROSE 5%-WATER - 50 ML IVPB SCH (17:37)
[2020-12-15] MEDS: FLUDROCORTISONE ACETATE 0.1 MG TABLET (FP) PO SCH (18:14)
[2020-12-15] MEDS: levETIRAcetam 500 MG/5 ML ORAL SOLUTION (UNIT-DOSE CUPS) GT SCH (21:59)
[2020-12-15] MEDS: FAMOTIDINE 40 MG/5 ML ORAL SUSPENSION NGT SCH (22:16)
[2020-12-16] MEDS ORDERED: DEXTROSE 5%-WATER - 50 ML IVPB ONE ×2 (02:02→10:28)
[2020-12-16] MEDS ORDERED: PIPERACILLIN/TAZOBACTAM 2.25 GM VIAL IVPB ONE ×2 (02:02→10:27)
[2020-12-16] MEDS: PIPERACILLIN/TAZOB 2.25 GM 2.25 GM in DEXTROSE 5%-WATER - 50 ML IVPB SCH ×2 (02:14→10:37)
[2020-12-16] MEDS ORDERED: PIPERACILLIN/TAZOB 4.5 GM 4.5 GM in DEXTROSE 5%-WATER 100 ML IVPB SCH (03:00)
[2020-12-16] MEDS: NAPH,MB-DB/K PH,MBDB POWDER PACKET GT SCH ×3 (05:44→22:13)
[2020-12-16] MEDS: levETIRAcetam 500 MG/5 ML ORAL SOLUTION (UNIT-DOSE CUPS) GT SCH ×3 (05:44→22:14)
[2020-12-16] MEDS: BUDESONIDE 0.5 MG/2 ML INH SUSP VIAL NEB SCH ×2 (08:05→20:48)
[2020-12-16] MEDS: lamoTRIgine 25 MG TABLET PO SCH ×2 (10:37→22:13)
[2020-12-16] MEDS: predniSONE 1 MG TABLET (FP) GT SCH (10:37)
[2020-12-16] MEDS ORDERED: MEROPENEM 500 MG in DEXTROSE 5%-WATER 100 ML IVPB SCH ×2 (12:00→22:00)
[2020-12-16] MEDS: FLUDROCORTISONE ACETATE 0.1 MG TABLET (FP) PO SCH (12:02)
[2020-12-16] MEDS: LACTATED RINGERS SOLUTION 1,000 ML/1,000 ML INFUS.BAG IV SCH ×2 (15:48→22:38)
[2020-12-16] MEDS ORDERED: MEROPENEM 1 GM VIAL (RESTRICTED TO ID) IVPB ONE (16:59)
[2020-12-16] MEDS ORDERED: DEXTROSE 5%-WATER 100 ML IVPB ONE (16:59)
[2020-12-16] MEDS ORDERED: PT OWN MED DRAWER 7, Y5N ONE (16:59)
[2020-12-16] MEDS: MEROPENEM 1 GM in DEXTROSE 5%-WATER 100 ML IVPB SCH (18:00)
[2020-12-16] MEDS ORDERED: PIPERACILLIN/TAZOB 3.375 GM 3.375 GM in DEXTROSE 5%-WATER - 50 ML IVPB SCH (18:00)
[2020-12-16 19:08] LABS: HEP B CORE AB, TOT Negative (Negative)
[2020-12-16] MEDS: FAMOTIDINE 40 MG/5 ML ORAL SUSPENSION NGT SCH (22:14)
[2020-12-17] MEDS ORDERED: DEXTROSE 5%-WATER 100 ML IVPB ONE ×3 (01:09→16:56)
[2020-12-17] MEDS ORDERED: MEROPENEM 1 GM VIAL (RESTRICTED TO ID) IVPB ONE ×3 (01:09→16:56)
[2020-12-17] MEDS: MEROPENEM 1 GM in DEXTROSE 5%-WATER 100 ML IVPB SCH ×3 (01:13→17:14)
[2020-12-17] MEDS ORDERED: PT OWN MED DRAWER 7, Y5N ONE ×3 (05:16→11:56)
[2020-12-17] MEDS: levETIRAcetam 500 MG/5 ML ORAL SOLUTION (UNIT-DOSE CUPS) GT SCH ×3 (05:20→21:12)
[2020-12-17] MEDS: NAPH,MB-DB/K PH,MBDB POWDER PACKET GT SCH ×3 (05:20→21:13)
[2020-12-17] MEDS: BUDESONIDE 0.5 MG/2 ML INH SUSP VIAL NEB SCH ×2 (09:22→20:46)
[2020-12-17 09:49] LABS: EPI CELLS 9 /uL (0-25.1); HYALINE CASTS 2 /uL (0-3.1); URINE APPEARANCE CLOUDY; URINE BACTERIA 53 /uL (0-1359); URINE BILIRUBIN NEGATIVE (NEGATIVE); URINE COLOR YELLOW; URINE GLUCOSE (UA) NEGATIVE (NEGATIVE); URINE KETONE NEGATIVE (NEGATIVE); URINE LEUK ESTERASE TRACE (NEGATIVE); URINE NITRITE NEGATIVE (NEGATIVE); URINE PROTEIN NEGATIVE (NEGATIVE); URINE UROBILINOGEN 0.2 mg/dL (0.2-1.0); URINE WBC 69 /uL (0-25.8)
[2020-12-17 09:51] LABS: URINE RBC 125.1 /uL (0-23.9)
[2020-12-17] MEDS: LACTATED RINGERS SOLUTION 1,000 ML/1,000 ML INFUS.BAG IV SCH (10:08)
[2020-12-17] MEDS: lamoTRIgine 25 MG TABLET PO SCH ×2 (10:12→21:12)
[2020-12-17 11:03] LABS: BLOOD UREA NITROGEN 12.5 mg/dL (7-18)
[2020-12-17 11:06] LABS: ALBUMIN 1.6 g/dl (3.4-5.0); CALCIUM 8.3 mg/dL (8.5-10.1); MAGNESIUM 1.6 mg/dL (1.8-2.4); PHOSPHOROUS 2.1 mg/dL (2.5-4.9)
[2020-12-17 11:09] LABS: CREATININE 0.4 mg/dL (0.55-1.3)
[2020-12-17 11:11] LABS: BILIRUBIN,TOTAL 0.8 mg/dL (0.2-1); HEMATOCRIT 28.8 % (35.4-49); HEMOGLOBIN 9.8 GM/dL (11.7-16.9); MCH 31.6 pg (25.7-33.7); MCHC 34.1 g/dl (32.0-35.9); MEAN CELL VOLUME 92.8 fl (80-96); MEAN PLT VOLUME 10.8 fl (7.5-11.1); PLATELET COUNT 39 K/MM3 (134-434); RBC 3.11 M/mm3 (4.00-5.60); RDW 18.3 % (11.9-15.9); TOT PROT 4.2 g/dl (6.4-8.2)
[2020-12-17] MEDS: FLUDROCORTISONE ACETATE 0.1 MG TABLET (FP) PO SCH (11:57)
[2020-12-17] MEDS: predniSONE 1 MG TABLET (FP) GT SCH (11:58)
[2020-12-17] MEDS: ALBUTEROL SO4 2.5/IPRATROPIUM 0.5 INH SOL 3 ML VIAL.NEB. NEB SCH ×2 (16:13→20:45)
[2020-12-17] MEDS: FAMOTIDINE 40 MG/5 ML ORAL SUSPENSION NGT SCH (22:50)
[2020-12-18] MEDS ORDERED: MEROPENEM 1 GM VIAL (RESTRICTED TO ID) IVPB ONE ×3 (01:58→17:15)
[2020-12-18] MEDS ORDERED: DEXTROSE 5%-WATER 100 ML IVPB ONE ×3 (01:58→17:15)
[2020-12-18] MEDS: MEROPENEM 1 GM in DEXTROSE 5%-WATER 100 ML IVPB SCH ×3 (02:01→17:20)
[2020-12-18] MEDS ORDERED: PT OWN MED DRAWER 7, Y5N ONE (05:32)
[2020-12-18] MEDS: levETIRAcetam 500 MG/5 ML ORAL SOLUTION (UNIT-DOSE CUPS) GT SCH ×3 (05:33→21:19)
[2020-12-18] MEDS: BUDESONIDE 0.5 MG/2 ML INH SUSP VIAL NEB SCH ×2 (09:15→20:10)
[2020-12-18] MEDS: ALBUTEROL SO4 2.5/IPRATROPIUM 0.5 INH SOL 3 ML VIAL.NEB. NEB SCH ×4 (09:15→20:10)
[2020-12-18] MEDS: lamoTRIgine 25 MG TABLET PO SCH ×2 (10:03→21:19)
[2020-12-18] MEDS: FLUDROCORTISONE ACETATE 0.1 MG TABLET (FP) PO SCH (10:03)
[2020-12-18] MEDS: predniSONE 1 MG TABLET (FP) GT SCH (10:04)
[2020-12-18 11:44] LABS: HEMATOCRIT 29.4 % (35.4-49); HEMOGLOBIN 9.9 GM/dL (11.7-16.9); MCH 31.4 pg (25.7-33.7); MCHC 33.7 g/dl (32.0-35.9); MEAN CELL VOLUME 93.2 fl (80-96); MEAN PLT VOLUME 11.7 fl (7.5-11.1); PLATELET COUNT 57 K/MM3 (134-434); RBC 3.16 M/mm3 (4.00-5.60); RDW 18.2 % (11.9-15.9); WHITE BLOOD COUNT 7.4 K/mm3 (4.0-10.0)
[2020-12-18 12:04] LABS: CALCIUM 8.3 mg/dL (8.5-10.1)
[2020-12-18 12:05] LABS: ALBUMIN 1.6 g/dl (3.4-5.0); BLOOD UREA NITROGEN 10.5 mg/dL (7-18)
[2020-12-18 12:08] LABS: CREATININE 0.4 mg/dL (0.55-1.3)
[2020-12-18 12:10] LABS: BILIRUBIN,TOTAL 1.2 mg/dL (0.2-1); TOT PROT 4.5 g/dl (6.4-8.2)
[2020-12-18] MEDS ORDERED: FUROSEMIDE 40 MG/4 ML INJECTABLE VIAL IVPUSH ONE (16:39)
[2020-12-18] MEDS: BACITRACIN 15 GM TUBE TOPICAL OINTMENT TP SCH (21:14)
[2020-12-18] MEDS: FAMOTIDINE 40 MG/5 ML ORAL SUSPENSION NGT SCH (21:19)
[2020-12-18] MEDS: NYSTATIN POWDER 100,000 UNITS/GM - 15 GM TOPICAL POWDER TP SCH (21:20)
[2020-12-19] MEDS ORDERED: MEROPENEM 1 GM VIAL (RESTRICTED TO ID) IVPB ONE ×3 (02:21→17:28)
[2020-12-19] MEDS ORDERED: DEXTROSE 5%-WATER 100 ML IVPB ONE ×3 (02:23→17:28)
[2020-12-19] MEDS: MEROPENEM 1 GM in DEXTROSE 5%-WATER 100 ML IVPB SCH ×3 (02:38→17:29)
[2020-12-19] MEDS: levETIRAcetam 500 MG/5 ML ORAL SOLUTION (UNIT-DOSE CUPS) GT SCH ×3 (06:37→23:01)
[2020-12-19] MEDS: ALBUTEROL SO4 2.5/IPRATROPIUM 0.5 INH SOL 3 ML VIAL.NEB. NEB SCH ×4 (07:26→20:50)
[2020-12-19] MEDS: BUDESONIDE 0.5 MG/2 ML INH SUSP VIAL NEB SCH ×2 (07:26→20:50)
[2020-12-19] MEDS: NYSTATIN POWDER 100,000 UNITS/GM - 15 GM TOPICAL POWDER TP SCH ×2 (09:41→23:02)
[2020-12-19] MEDS: lamoTRIgine 25 MG TABLET PO SCH ×2 (09:41→23:02)
[2020-12-19] MEDS: FLUDROCORTISONE ACETATE 0.1 MG TABLET (FP) PO SCH (09:41)
[2020-12-19] MEDS: predniSONE 1 MG TABLET (FP) GT SCH (09:42)
[2020-12-19] MEDS: BACITRACIN 15 GM TUBE TOPICAL OINTMENT TP SCH ×2 (09:43→23:00)
[2020-12-19] MEDS ORDERED: PT OWN MED DRAWER 7, Y5N ONE ×4 (09:46→22:05)
[2020-12-19 17:19] LABS: HEMATOCRIT 29.1 % (35.4-49); HEMOGLOBIN 10.1 GM/dL (11.7-16.9); MCH 31.7 pg (25.7-33.7); MCHC 34.5 g/dl (32.0-35.9); MEAN CELL VOLUME 91.9 fl (80-96); MEAN PLT VOLUME 9.9 fl (7.5-11.1); PLATELET COUNT 77 K/MM3 (134-434); RBC 3.17 M/mm3 (4.00-5.60); RDW 17.9 % (11.9-15.9); WHITE BLOOD COUNT 5.9 K/mm3 (4.0-10.0)
[2020-12-19 17:35] LABS: MAGNESIUM 1.5 mg/dL (1.8-2.4)
[2020-12-19 17:37] LABS: CALCIUM 8.3 mg/dL (8.5-10.1)
[2020-12-19 17:38] LABS: ALBUMIN 1.7 g/dl (3.4-5.0); BLOOD UREA NITROGEN 11.9 mg/dL (7-18)
[2020-12-19 17:39] LABS: PHOSPHOROUS 3.3 mg/dL (2.5-4.9)
[2020-12-19 17:41] LABS: CREATININE 0.4 mg/dL (0.55-1.3)
[2020-12-19 17:43] LABS: BILIRUBIN,TOTAL 0.7 mg/dL (0.2-1); TOT PROT 4.5 g/dl (6.4-8.2)
[2020-12-19] MEDS ORDERED: MAGNESIUM SULF 50% (8.12 MEQ/2 ML-1 GM VIAL) IVPB ONE (17:53)
[2020-12-19] MEDS: FAMOTIDINE 40 MG/5 ML ORAL SUSPENSION NGT SCH (23:02)
[2020-12-20] MEDS: MEROPENEM 1 GM in DEXTROSE 5%-WATER 100 ML IVPB SCH ×3 (02:00→17:37)
[2020-12-20] MEDS ORDERED: DEXTROSE 5%-WATER 100 ML IVPB ONE ×3 (05:22→17:10)
[2020-12-20] MEDS ORDERED: MEROPENEM 1 GM VIAL (RESTRICTED TO ID) IVPB ONE ×3 (05:22→17:10)
[2020-12-20] MEDS: levETIRAcetam 500 MG/5 ML ORAL SOLUTION (UNIT-DOSE CUPS) GT SCH ×3 (07:51→21:06)
[2020-12-20 08:23] LABS: HEMOGLOBIN 8.9 GM/dL (11.7-16.9); MCH 31.9 pg (25.7-33.7); MCHC 34.2 g/dl (32.0-35.9); MEAN CELL VOLUME 93.3 fl (80-96); MEAN PLT VOLUME 10.2 fl (7.5-11.1); PLATELET COUNT 74 K/MM3 (134-434); RBC 2.79 M/mm3 (4.00-5.60); WHITE BLOOD COUNT 5.3 K/mm3 (4.0-10.0)
[2020-12-20] MEDS: ALBUTEROL SO4 2.5/IPRATROPIUM 0.5 INH SOL 3 ML VIAL.NEB. NEB SCH ×4 (08:26→20:35)
[2020-12-20] MEDS: BUDESONIDE 0.5 MG/2 ML INH SUSP VIAL NEB SCH ×2 (08:26→20:45)
[2020-12-20 08:33] LABS: CALCIUM 8.4 mg/dL (8.5-10.1)
[2020-12-20 08:34] LABS: ALBUMIN 1.6 g/dl (3.4-5.0); BLOOD UREA NITROGEN 14.2 mg/dL (7-18)
[2020-12-20 08:36] LABS: CREATININE 0.3 mg/dL (0.55-1.3)
[2020-12-20 08:37] LABS: BILIRUBIN,TOTAL 0.5 mg/dL (0.2-1)
[2020-12-20 08:38] LABS: TOT PROT 4.4 g/dl (6.4-8.2)
[2020-12-20 09:13] LABS: MAGNESIUM 1.5 mg/dL (1.8-2.4)
[2020-12-20 09:16] LABS: PHOSPHOROUS 3.5 mg/dL (2.5-4.9)
[2020-12-20] MEDS: ASCORBIC ACID 500 MG/5 ML UNIT DOSE CUP PEG SCH (09:21)
[2020-12-20] MEDS: AMINO ACIDS/PROTEIN HYDROLYS 30 ML LIQUID.PKT PO SCH (09:21)
[2020-12-20] MEDS: FLUDROCORTISONE ACETATE 0.1 MG TABLET (FP) PO SCH (09:22)
[2020-12-20] MEDS: MULTIVIT-MINERALS ORAL LIQUID PO SCH (09:23)
[2020-12-20] MEDS: predniSONE 1 MG TABLET (FP) GT SCH (09:23)
[2020-12-20] MEDS: BACITRACIN 15 GM TUBE TOPICAL OINTMENT TP SCH ×2 (09:24→21:06)
[2020-12-20] MEDS: NYSTATIN POWDER 100,000 UNITS/GM - 15 GM TOPICAL POWDER TP SCH ×2 (09:25→21:06)
[2020-12-20] MEDS: lamoTRIgine 25 MG TABLET PO SCH ×2 (09:25→21:06)
[2020-12-20] MEDS ORDERED: MAGNESIUM SULF 50% (8.12 MEQ/2 ML-1 GM VIAL) IVPB ONE (11:30)
[2020-12-20] MEDS: KCL 10 MEQ IVPB 10 MEQ/100 ML INFUS.BAG IVPB SCH ×3 (12:31→14:36)
[2020-12-20] MEDS: FAMOTIDINE 40 MG/5 ML ORAL SUSPENSION NGT SCH (21:06)
[2020-12-21] MEDS ORDERED: DEXTROSE 5%-WATER 100 ML IVPB ONE ×2 (01:05→09:15)
[2020-12-21] MEDS ORDERED: MEROPENEM 1 GM VIAL (RESTRICTED TO ID) IVPB ONE ×2 (01:05→09:15)
[2020-12-21] MEDS: MEROPENEM 1 GM in DEXTROSE 5%-WATER 100 ML IVPB SCH ×2 (02:00→09:34)
[2020-12-21] MEDS: levETIRAcetam 500 MG/5 ML ORAL SOLUTION (UNIT-DOSE CUPS) GT SCH ×3 (06:12→21:10)
[2020-12-21 08:37] LABS: BASO % 0.2 % (0-2.0); EOS % 3.2 % (0-4.5); HEMATOCRIT 26.9 % (35.4-49); MCH 31.6 pg (25.7-33.7); MCHC 33.6 g/dl (32.0-35.9); MEAN CELL VOLUME 94.2 fl (80-96); MEAN PLT VOLUME 10.1 fl (7.5-11.1); MONO % 19.9 % (3.8-10.2); NEUT % 35.7 % (42.8-82.8); PLATELET COUNT 96 K/MM3 (134-434); RBC 2.86 M/mm3 (4.00-5.60); RDW 17.5 % (11.9-15.9); WHITE BLOOD COUNT 4.9 K/mm3 (4.0-10.0)
[2020-12-21] MEDS: BUDESONIDE 0.5 MG/2 ML INH SUSP VIAL NEB SCH ×2 (08:39→20:30)
[2020-12-21] MEDS: ALBUTEROL SO4 2.5/IPRATROPIUM 0.5 INH SOL 3 ML VIAL.NEB. NEB SCH ×4 (08:39→20:30)
[2020-12-21 08:56] LABS: ALBUMIN 1.8 g/dl (3.4-5.0); BLOOD UREA NITROGEN 13.4 mg/dL (7-18); CALCIUM 8.4 mg/dL (8.5-10.1)
[2020-12-21 08:57] LABS: MAGNESIUM 1.8 mg/dL (1.8-2.4)
[2020-12-21 08:59] LABS: CREATININE 0.3 mg/dL (0.55-1.3)
[2020-12-21 09:00] LABS: BILIRUBIN,TOTAL 0.8 mg/dL (0.2-1); TOT PROT 4.8 g/dl (6.4-8.2)
[2020-12-21] MEDS: BACITRACIN 15 GM TUBE TOPICAL OINTMENT TP SCH ×2 (09:41→21:10)
[2020-12-21] MEDS: AMINO ACIDS/PROTEIN HYDROLYS 30 ML LIQUID.PKT PO SCH (09:41)
[2020-12-21] MEDS: FLUDROCORTISONE ACETATE 0.1 MG TABLET (FP) PO SCH (09:43)
[2020-12-21] MEDS: ASCORBIC ACID 500 MG/5 ML UNIT DOSE CUP PEG SCH (09:44)
[2020-12-21] MEDS: predniSONE 1 MG TABLET (FP) GT SCH (09:45)
[2020-12-21] MEDS: MULTIVIT-MINERALS ORAL LIQUID PO SCH (09:45)
[2020-12-21] MEDS: lamoTRIgine 25 MG TABLET PO SCH ×2 (09:45→21:10)
[2020-12-21] MEDS: NYSTATIN POWDER 100,000 UNITS/GM - 15 GM TOPICAL POWDER TP SCH ×2 (09:46→21:10)
[2020-12-21] MEDS ORDERED: PT OWN MED DRAWER 7, Y5N ONE ×4 (10:11→14:09)
[2020-12-21 11:26] LABS: ANISOCYTOSIS 1+; MACROCYTOSIS 0; PLATELET ESTIMATE DECREASED
[2020-12-21] MEDS: PETROLATUM, WHITE 30 GM TUBE TP SCH (19:00)
[2020-12-21] MEDS: FAMOTIDINE 40 MG/5 ML ORAL SUSPENSION NGT SCH (21:10)
[2020-12-22] MEDS ORDERED: PT OWN MED DRAWER 7, Y5N ONE ×2 (05:20→16:15)
[2020-12-22] MEDS: levETIRAcetam 500 MG/5 ML ORAL SOLUTION (UNIT-DOSE CUPS) GT SCH ×3 (06:06→22:11)
[2020-12-22 07:50] LABS: BASO % 0.5 % (0-2.0); EOS % 2.4 % (0-4.5); HEMATOCRIT 26.2 % (35.4-49); MCH 32.1 pg (25.7-33.7); MCHC 34.4 g/dl (32.0-35.9); MEAN CELL VOLUME 93.2 fl (80-96); MEAN PLT VOLUME 9.5 fl (7.5-11.1); MONO % 16.6 % (3.8-10.2); NEUT % 42.5 % (42.8-82.8); PLATELET COUNT 131 K/MM3 (134-434); RBC 2.81 M/mm3 (4.00-5.60); RDW 17.9 % (11.9-15.9); WHITE BLOOD COUNT 5.6 K/mm3 (4.0-10.0)
[2020-12-22 08:12] LABS: ALBUMIN 1.8 g/dl (3.4-5.0); CALCIUM 8.5 mg/dL (8.5-10.1)
[2020-12-22 08:13] LABS: BLOOD UREA NITROGEN 14.4 mg/dL (7-18); MAGNESIUM 1.7 mg/dL (1.8-2.4)
[2020-12-22 08:16] LABS: CREATININE 0.3 mg/dL (0.55-1.3); PHOSPHOROUS 3.6 mg/dL (2.5-4.9)
[2020-12-22 08:17] LABS: BILIRUBIN,TOTAL 0.4 mg/dL (0.2-1); TOT PROT 4.8 g/dl (6.4-8.2)
[2020-12-22] MEDS: AMINO ACIDS/PROTEIN HYDROLYS 30 ML LIQUID.PKT PO SCH (08:29)
[2020-12-22] MEDS: BUDESONIDE 0.5 MG/2 ML INH SUSP VIAL NEB SCH ×2 (08:52→20:20)
[2020-12-22] MEDS: ALBUTEROL SO4 2.5/IPRATROPIUM 0.5 INH SOL 3 ML VIAL.NEB. NEB SCH ×2 (08:53→12:41)
[2020-12-22] MEDS ORDERED: MAGNESIUM SULF 50% (8.12 MEQ/2 ML-1 GM VIAL) IVPB ONE (09:34)
[2020-12-22] MEDS: MULTIVIT-MINERALS ORAL LIQUID PO SCH (10:18)
[2020-12-22] MEDS: FLUDROCORTISONE ACETATE 0.1 MG TABLET (FP) PO SCH (10:18)
[2020-12-22] MEDS: lamoTRIgine 25 MG TABLET PO SCH ×2 (10:18→22:11)
[2020-12-22] MEDS: ASCORBIC ACID 500 MG/5 ML UNIT DOSE CUP PEG SCH (10:19)
[2020-12-22] MEDS: BACITRACIN 15 GM TUBE TOPICAL OINTMENT TP SCH ×2 (10:19→22:09)
[2020-12-22] MEDS: NYSTATIN POWDER 100,000 UNITS/GM - 15 GM TOPICAL POWDER TP SCH ×2 (10:19→22:11)
[2020-12-22] MEDS: predniSONE 1 MG TABLET (FP) GT SCH (10:19)
[2020-12-22] MEDS: PETROLATUM, WHITE 30 GM TUBE TP SCH (10:19)
[2020-12-22 10:40] LABS: ANISOCYTOSIS 1+; MACROCYTOSIS 0; PLATELET ESTIMATE DECREASED
[2020-12-22] MEDS ORDERED: SILVER NITRATE 75% APPLIC STCK 1 PKT EACH TP STA (11:44)
[2020-12-22] MEDS ORDERED: PIPERACILLIN/TAZOBACTAM 3.375 GM VIAL IVPB ONE ×2 (16:16→17:20)
[2020-12-22] MEDS ORDERED: DEXTROSE 5%-WATER - 50 ML IVPB ONE ×2 (16:16→17:20)
[2020-12-22] MEDS: DOCUSATE NA 100 MG/10 ML UNIT-DOSE CUPS PEG SCH (16:18)
[2020-12-22] MEDS: SENNOSIDES 8.8 MG/5 ML BULK BOTTLE PEG SCH (16:18)
[2020-12-22] MEDS: PIPERACILLIN/TAZOB 3.375 GM 3.375 GM in DEXTROSE 5%-WATER - 50 ML IVPB SCH ×2 (16:19→18:43)
[2020-12-22] MEDS: FAMOTIDINE 40 MG/5 ML ORAL SUSPENSION NGT SCH (22:11)
[2020-12-23] MEDS ORDERED: DEXTROSE 5%-WATER - 50 ML IVPB ONE ×3 (01:45→18:07)
[2020-12-23] MEDS ORDERED: PIPERACILLIN/TAZOBACTAM 3.375 GM VIAL IVPB ONE ×3 (01:45→18:07)
[2020-12-23] MEDS: PIPERACILLIN/TAZOB 3.375 GM 3.375 GM in DEXTROSE 5%-WATER - 50 ML IVPB SCH ×3 (01:46→18:14)
[2020-12-23] MEDS: levETIRAcetam 500 MG/5 ML ORAL SOLUTION (UNIT-DOSE CUPS) GT SCH ×3 (06:40→22:09)
[2020-12-23] MEDS: BUDESONIDE 0.5 MG/2 ML INH SUSP VIAL NEB SCH ×2 (08:00→20:44)
[2020-12-23] MEDS ORDERED: MAGNESIUM 2GM/50ML STERILE WATER IVPB IVPB ONE (11:30)
[2020-12-23] MEDS: BACITRACIN 15 GM TUBE TOPICAL OINTMENT TP SCH ×2 (12:25→23:20)
[2020-12-23] MEDS: AMINO ACIDS/PROTEIN HYDROLYS 30 ML LIQUID.PKT PO SCH (12:25)
[2020-12-23] MEDS: DOCUSATE NA 100 MG/10 ML UNIT-DOSE CUPS PEG SCH (12:26)
[2020-12-23] MEDS: MULTIVIT-MINERALS ORAL LIQUID PO SCH (12:26)
[2020-12-23] MEDS: predniSONE 1 MG TABLET (FP) GT SCH (12:27)
[2020-12-23] MEDS: lamoTRIgine 25 MG TABLET PO SCH ×2 (12:27→22:08)
[2020-12-23] MEDS: ASCORBIC ACID 500 MG/5 ML UNIT DOSE CUP PEG SCH (12:29)
[2020-12-23] MEDS: SENNOSIDES 8.8 MG/5 ML BULK BOTTLE PEG SCH (12:29)
[2020-12-23] MEDS: PETROLATUM, WHITE 30 GM TUBE TP SCH (12:30)
[2020-12-23] MEDS: NYSTATIN POWDER 100,000 UNITS/GM - 15 GM TOPICAL POWDER TP SCH ×2 (12:30→23:20)
[2020-12-23] MEDS: FLUDROCORTISONE ACETATE 0.1 MG TABLET (FP) PO SCH (12:38)
[2020-12-23] MEDS ORDERED: SODIUM CHLORIDE 500 ML IV STA (15:30)
[2020-12-23] MEDS: FAMOTIDINE 40 MG/5 ML ORAL SUSPENSION NGT SCH (22:09)
[2020-12-24] MEDS ORDERED: PIPERACILLIN/TAZOBACTAM 3.375 GM VIAL IVPB ONE ×3 (00:54→17:24)
[2020-12-24] MEDS ORDERED: DEXTROSE 5%-WATER - 50 ML IVPB ONE ×3 (00:54→17:24)
[2020-12-24] MEDS: PIPERACILLIN/TAZOB 3.375 GM 3.375 GM in DEXTROSE 5%-WATER - 50 ML IVPB SCH ×3 (01:08→17:25)
[2020-12-24] MEDS: levETIRAcetam 500 MG/5 ML ORAL SOLUTION (UNIT-DOSE CUPS) GT SCH ×3 (05:13→22:21)
[2020-12-24] MEDS: BUDESONIDE 0.5 MG/2 ML INH SUSP VIAL NEB SCH ×2 (07:40→20:05)
[2020-12-24] MEDS ORDERED: PT OWN MED DRAWER 7, Y5N ONE ×4 (10:07→21:10)
[2020-12-24 10:14] LABS: BASO % 0.7 % (0-2.0); HEMATOCRIT 26.9 % (35.4-49); LYMPH % 36.2 % (8-40); MCH 32.1 pg (25.7-33.7); MCHC 33.6 g/dl (32.0-35.9); MEAN CELL VOLUME 95.6 fl (80-96); MEAN PLT VOLUME 9.3 fl (7.5-11.1); MONO % 9.7 % (3.8-10.2); NEUT % 51.4 % (42.8-82.8); PLATELET COUNT 199 K/MM3 (134-434); RBC 2.82 M/mm3 (4.00-5.60); RDW 17.7 % (11.9-15.9); WHITE BLOOD COUNT 6.4 K/mm3 (4.0-10.0)
[2020-12-24] MEDS: AMINO ACIDS/PROTEIN HYDROLYS 30 ML LIQUID.PKT PO SCH (10:15)
[2020-12-24] MEDS: DOCUSATE NA 100 MG/10 ML UNIT-DOSE CUPS PEG SCH (10:15)
[2020-12-24] MEDS: BACITRACIN 15 GM TUBE TOPICAL OINTMENT TP SCH ×2 (10:15→22:21)
[2020-12-24] MEDS: lamoTRIgine 25 MG TABLET PO SCH ×2 (10:17→22:20)
[2020-12-24] MEDS: FLUDROCORTISONE ACETATE 0.1 MG TABLET (FP) PO SCH (10:18)
[2020-12-24] MEDS: predniSONE 1 MG TABLET (FP) GT SCH (10:19)
[2020-12-24] MEDS: MULTIVIT-MINERALS ORAL LIQUID PO SCH (10:20)
[2020-12-24] MEDS: SENNOSIDES 8.8 MG/5 ML BULK BOTTLE PEG SCH (10:21)
[2020-12-24] MEDS: NYSTATIN POWDER 100,000 UNITS/GM - 15 GM TOPICAL POWDER TP SCH ×2 (10:21→22:22)
[2020-12-24] MEDS: PETROLATUM, WHITE 30 GM TUBE TP SCH (10:22)
[2020-12-24 10:26] LABS: ALBUMIN 1.9 g/dl (3.4-5.0); BLOOD UREA NITROGEN 16.8 mg/dL (7-18); CALCIUM 8.7 mg/dL (8.5-10.1); MAGNESIUM 1.6 mg/dL (1.8-2.4)
[2020-12-24 10:29] LABS: BILIRUBIN,TOTAL 0.8 mg/dL (0.2-1); CREATININE 0.5 mg/dL (0.55-1.3)
[2020-12-24 10:30] LABS: PHOSPHOROUS 3.3 mg/dL (2.5-4.9)
[2020-12-24 10:31] LABS: TOT PROT 4.9 g/dl (6.4-8.2)
[2020-12-24] MEDS ORDERED: MAGNESIUM SULF 50% (8.12 MEQ/2 ML-1 GM VIAL) IVPB ONE (11:00)
[2020-12-24] MEDS ORDERED: POTASSIUM CHLORIDE ORAL LIQUID 20 MEQ/15 ML PO ONE (11:00)
[2020-12-24] MEDS: ASCORBIC ACID 500 MG/5 ML UNIT DOSE CUP PEG SCH (11:32)
[2020-12-24] MEDS: ALBUTEROL SO4 0.083% IH SOL 2.5 MG/3 ML VIAL.NEB. NEB PRN (20:10)
[2020-12-24] MEDS: FAMOTIDINE 40 MG/5 ML ORAL SUSPENSION NGT SCH (22:22)
[2020-12-25] MEDS ORDERED: PIPERACILLIN/TAZOBACTAM 3.375 GM VIAL IVPB ONE ×3 (01:11→17:20)
[2020-12-25] MEDS ORDERED: DEXTROSE 5%-WATER - 50 ML IVPB ONE ×3 (01:12→17:20)
[2020-12-25] MEDS: PIPERACILLIN/TAZOB 3.375 GM 3.375 GM in DEXTROSE 5%-WATER - 50 ML IVPB SCH ×3 (01:37→17:23)
[2020-12-25] MEDS ORDERED: PT OWN MED DRAWER 7, Y5N ONE ×3 (05:21→11:33)
[2020-12-25] MEDS: levETIRAcetam 500 MG/5 ML ORAL SOLUTION (UNIT-DOSE CUPS) GT SCH ×3 (06:23→22:11)
[2020-12-25] MEDS: BUDESONIDE 0.5 MG/2 ML INH SUSP VIAL NEB SCH ×2 (07:28→20:20)
[2020-12-25] MEDS: BACITRACIN 15 GM TUBE TOPICAL OINTMENT TP SCH ×2 (10:11→22:10)
[2020-12-25] MEDS: AMINO ACIDS/PROTEIN HYDROLYS 30 ML LIQUID.PKT PO SCH ×2 (10:11→17:28)
[2020-12-25] MEDS: DOCUSATE NA 100 MG/10 ML UNIT-DOSE CUPS PEG SCH (10:11)
[2020-12-25] MEDS: lamoTRIgine 25 MG TABLET PO SCH ×2 (10:11→22:11)
[2020-12-25] MEDS: MULTIVIT-MINERALS ORAL LIQUID PO SCH (10:26)
[2020-12-25] MEDS: PETROLATUM, WHITE 30 GM TUBE TP SCH (10:27)
[2020-12-25] MEDS: ASCORBIC ACID 500 MG/5 ML UNIT DOSE CUP PEG SCH (10:27)
[2020-12-25] MEDS: SENNOSIDES 8.8 MG/5 ML BULK BOTTLE PEG SCH (10:27)
[2020-12-25] MEDS: predniSONE 1 MG TABLET (FP) GT SCH (10:27)
[2020-12-25] MEDS: NYSTATIN POWDER 100,000 UNITS/GM - 15 GM TOPICAL POWDER TP SCH ×2 (10:28→22:11)
[2020-12-25] MEDS: FLUDROCORTISONE ACETATE 0.1 MG TABLET (FP) PO SCH (10:28)
[2020-12-25 12:09] LABS: BASO % 0.9 % (0-2.0); EOS % 2.3 % (0-4.5); HEMATOCRIT 26.3 % (35.4-49); HEMOGLOBIN 8.9 GM/dL (11.7-16.9); LYMPH % 33.7 % (8-40); MCH 32.3 pg (25.7-33.7); MCHC 33.7 g/dl (32.0-35.9); MEAN CELL VOLUME 95.6 fl (80-96); MEAN PLT VOLUME 9.4 fl (7.5-11.1); MONO % 12.2 % (3.8-10.2); NEUT % 50.9 % (42.8-82.8); PLATELET COUNT 243 K/MM3 (134-434); RBC 2.75 M/mm3 (4.00-5.60); RDW 17.6 % (11.9-15.9); WHITE BLOOD COUNT 5.9 K/mm3 (4.0-10.0)
[2020-12-25 12:46] LABS: BLOOD UREA NITROGEN 14.7 mg/dL (7-18); CALCIUM 8.4 mg/dL (8.5-10.1)
[2020-12-25 12:47] LABS: MAGNESIUM 1.9 mg/dL (1.8-2.4)
[2020-12-25 12:50] LABS: CREATININE 0.6 mg/dL (0.55-1.3); PHOSPHOROUS 3.2 mg/dL (2.5-4.9)
[2020-12-25 12:51] LABS: BILIRUBIN,TOTAL 0.7 mg/dL (0.2-1); TOT PROT 5.3 g/dl (6.4-8.2)
[2020-12-25] MEDS ORDERED: POTASSIUM CHLORIDE ORAL LIQUID 20 MEQ/15 ML PO ONE (18:28)
[2020-12-25] MEDS: FUROSEMIDE 40 MG/5 ML UNIT-DOSE CUP PO ONE ×2 (19:05→20:56)
[2020-12-25] MEDS: ALBUTEROL SO4 0.083% IH SOL 2.5 MG/3 ML VIAL.NEB. NEB PRN (20:21)
[2020-12-25] MEDS: FAMOTIDINE 40 MG/5 ML ORAL SUSPENSION NGT SCH (22:12)
[2020-12-26] MEDS ORDERED: DEXTROSE 5%-WATER - 50 ML IVPB ONE ×3 (01:47→16:25)
[2020-12-26] MEDS ORDERED: PIPERACILLIN/TAZOBACTAM 3.375 GM VIAL IVPB ONE ×3 (01:47→16:25)
[2020-12-26] MEDS: PIPERACILLIN/TAZOB 3.375 GM 3.375 GM in DEXTROSE 5%-WATER - 50 ML IVPB SCH ×3 (01:51→17:19)
[2020-12-26] MEDS ORDERED: PT OWN MED DRAWER 7, Y5N ONE ×2 (03:27→05:39)
[2020-12-26] MEDS: levETIRAcetam 500 MG/5 ML ORAL SOLUTION (UNIT-DOSE CUPS) GT SCH ×3 (06:22→21:57)
[2020-12-26] MEDS: BUDESONIDE 0.5 MG/2 ML INH SUSP VIAL NEB SCH ×2 (08:31→20:04)
[2020-12-26] MEDS: DOCUSATE NA 100 MG/10 ML UNIT-DOSE CUPS PEG SCH (09:03)
[2020-12-26] MEDS: BACITRACIN 15 GM TUBE TOPICAL OINTMENT TP SCH ×2 (09:03→21:56)
[2020-12-26] MEDS: lamoTRIgine 25 MG TABLET PO SCH ×2 (09:03→21:57)
[2020-12-26] MEDS: AMINO ACIDS/PROTEIN HYDROLYS 30 ML LIQUID.PKT PO SCH ×2 (09:03→17:19)
[2020-12-26] MEDS: PETROLATUM, WHITE 30 GM TUBE TP SCH (09:04)
[2020-12-26] MEDS: NYSTATIN POWDER 100,000 UNITS/GM - 15 GM TOPICAL POWDER TP SCH ×2 (09:04→21:57)
[2020-12-26] MEDS: predniSONE 1 MG TABLET (FP) GT SCH (09:07)
[2020-12-26] MEDS: MULTIVIT-MINERALS ORAL LIQUID PO SCH (09:07)
[2020-12-26] MEDS: FLUDROCORTISONE ACETATE 0.1 MG TABLET (FP) PO SCH (09:07)
[2020-12-26] MEDS: ASCORBIC ACID 500 MG/5 ML UNIT DOSE CUP PEG SCH (09:08)
[2020-12-26 09:17] LABS: HEMATOCRIT 25.8 % (35.4-49); HEMOGLOBIN 8.8 GM/dL (11.7-16.9); MCH 32.6 pg (25.7-33.7); MCHC 34.2 g/dl (32.0-35.9); MEAN CELL VOLUME 95.2 fl (80-96); MEAN PLT VOLUME 10.3 fl (7.5-11.1); RBC 2.71 M/mm3 (4.00-5.60)
[2020-12-26 09:19] LABS: PLATELET COUNT 175 K/MM3 (134-434)
[2020-12-26 09:20] LABS: EOS % 1.4 % (0-4.5)
[2020-12-26 09:34] LABS: BLOOD UREA NITROGEN 13.4 mg/dL (7-18); CALCIUM 8.4 mg/dL (8.5-10.1)
[2020-12-26 09:35] LABS: MAGNESIUM 1.8 mg/dL (1.8-2.4)
[2020-12-26 09:37] LABS: CREATININE 0.5 mg/dL (0.55-1.3)
[2020-12-26 09:38] LABS: PHOSPHOROUS 3.6 mg/dL (2.5-4.9)
[2020-12-26 09:39] LABS: BILIRUBIN,TOTAL 0.4 mg/dL (0.2-1); TOT PROT 5.2 g/dl (6.4-8.2)
[2020-12-26] MEDS: FAMOTIDINE 40 MG/5 ML ORAL SUSPENSION NGT SCH (21:57)
[2020-12-27] MEDS ORDERED: PT OWN MED DRAWER 7, Y5N ONE ×2 (05:44→20:58)
[2020-12-27] MEDS: levETIRAcetam 500 MG/5 ML ORAL SOLUTION (UNIT-DOSE CUPS) GT SCH ×3 (05:48→21:06)
[2020-12-27] MEDS: BUDESONIDE 0.5 MG/2 ML INH SUSP VIAL NEB SCH ×2 (07:42→21:00)
[2020-12-27 07:55] LABS: BASO % 0.5 % (0-2.0); EOS % 1.4 % (0-4.5); HEMATOCRIT 24.6 % (35.4-49); HEMOGLOBIN 8.6 GM/dL (11.7-16.9); LYMPH % 31.3 % (8-40); MCH 33.3 pg (25.7-33.7); MCHC 34.9 g/dl (32.0-35.9); MEAN CELL VOLUME 95.4 fl (80-96); MEAN PLT VOLUME 8.8 fl (7.5-11.1); MONO % 14.8 % (3.8-10.2); PLATELET COUNT 275 K/MM3 (134-434); RBC 2.58 M/mm3 (4.00-5.60); RDW 18.6 % (11.9-15.9); WHITE BLOOD COUNT 6.9 K/mm3 (4.0-10.0)
[2020-12-27 08:22] LABS: BLOOD UREA NITROGEN 14.1 mg/dL (7-18); CALCIUM 8.2 mg/dL (8.5-10.1)
[2020-12-27 08:23] LABS: MAGNESIUM 1.6 mg/dL (1.8-2.4)
[2020-12-27 08:25] LABS: CREATININE 0.5 mg/dL (0.55-1.3)
[2020-12-27 08:26] LABS: PHOSPHOROUS 3.4 mg/dL (2.5-4.9)
[2020-12-27 08:27] LABS: BILIRUBIN,TOTAL 0.6 mg/dL (0.2-1); TOT PROT 5.2 g/dl (6.4-8.2)
[2020-12-27] MEDS ORDERED: MAGNESIUM SULF 50% (8.12 MEQ/2 ML-1 GM VIAL) IVPB ONE (09:38)
[2020-12-27] MEDS: AMINO ACIDS/PROTEIN HYDROLYS 30 ML LIQUID.PKT PO SCH ×2 (10:42→17:58)
[2020-12-27] MEDS: MULTIVIT-MINERALS ORAL LIQUID PO SCH (10:43)
[2020-12-27] MEDS: BACITRACIN 15 GM TUBE TOPICAL OINTMENT TP SCH ×2 (10:43→21:07)
[2020-12-27] MEDS: PETROLATUM, WHITE 30 GM TUBE TP SCH (10:44)
[2020-12-27] MEDS: NYSTATIN POWDER 100,000 UNITS/GM - 15 GM TOPICAL POWDER TP SCH ×2 (10:44→21:07)
[2020-12-27] MEDS: DOCUSATE NA 100 MG/10 ML UNIT-DOSE CUPS PEG SCH (10:44)
[2020-12-27] MEDS: ASCORBIC ACID 500 MG/5 ML UNIT DOSE CUP PEG SCH (10:44)
[2020-12-27] MEDS: FLUDROCORTISONE ACETATE 0.1 MG TABLET (FP) PO SCH (10:44)
[2020-12-27] MEDS: lamoTRIgine 25 MG TABLET PO SCH ×2 (10:45→21:06)
[2020-12-27] MEDS: predniSONE 1 MG TABLET (FP) GT SCH (10:45)
[2020-12-27] MEDS: FAMOTIDINE 40 MG/5 ML ORAL SUSPENSION NGT SCH (21:06)
[2020-12-28] MEDS ORDERED: PT OWN MED DRAWER 7, Y5N ONE ×3 (05:25→21:11)
[2020-12-28] MEDS: levETIRAcetam 500 MG/5 ML ORAL SOLUTION (UNIT-DOSE CUPS) GT SCH ×3 (05:26→21:14)
[2020-12-28 07:15] LABS: BASO % 0.8 % (0-2.0); EOS % 1.2 % (0-4.5); HEMATOCRIT 26.5 % (35.4-49); HEMOGLOBIN 9.1 GM/dL (11.7-16.9); LYMPH % 25.2 % (8-40); MCHC 34.2 g/dl (32.0-35.9); MEAN CELL VOLUME 96.6 fl (80-96); MEAN PLT VOLUME 9.3 fl (7.5-11.1); MONO % 14.6 % (3.8-10.2); NEUT % 58.2 % (42.8-82.8); PLATELET COUNT 300 K/MM3 (134-434); RBC 2.74 M/mm3 (4.00-5.60); RDW 19.7 % (11.9-15.9)
[2020-12-28 07:49] LABS: BLOOD UREA NITROGEN 12.5 mg/dL (7-18); CALCIUM 8.3 mg/dL (8.5-10.1); MAGNESIUM 1.9 mg/dL (1.8-2.4)
[2020-12-28 07:52] LABS: BILIRUBIN,TOTAL 0.4 mg/dL (0.2-1); CREATININE 0.4 mg/dL (0.55-1.3); PHOSPHOROUS 2.8 mg/dL (2.5-4.9); TOT PROT 5.4 g/dl (6.4-8.2)
[2020-12-28] MEDS: AMINO ACIDS/PROTEIN HYDROLYS 30 ML LIQUID.PKT PO SCH ×2 (09:13→17:13)
[2020-12-28] MEDS: DOCUSATE NA 100 MG/10 ML UNIT-DOSE CUPS PEG SCH (09:13)
[2020-12-28] MEDS: lamoTRIgine 25 MG TABLET PO SCH ×2 (09:13→21:14)
[2020-12-28] MEDS: MULTIVIT-MINERALS ORAL LIQUID PO SCH (09:14)
[2020-12-28] MEDS: BACITRACIN 15 GM TUBE TOPICAL OINTMENT TP SCH ×2 (09:14→21:14)
[2020-12-28] MEDS: predniSONE 1 MG TABLET (FP) GT SCH (09:16)
[2020-12-28] MEDS: NYSTATIN POWDER 100,000 UNITS/GM - 15 GM TOPICAL POWDER TP SCH ×2 (09:17→21:14)
[2020-12-28] MEDS: PETROLATUM, WHITE 30 GM TUBE TP SCH (09:17)
[2020-12-28] MEDS: FLUDROCORTISONE ACETATE 0.1 MG TABLET (FP) PO SCH (09:17)
[2020-12-28] MEDS: ASCORBIC ACID 500 MG/5 ML UNIT DOSE CUP PEG SCH (09:18)
[2020-12-28] MEDS ORDERED: POTASSIUM CHLORIDE ORAL LIQUID 20 MEQ/15 ML GT ONE (10:00)
[2020-12-28] MEDS: BUDESONIDE 0.5 MG/2 ML INH SUSP VIAL NEB SCH ×2 (12:36→20:38)
[2020-12-28] MEDS: FAMOTIDINE 40 MG/5 ML ORAL SUSPENSION NGT SCH (21:15)
[2020-12-29] MEDS ORDERED: PT OWN MED DRAWER 7, Y5N ONE ×4 (05:35→21:55)
[2020-12-29] MEDS: levETIRAcetam 500 MG/5 ML ORAL SOLUTION (UNIT-DOSE CUPS) GT SCH ×4 (05:40→21:57)
[2020-12-29] MEDS ORDERED: levETIRAcetam 500 MG/5 ML INJECTION VIAL IVPB ONE (06:00)
[2020-12-29 07:03] LABS: EOS % 1.7 % (0-4.5); HEMATOCRIT 27.2 % (35.4-49); HEMOGLOBIN 9.4 GM/dL (11.7-16.9); LYMPH % 30.9 % (8-40); MCH 32.9 pg (25.7-33.7); MCHC 34.4 g/dl (32.0-35.9); MEAN CELL VOLUME 95.7 fl (80-96); MEAN PLT VOLUME 9.4 fl (7.5-11.1); MONO % 15.4 % (3.8-10.2); PLATELET COUNT 319 K/MM3 (134-434); RBC 2.85 M/mm3 (4.00-5.60); RDW 19.2 % (11.9-15.9); WHITE BLOOD COUNT 6.7 K/mm3 (4.0-10.0)
[2020-12-29] MEDS: BUDESONIDE 0.5 MG/2 ML INH SUSP VIAL NEB SCH ×2 (07:40→20:30)
[2020-12-29 08:14] LABS: ALBUMIN 2.1 g/dl (3.4-5.0); BLOOD UREA NITROGEN 11.4 mg/dL (7-18); MAGNESIUM 1.8 mg/dL (1.8-2.4)
[2020-12-29 08:15] LABS: CALCIUM 8.5 mg/dL (8.5-10.1)
[2020-12-29 08:17] LABS: CREATININE 0.4 mg/dL (0.55-1.3)
[2020-12-29 08:18] LABS: PHOSPHOROUS 2.1 mg/dL (2.5-4.9)
[2020-12-29 08:19] LABS: BILIRUBIN,TOTAL 0.4 mg/dL (0.2-1); TOT PROT 5.6 g/dl (6.4-8.2)
[2020-12-29] MEDS: lamoTRIgine 25 MG TABLET PO SCH ×2 (11:22→21:57)
[2020-12-29] MEDS: AMINO ACIDS/PROTEIN HYDROLYS 30 ML LIQUID.PKT PO SCH ×2 (11:26→17:38)
[2020-12-29] MEDS: DOCUSATE NA 100 MG/10 ML UNIT-DOSE CUPS PEG SCH (11:26)
[2020-12-29] MEDS: MULTIVIT-MINERALS ORAL LIQUID PO SCH (11:27)
[2020-12-29] MEDS: ASCORBIC ACID 500 MG/5 ML UNIT DOSE CUP PEG SCH (11:27)
[2020-12-29] MEDS: FLUDROCORTISONE ACETATE 0.1 MG TABLET (FP) PO SCH (11:29)
[2020-12-29] MEDS: predniSONE 1 MG TABLET (FP) GT SCH (11:29)
[2020-12-29] MEDS: NYSTATIN POWDER 100,000 UNITS/GM - 15 GM TOPICAL POWDER TP SCH ×2 (11:33→21:58)
[2020-12-29] MEDS: BACITRACIN 15 GM TUBE TOPICAL OINTMENT TP SCH ×2 (13:00→21:57)
[2020-12-29] MEDS: PETROLATUM, WHITE 30 GM TUBE TP SCH (13:04)
[2020-12-29] MEDS ORDERED: POTASSIUM PHOSPHATE 30 MM in SODIUM CHLORIDE 500 ML IVPB ONE (15:00)
[2020-12-29] MEDS ORDERED: NAPH,MB-DB/K PH,MBDB POWDER PACKET GT ONE (15:00)
[2020-12-29] MEDS: FAMOTIDINE 40 MG/5 ML ORAL SUSPENSION NGT SCH (21:57)
[2020-12-30 03:13] VITALS: TEMP 98
[2020-12-30] MEDS ORDERED: PT OWN MED DRAWER 7, Y5N ONE (06:22)
[2020-12-30] MEDS: levETIRAcetam 500 MG/5 ML ORAL SOLUTION (UNIT-DOSE CUPS) GT SCH ×2 (06:37→12:02)
[2020-12-30 07:18] LABS: BASO % 1.4 % (0-2.0); EOS % 1.5 % (0-4.5); HEMATOCRIT 27.1 % (35.4-49); HEMOGLOBIN 9.3 GM/dL (11.7-16.9); LYMPH % 44.1 % (8-40); MCH 32.9 pg (25.7-33.7); MCHC 34.3 g/dl (32.0-35.9); MEAN PLT VOLUME 9.1 fl (7.5-11.1); PLATELET COUNT 337 K/MM3 (134-434); RBC 2.82 M/mm3 (4.00-5.60); RDW 19.8 % (11.9-15.9); WHITE BLOOD COUNT 5.6 K/mm3 (4.0-10.0)
[2020-12-30 07:46] LABS: ALBUMIN 2.2 g/dl (3.4-5.0); BLOOD UREA NITROGEN 9.4 mg/dL (7-18); CALCIUM 8.5 mg/dL (8.5-10.1); MAGNESIUM 1.8 mg/dL (1.8-2.4)
[2020-12-30 07:49] LABS: CREATININE 0.4 mg/dL (0.55-1.3)
[2020-12-30 07:50] LABS: PHOSPHOROUS 3.3 mg/dL (2.5-4.9)
[2020-12-30 07:51] LABS: BILIRUBIN,TOTAL 1.5 mg/dL (0.2-1); TOT PROT 5.8 g/dl (6.4-8.2)
[2020-12-30] MEDS: BUDESONIDE 0.5 MG/2 ML INH SUSP VIAL NEB SCH (08:23)
[2020-12-30] MEDS: ASCORBIC ACID 500 MG/5 ML UNIT DOSE CUP PEG SCH (09:00)
[2020-12-30] MEDS: MULTIVIT-MINERALS ORAL LIQUID PO SCH (09:00)
[2020-12-30] MEDS: BACITRACIN 15 GM TUBE TOPICAL OINTMENT TP SCH (09:00)
[2020-12-30] MEDS: NYSTATIN POWDER 100,000 UNITS/GM - 15 GM TOPICAL POWDER TP SCH (09:00)
[2020-12-30] MEDS: FLUDROCORTISONE ACETATE 0.1 MG TABLET (FP) PO SCH (09:00)
[2020-12-30] MEDS: AMINO ACIDS/PROTEIN HYDROLYS 30 ML LIQUID.PKT PO SCH (09:00)
[2020-12-30] MEDS: predniSONE 1 MG TABLET (FP) GT SCH (09:00)
[2020-12-30] MEDS: DOCUSATE NA 100 MG/10 ML UNIT-DOSE CUPS PEG SCH (09:00)
[2020-12-30] MEDS: lamoTRIgine 25 MG TABLET PO SCH (09:00)
[2020-12-30] MEDS: PETROLATUM, WHITE 30 GM TUBE TP SCH (09:57)
[2020-12-30 12:53] VITALS: BP 138/88; PULSE 84
== END 2020-12-30 13:32 | DRG 710 ==
LOC: JER 19:56 → JERBED 20:18 → J4S 12-15 16:22 → J4W 12-18 22:06 → J4S 12-23 23:10
PROVIDERS: ADMIT Internal Medicine; ATTEND Student in an Organized Health Care Education/Training Program
PROC: 3E0G76Z Introduction of Nutritional Substance into Upper GI, Via Natural or Artificial Opening (ICD-10-PCS; 2020-12-17)
PROC: 093K7ZZ Control Bleeding in Nasal Mucosa and Soft Tissue, Via Natural or Artificial Opening (ICD-10-PCS; principal; 2020-12-23)
DX: A41.89 Other specified sepsis (principal); J96.01 Acute respiratory failure with hypoxia; G40.909 Epilepsy, unspecified, not intractable, without status epilepticus; G80.9 Cerebral palsy, unspecified; R53.2 Functional quadriplegia; E27.40 Unspecified adrenocortical insufficiency; R00.1 Bradycardia, unspecified; R68.0 Hypothermia, not associated with low environmental temperature; F73 Profound intellectual disabilities; H54.8 Legal blindness, as defined in USA; Q65.02 Congenital dislocation of left hip, unilateral; Z93.1 Gastrostomy status; L89.152 Pressure ulcer of sacral region, stage 2; R04.0 Epistaxis; E87.0 Hyperosmolality and hypernatremia; R60.1 Generalized edema; J69.0 Pneumonitis due to inhalation of food and vomit; R74.8 Abnormal levels of other serum enzymes; D69.6 Thrombocytopenia, unspecified; K76.0 Fatty (change of) liver, not elsewhere classified; D61.818 Other pancytopenia; E83.39 Other disorders of phosphorus metabolism; E83.42 Hypomagnesemia
CPT/HCPCS: 36415; 71045-TC-FY; 74018-TC-FY; 76700-TC; 80053; 80074; 80177; 81003; 82550; 82607; 82728; 82746; 82803; 83540; 83550; 83605; 83615; 83690; 83735; 84100; 84484; 85025; 85027; 85045; 85379; 85610; 85730; 86140; 86704; 86706; 86707; 86708; 86709; 86803; 87040; 87086; 87340; 93005; 93010; 94640; 99285-25; C9803; U0003

== ENCOUNTER 2021-03-02 09:26 | Inpatient (IN) | payer OTHER ==
[2021-03-02 09:46] VITALS: BMI 25.7
[2021-03-02] MEDS ORDERED: SODIUM CHLORIDE 0.9% 500 ML INFUS.BAG IV ONE (11:18)
[2021-03-02 11:24] LABS: BASO % 0.2 % (0-2.0); EOS % 0.2 % (0-4.5); HEMATOCRIT 36.7 % (35.4-49); HEMOGLOBIN 12.2 GM/dL (11.7-16.9); LYMPH % 7.7 % (8-40); MCH 30.6 pg (25.7-33.7); MCHC 33.3 g/dl (32.0-35.9); MEAN CELL VOLUME 91.8 fl (80-96); MEAN PLT VOLUME 11.6 fl (7.5-11.1); MONO % 6.2 % (3.8-10.2); NEUT % 85.7 % (42.8-82.8); PLATELET COUNT 85 K/MM3 (134-434); RDW 16.4 % (11.9-15.9); WHITE BLOOD COUNT 11.9 K/mm3 (4.0-10.0)
[2021-03-02 11:51] LABS: CALCIUM 9.7 mg/dL (8.5-10.1)
[2021-03-02 11:52] LABS: ALBUMIN 3.3 g/dl (3.4-5.0); BLOOD UREA NITROGEN 12.1 mg/dL (7-18)
[2021-03-02 11:55] LABS: CREATININE 0.6 mg/dL (0.55-1.3)
[2021-03-02 11:56] LABS: BILIRUBIN,TOTAL 0.3 mg/dL (0.2-1); TOT PROT 7.4 g/dl (6.4-8.2)
[2021-03-02 12:09] LABS: EPI CELLS 15 /uL (0-25.1); HYALINE CASTS 0 /uL (0-3.1); URINE APPEARANCE CLEAR; URINE BACTERIA 137 /uL (0-1359); URINE BILIRUBIN NEGATIVE (NEGATIVE); URINE COLOR YELLOW; URINE GLUCOSE (UA) NEGATIVE (NEGATIVE); URINE KETONE NEGATIVE (NEGATIVE); URINE LEUK ESTERASE 3+ (NEGATIVE); URINE NITRITE NEGATIVE (NEGATIVE); URINE PROTEIN NEGATIVE (NEGATIVE); URINE RBC 14 /uL (0-23.9); URINE UROBILINOGEN 0.2 mg/dL (0.2-1.0); URINE WBC 28 /uL (0-25.8)
[2021-03-02] MEDS ORDERED: MEROPENEM 1 GM in DEXTROSE 5%-WATER 100 ML IVPB ONE (13:21)
[2021-03-02] MEDS ORDERED: MEROPENEM 1 GM VIAL (RESTRICTED TO ID) IVPB ONE (13:30)
[2021-03-02] MEDS ORDERED: VANCOMYCIN 1 GM PREMIX - 1 GM/200 ML BAG IVPB ONE (13:56)
[2021-03-02] MEDS ORDERED: VANCOMYCIN 1 GRAM (PRE-DOCKED) 1,000 MG/250 ML BAG IVPB ONE (14:38)
[2021-03-02] MEDS ORDERED: LACTATED RINGERS SOLUTION 1000 ML INFUS.BAG IV ONE (15:45)
[2021-03-02] MEDS: SODIUM CHLORIDE 1,000 ML IV SCH (20:56)
[2021-03-02 21:39] LABS: INR 1.08 (0.83-1.09); PROTHROMBIN TIME (PATIENT) 13.3 SEC (9.7-13.0)
[2021-03-02 21:42] LABS: ACTIVATED PTT 30.6 SECONDS (25.2-36.5)
[2021-03-02] MEDS: HEPARIN NA (PORCINE) 5,000 UNITS/ML 1ML VIAL SQ SCH (23:07)
[2021-03-02] MEDS: levETIRAcetam 500 MG/5 ML ORAL SOLUTION (UNIT-DOSE CUPS) GT SCH (23:08)
[2021-03-02] MEDS: LACTULOSE 20 GM/30 ML UDC (FOR ORAL USE ONLY) PEG SCH (23:09)
[2021-03-02] MEDS: lamoTRIgine 25 MG TABLET PO SCH (23:10)
[2021-03-02] MEDS: FAMOTIDINE 40 MG/5 ML ORAL SUSPENSION NGT SCH (23:10)
[2021-03-02] MEDS: MAG HYDROX/AL HYDROX/SIMETH 30 ML UNIT-DOSE CUP PEG SCH (23:10)
[2021-03-03] MEDS ORDERED: VANCOMYCIN 1 GRAM (PRE-DOCKED) 1,000 MG/250 ML BAG IVPB SCH (03:00)
[2021-03-03] MEDS: MAG HYDROX/AL HYDROX/SIMETH 30 ML UNIT-DOSE CUP PEG SCH ×3 (05:43→21:50)
[2021-03-03] MEDS ORDERED: VANCOMYCIN 1,000 MG in DEXTROSE 5%-WATER - 250 ML IVPB SCH (09:00)
[2021-03-03] MEDS ORDERED: DEXTROSE 5%-WATER - 50 ML IVPB ONE ×2 (09:19→17:17)
[2021-03-03] MEDS ORDERED: PIPERACILLIN/TAZOBACTAM 3.375 GM VIAL IVPB ONE ×2 (09:19→17:17)
[2021-03-03] MEDS: PIPERACILLIN/TAZOB 3.375 GM 3.375 GM in DEXTROSE 5%-WATER - 50 ML IVPB SCH ×2 (09:53→17:39)
[2021-03-03] MEDS: LACTULOSE 20 GM/30 ML UDC (FOR ORAL USE ONLY) PEG SCH ×2 (09:53→21:49)
[2021-03-03] MEDS: levETIRAcetam 500 MG/5 ML ORAL SOLUTION (UNIT-DOSE CUPS) GT SCH ×2 (09:54→21:49)
[2021-03-03] MEDS: HEPARIN NA (PORCINE) 5,000 UNITS/ML 1ML VIAL SQ SCH ×2 (09:55→21:52)
[2021-03-03] MEDS: SODIUM CHLORIDE 1,000 ML IV SCH ×2 (09:56→21:50)
[2021-03-03] MEDS: BUDESONIDE 0.5 MG/2 ML INH SUSP VIAL NEB SCH ×2 (11:24→22:52)
[2021-03-03] MEDS: lamoTRIgine 25 MG TABLET PO SCH ×2 (11:58→21:50)
[2021-03-03] MEDS: predniSONE 1 MG TABLET (FP) GT SCH (11:59)
[2021-03-03 12:04] LABS: BASO % 0.8 % (0-2.0); EOS % 1.6 % (0-4.5); HEMATOCRIT 31.2 % (35.4-49); HEMOGLOBIN 10.3 GM/dL (11.7-16.9); LYMPH % 41.7 % (8-40); MCH 30.7 pg (25.7-33.7); MCHC 33.1 g/dl (32.0-35.9); MEAN CELL VOLUME 92.8 fl (80-96); MEAN PLT VOLUME 12.1 fl (7.5-11.1); MONO % 5.7 % (3.8-10.2); NEUT % 50.2 % (42.8-82.8); PLATELET COUNT 70 K/MM3 (134-434); RBC 3.37 M/mm3 (4.00-5.60); RDW 16.6 % (11.9-15.9); WHITE BLOOD COUNT 4.8 K/mm3 (4.0-10.0)
[2021-03-03 12:33] LABS: CALCIUM 8.9 mg/dL (8.5-10.1)
[2021-03-03 12:34] LABS: ALBUMIN 2.8 g/dl (3.4-5.0); BLOOD UREA NITROGEN 6.2 mg/dL (7-18); MAGNESIUM 1.9 mg/dL (1.8-2.4)
[2021-03-03 12:37] LABS: CREATININE 0.5 mg/dL (0.55-1.3)
[2021-03-03 12:38] LABS: BILIRUBIN,TOTAL 0.8 mg/dL (0.2-1)
[2021-03-03 12:39] LABS: TOT PROT 5.9 g/dl (6.4-8.2)
[2021-03-03] MEDS: FAMOTIDINE 40 MG/5 ML ORAL SUSPENSION NGT SCH (21:49)
[2021-03-04] MEDS: SODIUM CHLORIDE 1,000 ML IV SCH ×2 (00:40→15:33)
[2021-03-04] MEDS ORDERED: PIPERACILLIN/TAZOBACTAM 3.375 GM VIAL IVPB ONE ×3 (01:18→16:44)
[2021-03-04] MEDS ORDERED: DEXTROSE 5%-WATER - 50 ML IVPB ONE ×3 (01:19→16:44)
[2021-03-04] MEDS: PIPERACILLIN/TAZOB 3.375 GM 3.375 GM in DEXTROSE 5%-WATER - 50 ML IVPB SCH ×3 (01:22→17:04)
[2021-03-04] MEDS: MAG HYDROX/AL HYDROX/SIMETH 30 ML UNIT-DOSE CUP PEG SCH ×3 (06:20→21:04)
[2021-03-04] MEDS: BUDESONIDE 0.5 MG/2 ML INH SUSP VIAL NEB SCH ×2 (07:21→21:00)
[2021-03-04 08:10] LABS: HEMATOCRIT 30.9 % (35.4-49); HEMOGLOBIN 10.5 GM/dL (11.7-16.9); MCH 31.2 pg (25.7-33.7); MCHC 33.9 g/dl (32.0-35.9); MEAN CELL VOLUME 92.1 fl (80-96); MEAN PLT VOLUME 11.8 fl (7.5-11.1); PLATELET COUNT 84 K/MM3 (134-434); RBC 3.35 M/mm3 (4.00-5.60); RDW 16.8 % (11.9-15.9); WHITE BLOOD COUNT 4.2 K/mm3 (4.0-10.0)
[2021-03-04 08:21] LABS: CALCIUM 8.6 mg/dL (8.5-10.1)
[2021-03-04 08:22] LABS: ALBUMIN 2.8 g/dl (3.4-5.0); BLOOD UREA NITROGEN 5.6 mg/dL (7-18)
[2021-03-04 08:25] LABS: CREATININE 0.5 mg/dL (0.55-1.3)
[2021-03-04 08:26] LABS: BILIRUBIN,TOTAL 0.3 mg/dL (0.2-1); TOT PROT 6.3 g/dl (6.4-8.2)
[2021-03-04] MEDS: LACTULOSE 20 GM/30 ML UDC (FOR ORAL USE ONLY) PEG SCH ×2 (09:42→21:04)
[2021-03-04] MEDS: predniSONE 1 MG TABLET (FP) GT SCH (09:42)
[2021-03-04] MEDS: lamoTRIgine 25 MG TABLET PO SCH ×2 (09:42→21:06)
[2021-03-04] MEDS: levETIRAcetam 500 MG/5 ML ORAL SOLUTION (UNIT-DOSE CUPS) GT SCH ×2 (09:42→21:05)
[2021-03-04] MEDS: HEPARIN NA (PORCINE) 5,000 UNITS/ML 1ML VIAL SQ SCH ×2 (09:43→21:04)
[2021-03-04 11:06] LABS: IRON SERUM 83 ug/dL (50-175)
[2021-03-04 11:07] LABS: TOTAL IRON BINDING CAPACITY 315 ug/dL (250-450)
[2021-03-04] MEDS: FAMOTIDINE 40 MG/5 ML ORAL SUSPENSION NGT SCH (21:06)
[2021-03-05] MEDS ORDERED: PIPERACILLIN/TAZOBACTAM 3.375 GM VIAL IVPB ONE ×3 (02:43→17:33)
[2021-03-05] MEDS ORDERED: DEXTROSE 5%-WATER - 50 ML IVPB ONE ×3 (02:43→17:33)
[2021-03-05] MEDS: PIPERACILLIN/TAZOB 3.375 GM 3.375 GM in DEXTROSE 5%-WATER - 50 ML IVPB SCH ×3 (02:46→17:55)
[2021-03-05] MEDS: MAG HYDROX/AL HYDROX/SIMETH 30 ML UNIT-DOSE CUP PEG SCH ×3 (06:03→22:08)
[2021-03-05] MEDS: BUDESONIDE 0.5 MG/2 ML INH SUSP VIAL NEB SCH ×2 (07:34→19:42)
[2021-03-05] MEDS: lamoTRIgine 25 MG TABLET PO SCH ×2 (09:45→22:08)
[2021-03-05] MEDS: predniSONE 1 MG TABLET (FP) GT SCH (09:45)
[2021-03-05] MEDS: LACTULOSE 20 GM/30 ML UDC (FOR ORAL USE ONLY) PEG SCH ×2 (09:45→12:12)
[2021-03-05] MEDS: HEPARIN NA (PORCINE) 5,000 UNITS/ML 1ML VIAL SQ SCH (09:45)
[2021-03-05] MEDS: levETIRAcetam 500 MG/5 ML ORAL SOLUTION (UNIT-DOSE CUPS) GT SCH ×2 (09:47→22:09)
[2021-03-05 10:05] LABS: HEMATOCRIT 30.2 % (35.4-49); HEMOGLOBIN 10.2 GM/dL (11.7-16.9); MCH 30.9 pg (25.7-33.7); MCHC 33.6 g/dl (32.0-35.9); MEAN CELL VOLUME 92.1 fl (80-96); MEAN PLT VOLUME 11.3 fl (7.5-11.1); PLATELET COUNT 83 K/MM3 (134-434); RBC 3.28 M/mm3 (4.00-5.60); RDW 16.3 % (11.9-15.9); WHITE BLOOD COUNT 4.2 K/mm3 (4.0-10.0)
[2021-03-05] MEDS: PANTOPRAZOLE SODIUM 80 MG in SODIUM CHLORIDE 100 ML IVPB SCH (14:04)
[2021-03-05 15:03] LABS: BASO % 0.5 % (0-2.0); EOS % 3.2 % (0-4.5); HEMATOCRIT 30.3 % (35.4-49); HEMOGLOBIN 10.1 GM/dL (11.7-16.9); LYMPH % 27.9 % (8-40); MCH 30.7 pg (25.7-33.7); MCHC 33.2 g/dl (32.0-35.9); MEAN CELL VOLUME 92.3 fl (80-96); MEAN PLT VOLUME 11.5 fl (7.5-11.1); MONO % 9.4 % (3.8-10.2); PLATELET COUNT 80 K/MM3 (134-434); RBC 3.28 M/mm3 (4.00-5.60); RDW 16.5 % (11.9-15.9); WHITE BLOOD COUNT 3.6 K/mm3 (4.0-10.0)
[2021-03-05] MEDS: DEXTROSE 5%-0.45% SALINE 1,000 ML IV SCH (15:40)
[2021-03-05 18:05] LABS: INR 1.06 (0.83-1.09); PROTHROMBIN TIME (PATIENT) 12.8 SEC (9.7-13.0)
[2021-03-05 18:08] LABS: ACTIVATED PTT 32.5 SECONDS (25.2-36.5)
[2021-03-06] MEDS ORDERED: PIPERACILLIN/TAZOBACTAM 3.375 GM VIAL IVPB ONE ×3 (01:59→17:10)
[2021-03-06] MEDS ORDERED: DEXTROSE 5%-WATER - 50 ML IVPB ONE ×3 (02:00→17:10)
[2021-03-06] MEDS: PIPERACILLIN/TAZOB 3.375 GM 3.375 GM in DEXTROSE 5%-WATER - 50 ML IVPB SCH ×3 (02:01→17:30)
[2021-03-06] MEDS: PANTOPRAZOLE SODIUM 80 MG in SODIUM CHLORIDE 100 ML IVPB SCH ×4 (03:12→17:26)
[2021-03-06] MEDS ORDERED: PT OWN MED DRAWER 7, Y5N ONE ×3 (04:08→21:01)
[2021-03-06] MEDS: MAG HYDROX/AL HYDROX/SIMETH 30 ML UNIT-DOSE CUP PEG SCH ×3 (05:35→21:16)
[2021-03-06] MEDS: DEXTROSE 5%-0.45% SALINE 1,000 ML IV SCH ×3 (05:36→14:29)
[2021-03-06] MEDS: BUDESONIDE 0.5 MG/2 ML INH SUSP VIAL NEB SCH ×2 (08:30→20:10)
[2021-03-06 09:44] LABS: HEMATOCRIT 27.4 % (35.4-49); HEMOGLOBIN 9.4 GM/dL (11.7-16.9); MCH 31.3 pg (25.7-33.7); MCHC 34.3 g/dl (32.0-35.9); MEAN CELL VOLUME 91.3 fl (80-96); MEAN PLT VOLUME 11.2 fl (7.5-11.1); PLATELET COUNT 93 K/MM3 (134-434); RDW 16.4 % (11.9-15.9); WHITE BLOOD COUNT 2.7 K/mm3 (4.0-10.0)
[2021-03-06 09:52] LABS: INR 1.03 (0.83-1.09); PROTHROMBIN TIME (PATIENT) 12.6 SEC (9.7-13.0)
[2021-03-06 09:54] LABS: ACTIVATED PTT 33.9 SECONDS (25.2-36.5)
[2021-03-06 09:57] LABS: ALBUMIN 2.7 g/dl (3.4-5.0); BLOOD UREA NITROGEN 4.3 mg/dL (7-18); CALCIUM 8.6 mg/dL (8.5-10.1)
[2021-03-06 10:00] LABS: CREATININE 0.5 mg/dL (0.55-1.3)
[2021-03-06 10:02] LABS: BILIRUBIN,TOTAL 0.6 mg/dL (0.2-1)
[2021-03-06] MEDS: lamoTRIgine 25 MG TABLET PO SCH ×2 (10:48→21:18)
[2021-03-06] MEDS: predniSONE 1 MG TABLET (FP) GT SCH (10:48)
[2021-03-06] MEDS: levETIRAcetam 500 MG/5 ML ORAL SOLUTION (UNIT-DOSE CUPS) GT SCH ×2 (10:51→21:16)
[2021-03-06] MEDS: KCL 10 MEQ IVPB 10 MEQ/100 ML INFUS.BAG IVPB SCH ×3 (11:16→13:52)
[2021-03-06] MEDS: ENOXAPARIN NA (PORCINE) 40 MG/0.4 ML DISP.SYRIN SQ SCH (14:29)
[2021-03-07] MEDS ORDERED: DEXTROSE 5%-WATER - 50 ML IVPB ONE ×3 (01:40→17:30)
[2021-03-07] MEDS ORDERED: PIPERACILLIN/TAZOBACTAM 3.375 GM VIAL IVPB ONE ×3 (01:40→17:29)
[2021-03-07] MEDS: PIPERACILLIN/TAZOB 3.375 GM 3.375 GM in DEXTROSE 5%-WATER - 50 ML IVPB SCH ×3 (01:44→18:11)
[2021-03-07] MEDS: PANTOPRAZOLE SODIUM 80 MG in SODIUM CHLORIDE 100 ML IVPB SCH ×2 (04:56→13:18)
[2021-03-07] MEDS: MAG HYDROX/AL HYDROX/SIMETH 30 ML UNIT-DOSE CUP PEG SCH ×3 (06:02→22:40)
[2021-03-07] MEDS ORDERED: PT OWN MED DRAWER 7, Y5N ONE ×4 (07:34→20:59)
[2021-03-07] MEDS: BUDESONIDE 0.5 MG/2 ML INH SUSP VIAL NEB SCH ×2 (07:40→20:41)
[2021-03-07 09:12] LABS: BASO % 0.8 % (0-2.0); EOS % 3.4 % (0-4.5); HEMATOCRIT 26.9 % (35.4-49); HEMOGLOBIN 9.1 GM/dL (11.7-16.9); LYMPH % 60.6 % (8-40); MCH 30.9 pg (25.7-33.7); MCHC 33.8 g/dl (32.0-35.9); MEAN CELL VOLUME 91.3 fl (80-96); MEAN PLT VOLUME 10.7 fl (7.5-11.1); MONO % 9.1 % (3.8-10.2); NEUT % 26.1 % (42.8-82.8); PLATELET COUNT 91 K/MM3 (134-434); RBC 2.94 M/mm3 (4.00-5.60); RDW 16.5 % (11.9-15.9); WHITE BLOOD COUNT 3.1 K/mm3 (4.0-10.0)
[2021-03-07 09:28] LABS: CHLORIDE 109 mmol/L (98-107); SODIUM 144 mmol/L (136-145)
[2021-03-07 09:40] LABS: ALBUMIN 2.6 g/dl (3.4-5.0); ANION GAP 4 MMOL/L (8-16); CO2 31 mmol/L (21-32); GLUCOSE,RANDOM 109 mg/dL (74-106)
[2021-03-07 09:41] LABS: CREATININE 0.5 mg/dL (0.55-1.3); SGOT/AST 72 U/L (15-37); SGPT/ALT 99 U/L (13-61)
[2021-03-07 09:42] LABS: BILIRUBIN,TOTAL 0.3 mg/dL (0.2-1); TOT PROT 6.1 g/dl (6.4-8.2)
[2021-03-07 09:43] LABS: ALK PHOS 117 U/L (45-117); BLOOD UREA NITROGEN 2.3 mg/dL (7-18)
[2021-03-07] MEDS: ENOXAPARIN NA (PORCINE) 40 MG/0.4 ML DISP.SYRIN SQ SCH (10:23)
[2021-03-07] MEDS: predniSONE 1 MG TABLET (FP) GT SCH (10:24)
[2021-03-07] MEDS: levETIRAcetam 500 MG/5 ML ORAL SOLUTION (UNIT-DOSE CUPS) GT SCH ×2 (10:24→22:40)
[2021-03-07] MEDS: lamoTRIgine 25 MG TABLET PO SCH ×2 (10:24→22:40)
[2021-03-07 10:28] LABS: ANISOCYTOSIS 1+; PLATELET ESTIMATE DECREASED
[2021-03-07] MEDS: DEXTROSE 5%-0.45% SALINE 1,000 ML IV SCH (16:37)
[2021-03-08] MEDS: PANTOPRAZOLE SODIUM 80 MG in SODIUM CHLORIDE 100 ML IVPB SCH (01:00)
[2021-03-08] MEDS ORDERED: DEXTROSE 5%-WATER - 50 ML IVPB ONE ×3 (01:24→16:37)
[2021-03-08] MEDS ORDERED: PIPERACILLIN/TAZOBACTAM 3.375 GM VIAL IVPB ONE ×3 (01:24→16:37)
[2021-03-08] MEDS: PIPERACILLIN/TAZOB 3.375 GM 3.375 GM in DEXTROSE 5%-WATER - 50 ML IVPB SCH ×3 (01:30→17:08)
[2021-03-08] MEDS: MAG HYDROX/AL HYDROX/SIMETH 30 ML UNIT-DOSE CUP PEG SCH ×3 (05:34→23:27)
[2021-03-08] MEDS: BUDESONIDE 0.5 MG/2 ML INH SUSP VIAL NEB SCH ×2 (07:20→20:32)
[2021-03-08] MEDS ORDERED: PT OWN MED DRAWER 7, Y5N ONE ×2 (09:14→23:01)
[2021-03-08 09:29] LABS: HEMATOCRIT 26.5 % (35.4-49); HEMOGLOBIN 9.1 GM/dL (11.7-16.9); MCH 31.7 pg (25.7-33.7); MCHC 34.4 g/dl (32.0-35.9); MEAN CELL VOLUME 92.2 fl (80-96); MEAN PLT VOLUME 11.2 fl (7.5-11.1); PLATELET COUNT 90 K/MM3 (134-434); RBC 2.87 M/mm3 (4.00-5.60); RDW 16.7 % (11.9-15.9); WHITE BLOOD COUNT 2.6 K/mm3 (4.0-10.0)
[2021-03-08] MEDS: predniSONE 1 MG TABLET (FP) GT SCH (09:44)
[2021-03-08] MEDS: levETIRAcetam 500 MG/5 ML ORAL SOLUTION (UNIT-DOSE CUPS) GT SCH ×2 (09:44→23:27)
[2021-03-08] MEDS: LACTULOSE 20 GM/30 ML UDC (FOR ORAL USE ONLY) PO SCH ×2 (09:44→23:27)
[2021-03-08] MEDS: PANTOPRAZOLE SODIUM 40 MG VIAL IVPUSH SCH ×2 (09:44→23:27)
[2021-03-08] MEDS: lamoTRIgine 25 MG TABLET PO SCH ×2 (09:45→23:27)
[2021-03-08] MEDS: ENOXAPARIN NA (PORCINE) 40 MG/0.4 ML DISP.SYRIN SQ SCH (09:45)
[2021-03-08 09:49] LABS: CHLORIDE 109 mmol/L (98-107); SODIUM 144 mmol/L (136-145)
[2021-03-08 10:08] LABS: ALBUMIN 2.7 g/dl (3.4-5.0); ANION GAP 4 MMOL/L (8-16); CALCIUM 8.8 mg/dL (8.5-10.1); CO2 31 mmol/L (21-32)
[2021-03-08 10:09] LABS: GLUCOSE,RANDOM 98 mg/dL (74-106)
[2021-03-08 10:12] LABS: CREATININE 0.6 mg/dL (0.55-1.3); SGPT/ALT 85 U/L (13-61)
[2021-03-08 10:13] LABS: BILIRUBIN,TOTAL 0.3 mg/dL (0.2-1); SGOT/AST 50 U/L (15-37); TOT PROT 6.2 g/dl (6.4-8.2)
[2021-03-08 10:14] LABS: ALK PHOS 117 U/L (45-117)
[2021-03-08 10:15] LABS: BLOOD UREA NITROGEN 1.4 mg/dL (7-18)
[2021-03-08] MEDS ORDERED: AMINO ACIDS 4.25%/D5W 1,000 ML IV SCH (11:30)
[2021-03-08] MEDS: DEXTROSE 5%-0.45% SALINE 1,000 ML IV SCH (13:57)
[2021-03-08] MEDS: FAMOTIDINE 40 MG/5 ML ORAL SUSPENSION PEG SCH (23:27)
[2021-03-09] MEDS ORDERED: PIPERACILLIN/TAZOBACTAM 3.375 GM VIAL IVPB ONE ×4 (01:26→17:56)
[2021-03-09] MEDS ORDERED: DEXTROSE 5%-WATER - 50 ML IVPB ONE ×4 (01:26→17:56)
[2021-03-09] MEDS: PIPERACILLIN/TAZOB 3.375 GM 3.375 GM in DEXTROSE 5%-WATER - 50 ML IVPB SCH ×3 (01:30→17:59)
[2021-03-09] MEDS: DEXTROSE 5%-0.45% SALINE 1,000 ML IV SCH ×2 (01:32→14:09)
[2021-03-09] MEDS: MAG HYDROX/AL HYDROX/SIMETH 30 ML UNIT-DOSE CUP PEG SCH ×3 (06:17→22:26)
[2021-03-09 07:51] LABS: BASO % 1.1 % (0-2.0); EOS % 3.8 % (0-4.5); HEMATOCRIT 26.7 % (35.4-49); HEMOGLOBIN 9.1 GM/dL (11.7-16.9); LYMPH % 62.5 % (8-40); MCH 31.4 pg (25.7-33.7); MEAN CELL VOLUME 92.3 fl (80-96); MEAN PLT VOLUME 11.1 fl (7.5-11.1); MONO % 9.3 % (3.8-10.2); NEUT % 23.3 % (42.8-82.8); PLATELET COUNT 85 K/MM3 (134-434); RDW 16.9 % (11.9-15.9)
[2021-03-09] MEDS: BUDESONIDE 0.5 MG/2 ML INH SUSP VIAL NEB SCH ×2 (08:00→19:30)
[2021-03-09 08:12] LABS: CHLORIDE 108 mmol/L (98-107); SODIUM 143 mmol/L (136-145)
[2021-03-09 08:16] LABS: ALBUMIN 2.7 g/dl (3.4-5.0); ANION GAP 4 MMOL/L (8-16); CALCIUM 8.5 mg/dL (8.5-10.1); CO2 31 mmol/L (21-32); GLUCOSE,RANDOM 101 mg/dL (74-106)
[2021-03-09 08:19] LABS: CREATININE 0.5 mg/dL (0.55-1.3); SGOT/AST 38 U/L (15-37); SGPT/ALT 75 U/L (13-61)
[2021-03-09 08:21] LABS: BILIRUBIN,TOTAL 0.4 mg/dL (0.2-1); TOT PROT 6.1 g/dl (6.4-8.2)
[2021-03-09 08:22] LABS: ALK PHOS 113 U/L (45-117)
[2021-03-09 08:25] LABS: BLOOD UREA NITROGEN 1.5 mg/dL (7-18)
[2021-03-09] MEDS ORDERED: POTASSIUM CHLORIDE TABS 10 MEQ TABLET.ER (FP) PO ONE (09:00)
[2021-03-09] MEDS ORDERED: DOCUSATE NA 100 MG/10 ML UNIT-DOSE CUPS PO PRN (09:10)
[2021-03-09] MEDS ORDERED: POTASSIUM CHLORIDE ORAL LIQUID 20 MEQ/15 ML PO ONE (09:15)
[2021-03-09] MEDS ORDERED: POTASSIUM CHLORIDE TABS 20 MEQ TABLET.ER (FP) PO ONE (09:15)
[2021-03-09] MEDS ORDERED: PT OWN MED DRAWER 7, Y5N ONE ×2 (09:28→21:40)
[2021-03-09] MEDS: predniSONE 1 MG TABLET (FP) GT SCH (09:38)
[2021-03-09] MEDS: levETIRAcetam 500 MG/5 ML ORAL SOLUTION (UNIT-DOSE CUPS) GT SCH ×2 (09:38→22:26)
[2021-03-09] MEDS: lamoTRIgine 25 MG TABLET PO SCH ×2 (09:39→22:26)
[2021-03-09] MEDS: ENOXAPARIN NA (PORCINE) 40 MG/0.4 ML DISP.SYRIN SQ SCH (09:39)
[2021-03-09] MEDS: POLYETHYLENE GLYCOL 3350 119 GM BTL PO SCH ×2 (09:40→22:26)
[2021-03-09] MEDS: SENNOSIDES 8.6MG TABLET (FP) PO SCH ×2 (09:41→22:26)
[2021-03-09] MEDS: PANTOPRAZOLE SODIUM 40 MG VIAL IVPUSH SCH ×2 (09:41→22:27)
[2021-03-09 09:49] LABS: ANISOCYTOSIS 1+; MACROCYTOSIS 1+; PLATELET ESTIMATE DECREASED
[2021-03-09] MEDS: FAMOTIDINE 40 MG/5 ML ORAL SUSPENSION PEG SCH (22:27)
[2021-03-10] MEDS ORDERED: DEXTROSE 5%-WATER - 50 ML IVPB ONE ×3 (00:43→16:47)
[2021-03-10] MEDS ORDERED: PIPERACILLIN/TAZOBACTAM 3.375 GM VIAL IVPB ONE ×3 (00:43→16:47)
[2021-03-10] MEDS: PIPERACILLIN/TAZOB 3.375 GM 3.375 GM in DEXTROSE 5%-WATER - 50 ML IVPB SCH ×3 (01:43→17:12)
[2021-03-10] MEDS: MAG HYDROX/AL HYDROX/SIMETH 30 ML UNIT-DOSE CUP PEG SCH ×3 (05:47→21:12)
[2021-03-10] MEDS: BUDESONIDE 0.5 MG/2 ML INH SUSP VIAL NEB SCH ×2 (08:05→20:38)
[2021-03-10] MEDS ORDERED: PT OWN MED DRAWER 7, Y5N ONE ×2 (10:35→20:30)
[2021-03-10] MEDS: ENOXAPARIN NA (PORCINE) 40 MG/0.4 ML DISP.SYRIN SQ SCH (10:44)
[2021-03-10] MEDS: levETIRAcetam 500 MG/5 ML ORAL SOLUTION (UNIT-DOSE CUPS) GT SCH ×2 (10:45→21:11)
[2021-03-10] MEDS: PANTOPRAZOLE SODIUM 40 MG VIAL IVPUSH SCH ×2 (10:45→21:12)
[2021-03-10] MEDS: predniSONE 1 MG TABLET (FP) GT SCH (10:46)
[2021-03-10] MEDS: lamoTRIgine 25 MG TABLET PO SCH ×2 (10:46→21:12)
[2021-03-10] MEDS: SENNOSIDES 8.6MG TABLET (FP) PO SCH ×2 (10:48→21:13)
[2021-03-10] MEDS: POLYETHYLENE GLYCOL 3350 119 GM BTL PO SCH ×2 (10:58→21:11)
[2021-03-10] MEDS: AMINO ACIDS/PROTEIN HYDROLYS 30 ML LIQUID.PKT PO SCH (17:13)
[2021-03-10] MEDS: FAMOTIDINE 40 MG/5 ML ORAL SUSPENSION PEG SCH (21:12)
[2021-03-11] MEDS ORDERED: PIPERACILLIN/TAZOBACTAM 3.375 GM VIAL IVPB ONE ×2 (00:23→09:32)
[2021-03-11] MEDS ORDERED: DEXTROSE 5%-WATER - 50 ML IVPB ONE ×2 (00:23→09:32)
[2021-03-11] MEDS: PIPERACILLIN/TAZOB 3.375 GM 3.375 GM in DEXTROSE 5%-WATER - 50 ML IVPB SCH ×2 (03:00→09:35)
[2021-03-11] MEDS: MAG HYDROX/AL HYDROX/SIMETH 30 ML UNIT-DOSE CUP PEG SCH ×2 (05:32→13:11)
[2021-03-11] MEDS: BUDESONIDE 0.5 MG/2 ML INH SUSP VIAL NEB SCH (07:40)
[2021-03-11 08:57] VITALS: TEMP 97.3
[2021-03-11 09:31] LABS: CALCIUM 8.7 mg/dL (8.5-10.1)
[2021-03-11] MEDS ORDERED: PT OWN MED DRAWER 7, Y5N ONE (09:31)
[2021-03-11 09:33] LABS: BLOOD UREA NITROGEN 8.9 mg/dL (7-18)
[2021-03-11] MEDS: predniSONE 1 MG TABLET (FP) GT SCH (09:34)
[2021-03-11] MEDS: levETIRAcetam 500 MG/5 ML ORAL SOLUTION (UNIT-DOSE CUPS) GT SCH (09:34)
[2021-03-11] MEDS: AMINO ACIDS/PROTEIN HYDROLYS 30 ML LIQUID.PKT PO SCH (09:34)
[2021-03-11 09:35] LABS: CREATININE 0.7 mg/dL (0.55-1.3)
[2021-03-11] MEDS: SENNOSIDES 8.6MG TABLET (FP) PO SCH (09:35)
[2021-03-11] MEDS: PANTOPRAZOLE SODIUM 40 MG VIAL IVPUSH SCH (09:35)
[2021-03-11] MEDS: ENOXAPARIN NA (PORCINE) 40 MG/0.4 ML DISP.SYRIN SQ SCH (09:35)
[2021-03-11] MEDS: lamoTRIgine 25 MG TABLET PO SCH (09:35)
[2021-03-11] MEDS: POLYETHYLENE GLYCOL 3350 119 GM BTL PO SCH (11:48)
[2021-03-11 14:58] VITALS: BP 151/60; PULSE 56
[2021-03-11] MEDS ORDERED: AMINO ACIDS/PROTEIN HYDROLYS 30 ML LIQUID.PKT PO SCH (17:00)
[2021-03-11 20:07] LABS: SARS-CoV-2 NAA Not Detected (Not Detected)
== END 2021-03-11 17:40 | DRG 463 ==
LOC: JER 09:26 → JERBED 16:55 → J6WEST-2 22:24 → J6S 03-06 02:51
PROVIDERS: ADMIT Internal Medicine; ATTEND Internal Medicine
DX: N39.0 Urinary tract infection, site not specified (principal); F79 Unspecified intellectual disabilities; G40.909 Epilepsy, unspecified, not intractable, without status epilepticus; D69.6 Thrombocytopenia, unspecified; J18.9 Pneumonia, unspecified organism; K94.21 Gastrostomy hemorrhage; E27.40 Unspecified adrenocortical insufficiency; F73 Profound intellectual disabilities; R53.2 Functional quadriplegia; R79.89 Other specified abnormal findings of blood chemistry; K59.09 Other constipation; K59.00 Constipation, unspecified; K92.2 Gastrointestinal hemorrhage, unspecified; H54.8 Legal blindness, as defined in USA; J96.11 Chronic respiratory failure with hypoxia; B96.5 Pseudomonas (aeruginosa) (mallei) (pseudomallei) as the cause of diseases classified elsewhere; Z93.1 Gastrostomy status; Z74.01 Bed confinement status
CPT/HCPCS: 36415; 71045-TC-FY; 74176-TC; 80048; 80053; 81003; 82272; 82607; 82728; 82746; 82784; 82977; 83540; 83550; 83605; 83615; 83735; 84443; 84466; 85025; 85027; 85384; 85610; 85730; 86140; 86850; 86900; 86901; 87040; 87086; 87186; 93005; 93010; 94640; 99291; C9803; J1644; U0003; U0005

== ENCOUNTER 2021-05-31 19:38 | Inpatient (IN) | payer OTHER ==
[2021-05-31 20:04] VITALS: BMI 22.3
[2021-05-31] MEDS ORDERED: SODIUM CHLORIDE 0.9% 500 ML INFUS.BAG IV ONE (20:44)
[2021-05-31 21:20] LABS: BASO % 0.6 % (0-2.0); EOS % 0.3 % (0-4.5); HEMATOCRIT 34.7 % (35.4-49); HEMOGLOBIN 11.8 GM/dL (11.7-16.9); LYMPH % 12.6 % (8-40); MCH 30.8 pg (25.7-33.7); MCHC 33.9 g/dl (32.0-35.9); MEAN PLT VOLUME 10.2 fl (7.5-11.1); NEUT % 83.5 % (42.8-82.8); PLATELET COUNT 66 10^3/uL (134-434); RBC 3.81 M/mm3 (4.00-5.60); WHITE BLOOD COUNT 10.7 K/mm3 (4.0-10.0)
[2021-05-31 21:29] LABS: INR 0.93 (0.83-1.09); PROTHROMBIN TIME (PATIENT) 11.3 SEC (9.7-13.0)
[2021-05-31 21:32] LABS: ACTIVATED PTT 56.5 SECONDS (25.2-36.5)
[2021-05-31 21:40] LABS: ALBUMIN 2.8 g/dl (3.4-5.0); BLOOD UREA NITROGEN 13.2 mg/dL (7-18); CALCIUM 9.7 mg/dL (8.5-10.1)
[2021-05-31 21:43] LABS: CREATININE 0.6 mg/dL (0.55-1.3)
[2021-05-31 21:44] LABS: BILIRUBIN,TOTAL 0.2 mg/dL (0.2-1)
[2021-05-31 21:45] LABS: TOT PROT 7.1 g/dl (6.4-8.2)
[2021-05-31 23:16] LABS: ANISOCYTOSIS 1+; MACROCYTOSIS 0; PLATELET ESTIMATE DECREASED; TEAR DROP CELLS 1+
[2021-06-01] MEDS ORDERED: PANTOPRAZOLE SODIUM 40 MG VIAL IVPUSH ONE (00:58)
[2021-06-01] MEDS ORDERED: PANTOPRAZOLE SODIUM 40 MG VIAL ONE (01:22)
[2021-06-01] MEDS ORDERED: HYDROCORTISONE SOD SUCCINATE 100 MG/2 ML VIAL IVPUSH SCH (04:15)
[2021-06-01] MEDS ORDERED: FLUDROCORTISONE ACETATE 0.1 MG TABLET (FP) GT SCH (04:16)
[2021-06-01] MEDS ORDERED: diazePAM RECTAL GEL 10 MG KIT (PRE-CALIBRATED) RC PRN (04:26)
[2021-06-01] MEDS: HYDROCORTISONE SOD SUCCINATE 100 MG/2 ML VIAL IVPUSH SCH ×2 (04:31→09:33)
[2021-06-01] MEDS ORDERED: CEFTRIAXONE 1,000 MG in DEXTROSE 5%-WATER - 50 ML IVPB SCH (06:00)
[2021-06-01] MEDS ORDERED: AZITHROMYCIN IVPB 500 MG in DEXTROSE 5%-WATER - 250 ML IVPB SCH (06:21)
[2021-06-01] MEDS ORDERED: CEFTRIAXONE 1 GM in DEXTROSE 5%-WATER - 50 ML IVPB SCH (06:45)
[2021-06-01] MEDS ORDERED: AZITHROMYCIN IVPB 500 MG/250 ML BAG IVPB SCH (07:16)
[2021-06-01 08:59] LABS: BASO % 0.3 % (0-2.0); EOS % 0.3 % (0-4.5); HEMATOCRIT 33.7 % (35.4-49); HEMOGLOBIN 11.4 GM/dL (11.7-16.9); LYMPH % 13.8 % (8-40); MCH 30.9 pg (25.7-33.7); MCHC 33.9 g/dl (32.0-35.9); MEAN CELL VOLUME 91.3 fl (80-96); MEAN PLT VOLUME 9.5 fl (7.5-11.1); MONO % 2.7 % (3.8-10.2); NEUT % 82.9 % (42.8-82.8); RBC 3.69 M/mm3 (4.00-5.60); RDW 19.9 % (11.9-15.9); WHITE BLOOD COUNT 8.5 K/mm3 (4.0-10.0)
[2021-06-01 09:20] LABS: ALBUMIN 2.7 g/dl (3.4-5.0); BLOOD UREA NITROGEN 11.6 mg/dL (7-18); CALCIUM 9.4 mg/dL (8.5-10.1); MAGNESIUM 2.4 mg/dL (1.8-2.4)
[2021-06-01 09:22] LABS: BILIRUBIN,TOTAL 0.3 mg/dL (0.2-1); TOT PROT 6.8 g/dl (6.4-8.2)
[2021-06-01] MEDS ORDERED: PT OWN MED DRAWER 7, Y5N ONE ×4 (09:22→12:52)
[2021-06-01 09:23] LABS: CREATININE 0.7 mg/dL (0.55-1.3)
[2021-06-01 09:24] LABS: PHOSPHOROUS 2.7 mg/dL (2.5-4.9)
[2021-06-01] MEDS ORDERED: DEXTROSE 5%-WATER - 50 ML IVPB ONE ×3 (09:24→17:27)
[2021-06-01] MEDS ORDERED: cefTRIAXone SODIUM 1 GM VIAL ONE (09:24)
[2021-06-01] MEDS: PANTOPRAZOLE SODIUM 40 MG VIAL IVPUSH SCH ×2 (09:26→23:12)
[2021-06-01] MEDS: lamoTRIgine 25 MG TABLET NR SCH ×2 (09:27→23:12)
[2021-06-01] MEDS ORDERED: CHOLECALCIFEROL (VIT D SOLUTION) 400 UNIT/1 ML DROPS GT SCH (10:00)
[2021-06-01 11:01] LABS: PLATELET COUNT 62 10^3/uL (134-434)
[2021-06-01] MEDS ORDERED: PIPERACILLIN/TAZOBACTAM 3.375 GM VIAL IVPB ONE ×2 (11:18→17:27)
[2021-06-01] MEDS: PIPERACILLIN/TAZOB 3.375 GM 3.375 GM in DEXTROSE 5%-WATER - 50 ML IVPB SCH ×2 (11:24→17:34)
[2021-06-01] MEDS: POLYETHYLENE GLYCOL (HEALTHYLAX) 3350 17 GM PACKET GT SCH ×3 (11:24→23:12)
[2021-06-01] MEDS: levETIRAcetam 500 MG/5 ML ORAL SOLUTION (UNIT-DOSE CUPS) GT SCH ×2 (14:24→23:13)
[2021-06-01] MEDS: predniSONE 1 MG TABLET (FP) GT SCH ×2 (16:35→23:13)
[2021-06-02] MEDS ORDERED: DEXTROSE 5%-WATER - 50 ML IVPB ONE ×3 (01:42→17:55)
[2021-06-02] MEDS ORDERED: PIPERACILLIN/TAZOBACTAM 3.375 GM VIAL IVPB ONE ×3 (01:42→17:55)
[2021-06-02] MEDS: PIPERACILLIN/TAZOB 3.375 GM 3.375 GM in DEXTROSE 5%-WATER - 50 ML IVPB SCH ×3 (01:58→18:28)
[2021-06-02] MEDS: POLYETHYLENE GLYCOL (HEALTHYLAX) 3350 17 GM PACKET GT SCH ×3 (05:13→22:58)
[2021-06-02] MEDS: predniSONE 1 MG TABLET (FP) GT SCH ×3 (05:13→22:59)
[2021-06-02] MEDS ORDERED: PT OWN MED DRAWER 7, Y5N ONE (09:14)
[2021-06-02] MEDS: levETIRAcetam 500 MG/5 ML ORAL SOLUTION (UNIT-DOSE CUPS) GT SCH ×2 (09:16→22:58)
[2021-06-02] MEDS ORDERED: CALCIUM CARBONATE SUSPENSION - 1250 MG/5 ML ML GT SCH (10:00)
[2021-06-02] MEDS: PANTOPRAZOLE SODIUM 40 MG VIAL IVPUSH SCH ×2 (11:12→22:58)
[2021-06-02] MEDS: lamoTRIgine 25 MG TABLET NR SCH ×2 (11:12→22:58)
[2021-06-02] MEDS: CHOLECALCIFEROL (VIT D SOLUTION) 400 UNIT/1 ML DROPS GT SCH (11:15)
[2021-06-03] MEDS ORDERED: PIPERACILLIN/TAZOBACTAM 3.375 GM VIAL IVPB ONE ×3 (01:03→16:16)
[2021-06-03] MEDS ORDERED: DEXTROSE 5%-WATER - 50 ML IVPB ONE ×3 (01:03→16:16)
[2021-06-03] MEDS: PIPERACILLIN/TAZOB 3.375 GM 3.375 GM in DEXTROSE 5%-WATER - 50 ML IVPB SCH ×3 (01:25→17:50)
[2021-06-03] MEDS: POLYETHYLENE GLYCOL (HEALTHYLAX) 3350 17 GM PACKET GT SCH ×3 (05:21→21:51)
[2021-06-03] MEDS ORDERED: COSYNTROPIN 0.25 MG VIAL IVPUSH SCH (07:00)
[2021-06-03] MEDS: DEXAMETHASONE 0.5 MG TABLET PEG SCH ×2 (09:05→21:51)
[2021-06-03] MEDS: lamoTRIgine 25 MG TABLET NR SCH ×2 (09:06→21:51)
[2021-06-03] MEDS: PANTOPRAZOLE SODIUM 40 MG VIAL IVPUSH SCH ×2 (09:06→21:51)
[2021-06-03] MEDS: CHOLECALCIFEROL (VIT D SOLUTION) 400 UNIT/1 ML DROPS GT SCH (09:06)
[2021-06-03] MEDS: CALCIUM CARBONATE SUSPENSION - 1250 MG/5 ML ML GT SCH (09:06)
[2021-06-03] MEDS: levETIRAcetam 500 MG/5 ML ORAL SOLUTION (UNIT-DOSE CUPS) GT SCH ×2 (09:06→21:51)
[2021-06-03 09:47] LABS: BASO % 0.5 % (0-2.0); EOS % 0.6 % (0-4.5); HEMATOCRIT 33.9 % (35.4-49); HEMOGLOBIN 11.3 GM/dL (11.7-16.9); LYMPH % 48.1 % (8-40); MCH 30.5 pg (25.7-33.7); MCHC 33.4 g/dl (32.0-35.9); MEAN CELL VOLUME 91.3 fl (80-96); MEAN PLT VOLUME 9.5 fl (7.5-11.1); MONO % 12.5 % (3.8-10.2); NEUT % 38.3 % (42.8-82.8); PLATELET COUNT 85 10^3/uL (134-434); RBC 3.71 M/mm3 (4.00-5.60); RDW 20.3 % (11.9-15.9)
[2021-06-03 10:12] LABS: CALCIUM 9.1 mg/dL (8.5-10.1)
[2021-06-03 10:13] LABS: ALBUMIN 2.6 g/dl (3.4-5.0); BLOOD UREA NITROGEN 13.1 mg/dL (7-18)
[2021-06-03 10:16] LABS: CREATININE 0.8 mg/dL (0.55-1.3); PHOSPHOROUS 5.4 mg/dL (2.5-4.9)
[2021-06-03 10:17] LABS: BILIRUBIN,TOTAL 0.3 mg/dL (0.2-1); TOT PROT 6.5 g/dl (6.4-8.2)
[2021-06-03 17:07] LABS: GLIADIN ANTIBODY IGA 6 units (0-19); GLIADIN ANTIBODY IGG 8 units (0-19); TRANSGLUTAMINASE IGG 10 U/mL (0-5)
[2021-06-04] MEDS: DEXTROSE 5%-0.45% SALINE 1,000 ML IV SCH ×2 (00:46→15:59)
[2021-06-04] MEDS ORDERED: PIPERACILLIN/TAZOBACTAM 3.375 GM VIAL IVPB ONE ×2 (01:11→10:42)
[2021-06-04] MEDS ORDERED: DEXTROSE 5%-WATER - 50 ML IVPB ONE ×2 (01:11→10:43)
[2021-06-04] MEDS: PIPERACILLIN/TAZOB 3.375 GM 3.375 GM in DEXTROSE 5%-WATER - 50 ML IVPB SCH ×2 (01:54→10:46)
[2021-06-04] MEDS: POLYETHYLENE GLYCOL (HEALTHYLAX) 3350 17 GM PACKET GT SCH ×3 (05:08→22:37)
[2021-06-04 08:35] LABS: BASO % 0.3 % (0-2.0); EOS % 0.2 % (0-4.5); HEMATOCRIT 31.7 % (35.4-49); HEMOGLOBIN 10.8 GM/dL (11.7-16.9); LYMPH % 36.4 % (8-40); MCH 31.2 pg (25.7-33.7); MEAN PLT VOLUME 11.1 fl (7.5-11.1); MONO % 7.6 % (3.8-10.2); NEUT % 55.5 % (42.8-82.8); PLATELET COUNT 103 10^3/uL (134-434); RBC 3.45 M/mm3 (4.00-5.60); RDW 19.6 % (11.9-15.9); WHITE BLOOD COUNT 4.9 K/mm3 (4.0-10.0)
[2021-06-04 09:06] LABS: BLOOD UREA NITROGEN 10.9 mg/dL (7-18)
[2021-06-04 09:09] LABS: MAGNESIUM 1.7 mg/dL (1.8-2.4)
[2021-06-04 09:10] LABS: CREATININE 0.6 mg/dL (0.55-1.3); PHOSPHOROUS 4.2 mg/dL (2.5-4.9)
[2021-06-04] MEDS ORDERED: PT OWN MED DRAWER 7, Y5N ONE ×2 (10:36→11:25)
[2021-06-04] MEDS: levETIRAcetam 500 MG/5 ML ORAL SOLUTION (UNIT-DOSE CUPS) GT SCH ×2 (10:48→22:38)
[2021-06-04] MEDS: lamoTRIgine 25 MG TABLET NR SCH ×2 (10:49→22:36)
[2021-06-04] MEDS: CHOLECALCIFEROL (VIT D SOLUTION) 400 UNIT/1 ML DROPS GT SCH (10:49)
[2021-06-04] MEDS: DEXAMETHASONE 0.5 MG TABLET PEG SCH (10:50)
[2021-06-04] MEDS: CALCIUM CARBONATE SUSPENSION - 1250 MG/5 ML ML GT SCH (10:50)
[2021-06-04] MEDS: PANTOPRAZOLE SODIUM 40 MG VIAL IVPUSH SCH ×2 (10:51→22:36)
[2021-06-05] MEDS: DEXTROSE 5%-0.45% SALINE 1,000 ML IV SCH ×2 (00:58→04:09)
[2021-06-05] MEDS: DEXAMETHASONE 0.5 MG TABLET PEG SCH (01:53)
[2021-06-05] MEDS: POLYETHYLENE GLYCOL (HEALTHYLAX) 3350 17 GM PACKET GT SCH ×3 (05:10→23:22)
[2021-06-05] MEDS ORDERED: PT OWN MED DRAWER 7, Y5N ONE (11:08)
[2021-06-05] MEDS: levETIRAcetam 500 MG/5 ML ORAL SOLUTION (UNIT-DOSE CUPS) GT SCH ×2 (11:12→23:22)
[2021-06-05] MEDS: CHOLECALCIFEROL (VIT D SOLUTION) 400 UNIT/1 ML DROPS GT SCH (11:12)
[2021-06-05] MEDS: HYDROCORTISONE SOD SUCCINATE 100 MG/2 ML VIAL IVPB SCH (11:13)
[2021-06-05] MEDS: PANTOPRAZOLE SODIUM 40 MG VIAL IVPUSH SCH (11:13)
[2021-06-05] MEDS: lamoTRIgine 25 MG TABLET NR SCH ×2 (11:14→23:21)
[2021-06-05] MEDS: CALCIUM CARBONATE SUSPENSION - 1250 MG/5 ML ML GT SCH (11:14)
[2021-06-05 12:17] LABS: HEMATOCRIT 28.4 % (35.4-49); HEMOGLOBIN 9.7 GM/dL (11.7-16.9); MCH 31.3 pg (25.7-33.7); MCHC 34.2 g/dl (32.0-35.9); MEAN CELL VOLUME 91.5 fl (80-96); MEAN PLT VOLUME 10.2 fl (7.5-11.1); PLATELET COUNT 110 10^3/uL (134-434); RBC 3.11 M/mm3 (4.00-5.60); RDW 19.6 % (11.9-15.9); WHITE BLOOD COUNT 5.2 K/mm3 (4.0-10.0)
[2021-06-05 12:43] LABS: ALBUMIN 2.4 g/dl (3.4-5.0); BLOOD UREA NITROGEN 8.1 mg/dL (7-18); CALCIUM 8.5 mg/dL (8.5-10.1)
[2021-06-05 12:47] LABS: CREATININE 0.5 mg/dL (0.55-1.3)
[2021-06-05 12:49] LABS: BILIRUBIN,TOTAL 0.2 mg/dL (0.2-1)
[2021-06-05] MEDS ORDERED: PANTOPRAZOLE SOD 40 MG SUSPENSION PACKET PO SCH (23:00)
[2021-06-06] MEDS: DEXTROSE 5%-0.45% SALINE 1,000 ML IV SCH (00:03)
[2021-06-06] MEDS: PANTOPRAZOLE SODIUM 40 MG VIAL IVPUSH SCH (01:05)
[2021-06-06] MEDS: HYDROCORTISONE SOD SUCCINATE 100 MG/2 ML VIAL IVPB SCH ×2 (01:09→11:31)
[2021-06-06] MEDS: FAMOTIDINE 40 MG/5 ML ORAL SUSPENSION NGT SCH ×3 (01:45→21:19)
[2021-06-06] MEDS: POLYETHYLENE GLYCOL (HEALTHYLAX) 3350 17 GM PACKET GT SCH ×2 (06:04→15:14)
[2021-06-06] MEDS ORDERED: PT OWN MED DRAWER 7, Y5N ONE ×2 (11:22→21:04)
[2021-06-06] MEDS: CALCIUM CARBONATE SUSPENSION - 1250 MG/5 ML ML GT SCH (11:32)
[2021-06-06] MEDS: levETIRAcetam 500 MG/5 ML ORAL SOLUTION (UNIT-DOSE CUPS) GT SCH ×3 (11:32→22:08)
[2021-06-06] MEDS: CHOLECALCIFEROL (VIT D SOLUTION) 400 UNIT/1 ML DROPS GT SCH (11:33)
[2021-06-06] MEDS: lamoTRIgine 25 MG TABLET NR SCH ×2 (11:34→21:18)
[2021-06-06] MEDS ORDERED: HYDROCORTISONE 10 MG TABLET PO ONE (11:49)
[2021-06-06] MEDS ORDERED: POLYETHYLENE GLYCOL (HEALTHYLAX) 3350 17 GM PACKET GT PRN (15:16)
[2021-06-06 15:57] LABS: BASO % 0.2 % (0-2.0); EOS % 0.3 % (0-4.5); HEMATOCRIT 28.4 % (35.4-49); HEMOGLOBIN 9.5 GM/dL (11.7-16.9); LYMPH % 24.2 % (8-40); MCHC 33.4 g/dl (32.0-35.9); MEAN CELL VOLUME 92.8 fl (80-96); MEAN PLT VOLUME 10.5 fl (7.5-11.1); MONO % 4.2 % (3.8-10.2); NEUT % 71.1 % (42.8-82.8); PLATELET COUNT 152 10^3/uL (134-434); RBC 3.06 M/mm3 (4.00-5.60); RDW 19.2 % (11.9-15.9); WHITE BLOOD COUNT 6.1 K/mm3 (4.0-10.0)
[2021-06-06] MEDS ORDERED: SODIUM CHLORIDE 0.9% 500 ML INFUS.BAG IV ONE (19:36)
[2021-06-06 20:24] LABS: BASO % 0.3 % (0-2.0); HEMATOCRIT 27.3 % (35.4-49); HEMOGLOBIN 9.2 GM/dL (11.7-16.9); LYMPH % 27.8 % (8-40); MCHC 33.8 g/dl (32.0-35.9); MEAN CELL VOLUME 91.9 fl (80-96); MEAN PLT VOLUME 9.6 fl (7.5-11.1); MONO % 4.7 % (3.8-10.2); NEUT % 67.2 % (42.8-82.8); PLATELET COUNT 142 10^3/uL (134-434); RBC 2.97 M/mm3 (4.00-5.60); RDW 19.4 % (11.9-15.9); WHITE BLOOD COUNT 6.1 K/mm3 (4.0-10.0)
[2021-06-06] MEDS ORDERED: levETIRAcetam 500 MG/5 ML INJECTION VIAL IVPB ONE (21:43)
[2021-06-06] MEDS ORDERED: FAMOTIDINE 20 MG/50 ML IVPB 20 MG/50 ML MG IVPB ONE (21:44)
[2021-06-07 08:06] LABS: HEMATOCRIT 26.6 % (35.4-49); HEMOGLOBIN 9.1 GM/dL (11.7-16.9); MCH 31.6 pg (25.7-33.7); MCHC 34.1 g/dl (32.0-35.9); MEAN CELL VOLUME 92.7 fl (80-96); MEAN PLT VOLUME 9.9 fl (7.5-11.1); PLATELET COUNT 169 10^3/uL (134-434); RBC 2.87 M/mm3 (4.00-5.60); RDW 19.7 % (11.9-15.9); WHITE BLOOD COUNT 7.1 K/mm3 (4.0-10.0)
[2021-06-07 08:18] LABS: CALCIUM 8.5 mg/dL (8.5-10.1)
[2021-06-07 08:19] LABS: ALBUMIN 2.4 g/dl (3.4-5.0); BLOOD UREA NITROGEN 12.4 mg/dL (7-18)
[2021-06-07 08:22] LABS: CREATININE 0.6 mg/dL (0.55-1.3)
[2021-06-07 08:23] LABS: BILIRUBIN,TOTAL 0.2 mg/dL (0.2-1); TOT PROT 5.6 g/dl (6.4-8.2)
[2021-06-07] MEDS ORDERED: PT OWN MED DRAWER 7, Y5N ONE (09:57)
[2021-06-07] MEDS: CALCIUM CARBONATE SUSPENSION - 1250 MG/5 ML ML GT SCH (09:59)
[2021-06-07] MEDS: FAMOTIDINE 40 MG/5 ML ORAL SUSPENSION NGT SCH ×2 (09:59→21:14)
[2021-06-07] MEDS: lamoTRIgine 25 MG TABLET NR SCH ×2 (09:59→21:15)
[2021-06-07] MEDS: CHOLECALCIFEROL (VIT D SOLUTION) 400 UNIT/1 ML DROPS GT SCH (09:59)
[2021-06-07] MEDS ORDERED: levETIRAcetam 500 MG/5 ML INJECTION VIAL IVPB ONE (10:00)
[2021-06-07] MEDS ORDERED: HYDROCORTISONE SOD SUCCINATE 100 MG/2 ML VIAL IVPB ONE (10:00)
[2021-06-07] MEDS ORDERED: HYDROCORTISONE SOD SUCCINATE 100 MG/2 ML VIAL IVPUSH ONE (12:00)
[2021-06-07] MEDS: KCL 10 MEQ IVPB 10 MEQ/100 ML INFUS.BAG IVPB SCH ×2 (13:52→15:14)
[2021-06-07] MEDS: levETIRAcetam 500 MG/5 ML ORAL SOLUTION (UNIT-DOSE CUPS) GT SCH (21:14)
[2021-06-08 07:30] LABS: BASO % 0.3 % (0-2.0); EOS % 0.8 % (0-4.5); HEMATOCRIT 25.7 % (35.4-49); HEMOGLOBIN 8.6 GM/dL (11.7-16.9); LYMPH % 55.3 % (8-40); MCH 31.4 pg (25.7-33.7); MCHC 33.6 g/dl (32.0-35.9); MEAN CELL VOLUME 93.4 fl (80-96); MEAN PLT VOLUME 9.9 fl (7.5-11.1); MONO % 8.5 % (3.8-10.2); NEUT % 35.1 % (42.8-82.8); PLATELET COUNT 172 10^3/uL (134-434); RBC 2.75 M/mm3 (4.00-5.60); RDW 19.4 % (11.9-15.9); WHITE BLOOD COUNT 5.8 K/mm3 (4.0-10.0)
[2021-06-08 07:56] LABS: CALCIUM 8.7 mg/dL (8.5-10.1)
[2021-06-08 07:57] LABS: ALBUMIN 2.3 g/dl (3.4-5.0); BLOOD UREA NITROGEN 13.8 mg/dL (7-18)
[2021-06-08 08:00] LABS: CREATININE 0.5 mg/dL (0.55-1.3)
[2021-06-08 08:02] LABS: BILIRUBIN,TOTAL 0.2 mg/dL (0.2-1); MAGNESIUM 1.8 mg/dL (1.8-2.4); PHOSPHOROUS 3.8 mg/dL (2.5-4.9); TOT PROT 5.5 g/dl (6.4-8.2)
[2021-06-08] MEDS ORDERED: levETIRAcetam 500 MG/5 ML INJECTION VIAL IVPB ONE (09:45)
[2021-06-08] MEDS ORDERED: HYDROCORTISONE SOD SUCCINATE 100 MG/2 ML VIAL IVPB SCH (10:00)
[2021-06-08] MEDS: CHOLECALCIFEROL (VIT D SOLUTION) 400 UNIT/1 ML DROPS GT SCH (10:13)
[2021-06-08] MEDS: CALCIUM CARBONATE SUSPENSION - 1250 MG/5 ML ML GT SCH (10:13)
[2021-06-08] MEDS: FAMOTIDINE 40 MG/5 ML ORAL SUSPENSION NGT SCH ×2 (10:13→21:44)
[2021-06-08] MEDS: levETIRAcetam 500 MG/5 ML ORAL SOLUTION (UNIT-DOSE CUPS) GT SCH ×2 (10:13→21:43)
[2021-06-08] MEDS: lamoTRIgine 25 MG TABLET NR SCH ×2 (10:13→21:43)
[2021-06-08] MEDS: KCL 10 MEQ IVPB 10 MEQ/100 ML INFUS.BAG IVPB SCH ×3 (11:15→13:24)
[2021-06-09 08:24] LABS: BASO % 0.5 % (0-2.0); EOS % 0.7 % (0-4.5); HEMATOCRIT 26.4 % (35.4-49); HEMOGLOBIN 8.8 GM/dL (11.7-16.9); LYMPH % 52.5 % (8-40); MCH 31.3 pg (25.7-33.7); MCHC 33.4 g/dl (32.0-35.9); MEAN CELL VOLUME 93.6 fl (80-96); MEAN PLT VOLUME 9.5 fl (7.5-11.1); MONO % 10.3 % (3.8-10.2); PLATELET COUNT 232 10^3/uL (134-434); RBC 2.82 M/mm3 (4.00-5.60); RDW 20.2 % (11.9-15.9); WHITE BLOOD COUNT 6.8 K/mm3 (4.0-10.0)
[2021-06-09 08:41] LABS: ALBUMIN 2.2 g/dl (3.4-5.0); CALCIUM 8.1 mg/dL (8.5-10.1)
[2021-06-09 08:42] LABS: BLOOD UREA NITROGEN 16.8 mg/dL (7-18); MAGNESIUM 2.1 mg/dL (1.8-2.4)
[2021-06-09 08:44] LABS: CREATININE 0.6 mg/dL (0.55-1.3)
[2021-06-09 08:45] LABS: PHOSPHOROUS 4.1 mg/dL (2.5-4.9)
[2021-06-09 08:46] LABS: BILIRUBIN,TOTAL 0.3 mg/dL (0.2-1); TOT PROT 5.3 g/dl (6.4-8.2)
[2021-06-09] MEDS ORDERED: PT OWN MED DRAWER 7, Y5N ONE ×2 (10:44→21:04)
[2021-06-09] MEDS: HYDROCORTISONE SOD SUCCINATE 100 MG/2 ML VIAL IVPB SCH (10:50)
[2021-06-09] MEDS: FAMOTIDINE 40 MG/5 ML ORAL SUSPENSION NGT SCH ×2 (10:51→21:13)
[2021-06-09] MEDS: levETIRAcetam 500 MG/5 ML ORAL SOLUTION (UNIT-DOSE CUPS) GT SCH ×2 (10:51→21:13)
[2021-06-09] MEDS: lamoTRIgine 25 MG TABLET NR SCH ×2 (10:51→21:13)
[2021-06-09] MEDS: CALCIUM CARBONATE SUSPENSION - 1250 MG/5 ML ML GT SCH (10:52)
[2021-06-09] MEDS: CHOLECALCIFEROL (VIT D SOLUTION) 400 UNIT/1 ML DROPS GT SCH (10:52)
[2021-06-09] MEDS ORDERED: POTASSIUM CHLORIDE ORAL LIQUID 20 MEQ/15 ML GT ONE (13:28)
[2021-06-09] MEDS ORDERED: MAGNESIUM SULF 50% (8.12 MEQ/2 ML-1 GM VIAL) IVPB ONE (13:28)
[2021-06-09] MEDS: KCL 10 MEQ IVPB 10 MEQ/100 ML INFUS.BAG IVPB SCH ×3 (14:24→17:51)
[2021-06-09] MEDS ORDERED: LACTATED RINGERS SOLUTION 1000 ML INFUS.BAG IV ONE ×2 (14:37→16:50)
[2021-06-10 07:52] LABS: BASO % 0.5 % (0-2.0); EOS % 0.5 % (0-4.5); HEMOGLOBIN 8.4 GM/dL (11.7-16.9); LYMPH % 50.9 % (8-40); MCH 31.7 pg (25.7-33.7); MCHC 33.7 g/dl (32.0-35.9); MEAN CELL VOLUME 94.2 fl (80-96); MEAN PLT VOLUME 9.6 fl (7.5-11.1); MONO % 8.7 % (3.8-10.2); NEUT % 39.4 % (42.8-82.8); PLATELET COUNT 254 10^3/uL (134-434); RBC 2.66 M/mm3 (4.00-5.60); RDW 20.8 % (11.9-15.9); WHITE BLOOD COUNT 6.3 K/mm3 (4.0-10.0)
[2021-06-10 08:09] LABS: ALBUMIN 2.2 g/dl (3.4-5.0); BLOOD UREA NITROGEN 11.4 mg/dL (7-18); CALCIUM 8.1 mg/dL (8.5-10.1)
[2021-06-10 08:12] LABS: CREATININE 0.5 mg/dL (0.55-1.3)
[2021-06-10 08:13] LABS: PHOSPHOROUS 3.3 mg/dL (2.5-4.9)
[2021-06-10 08:14] LABS: BILIRUBIN,TOTAL 0.2 mg/dL (0.2-1); TOT PROT 5.2 g/dl (6.4-8.2)
[2021-06-10 11:53] LABS: ANISOCYTOSIS 1+; MACROCYTOSIS 0; PLATELET ESTIMATE NORMAL; TARGET CELLS 1+
[2021-06-10] MEDS ORDERED: levETIRAcetam 500 MG/5 ML INJECTION VIAL IVPB ONE (11:55)
[2021-06-10] MEDS: HYDROCORTISONE SOD SUCCINATE 100 MG/2 ML VIAL IVPB SCH (12:00)
[2021-06-10] MEDS: FAMOTIDINE 40 MG/5 ML ORAL SUSPENSION NGT SCH ×2 (14:37→22:58)
[2021-06-10] MEDS: CALCIUM CARBONATE SUSPENSION - 1250 MG/5 ML ML GT SCH (14:37)
[2021-06-10] MEDS: levETIRAcetam 500 MG/5 ML ORAL SOLUTION (UNIT-DOSE CUPS) GT SCH ×2 (14:37→22:59)
[2021-06-10] MEDS: lamoTRIgine 25 MG TABLET NR SCH ×2 (14:37→22:59)
[2021-06-10] MEDS: CHOLECALCIFEROL (VIT D SOLUTION) 400 UNIT/1 ML DROPS GT SCH (14:38)
[2021-06-10] MEDS: KCL 10 MEQ IVPB 10 MEQ/100 ML INFUS.BAG IVPB SCH ×5 (17:31→21:22)
[2021-06-10] MEDS: PANTOPRAZOLE SODIUM 40 MG VIAL IVPUSH SCH (17:51)
[2021-06-11 07:18] LABS: BASO % 0.4 % (0-2.0); EOS % 0.9 % (0-4.5); HEMATOCRIT 26.7 % (35.4-49); HEMOGLOBIN 9.1 GM/dL (11.7-16.9); LYMPH % 55.1 % (8-40); MCH 31.4 pg (25.7-33.7); MCHC 33.9 g/dl (32.0-35.9); MEAN CELL VOLUME 92.9 fl (80-96); MEAN PLT VOLUME 9.5 fl (7.5-11.1); MONO % 9.5 % (3.8-10.2); NEUT % 34.1 % (42.8-82.8); PLATELET COUNT 280 10^3/uL (134-434); RBC 2.88 M/mm3 (4.00-5.60); RDW 20.9 % (11.9-15.9); WHITE BLOOD COUNT 5.1 K/mm3 (4.0-10.0)
[2021-06-11 07:47] LABS: CALCIUM 8.5 mg/dL (8.5-10.1)
[2021-06-11 07:48] LABS: ALBUMIN 2.4 g/dl (3.4-5.0); BLOOD UREA NITROGEN 12.1 mg/dL (7-18); MAGNESIUM 1.9 mg/dL (1.8-2.4)
[2021-06-11 07:51] LABS: CREATININE 0.6 mg/dL (0.55-1.3); PHOSPHOROUS 3.5 mg/dL (2.5-4.9)
[2021-06-11 07:53] LABS: BILIRUBIN,TOTAL 0.2 mg/dL (0.2-1); TOT PROT 5.5 g/dl (6.4-8.2)
[2021-06-11] MEDS: PANTOPRAZOLE SODIUM 40 MG VIAL IVPUSH SCH (09:01)
[2021-06-11] MEDS: HYDROCORTISONE SOD SUCCINATE 100 MG/2 ML VIAL IVPB SCH (09:02)
[2021-06-11] MEDS: lamoTRIgine 25 MG TABLET NR SCH (09:02)
[2021-06-11] MEDS: CALCIUM CARBONATE SUSPENSION - 1250 MG/5 ML ML GT SCH (09:06)
[2021-06-11] MEDS: FAMOTIDINE 40 MG/5 ML ORAL SUSPENSION NGT SCH (09:07)
[2021-06-11] MEDS: levETIRAcetam 500 MG/5 ML ORAL SOLUTION (UNIT-DOSE CUPS) GT SCH (09:07)
[2021-06-11] MEDS: CHOLECALCIFEROL (VIT D SOLUTION) 400 UNIT/1 ML DROPS GT SCH (09:08)
[2021-06-11 13:49] VITALS: BP 100/62; PULSE 65; TEMP 98.6
== END 2021-06-11 17:54 | disposition home or self-care (01) | DRG 241 ==
LOC: JER 19:38 → JERBED 06-01 00:08 → J5S 06-01 03:37 → JICU 06-01 06:41 → J7W 06-01 18:18
PROVIDERS: ADMIT Internal Medicine; ATTEND Internal Medicine
PROC: 0DB68ZX Excision of Stomach, Via Natural or Artificial Opening Endoscopic, Diagnostic (ICD-10-PCS; principal; 2021-06-10 12:45)
DX: K29.01 Acute gastritis with bleeding (principal); R68.0 Hypothermia, not associated with low environmental temperature; G80.9 Cerebral palsy, unspecified; J98.11 Atelectasis; Z93.1 Gastrostomy status; K76.0 Fatty (change of) liver, not elsewhere classified; E27.40 Unspecified adrenocortical insufficiency; K92.0 Hematemesis; I95.9 Hypotension, unspecified; F72 Severe intellectual disabilities; R53.2 Functional quadriplegia; D69.6 Thrombocytopenia, unspecified; K21.9 Gastro-esophageal reflux disease without esophagitis; E87.6 Hypokalemia; D72.829 Elevated white blood cell count, unspecified; R74.01 Elevation of levels of liver transaminase levels
CPT/HCPCS: 36415; 71045-TC-FY; 71250-TC; 74177-TC; 80048; 80053; 82024; 82272; 82533; 82607; 82728; 82746; 82784; 83516; 83540; 83550; 83690; 83735; 84100; 84207; 84439; 84443; 85025; 85027; 85610; 85730; 86038; 86140; 86677; 86850; 86900; 86901; 87040; 87086; 87899; 88305-TC; 93005; 93010; 99285-25; C9803; J0834; J8540; Q9967; U0003; U0005

== ENCOUNTER 2022-03-30 16:23 | Inpatient (IN) | payer OTHER ==
[2022-03-30 20:42] LABS: BASO % 0.5 % (0-2.0); EOS % 3.3 % (0-4.5); HEMATOCRIT 39.7 % (35.4-49); HEMOGLOBIN 13.5 GM/dL (11.7-16.9); LYMPH % 44.1 % (8-40); MEAN CELL VOLUME 91.2 fl (80-96); MEAN PLT VOLUME 10.1 fl (7.5-11.1); MONO % 6.7 % (3.8-10.2); NEUT % 45.4 % (42.8-82.8); PLATELET COUNT 100 10^3/uL (134-434); RBC 4.35 M/mm3 (4.00-5.60); RDW 15.2 % (11.9-15.9); WHITE BLOOD COUNT 5.2 K/mm3 (4.0-10.0)
[2022-03-30 20:49] LABS: PROTHROMBIN TIME (PATIENT) 11.5 SEC (9.7-13.0)
[2022-03-30 21:11] LABS: ALBUMIN 3.5 g/dl (3.4-5.0); BLOOD UREA NITROGEN 14.3 mg/dL (7-18); CALCIUM 9.4 mg/dL (8.5-10.1)
[2022-03-30 21:14] LABS: CREATININE 0.5 mg/dL (0.55-1.3)
[2022-03-30 21:16] LABS: BILIRUBIN,TOTAL 0.2 mg/dL (0.2-1); TOT PROT 7.1 g/dl (6.4-8.2)
[2022-03-30 22:31] LABS: URINE APPEARANCE Turbid; URINE BILIRUBIN 3+ (NEGATIVE); URINE GLUCOSE (UA) 1+ (NEGATIVE); URINE PROTEIN 3+ (NEGATIVE)
[2022-03-30 22:37] LABS: URINE COLOR Red
[2022-03-30 23:17] LABS: URINE RBC TOONUMEROUS TOCOUNT /uL (0-23.9)
[2022-03-31] MEDS ORDERED: SODIUM CHLORIDE 1,000 ML IV STA (01:10)
[2022-03-31] MEDS ORDERED: SODIUM CHLORIDE 1,000 ML IV SCH (02:00)
[2022-03-31 07:31] LABS: BASO % 0.6 % (0-2.0); EOS % 2.3 % (0-4.5); HEMATOCRIT 38.7 % (35.4-49); HEMOGLOBIN 13.4 GM/dL (11.7-16.9); LYMPH % 24.3 % (8-40); MCH 31.3 pg (25.7-33.7); MCHC 34.7 g/dl (32.0-35.9); MEAN CELL VOLUME 90.3 fl (80-96); MEAN PLT VOLUME 9.9 fl (7.5-11.1); MONO % 8.9 % (3.8-10.2); NEUT % 63.9 % (42.8-82.8); PLATELET COUNT 104 10^3/uL (134-434); RBC 4.28 M/mm3 (4.00-5.60); RDW 15.2 % (11.9-15.9); WHITE BLOOD COUNT 6.6 K/mm3 (4.0-10.0)
[2022-03-31 07:57] LABS: ALBUMIN 3.5 g/dl (3.4-5.0); BLOOD UREA NITROGEN 14.8 mg/dL (7-18); CALCIUM 9.2 mg/dL (8.5-10.1); MAGNESIUM 2.1 mg/dL (1.8-2.4)
[2022-03-31 07:58] LABS: PHOSPHOROUS 3.2 mg/dL (2.5-4.9)
[2022-03-31 07:59] LABS: CREATININE 0.5 mg/dL (0.55-1.3)
[2022-03-31 08:00] LABS: BILIRUBIN,TOTAL 0.2 mg/dL (0.2-1); TOT PROT 7.2 g/dl (6.4-8.2)
[2022-03-31] MEDS ORDERED: levETIRAcetam 250 MG TABLET PO SCH (10:00)
[2022-03-31] MEDS ORDERED: LACTULOSE 20 GM/30 ML UDC (FOR ORAL USE ONLY) PEG SCH (10:00)
[2022-03-31] MEDS ORDERED: ASCORBIC ACID 250 MG TABLET (FP) GT SCH (10:00)
[2022-03-31] MEDS ORDERED: BUDESONIDE 0.5 MG/2 ML INH SUSP VIAL NEB SCH ×2 (10:00→22:00)
[2022-03-31] MEDS ORDERED: PANTOPRAZOLE SODIUM 40 MG VIAL IVPUSH SCH (10:00)
[2022-03-31] MEDS ORDERED: lamoTRIgine 25 MG TABLET PO SCH (10:00)
[2022-03-31] MEDS ORDERED: ASCORBIC ACID 500 MG TABLET (FP) ONE (10:35)
[2022-03-31] MEDS ORDERED: lamoTRIgine 25 MG TABLET ONE (10:35)
[2022-03-31] MEDS ORDERED: PANTOPRAZOLE SODIUM 40 MG VIAL ONE (10:35)
[2022-03-31] MEDS ORDERED: levETIRAcetam 500 MG TABLET (FP) PO ONE (10:35)
[2022-03-31] MEDS ORDERED: CEFTRIAXONE 1 GM in DEXTROSE 5%-WATER - 50 ML IVPB SCH (13:30)
[2022-03-31] MEDS ORDERED: CEFTAZIDIME PENTAHYDRATE 1 GM in DEXTROSE 5%-WATER - 50 ML IVPB SCH (14:15)
[2022-03-31] MEDS ORDERED: ROCURONIUM BROMIDE 50 MG/5 ML SYRINGE ONE (16:29)
[2022-03-31] MEDS ORDERED: cefTRIAXone SODIUM 1 GM VIAL ONE (17:32)
[2022-03-31] MEDS ORDERED: CEFTRIAXONE 1 GM in DEXTROSE 5%-WATER - 50 ML IVPB ONE (17:34)
[2022-03-31] MEDS ORDERED: DEXTROSE 5%-WATER - 50 ML IVPB ONE (17:36)
[2022-03-31] MEDS ORDERED: cefTAZidime PENTAHYDRATE 1 GM VIAL (RESTRICTED TO ID) ONE (17:36)
[2022-03-31] MEDS: CEFTAZIDIME PENTAHYDRATE 1 GM in DEXTROSE 5%-WATER - 50 ML IVPB SCH (17:40)
[2022-03-31] MEDS ORDERED: LACTATED RINGERS SOLUTION 1,000 ML IV SCH (17:45)
[2022-03-31 18:34] LABS: BASO % 0.3 % (0-2.0); EOS % 0.6 % (0-4.5); HEMATOCRIT 34.6 % (35.4-49); HEMOGLOBIN 11.4 GM/dL (11.7-16.9); LYMPH % 4.2 % (8-40); MCH 30.6 pg (25.7-33.7); MCHC 33.1 g/dl (32.0-35.9); MEAN CELL VOLUME 92.5 fl (80-96); MEAN PLT VOLUME 10.6 fl (7.5-11.1); MONO % 10.5 % (3.8-10.2); NEUT % 84.4 % (42.8-82.8); PLATELET COUNT 84 10^3/uL (134-434); RBC 3.74 M/mm3 (4.00-5.60); RDW 15.4 % (11.9-15.9); WHITE BLOOD COUNT 16.8 K/mm3 (4.0-10.0)
[2022-03-31] MEDS ORDERED: diazePAM RECTAL GEL 10 MG KIT (PRE-CALIBRATED) RC PRN (19:11)
[2022-03-31] MEDS: SODIUM CHLORIDE 1,000 ML IV SCH (19:25)
[2022-03-31] MEDS: lamoTRIgine 25 MG TABLET NR SCH (22:12)
[2022-03-31] MEDS: LACTULOSE 20 GM/30 ML UDC (FOR ORAL USE ONLY) PEG SCH (22:12)
[2022-03-31] MEDS: levETIRAcetam 500 MG/5 ML ORAL SOLUTION (UNIT-DOSE CUPS) GT SCH (22:12)
[2022-03-31] MEDS: ASCORBIC ACID 250 MG TABLET (FP) GT SCH (22:12)
[2022-04-01] MEDS ORDERED: cefTAZidime PENTAHYDRATE 1 GM VIAL (RESTRICTED TO ID) ONE ×2 (01:39→10:01)
[2022-04-01] MEDS ORDERED: DEXTROSE 5%-WATER - 50 ML IVPB ONE ×2 (01:39→10:01)
[2022-04-01] MEDS: CEFTAZIDIME PENTAHYDRATE 1 GM in DEXTROSE 5%-WATER - 50 ML IVPB SCH ×2 (02:02→10:21)
[2022-04-01 09:25] LABS: BASO % 0.2 % (0-2.0); EOS % 0.4 % (0-4.5); HEMATOCRIT 32.9 % (35.4-49); HEMOGLOBIN 10.7 GM/dL (11.7-16.9); LYMPH % 9.7 % (8-40); MCH 30.6 pg (25.7-33.7); MCHC 32.6 g/dl (32.0-35.9); MEAN CELL VOLUME 93.7 fl (80-96); MEAN PLT VOLUME 10.9 fl (7.5-11.1); MONO % 7.3 % (3.8-10.2); NEUT % 82.4 % (42.8-82.8); PLATELET COUNT 83 10^3/uL (134-434); RBC 3.51 M/mm3 (4.00-5.60); RDW 15.6 % (11.9-15.9); WHITE BLOOD COUNT 13.5 K/mm3 (4.0-10.0)
[2022-04-01 09:47] LABS: CALCIUM 8.4 mg/dL (8.5-10.1)
[2022-04-01 09:48] LABS: BLOOD UREA NITROGEN 12.6 mg/dL (7-18)
[2022-04-01 09:51] LABS: CREATININE 0.5 mg/dL (0.55-1.3)
[2022-04-01] MEDS ORDERED: PANTOPRAZOLE SODIUM 40 MG VIAL IVPUSH SCH ×3 (10:00)
[2022-04-01] MEDS: LACTULOSE 20 GM/30 ML UDC (FOR ORAL USE ONLY) PEG SCH ×2 (10:20→22:08)
[2022-04-01] MEDS: predniSONE 1 MG TABLET (FP) GT SCH (10:20)
[2022-04-01] MEDS: levETIRAcetam 500 MG/5 ML ORAL SOLUTION (UNIT-DOSE CUPS) GT SCH ×2 (10:20→22:08)
[2022-04-01] MEDS: PANTOPRAZOLE SODIUM 40 MG VIAL IVPUSH SCH (10:21)
[2022-04-01] MEDS: ASCORBIC ACID 250 MG TABLET (FP) GT SCH ×2 (10:21→22:09)
[2022-04-01] MEDS: lamoTRIgine 25 MG TABLET NR SCH ×2 (10:21→22:09)
[2022-04-01] MEDS: SULFAMETHOXAZOLE/TMP 200MG-40MG/5ML GT SCH ×2 (14:57→22:15)
[2022-04-02] MEDS: SODIUM CHLORIDE 1,000 ML IV SCH ×2 (06:50→21:17)
[2022-04-02 09:05] LABS: BASO % 0.3 % (0-2.0); EOS % 1.7 % (0-4.5); HEMATOCRIT 29.1 % (35.4-49); HEMOGLOBIN 9.8 GM/dL (11.7-16.9); LYMPH % 20.4 % (8-40); MCH 31.3 pg (25.7-33.7); MCHC 33.6 g/dl (32.0-35.9); MEAN CELL VOLUME 93.1 fl (80-96); MEAN PLT VOLUME 10.4 fl (7.5-11.1); MONO % 8.4 % (3.8-10.2); NEUT % 69.2 % (42.8-82.8); PLATELET COUNT 79 10^3/uL (134-434); RBC 3.12 M/mm3 (4.00-5.60); RDW 15.5 % (11.9-15.9); WHITE BLOOD COUNT 8.6 K/mm3 (4.0-10.0)
[2022-04-02 09:27] LABS: BLOOD UREA NITROGEN 4.4 mg/dL (7-18); CALCIUM 8.2 mg/dL (8.5-10.1)
[2022-04-02 09:30] LABS: CREATININE 0.5 mg/dL (0.55-1.3)
[2022-04-02 09:32] LABS: BILIRUBIN,TOTAL 0.2 mg/dL (0.2-1); TOT PROT 5.7 g/dl (6.4-8.2)
[2022-04-02 09:34] LABS: ALBUMIN 2.7 g/dl (3.4-5.0)
[2022-04-02] MEDS: ASCORBIC ACID 250 MG TABLET (FP) GT SCH (10:38)
[2022-04-02] MEDS: lamoTRIgine 25 MG TABLET NR SCH ×2 (10:38→21:59)
[2022-04-02] MEDS: LACTULOSE 20 GM/30 ML UDC (FOR ORAL USE ONLY) PEG SCH ×2 (10:39→21:59)
[2022-04-02] MEDS: PANTOPRAZOLE SODIUM 40 MG VIAL IVPUSH SCH (10:39)
[2022-04-02] MEDS: levETIRAcetam 500 MG/5 ML ORAL SOLUTION (UNIT-DOSE CUPS) GT SCH ×2 (10:39→21:59)
[2022-04-02] MEDS: SULFAMETHOXAZOLE/TMP 200MG-40MG/5ML GT SCH ×2 (10:39→22:06)
[2022-04-02] MEDS: predniSONE 1 MG TABLET (FP) GT SCH (10:40)
[2022-04-02] MEDS: ACETAMINOPHEN 650 MG/20.3 ML ORAL SOLUTION (CUPS) PEG PRN (13:32)
[2022-04-02] MEDS: [UNRECOGNIZED DRUG - OTHER] GT SCH ×3 (17:36→22:17)
[2022-04-02] MEDS: ALUMINUM HYDROX GT SCH ×3 (17:36→22:17)
[2022-04-02] MEDS: ALGIN GT SCH ×3 (17:36→22:17)
[2022-04-02] MEDS: MAG CARB GT SCH ×3 (17:36→22:17)
[2022-04-02] MEDS ORDERED: ASCORBIC ACID 500 MG TABLET (FP) GT SCH (22:00)
[2022-04-02] MEDS: ASCORBIC ACID 500 MG/5 ML UNIT DOSE CUP PEG SCH (22:01)
[2022-04-03] MEDS: levETIRAcetam 500 MG/5 ML ORAL SOLUTION (UNIT-DOSE CUPS) GT SCH ×2 (10:37→21:45)
[2022-04-03] MEDS: PANTOPRAZOLE SODIUM 40 MG VIAL IVPUSH SCH (10:37)
[2022-04-03] MEDS: LACTULOSE 20 GM/30 ML UDC (FOR ORAL USE ONLY) PEG SCH ×2 (10:37→21:44)
[2022-04-03] MEDS: lamoTRIgine 25 MG TABLET NR SCH ×2 (10:38→21:46)
[2022-04-03] MEDS: SULFAMETHOXAZOLE/TMP 200MG-40MG/5ML GT SCH ×2 (10:39→21:46)
[2022-04-03] MEDS: predniSONE 1 MG TABLET (FP) GT SCH (10:39)
[2022-04-03] MEDS: ASCORBIC ACID 500 MG/5 ML UNIT DOSE CUP PEG SCH ×2 (10:51→21:46)
[2022-04-03 14:11] VITALS: BMI 23.3
[2022-04-03] MEDS ORDERED: POLYETHYLENE GLYCOL (HEALTHYLAX) 3350 17 GM PACKET PEG ONE (15:00)
[2022-04-03] MEDS: SODIUM CHLORIDE 1,000 ML IV SCH ×2 (16:24→21:44)
[2022-04-03] MEDS: ACETAMINOPHEN 650 MG/20.3 ML ORAL SOLUTION (CUPS) PEG PRN (21:45)
[2022-04-04] MEDS: predniSONE 1 MG TABLET (FP) GT SCH (10:37)
[2022-04-04] MEDS: ASCORBIC ACID 500 MG/5 ML UNIT DOSE CUP PEG SCH (10:37)
[2022-04-04] MEDS: SODIUM CHLORIDE 1,000 ML IV SCH (10:37)
[2022-04-04] MEDS: LACTULOSE 20 GM/30 ML UDC (FOR ORAL USE ONLY) PEG SCH (10:39)
[2022-04-04] MEDS: lamoTRIgine 25 MG TABLET NR SCH (10:39)
[2022-04-04] MEDS: levETIRAcetam 500 MG/5 ML ORAL SOLUTION (UNIT-DOSE CUPS) GT SCH (10:40)
[2022-04-04] MEDS: PANTOPRAZOLE SODIUM 40 MG VIAL IVPUSH SCH (10:40)
[2022-04-04] MEDS: SULFAMETHOXAZOLE/TMP 200MG-40MG/5ML GT SCH (11:03)
[2022-04-04 11:58] LABS: BASO % 0.4 % (0-2.0); EOS % 3.7 % (0-4.5); HEMATOCRIT 26.9 % (35.4-49); LYMPH % 41.9 % (8-40); MCH 30.9 pg (25.7-33.7); MCHC 33.6 g/dl (32.0-35.9); MEAN CELL VOLUME 92.1 fl (80-96); MEAN PLT VOLUME 9.8 fl (7.5-11.1); MONO % 13.7 % (3.8-10.2); NEUT % 40.3 % (42.8-82.8); PLATELET COUNT 98 10^3/uL (134-434); RBC 2.92 M/mm3 (4.00-5.60); RDW 15.3 % (11.9-15.9); WHITE BLOOD COUNT 4.5 K/mm3 (4.0-10.0)
[2022-04-04 12:29] LABS: CALCIUM 8.5 mg/dL (8.5-10.1)
[2022-04-04 12:30] LABS: ALBUMIN 2.8 g/dl (3.4-5.0); BLOOD UREA NITROGEN 4.4 mg/dL (7-18)
[2022-04-04 12:32] LABS: BILIRUBIN,TOTAL 0.2 mg/dL (0.2-1); TOT PROT 5.8 g/dl (6.4-8.2)
[2022-04-04 12:33] LABS: CREATININE 0.5 mg/dL (0.55-1.3)
[2022-04-04 16:22] VITALS: BP 124/73; PULSE 63; TEMP 98.3
== END 2022-04-04 16:48 | disposition home or self-care (01) | DRG 466 ==
LOC: JER 16:23 → JERBED 23:10 → J8W 03-31 11:30
PROVIDERS: ADMIT Hospitalist
PROC: 0T9B80Z Drainage of Bladder with Drainage Device, Via Natural or Artificial Opening Endoscopic (ICD-10-PCS; 2022-03-31)
PROC: 0TCD8ZZ Extirpation of Matter from Urethra, Via Natural or Artificial Opening Endoscopic (ICD-10-PCS; principal; 2022-03-31 16:30)
DX: T83.098A Other mechanical complication of other urinary catheter, initial encounter (principal); Y83.9 Surgical procedure, unspecified as the cause of abnormal reaction of the patient, or of later complication, without mention of misadventure at the time of the procedure; R31.0 Gross hematuria; D69.6 Thrombocytopenia, unspecified; F73 Profound intellectual disabilities; E27.40 Unspecified adrenocortical insufficiency; R53.2 Functional quadriplegia; R56.9 Unspecified convulsions; Z93.1 Gastrostomy status; G80.9 Cerebral palsy, unspecified; J45.909 Unspecified asthma, uncomplicated; K21.9 Gastro-esophageal reflux disease without esophagitis; R33.9 Retention of urine, unspecified; K76.0 Fatty (change of) liver, not elsewhere classified; N39.0 Urinary tract infection, site not specified
CPT/HCPCS: 36415; 71045-TC-FY; 80048; 80053; 81003; 83735; 84100; 85025; 85384; 85610; 85730; 86850; 86900; 86901; 87040; 87086; 94760; 99285-25; C9803-CS; U0003; U0005

== ENCOUNTER 2022-07-26 16:05 | Emergency (ER) | payer OTHER ==
[2022-07-26 16:30] VITALS: BP 109/38; PULSE 92; RESP 17; TEMP 98.1; BMI 24.0
[2022-07-26 18:43] LABS: BASO % 0.6 % (0-2.0); EOS % 3.2 % (0-4.5); HEMATOCRIT 40.4 % (35.4-49); HEMOGLOBIN 13.5 GM/dL (11.7-16.9); LYMPH % 39.6 % (8-40); MCH 30.2 pg (25.7-33.7); MCHC 33.3 g/dl (32.0-35.9); MEAN CELL VOLUME 90.7 fl (80-96); MEAN PLT VOLUME 11.4 fl (7.5-11.1); MONO % 7.4 % (3.8-10.2); NEUT % 49.2 % (42.8-82.8); PLATELET COUNT 91 10^3/uL (134-434); RBC 4.46 M/mm3 (4.00-5.60); RDW 16.1 % (11.9-15.9); WHITE BLOOD COUNT 4.4 K/mm3 (4.0-10.0)
[2022-07-26 18:51] LABS: ALBUMIN 3.1 g/dl (3.4-5.0); CALCIUM 9.4 mg/dL (8.5-10.1)
[2022-07-26 18:52] LABS: BLOOD UREA NITROGEN 17.2 mg/dL (7-18)
[2022-07-26 18:54] LABS: CREATININE 0.6 mg/dL (0.55-1.3)
[2022-07-26 18:56] LABS: BILIRUBIN,TOTAL 0.2 mg/dL (0.2-1); TOT PROT 7.1 g/dl (6.4-8.2)
== END 2022-07-26 23:05 | disposition home or self-care (01) ==
LOC: JER 16:05
DX: G40.89 Other seizures (principal)
CPT/HCPCS: 36415; 70450-TC; 71045-TC-FY; 80053; 85025; 99285-25; C9803-CS; U0003; U0005

== ENCOUNTER 2022-11-27 18:56 | Inpatient (IN) | payer OTHER ==
[2022-11-27] MEDS ORDERED: ALBUTEROL SO4 2.5/IPRATROPIUM 0.5 INH SOL 3 ML VIAL.NEB. NEB ONE ×2 (20:11→20:32)
[2022-11-27] MEDS ORDERED: PIPERACILLIN/TAZOB 3.375 GM 3.375 GM in DEXTROSE 5%-WATER - 50 ML IVPB ONE (20:33)
[2022-11-27] MEDS ORDERED: SODIUM CHLORIDE 0.9% 500 ML INFUS.BAG IV ONE (20:33)
[2022-11-27] MEDS ORDERED: PIPERACILLIN/TAZOB 3.375 GM 3.375 GM/50 ML BAG IVPB ONE (20:34)
[2022-11-27] MEDS ORDERED: VANCOMYCIN 1 GM in D5W (PRE-DOCKED) 1,000 MG/250 ML IVPB ONE (20:40)
[2022-11-27 21:07] LABS: VENOUS BASE EXCESS 5.3 mmol/L (-2-2); VENOUS O2 SATURATION 38.2 % (70-80); VENOUS PH 7.253 (7.310-7.410)
[2022-11-27 21:08] LABS: VENOUS PCO2 84.3 mmHg (38-52)
[2022-11-27 21:20] LABS: HEMATOCRIT 42.4 % (35.4-49); HEMOGLOBIN 14.4 GM/dL (11.7-16.9); MCH 31.7 pg (25.7-33.7); MCHC 34.1 g/dl (32.0-35.9); MEAN CELL VOLUME 93.1 fl (80-96); PLATELET COUNT 118 10^3/uL (134-434); RBC 4.55 M/mm3 (4.00-5.60); RDW 16.8 % (11.9-15.9)
[2022-11-27] MEDS ORDERED: VANCOMYCIN/WATER FOR INJ (PEG) 1,000 MG/200 ML BAG IVPB ONE (21:22)
[2022-11-27 21:24] LABS: WHITE BLOOD COUNT 0.9 K/mm3 (4.0-10.0)
[2022-11-27] MEDS ORDERED: DEXAMETHASONE SOD PHOSPHATE 10 MG/1 ML VIAL IVPUSH ONE (21:28)
[2022-11-27 21:44] LABS: ALBUMIN 2.9 g/dl (3.4-5.0); CALCIUM 9.5 mg/dL (8.5-10.1)
[2022-11-27 21:48] LABS: CREATININE 0.7 mg/dL (0.55-1.3)
[2022-11-27 21:49] LABS: BILIRUBIN,TOTAL 0.4 mg/dL (0.2-1)
[2022-11-27 21:50] LABS: TOT PROT 6.4 g/dl (6.4-8.2)
[2022-11-27 21:51] LABS: BLOOD UREA NITROGEN 11.2 mg/dL (7-18)
[2022-11-27 22:11] LABS: ANISOCYTOSIS 1+; CORRECTED WBC 0.81 K/mm3; MACROCYTOSIS 1+
[2022-11-27] MEDS ORDERED: DEXAMETHASONE SOD PHOSPHATE 10 MG/1 ML VIAL ONE (22:12)
[2022-11-27] MEDS ORDERED: HYDROCORTISONE SOD SUCCINATE 100 MG/2 ML VIAL IVPUSH ONE (23:03)
[2022-11-27] MEDS ORDERED: HYDROCORTISONE SOD SUCCINATE 100 MG/2 ML VIAL ONE (23:14)
[2022-11-28] MEDS ORDERED: AZITHROMYCIN IVPB 500 MG in DEXTROSE 5%-WATER - 250 ML IVPB ONE (00:25)
[2022-11-28] MEDS ORDERED: LACTATED RINGERS SOLUTION 1000 ML INFUS.BAG IV ONE ×3 (00:33→06:09)
[2022-11-28] MEDS ORDERED: KCL 10 MEQ IVPB 10 MEQ/100 ML INFUS.BAG IVPB SCH (01:00)
[2022-11-28 02:32] LABS: VENOUS O2 SATURATION 69.1 % (70-80); VENOUS PCO2 54.2 mmHg (38-52); VENOUS PH 7.33 (7.310-7.410)
[2022-11-28] MEDS ORDERED: ASPIRIN 81 MG CHEWABLE TABLETS ONE (04:17)
[2022-11-28] MEDS ORDERED: valACYclovir HCL 500 MG TABLET (FP) ONE (04:17)
[2022-11-28] MEDS ORDERED: AZITHROMYCIN IVPB 500 MG/250 ML BAG IVPB ONE (04:28)
[2022-11-28] MEDS ORDERED: FLUDROCORTISONE ACETATE 0.1 MG TABLET (FP) PEG ONE ×2 (04:38→23:06)
[2022-11-28] MEDS ORDERED: diazePAM RECTAL GEL 10 MG KIT (PRE-CALIBRATED) RC PRN (06:01)
[2022-11-28] MEDS ORDERED: KCL 10 MEQ IVPB 10 MEQ/100 ML INFUS.BAG IVPB ONE (06:41)
[2022-11-28 07:16] LABS: EPI CELLS 10 /uL (0-25.1); HYALINE CASTS 2 /uL (0-3.1); URINE APPEARANCE CLOUDY; URINE BACTERIA 3 /uL (0-1359); URINE BILIRUBIN NEGATIVE (NEGATIVE); URINE COLOR YELLOW; URINE GLUCOSE (UA) NEGATIVE (NEGATIVE); URINE KETONE TRACE (NEGATIVE); URINE LEUK ESTERASE 1+ (NEGATIVE); URINE NITRITE NEGATIVE (NEGATIVE); URINE PROTEIN NEGATIVE (NEGATIVE); URINE RBC 111 /uL (0-23.9); URINE UROBILINOGEN 0.2 mg/dL (0.2-1.0); URINE WBC 52 /uL (0-25.8)
[2022-11-28 09:41] LABS: HEMATOCRIT 34.7 % (35.4-49); HEMOGLOBIN 11.7 GM/dL (11.7-16.9); MCH 31.7 pg (25.7-33.7); MCHC 33.9 g/dl (32.0-35.9); MEAN CELL VOLUME 93.7 fl (80-96); MEAN PLT VOLUME 10.8 fl (7.5-11.1); PLATELET COUNT 126 10^3/uL (134-434); RDW 16.5 % (11.9-15.9); WHITE BLOOD COUNT 3.7 K/mm3 (4.0-10.0)
[2022-11-28 09:51] LABS: ALBUMIN 2.5 g/dl (3.4-5.0); CALCIUM 8.6 mg/dL (8.5-10.1); MAGNESIUM 1.9 mg/dL (1.8-2.4)
[2022-11-28 09:54] LABS: CREATININE 0.7 mg/dL (0.55-1.3); PHOSPHOROUS 1.8 mg/dL (2.5-4.9)
[2022-11-28 09:55] LABS: TOT PROT 5.5 g/dl (6.4-8.2)
[2022-11-28 09:56] LABS: BILIRUBIN,TOTAL 0.3 mg/dL (0.2-1)
[2022-11-28 10:19] LABS: BLOOD UREA NITROGEN 10.8 mg/dL (7-18); LACTIC ACID 5.1 mmol/L (0.4-2.0)
[2022-11-28] MEDS: SODIUM CHLORIDE 1,000 ML IV SCH (11:57)
[2022-11-28 12:55] LABS: ANISOCYTOSIS 0; HELMET CELLS 0; HOWELL-JOLLY BODIES 0; MACROCYTOSIS 0; OVALOCYTE 0; ROULEAU 0; SICKELED CELLS 0; TARGET CELLS 0; TEAR DROP CELLS 0; TOXIC GRANULATION 0
[2022-11-28] MEDS ORDERED: PIPERACILLIN/TAZOB 3.375 GM 3.375 GM/50 ML BAG IVPB ONE (17:15)
[2022-11-28] MEDS: PIPERACILLIN/TAZOB 3.375 GM 3.375 GM in DEXTROSE 5%-WATER - 50 ML IVPB SCH (18:14)
[2022-11-28 18:33] LABS: LACTIC ACID 3.2 mmol/L (0.4-2.0)
[2022-11-28] MEDS ORDERED: lamoTRIgine 25 MG TABLET ONE (21:17)
[2022-11-28] MEDS ORDERED: HYDROCORTISONE SOD SUCCINATE 100 MG/2 ML VIAL ONE (21:17)
[2022-11-28] MEDS ORDERED: LACTULOSE 20 GM/30 ML UDC (FOR ORAL USE ONLY) ONE (21:17)
[2022-11-28] MEDS: LACTULOSE 20 GM/30 ML UDC (FOR ORAL USE ONLY) PO SCH (21:50)
[2022-11-28] MEDS: lamoTRIgine 25 MG TABLET PO SCH (21:50)
[2022-11-28] MEDS: HYDROCORTISONE SOD SUCCINATE 100 MG/2 ML VIAL IVPB SCH (21:50)
[2022-11-29] MEDS: PIPERACILLIN/TAZOB 3.375 GM 3.375 GM in DEXTROSE 5%-WATER - 50 ML IVPB SCH ×3 (03:34→18:16)
[2022-11-29] MEDS: HYDROCORTISONE SOD SUCCINATE 100 MG/2 ML VIAL IVPB SCH ×2 (09:35→21:55)
[2022-11-29] MEDS: LACTULOSE 20 GM/30 ML UDC (FOR ORAL USE ONLY) PO SCH ×2 (09:35→21:55)
[2022-11-29] MEDS: lamoTRIgine 25 MG TABLET PO SCH ×2 (09:36→21:55)
[2022-11-29] MEDS: SODIUM CHLORIDE 1,000 ML IV SCH ×2 (09:36→23:30)
[2022-11-29] MEDS: PANTOPRAZOLE SOD 40 MG SUSPENSION PACKET PO SCH (09:38)
[2022-11-29] MEDS ORDERED: HYDROCORTISONE 20 MG TABLET PO SCH (10:00)
[2022-11-29 11:43] LABS: HEMATOCRIT 30.8 % (35.4-49); HEMOGLOBIN 10.4 GM/dL (11.7-16.9); MCH 31.4 pg (25.7-33.7); MCHC 33.6 g/dl (32.0-35.9); MEAN CELL VOLUME 93.4 fl (80-96); PLATELET COUNT 110 10^3/uL (134-434); RDW 17.3 % (11.9-15.9); WHITE BLOOD COUNT 15.4 K/mm3 (4.0-10.0)
[2022-11-29] MEDS: ALBUTEROL SO4 2.5/IPRATROPIUM 0.5 INH SOL 3 ML VIAL.NEB. NEB SCH ×3 (16:10→20:16)
[2022-11-29 16:28] LABS: ARTERIAL BLD GAS O2 SATURATION 97.1 % (95-98); ARTERIAL BLOOD GAS BASE EXCESS 5.4 mmol/L (-2-2); ARTERIAL BLOOD GAS PO2 91.7 mmHg (80-100)
[2022-11-29 16:29] LABS: ALLENS TEST POSITIVE
[2022-11-30] MEDS: PIPERACILLIN/TAZOB 3.375 GM 3.375 GM in DEXTROSE 5%-WATER - 50 ML IVPB SCH ×3 (01:38→17:18)
[2022-11-30] MEDS: ALBUTEROL SO4 2.5/IPRATROPIUM 0.5 INH SOL 3 ML VIAL.NEB. NEB SCH ×4 (08:10→20:31)
[2022-11-30 08:21] LABS: HEMATOCRIT 29.4 % (35.4-49); HEMOGLOBIN 9.8 GM/dL (11.7-16.9); LYMPH % 12.2 % (8-40); MCH 31.3 pg (25.7-33.7); MCHC 33.3 g/dl (32.0-35.9); MEAN PLT VOLUME 11.4 fl (7.5-11.1); MONO % 3.9 % (3.8-10.2); NEUT % 83.9 % (42.8-82.8); PLATELET COUNT 100 10^3/uL (134-434); RBC 3.13 M/mm3 (4.00-5.60); RDW 17.3 % (11.9-15.9); WHITE BLOOD COUNT 15.1 K/mm3 (4.0-10.0)
[2022-11-30 08:47] LABS: CALCIUM 8.1 mg/dL (8.5-10.1)
[2022-11-30 08:48] LABS: BLOOD UREA NITROGEN 17.2 mg/dL (7-18)
[2022-11-30 08:51] LABS: CREATININE 0.5 mg/dL (0.55-1.3)
[2022-11-30] MEDS ORDERED: diazePAM RECTAL GEL 10 MG KIT (PRE-CALIBRATED) RC PRN (10:07)
[2022-11-30] MEDS: LACTULOSE 20 GM/30 ML UDC (FOR ORAL USE ONLY) PO SCH ×2 (10:29→22:13)
[2022-11-30] MEDS: HYDROCORTISONE SOD SUCCINATE 100 MG/2 ML VIAL IVPB SCH ×2 (10:29→22:14)
[2022-11-30] MEDS: PANTOPRAZOLE SOD 40 MG SUSPENSION PACKET PO SCH (10:29)
[2022-11-30] MEDS: lamoTRIgine 25 MG TABLET PO SCH ×2 (10:30→22:13)
[2022-11-30] MEDS: SODIUM CHLORIDE 1,000 ML IV SCH (10:32)
[2022-12-01] MEDS: PIPERACILLIN/TAZOB 3.375 GM 3.375 GM in DEXTROSE 5%-WATER - 50 ML IVPB SCH ×3 (01:54→17:16)
[2022-12-01] MEDS: ALBUTEROL SO4 2.5/IPRATROPIUM 0.5 INH SOL 3 ML VIAL.NEB. NEB SCH ×4 (07:45→20:36)
[2022-12-01 09:53] LABS: HEMATOCRIT 30.5 % (35.4-49); MCHC 32.9 g/dl (32.0-35.9); MEAN CELL VOLUME 94.2 fl (80-96); MEAN PLT VOLUME 10.7 fl (7.5-11.1); PLATELET COUNT 104 10^3/uL (134-434); RBC 3.23 M/mm3 (4.00-5.60); RDW 17.1 % (11.9-15.9); WHITE BLOOD COUNT 11.1 K/mm3 (4.0-10.0)
[2022-12-01] MEDS: HYDROCORTISONE SOD SUCCINATE 100 MG/2 ML VIAL IVPB SCH ×2 (09:58→21:30)
[2022-12-01] MEDS: PANTOPRAZOLE SOD 40 MG SUSPENSION PACKET PO SCH (09:58)
[2022-12-01] MEDS: LACTULOSE 20 GM/30 ML UDC (FOR ORAL USE ONLY) PO SCH ×2 (09:58→21:30)
[2022-12-01] MEDS: lamoTRIgine 25 MG TABLET PO SCH ×2 (09:58→21:30)
[2022-12-01 10:07] LABS: BLOOD UREA NITROGEN 20.9 mg/dL (7-18); CALCIUM 8.3 mg/dL (8.5-10.1)
[2022-12-01 10:10] LABS: CREATININE 0.4 mg/dL (0.55-1.3)
[2022-12-01 10:33] LABS: ANISOCYTOSIS 2+; MACROCYTOSIS 1+
[2022-12-01] MEDS ORDERED: levETIRAcetam 500 MG/5 ML INJECTION VIAL IVPB ONE (17:44)
[2022-12-01] MEDS ORDERED: levETIRAcetam 500 MG/5 ML ORAL SOLUTION (UNIT-DOSE CUPS) GT SCH (18:00)
[2022-12-01] MEDS ORDERED: LORazepam 2 MG/ML SDV VIAL IVPUSH PRN (18:19)
[2022-12-01] MEDS: levETIRAcetam 500 MG/5 ML ORAL SOLUTION (UNIT-DOSE CUPS) GT SCH (21:30)
[2022-12-01] MEDS ORDERED: LORazepam 2 MG/ML SDV VIAL IVPUSH SCH (22:00)
[2022-12-02 00:13] LABS: N-TERMINAL BNP 1780.3 pg/ml (5-125)
[2022-12-02] MEDS: PIPERACILLIN/TAZOB 3.375 GM 3.375 GM in DEXTROSE 5%-WATER - 50 ML IVPB SCH ×3 (01:50→17:21)
[2022-12-02] MEDS: ALBUTEROL SO4 2.5/IPRATROPIUM 0.5 INH SOL 3 ML VIAL.NEB. NEB SCH ×4 (08:43→20:04)
[2022-12-02 09:00] LABS: HEMATOCRIT 30.7 % (35.4-49); HEMOGLOBIN 10.2 GM/dL (11.7-16.9); MCH 31.2 pg (25.7-33.7); MCHC 33.3 g/dl (32.0-35.9); MEAN CELL VOLUME 93.9 fl (80-96); MEAN PLT VOLUME 10.6 fl (7.5-11.1); PLATELET COUNT 119 10^3/uL (134-434); RBC 3.27 M/mm3 (4.00-5.60); RDW 16.9 % (11.9-15.9); WHITE BLOOD COUNT 7.8 K/mm3 (4.0-10.0)
[2022-12-02 09:30] LABS: CALCIUM 8.3 mg/dL (8.5-10.1)
[2022-12-02 09:31] LABS: ALBUMIN 2.5 g/dl (3.4-5.0); BLOOD UREA NITROGEN 19.6 mg/dL (7-18)
[2022-12-02 09:34] LABS: CREATININE 0.5 mg/dL (0.55-1.3); PHOSPHOROUS 2.6 mg/dL (2.5-4.9)
[2022-12-02 09:35] LABS: BILIRUBIN,TOTAL 0.4 mg/dL (0.2-1); TOT PROT 5.6 g/dl (6.4-8.2)
[2022-12-02] MEDS ORDERED: POTASSIUM CHLORIDE ORAL LIQUID 20 MEQ/15 ML GT ONE (10:01)
[2022-12-02 10:50] LABS: ANISOCYTOSIS 2+; MACROCYTOSIS 0
[2022-12-02] MEDS: HYDROCORTISONE SOD SUCCINATE 100 MG/2 ML VIAL IVPB SCH ×2 (11:08→21:57)
[2022-12-02] MEDS: lamoTRIgine 25 MG TABLET PO SCH ×2 (11:08→21:54)
[2022-12-02] MEDS: levETIRAcetam 500 MG/5 ML ORAL SOLUTION (UNIT-DOSE CUPS) GT SCH ×2 (11:08→21:57)
[2022-12-02] MEDS: PANTOPRAZOLE SOD 40 MG SUSPENSION PACKET PO SCH (11:09)
[2022-12-02] MEDS: ENOXAPARIN NA (PORCINE) 40 MG/0.4 ML DISP.SYRIN SQ SCH (11:09)
[2022-12-02] MEDS: LACTULOSE 20 GM/30 ML UDC (FOR ORAL USE ONLY) PO SCH ×2 (11:10→21:57)
[2022-12-03] MEDS: PIPERACILLIN/TAZOB 3.375 GM 3.375 GM in DEXTROSE 5%-WATER - 50 ML IVPB SCH ×3 (01:59→18:07)
[2022-12-03] MEDS: ALBUTEROL SO4 2.5/IPRATROPIUM 0.5 INH SOL 3 ML VIAL.NEB. NEB SCH ×4 (07:53→20:28)
[2022-12-03 08:23] LABS: HEMOGLOBIN 10.3 GM/dL (11.7-16.9); MCH 31.1 pg (25.7-33.7); MCHC 33.1 g/dl (32.0-35.9); MEAN CELL VOLUME 93.9 fl (80-96); MEAN PLT VOLUME 10.3 fl (7.5-11.1); PLATELET COUNT 117 10^3/uL (134-434); RBC 3.31 M/mm3 (4.00-5.60); RDW 16.4 % (11.9-15.9); WHITE BLOOD COUNT 5.3 K/mm3 (4.0-10.0)
[2022-12-03 09:02] LABS: CALCIUM 8.4 mg/dL (8.5-10.1)
[2022-12-03 09:03] LABS: ALBUMIN 2.4 g/dl (3.4-5.0); BLOOD UREA NITROGEN 16.1 mg/dL (7-18); MAGNESIUM 1.9 mg/dL (1.8-2.4)
[2022-12-03 09:05] LABS: BILIRUBIN,TOTAL 0.4 mg/dL (0.2-1); PHOSPHOROUS 3.1 mg/dL (2.5-4.9)
[2022-12-03 09:06] LABS: CREATININE 0.5 mg/dL (0.55-1.3); TOT PROT 5.5 g/dl (6.4-8.2)
[2022-12-03] MEDS: ENOXAPARIN NA (PORCINE) 40 MG/0.4 ML DISP.SYRIN SQ SCH (09:37)
[2022-12-03] MEDS: lamoTRIgine 25 MG TABLET PO SCH ×2 (09:38→21:01)
[2022-12-03] MEDS: LACTULOSE 20 GM/30 ML UDC (FOR ORAL USE ONLY) PO SCH ×2 (09:38→21:00)
[2022-12-03] MEDS: PANTOPRAZOLE SOD 40 MG SUSPENSION PACKET PO SCH (09:38)
[2022-12-03] MEDS: HYDROCORTISONE SOD SUCCINATE 100 MG/2 ML VIAL IVPB SCH ×2 (09:38→21:00)
[2022-12-03] MEDS: levETIRAcetam 500 MG/5 ML ORAL SOLUTION (UNIT-DOSE CUPS) GT SCH ×2 (09:39→21:00)
[2022-12-03] MEDS: POTASSIUM CHLORIDE ORAL LIQUID 20 MEQ/15 ML GT SCH ×2 (10:09→21:00)
[2022-12-03] MEDS: ACETAMINOPHEN 650 MG/20.3 ML ORAL SOLUTION (CUPS) GT PRN ×2 (10:11→16:35)
[2022-12-03 22:20] VITALS: BMI 33.0
[2022-12-04] MEDS ORDERED: TUBE FEED DECLOGGING SOLUTION 12,000 UNITS GT ONE ×2 (00:01→21:34)
[2022-12-04] MEDS: PIPERACILLIN/TAZOB 3.375 GM 3.375 GM in DEXTROSE 5%-WATER - 50 ML IVPB SCH ×3 (01:10→17:25)
[2022-12-04] MEDS ORDERED: D5-NS + 20 MEQ KCL - 20 MEQ/1,000 ML INFUS.BAG IV SCH (02:00)
[2022-12-04] MEDS: ALBUTEROL SO4 2.5/IPRATROPIUM 0.5 INH SOL 3 ML VIAL.NEB. NEB SCH ×4 (07:20→20:20)
[2022-12-04 08:25] LABS: HEMATOCRIT 30.2 % (35.4-49); HEMOGLOBIN 10.1 GM/dL (11.7-16.9); MCH 31.6 pg (25.7-33.7); MCHC 33.6 g/dl (32.0-35.9); MEAN CELL VOLUME 94.1 fl (80-96); PLATELET COUNT 122 10^3/uL (134-434); RBC 3.21 M/mm3 (4.00-5.60); RDW 16.4 % (11.9-15.9); WHITE BLOOD COUNT 5.5 K/mm3 (4.0-10.0)
[2022-12-04 08:26] LABS: MEAN PLT VOLUME 10.2 fl (7.5-11.1)
[2022-12-04 08:38] LABS: ALBUMIN 2.4 g/dl (3.4-5.0); BLOOD UREA NITROGEN 14.9 mg/dL (7-18); MAGNESIUM 1.9 mg/dL (1.8-2.4)
[2022-12-04 08:41] LABS: CREATININE 0.4 mg/dL (0.55-1.3)
[2022-12-04 08:42] LABS: BILIRUBIN,TOTAL 0.3 mg/dL (0.2-1); TOT PROT 5.3 g/dl (6.4-8.2)
[2022-12-04] MEDS: HYDROCORTISONE SOD SUCCINATE 100 MG/2 ML VIAL IVPB SCH ×2 (09:27→22:40)
[2022-12-04] MEDS: ENOXAPARIN NA (PORCINE) 40 MG/0.4 ML DISP.SYRIN SQ SCH (09:28)
[2022-12-04 10:54] LABS: ANISOCYTOSIS 0; HELMET CELLS 0; HOWELL-JOLLY BODIES 0; MACROCYTOSIS 0; OVALOCYTE 0; ROULEAU 0; SICKELED CELLS 0; TARGET CELLS 0; TEAR DROP CELLS 0; TOXIC GRANULATION 0
[2022-12-04] MEDS ORDERED: ACETAMINOPHEN 1000 MG/100 ML BAG IVPB PRN (11:36)
[2022-12-04] MEDS ORDERED: LORazepam 2 MG/ML SDV VIAL IVPUSH PRN (11:37)
[2022-12-04] MEDS: levETIRAcetam 500 MG/5 ML INJECTION VIAL IVPB SCH ×2 (14:08→21:27)
[2022-12-04] MEDS: lamoTRIgine 25 MG TABLET PO SCH ×2 (14:11→22:41)
[2022-12-04] MEDS: AMINO ACIDS/PROTEIN HYDROLYS 30 ML LIQUID.PKT PO SCH (14:11)
[2022-12-04] MEDS: LACTULOSE 20 GM/30 ML UDC (FOR ORAL USE ONLY) PO SCH ×2 (14:11→22:41)
[2022-12-04] MEDS: POTASSIUM CHLORIDE ORAL LIQUID 20 MEQ/15 ML GT SCH ×2 (14:11→22:41)
[2022-12-04] MEDS: levETIRAcetam 500 MG/5 ML ORAL SOLUTION (UNIT-DOSE CUPS) GT SCH (14:12)
[2022-12-04] MEDS: PANTOPRAZOLE SOD 40 MG SUSPENSION PACKET PO SCH (14:12)
[2022-12-05] MEDS: PIPERACILLIN/TAZOB 3.375 GM 3.375 GM in DEXTROSE 5%-WATER - 50 ML IVPB SCH ×3 (01:52→17:01)
[2022-12-05] MEDS: ALBUTEROL SO4 2.5/IPRATROPIUM 0.5 INH SOL 3 ML VIAL.NEB. NEB SCH ×4 (07:55→20:35)
[2022-12-05] MEDS ORDERED: PANTOPRAZOLE SOD 40 MG SUSPENSION PACKET PO SCH (10:00)
[2022-12-05] MEDS: HYDROCORTISONE SOD SUCCINATE 100 MG/2 ML VIAL IVPB SCH ×2 (10:15→23:34)
[2022-12-05] MEDS: ENOXAPARIN NA (PORCINE) 40 MG/0.4 ML DISP.SYRIN SQ SCH (10:20)
[2022-12-05] MEDS: levETIRAcetam 500 MG/5 ML INJECTION VIAL IVPB SCH ×2 (10:20→22:54)
[2022-12-05] MEDS: LACTULOSE 20 GM/30 ML UDC (FOR ORAL USE ONLY) PO SCH ×2 (11:29→22:56)
[2022-12-05] MEDS: POTASSIUM CHLORIDE ORAL LIQUID 20 MEQ/15 ML GT SCH ×2 (11:30→22:54)
[2022-12-05] MEDS: lamoTRIgine 25 MG TABLET PO SCH ×2 (11:30→22:55)
[2022-12-05] MEDS: AMINO ACIDS/PROTEIN HYDROLYS 30 ML LIQUID.PKT PO SCH (11:30)
[2022-12-06] MEDS: PIPERACILLIN/TAZOB 3.375 GM 3.375 GM in DEXTROSE 5%-WATER - 50 ML IVPB SCH ×3 (02:44→18:30)
[2022-12-06 09:12] LABS: HEMATOCRIT 31.8 % (35.4-49); HEMOGLOBIN 10.8 GM/dL (11.7-16.9); MCHC 33.9 g/dl (32.0-35.9); MEAN CELL VOLUME 94.5 fl (80-96); MEAN PLT VOLUME 9.8 fl (7.5-11.1); PLATELET COUNT 142 10^3/uL (134-434); RBC 3.36 M/mm3 (4.00-5.60); RDW 16.7 % (11.9-15.9); WHITE BLOOD COUNT 6.6 K/mm3 (4.0-10.0)
[2022-12-06] MEDS ORDERED: POTASSIUM CHLORIDE ORAL LIQUID 20 MEQ/15 ML GT SCH ×2 (09:27→14:00)
[2022-12-06] MEDS: ALBUTEROL SO4 2.5/IPRATROPIUM 0.5 INH SOL 3 ML VIAL.NEB. NEB SCH ×4 (09:29→20:00)
[2022-12-06 09:35] LABS: ALBUMIN 2.6 g/dl (3.4-5.0); CALCIUM 8.5 mg/dL (8.5-10.1)
[2022-12-06 09:36] LABS: BLOOD UREA NITROGEN 8.3 mg/dL (7-18); MAGNESIUM 1.8 mg/dL (1.8-2.4)
[2022-12-06 09:39] LABS: CREATININE 0.5 mg/dL (0.55-1.3); PHOSPHOROUS 2.9 mg/dL (2.5-4.9)
[2022-12-06 09:40] LABS: BILIRUBIN,TOTAL 0.4 mg/dL (0.2-1)
[2022-12-06 09:41] LABS: TOT PROT 5.8 g/dl (6.4-8.2)
[2022-12-06] MEDS ORDERED: POTASSIUM CHLORIDE ORAL LIQUID 20 MEQ/15 ML PO ONE (09:45)
[2022-12-06 10:10] LABS: ANISOCYTOSIS 2+; MACROCYTOSIS 0; PLATELET ESTIMATE DECREASED
[2022-12-06] MEDS: LACTULOSE 20 GM/30 ML UDC (FOR ORAL USE ONLY) PO SCH ×2 (10:59→22:27)
[2022-12-06] MEDS: AMINO ACIDS/PROTEIN HYDROLYS 30 ML LIQUID.PKT PO SCH (11:02)
[2022-12-06] MEDS: ENOXAPARIN NA (PORCINE) 40 MG/0.4 ML DISP.SYRIN SQ SCH (11:02)
[2022-12-06] MEDS: levETIRAcetam 500 MG/5 ML INJECTION VIAL IVPB SCH ×2 (11:02→22:42)
[2022-12-06] MEDS: HYDROCORTISONE SOD SUCCINATE 100 MG/2 ML VIAL IVPB SCH ×2 (11:02→22:27)
[2022-12-06] MEDS: lamoTRIgine 25 MG TABLET PO SCH ×2 (11:04→22:26)
[2022-12-06] MEDS ORDERED: diazePAM RECTAL GEL 10 MG KIT (PRE-CALIBRATED) RC PRN (15:04)
[2022-12-06] MEDS ORDERED: LORazepam 2 MG/ML SDV VIAL IVPUSH PRN (15:04)
[2022-12-06] MEDS: POTASSIUM CHLORIDE ORAL LIQUID 20 MEQ/15 ML GT SCH (22:26)
[2022-12-07] MEDS: PIPERACILLIN/TAZOB 3.375 GM 3.375 GM in DEXTROSE 5%-WATER - 50 ML IVPB SCH (02:52)
[2022-12-07] MEDS: ALBUTEROL SO4 2.5/IPRATROPIUM 0.5 INH SOL 3 ML VIAL.NEB. NEB SCH ×4 (08:11→20:05)
[2022-12-07 08:51] LABS: BASO % 0.7 % (0-2.0); EOS % 0.4 % (0-4.5); HEMATOCRIT 34.6 % (35.4-49); HEMOGLOBIN 11.6 GM/dL (11.7-16.9); LYMPH % 31.8 % (8-40); MCH 31.9 pg (25.7-33.7); MCHC 33.5 g/dl (32.0-35.9); MEAN CELL VOLUME 95.2 fl (80-96); MEAN PLT VOLUME 10.2 fl (7.5-11.1); MONO % 5.4 % (3.8-10.2); NEUT % 61.7 % (42.8-82.8); PLATELET COUNT 111 10^3/uL (134-434); RBC 3.64 M/mm3 (4.00-5.60); RDW 16.1 % (11.9-15.9); WHITE BLOOD COUNT 6.8 K/mm3 (4.0-10.0)
[2022-12-07 09:09] LABS: ALBUMIN 2.6 g/dl (3.4-5.0); BLOOD UREA NITROGEN 7.9 mg/dL (7-18); CALCIUM 8.8 mg/dL (8.5-10.1); MAGNESIUM 1.8 mg/dL (1.8-2.4)
[2022-12-07 09:12] LABS: CREATININE 0.5 mg/dL (0.55-1.3)
[2022-12-07 09:14] LABS: BILIRUBIN,TOTAL 0.4 mg/dL (0.2-1); TOT PROT 5.9 g/dl (6.4-8.2)
[2022-12-07] MEDS ORDERED: AMOX TR/POT CLAV 875MG/125MG TABLETS (FP) PO SCH (09:45)
[2022-12-07] MEDS: ENOXAPARIN NA (PORCINE) 40 MG/0.4 ML DISP.SYRIN SQ SCH (11:03)
[2022-12-07] MEDS: POTASSIUM CHLORIDE ORAL LIQUID 20 MEQ/15 ML GT SCH ×2 (11:03→21:49)
[2022-12-07] MEDS: LACTULOSE 20 GM/30 ML UDC (FOR ORAL USE ONLY) PO SCH ×2 (11:04→21:50)
[2022-12-07] MEDS: levETIRAcetam 500 MG/5 ML INJECTION VIAL IVPB SCH ×2 (11:04→21:52)
[2022-12-07] MEDS: lamoTRIgine 25 MG TABLET PO SCH ×2 (11:05→21:50)
[2022-12-07] MEDS: AMINO ACIDS/PROTEIN HYDROLYS 30 ML LIQUID.PKT PO SCH (11:06)
[2022-12-07] MEDS: HYDROCORTISONE SOD SUCCINATE 100 MG/2 ML VIAL IVPB SCH (11:08)
[2022-12-07] MEDS: AMOX TR/POTASSIUM CLAVULANATE 400 MG/5 ML BOTTLE PO SCH (17:58)
[2022-12-08] MEDS: ALBUTEROL SO4 2.5/IPRATROPIUM 0.5 INH SOL 3 ML VIAL.NEB. NEB SCH ×2 (07:42→11:12)
[2022-12-08] MEDS ORDERED: HYDROCORTISONE SOD SUCCINATE 100 MG/2 ML VIAL IVPB SCH (10:00)
[2022-12-08] MEDS: POTASSIUM CHLORIDE ORAL LIQUID 20 MEQ/15 ML GT SCH (10:09)
[2022-12-08] MEDS: AMOX TR/POTASSIUM CLAVULANATE 400 MG/5 ML BOTTLE PO SCH (10:09)
[2022-12-08] MEDS: levETIRAcetam 500 MG/5 ML INJECTION VIAL IVPB SCH (10:10)
[2022-12-08] MEDS: AMINO ACIDS/PROTEIN HYDROLYS 30 ML LIQUID.PKT PO SCH (10:10)
[2022-12-08] MEDS: LACTULOSE 20 GM/30 ML UDC (FOR ORAL USE ONLY) PO SCH (10:11)
[2022-12-08] MEDS: lamoTRIgine 25 MG TABLET PO SCH (10:25)
[2022-12-08] MEDS: ENOXAPARIN NA (PORCINE) 40 MG/0.4 ML DISP.SYRIN SQ SCH (10:26)
[2022-12-08 13:06] VITALS: BP 121/76; PULSE 68; RESP 18; TEMP 97.9
== END 2022-12-08 14:36 | DRG 720 ==
LOC: JER 18:56 → JERBED 11-28 00:46 → J4S 11-28 21:40 → J8W 12-06 14:27
PROVIDERS: ADMIT Internal Medicine; ATTEND Nurse Practitioner Acute Care
PROC: 0D20XUZ Change Feeding Device in Upper Intestinal Tract, External Approach (ICD-10-PCS; principal; 2022-12-05)
DX: A41.9 Sepsis, unspecified organism (principal); J69.0 Pneumonitis due to inhalation of food and vomit; D70.9 Neutropenia, unspecified; J96.01 Acute respiratory failure with hypoxia; K94.23 Gastrostomy malfunction; R53.2 Functional quadriplegia; E87.20 Acidosis, unspecified; J96.02 Acute respiratory failure with hypercapnia; E27.40 Unspecified adrenocortical insufficiency; F73 Profound intellectual disabilities; R56.9 Unspecified convulsions; G80.9 Cerebral palsy, unspecified; K76.0 Fatty (change of) liver, not elsewhere classified; R65.20 Severe sepsis without septic shock; E87.0 Hyperosmolality and hypernatremia
CPT/HCPCS: 0241U-QW; 36415; 36600; 71045-TC-FY; 71250-TC; 74018-TC-FY; 80048; 80053; 80061; 80177; 81003; 82803; 83036; 83605; 83735; 83880; 84100; 84484; 85025; 85027; 86850; 86900; 86901; 87040; 87086; 87899; 93005; 93010; 93306-TC; 94640; 94761; 99285-25; C9803-CS; J1100; U0003; U0005

== ENCOUNTER 2023-04-19 15:05 | Inpatient (IN) | payer OTHER ==
[2023-04-19] MEDS ORDERED: PIPERACILLIN/TAZOB 4.5 GM 4.5 GM in DEXTROSE 5%-WATER 100 ML IVPB ONE (15:43)
[2023-04-19] MEDS ORDERED: VANCOMYCIN 1 GM in D5W (PRE-DOCKED) 1,000 MG/250 ML (RESTRICTED TO ID ONLY IVPB ONE (15:43)
[2023-04-19] MEDS ORDERED: PIPERACILLIN/TAZOB 4.5 GM 4.5 GM/100 ML BAG IVPB ONE (16:27)
[2023-04-19] MEDS ORDERED: VANCOMYCIN/WATER FOR INJ (PEG) 1,000 MG/200 ML BAG IVPB ONE (16:28)
[2023-04-19 17:11] LABS: VENOUS BASE EXCESS -7.5 mmol/L (-2-2); VENOUS O2 SATURATION 45.1 % (70-80); VENOUS PCO2 60.4 mmHg (38-52)
[2023-04-19] MEDS ORDERED: NOREPINEPHRINE BITARTRATE/D5W 8 MG/250 ML BAG IVPB ONE (17:13)
[2023-04-19 17:17] LABS: VENOUS PH 7.171 (7.310-7.410)
[2023-04-19 17:34] LABS: HEMOGLOBIN 12.3 GM/dL (11.7-16.9); MCH 30.2 pg (25.7-33.7); MCHC 31.5 g/dl (32.0-35.9); MEAN CELL VOLUME 95.9 fl (80-96); MEAN PLT VOLUME 12.1 fl (7.5-11.1); PLATELET COUNT 128 10^3/uL (134-434); RBC 4.07 M/mm3 (4.00-5.60); RDW 16.3 % (11.9-15.9); WHITE BLOOD COUNT 7.3 K/mm3 (4.0-10.0)
[2023-04-19 17:45] LABS: INR 0.99 (0.83-1.09); PROTHROMBIN TIME (PATIENT) 11.5 SEC (9.7-13.0)
[2023-04-19 17:48] LABS: ACTIVATED PTT 41.5 SECONDS (25.2-36.5)
[2023-04-19 17:51] LABS: POTASSIUM 3.7 mmol/L (3.5-5.1)
[2023-04-19 17:52] LABS: BLOOD UREA NITROGEN 32.6 mg/dL (7-18)
[2023-04-19 17:53] LABS: ALBUMIN 2.8 g/dl (3.4-5.0); CALCIUM 10.6 mg/dL (8.5-10.1)
[2023-04-19 17:57] LABS: CREATININE 2.3 mg/dL (0.55-1.3)
[2023-04-19 17:58] LABS: BILIRUBIN,TOTAL 0.4 mg/dL (0.2-1); TOT PROT 6.6 g/dl (6.4-8.2)
[2023-04-19] MEDS ORDERED: HYDROCORTISONE SOD SUCCINATE 100 MG/2 ML VIAL IVPUSH ONE (18:09)
[2023-04-19] MEDS ORDERED: NOREPINEPHRINE BITARTRATE 4,000 MCG in DEXTROSE 5%-WATER - 496 ML IV SCH (18:15)
[2023-04-19] MEDS ORDERED: VASOPRESSIN 40 UNITS/100 ML BAG IV SCH (18:15)
[2023-04-19] MEDS ORDERED: VASOPRESSIN 20 UNITS/ML VIAL IV ONE (18:19)
[2023-04-19] MEDS ORDERED: HYDROCORTISONE SOD SUCCINATE 100 MG/2 ML VIAL ONE (18:19)
[2023-04-19] MEDS ORDERED: KETAMINE HCL 200 MG/20 ML VIAL IVPUSH ONE (18:29)
[2023-04-19] MEDS ORDERED: ROCURONIUM BROMIDE 50 MG/5 ML VIAL IV ONE (18:29)
[2023-04-19] MEDS ORDERED: ROCURONIUM BROMIDE 50 MG/5 ML SYRINGE ONE (18:41)
[2023-04-19] MEDS ORDERED: KETAMINE HCL 200 MG/20 ML VIAL ONE (18:41)
[2023-04-19] MEDS: NOREPINEPHRINE 0.9 % NACL 8 MG/250 ML BAG IVPB SCH (19:06)
[2023-04-19] MEDS ORDERED: MIDAZOLAM IN 0.9 % SOD.CHLORID 1 MG/1 ML PLAST..BAG ONE (19:22)
[2023-04-19] MEDS: MIDAZOLAM IN 0.9 % SOD.CHLORID 100 MG/100 ML PLAST..BAG IVPB SCH (19:30)
[2023-04-19 19:41] LABS: LACTIC ACID 10.9 mmol/L (0.4-2.0)
[2023-04-19 20:15] LABS: PH,URINE 6.5 (5.0-8.0); URINE APPEARANCE CLEAR; URINE BILIRUBIN NEGATIVE (NEGATIVE); URINE COLOR YELLOW; URINE GLUCOSE (UA) NEGATIVE (NEGATIVE); URINE KETONE NEGATIVE (NEGATIVE); URINE LEUK ESTERASE NEGATIVE (NEGATIVE); URINE NITRITE NEGATIVE (NEGATIVE); URINE PROTEIN TRACE (NEGATIVE); URINE UROBILINOGEN 0.2 mg/dL (0.2-1.0)
[2023-04-19] MEDS ORDERED: LACTATED RINGERS SOLUTION 1,000 ML/1,000 ML INFUS.BAG IV STA ×2 (20:36→22:27)
[2023-04-19] MEDS ORDERED: LACTATED RINGERS SOLUTION 1,000 ML/1,000 ML INFUS.BAG IV SCH (20:45)
[2023-04-19] MEDS: MUPIROCIN 2% TOPICAL OINTMENT FOR DECOLONIZATION NS SCH (22:04)
[2023-04-19] MEDS: CHLORHEXIDINE GLUCONATE 4% CLEANSER FOR DECOLONIZATION TP SCH (22:05)
[2023-04-19 22:21] LABS: LACTIC ACID 8.3 mmol/L (0.4-2.0)
[2023-04-20] MEDS ORDERED: CALCIUM GLUC IN NACL, ISO-OSM 1 GM/50 ML BAG IVPB ONE (00:41)
[2023-04-20] MEDS ORDERED: KCL 20 MEQ PREMIX BAG 100 ML IVPB ONE (00:41)
[2023-04-20] MEDS ORDERED: MAGNESIUM 2GM/50ML STERILE WATER IVPB IVPB ONE (00:41)
[2023-04-20] MEDS: NOREPINEPHRINE 0.9 % NACL 8 MG/250 ML BAG IVPB SCH ×2 (01:00→04:35)
[2023-04-20] MEDS: PIPERACILLIN/TAZOB 3.375 GM 3.375 GM in DEXTROSE 5%-WATER - 50 ML IVPB SCH ×2 (01:01→10:22)
[2023-04-20] MEDS ORDERED: PIPERACILLIN/TAZOB 3.375 GM 3.375 GM in DEXTROSE 5%-WATER - 50 ML IVPB SCH (02:00)
[2023-04-20] MEDS ORDERED: HYDROCORTISONE SOD SUCCINATE 100 MG/2 ML VIAL IVPB ONE (05:29)
[2023-04-20 06:30] LABS: ARTERIAL BLD GAS O2 SATURATION 97.6 % (95-98); ARTERIAL BLOOD GAS BASE EXCESS 0 mmol/L (-2-2); ARTERIAL BLOOD GAS PO2 96.3 mmHg (80-100); ARTERIAL BLOOD GAS pH 7.438 (7.350-7.450)
[2023-04-20 06:31] LABS: ALLENS TEST POSITIVE
[2023-04-20 06:32] LABS: VENT MODE AC; VENT RATE 12
[2023-04-20 07:27] LABS: VENOUS BASE EXCESS -2.1 mmol/L (-2-2); VENOUS O2 SATURATION 58.1 % (70-80); VENOUS PCO2 44.2 mmHg (38-52); VENOUS PH 7.346 (7.310-7.410)
[2023-04-20 07:33] LABS: HEMOGLOBIN 11.8 GM/dL (11.7-16.9); MCH 29.9 pg (25.7-33.7); MCHC 32.1 g/dl (32.0-35.9); MEAN CELL VOLUME 93.1 fl (80-96); MEAN PLT VOLUME 10.9 fl (7.5-11.1); PLATELET COUNT 107 10^3/uL (134-434); RBC 3.97 M/mm3 (4.00-5.60); RDW 16.1 % (11.9-15.9); WHITE BLOOD COUNT 8.1 K/mm3 (4.0-10.0)
[2023-04-20 07:54] LABS: CHLORIDE 97 mmol/L (98-107); SODIUM 135 mmol/L (136-145)
[2023-04-20 08:00] LABS: ALBUMIN 2.5 g/dl (3.4-5.0); BLOOD UREA NITROGEN 32.8 mg/dL (7-18); CALCIUM 9.2 mg/dL (8.5-10.1); CO2 26 mmol/L (21-32); GLUCOSE,RANDOM 137 mg/dL (74-106); MAGNESIUM 4.1 mg/dL (1.8-2.4)
[2023-04-20 08:03] LABS: CREATININE 1.6 mg/dL (0.55-1.3); PHOSPHOROUS 3.5 mg/dL (2.5-4.9); SGOT/AST 135 U/L (15-37); SGPT/ALT 161 U/L (13-61)
[2023-04-20 08:05] LABS: TOT PROT 5.9 g/dl (6.4-8.2)
[2023-04-20 08:06] LABS: ALK PHOS 94 U/L (45-117)
[2023-04-20 08:24] LABS: LACTIC ACID 6.5 mmol/L (0.4-2.0)
[2023-04-20] MEDS ORDERED: diazePAM RECTAL GEL 10 MG KIT (PRE-CALIBRATED) RC PRN (08:33)
[2023-04-20 08:38] LABS: ANION GAP 12 MMOL/L (8-16); POTASSIUM 6.2 mmol/L (3.5-5.1)
[2023-04-20] MEDS ORDERED: DEXTROSE 5%-NORMAL SALINE 1,000 ML IV SCH (09:00)
[2023-04-20] MEDS ORDERED: FLUDROCORTISONE ACETATE 0.1 MG TABLET (FP) PEG SCH (10:00)
[2023-04-20] MEDS ORDERED: predniSONE 1 MG TABLET (FP) PO SCH (10:00)
[2023-04-20] MEDS ORDERED: DEXAMETHASONE SOD PHOSPHATE 4 MG/1 ML VIAL IVPUSH SCH (10:00)
[2023-04-20] MEDS: PANTOPRAZOLE SODIUM 40 MG VIAL IVPUSH SCH (10:01)
[2023-04-20] MEDS: levETIRAcetam 500 MG/5 ML INJECTION VIAL IVPB SCH ×2 (10:02→21:04)
[2023-04-20] MEDS: MUPIROCIN 2% TOPICAL OINTMENT FOR DECOLONIZATION NS SCH ×2 (10:03→21:05)
[2023-04-20 10:07] LABS: CHLORIDE 98 mmol/L (98-107); SODIUM 136 mmol/L (136-145)
[2023-04-20] MEDS: HEPARIN NA (PORCINE) 5,000 UNITS/ML 1ML VIAL SQ SCH ×3 (10:07→21:04)
[2023-04-20] MEDS: LACTULOSE 20 GM/30 ML UDC (FOR ORAL USE ONLY) PO SCH ×2 (10:07→21:04)
[2023-04-20 10:08] LABS: CALCIUM 9.1 mg/dL (8.5-10.1); CO2 27 mmol/L (21-32); GLUCOSE,RANDOM 135 mg/dL (74-106); MAGNESIUM 3.7 mg/dL (1.8-2.4)
[2023-04-20 10:09] LABS: BLOOD UREA NITROGEN 31.2 mg/dL (7-18)
[2023-04-20 10:11] LABS: ANION GAP 12 MMOL/L (8-16); CREATININE 1.6 mg/dL (0.55-1.3); POTASSIUM 6.1 mmol/L (3.5-5.1)
[2023-04-20] MEDS: BUDESONIDE 0.5 MG/2 ML INH SUSP VIAL NEB SCH ×2 (10:12→21:38)
[2023-04-20] MEDS ORDERED: SODIUM BICARBONATE 8.4% 50 MEQ/50 ML DISP.SYRIN IVPUSH ONE (10:17)
[2023-04-20] MEDS ORDERED: INSULIN REGULAR HUMAN 100 UNITS/ML *VIAL IVPUSH ONE (10:30)
[2023-04-20] MEDS ORDERED: DEXTROSE 50%-WATER 25 GM/50 ML DISP.SYRIN IVPUSH ONE (10:30)
[2023-04-20] MEDS: HYDROCORTISONE SOD SUCCINATE 100 MG/2 ML VIAL IVPB SCH ×3 (10:31→23:44)
[2023-04-20] MEDS: lamoTRIgine 25 MG TABLET GT SCH ×2 (10:31→21:04)
[2023-04-20 11:44] LABS: ANISOCYTOSIS 2+; MACROCYTOSIS 0; TEAR DROP CELLS 1+; TOXIC GRANULATION 2+
[2023-04-20] MEDS: ALBUTEROL SO4 2.5/IPRATROPIUM 0.5 INH SOL 3 ML VIAL.NEB. NEB SCH ×3 (11:45→21:39)
[2023-04-20] MEDS ORDERED: [UNRECOGNIZED DRUG - OTHER] GT SCH (14:00)
[2023-04-20] MEDS ORDERED: ALUMINUM HYDROX GT SCH (14:00)
[2023-04-20] MEDS ORDERED: ALGIN GT SCH (14:00)
[2023-04-20] MEDS ORDERED: MAG CARB GT SCH (14:00)
[2023-04-20] MEDS: MAG HYDROX/AL HYDROX/SIMETH 30 ML UNIT-DOSE CUP PO SCH ×2 (14:56→21:04)
[2023-04-20 16:02] LABS: CALCIUM 8.7 mg/dL (8.5-10.1)
[2023-04-20 16:03] LABS: BLOOD UREA NITROGEN 29.4 mg/dL (7-18)
[2023-04-20 16:06] LABS: CREATININE 1.3 mg/dL (0.55-1.3)
[2023-04-20] MEDS: PIPERACILLIN/TAZOB 2.25 GM 2.25 GM in DEXTROSE 5%-WATER - 50 ML IVPB SCH (17:39)
[2023-04-20] MEDS ORDERED: VANCOMYCIN 1 GM/200 ML PREMIX BAG (RESTRICTED TO ID ONLY) IVPB SCH (18:00)
[2023-04-20] MEDS ORDERED: VANCOMYCIN 1 GM/200 ML PREMIX BAG (RESTRICTED TO ID ONLY) IVPB ONE (18:00)
[2023-04-20] MEDS: CHLORHEXIDINE GLUCONATE 4% CLEANSER FOR DECOLONIZATION TP SCH (21:05)
[2023-04-21] MEDS: DEXAMETHASONE SOD PHOSPHATE 4 MG/1 ML VIAL IVPUSH SCH ×3 (00:16→22:01)
[2023-04-21] MEDS: PIPERACILLIN/TAZOB 2.25 GM 2.25 GM in DEXTROSE 5%-WATER - 50 ML IVPB SCH ×2 (02:00→11:46)
[2023-04-21] MEDS ORDERED: DEXAMETHASONE SOD PHOSPHATE 4 MG/1 ML VIAL IVPUSH SCH (02:00)
[2023-04-21] MEDS: MAG HYDROX/AL HYDROX/SIMETH 30 ML UNIT-DOSE CUP PO SCH ×3 (05:27→22:02)
[2023-04-21] MEDS: HEPARIN NA (PORCINE) 5,000 UNITS/ML 1ML VIAL SQ SCH (05:27)
[2023-04-21] MEDS: NOREPINEPHRINE 0.9 % NACL 8 MG/250 ML BAG IVPB SCH (05:27)
[2023-04-21 07:43] LABS: HEMATOCRIT 31.1 % (35.4-49); HEMOGLOBIN 10.2 GM/dL (11.7-16.9); MCH 30.3 pg (25.7-33.7); MCHC 32.9 g/dl (32.0-35.9); MEAN CELL VOLUME 92.2 fl (80-96); MEAN PLT VOLUME 11.5 fl (7.5-11.1); PLATELET COUNT 69 10^3/uL (134-434); RBC 3.37 M/mm3 (4.00-5.60); RDW 16.3 % (11.9-15.9); WHITE BLOOD COUNT 8.6 K/mm3 (4.0-10.0)
[2023-04-21 08:03] LABS: POTASSIUM 4.7 mmol/L (3.5-5.1)
[2023-04-21 08:11] LABS: ALBUMIN 2.2 g/dl (3.4-5.0); BLOOD UREA NITROGEN 22.7 mg/dL (7-18); CALCIUM 8.3 mg/dL (8.5-10.1); MAGNESIUM 2.7 mg/dL (1.8-2.4)
[2023-04-21 08:14] LABS: PHOSPHOROUS 1.9 mg/dL (2.5-4.9)
[2023-04-21 08:15] LABS: BILIRUBIN,TOTAL 0.7 mg/dL (0.2-1); CREATININE 0.9 mg/dL (0.55-1.3); LACTIC ACID 3.6 mmol/L (0.4-2.0); TOT PROT 5.4 g/dl (6.4-8.2)
[2023-04-21] MEDS: BUDESONIDE 0.5 MG/2 ML INH SUSP VIAL NEB SCH ×2 (08:32→20:28)
[2023-04-21] MEDS: ALBUTEROL SO4 2.5/IPRATROPIUM 0.5 INH SOL 3 ML VIAL.NEB. NEB SCH ×4 (08:33→20:34)
[2023-04-21] MEDS: MUPIROCIN 2% TOPICAL OINTMENT FOR DECOLONIZATION NS SCH ×2 (10:00→22:01)
[2023-04-21] MEDS: LACTULOSE 20 GM/30 ML UDC (FOR ORAL USE ONLY) PO SCH ×2 (10:00→22:01)
[2023-04-21 10:30] LABS: ANISOCYTOSIS 2+; MACROCYTOSIS 0; OVALOCYTE 2+
[2023-04-21] MEDS: lamoTRIgine 25 MG TABLET GT SCH ×2 (11:46→22:00)
[2023-04-21] MEDS: FLUDROCORTISONE ACETATE 0.1 MG TABLET (FP) PO SCH ×2 (11:46→22:01)
[2023-04-21] MEDS: PANTOPRAZOLE SODIUM 40 MG VIAL IVPUSH SCH (11:46)
[2023-04-21] MEDS: levETIRAcetam 500 MG/5 ML INJECTION VIAL IVPB SCH ×2 (11:47→22:01)
[2023-04-21] MEDS ORDERED: SODIUM CHLORIDE 1,000 ML IV SCH (16:00)
[2023-04-21] MEDS: MIDAZOLAM IN 0.9 % SOD.CHLORID 100 MG/100 ML PLAST..BAG IVPB SCH (19:00)
[2023-04-21] MEDS: CHLORHEXIDINE GLUCONATE 4% CLEANSER FOR DECOLONIZATION TP SCH (22:01)
[2023-04-22] MEDS: PIPERACILLIN/TAZOB 2.25 GM 2.25 GM in DEXTROSE 5%-WATER - 50 ML IVPB SCH ×4 (03:27→17:14)
[2023-04-22] MEDS: MIDAZOLAM IN 0.9 % SOD.CHLORID 100 MG/100 ML PLAST..BAG IVPB SCH ×2 (03:29→20:08)
[2023-04-22] MEDS: MAG HYDROX/AL HYDROX/SIMETH 30 ML UNIT-DOSE CUP PO SCH ×3 (06:40→21:38)
[2023-04-22] MEDS: ALBUTEROL SO4 2.5/IPRATROPIUM 0.5 INH SOL 3 ML VIAL.NEB. NEB SCH ×4 (07:50→20:30)
[2023-04-22] MEDS: BUDESONIDE 0.5 MG/2 ML INH SUSP VIAL NEB SCH ×2 (08:00→20:30)
[2023-04-22 08:30] LABS: HEMATOCRIT 30.5 % (35.4-49); HEMOGLOBIN 10.1 GM/dL (11.7-16.9); MCH 30.4 pg (25.7-33.7); MCHC 33.1 g/dl (32.0-35.9); MEAN CELL VOLUME 91.7 fl (80-96); MEAN PLT VOLUME 10.4 fl (7.5-11.1); PLATELET COUNT 62 10^3/uL (134-434); RBC 3.32 M/mm3 (4.00-5.60); RDW 16.5 % (11.9-15.9); WHITE BLOOD COUNT 11.2 K/mm3 (4.0-10.0)
[2023-04-22 08:48] LABS: CHLORIDE 111 mmol/L (98-107); POTASSIUM 3.8 mmol/L (3.5-5.1); SODIUM 149 mmol/L (136-145)
[2023-04-22 08:50] LABS: BLOOD UREA NITROGEN 17.7 mg/dL (7-18); CALCIUM 8.7 mg/dL (8.5-10.1)
[2023-04-22 08:51] LABS: ALBUMIN 2.3 g/dl (3.4-5.0); ANION GAP 6 MMOL/L (8-16); CO2 32 mmol/L (21-32); GLUCOSE,RANDOM 166 mg/dL (74-106); MAGNESIUM 2.8 mg/dL (1.8-2.4)
[2023-04-22 08:54] LABS: SGPT/ALT 401 U/L (13-61)
[2023-04-22 08:55] LABS: BILIRUBIN,TOTAL 0.4 mg/dL (0.2-1); CREATININE 0.6 mg/dL (0.55-1.3); SGOT/AST 176 U/L (15-37); TOT PROT 5.4 g/dl (6.4-8.2)
[2023-04-22 08:57] LABS: ALK PHOS 113 U/L (45-117)
[2023-04-22 08:58] LABS: PHOSPHOROUS 0.7 mg/dL (2.5-4.9)
[2023-04-22] MEDS: PANTOPRAZOLE SODIUM 40 MG VIAL IVPUSH SCH (09:16)
[2023-04-22] MEDS: lamoTRIgine 25 MG TABLET GT SCH ×2 (09:17→21:37)
[2023-04-22] MEDS: levETIRAcetam 500 MG/5 ML INJECTION VIAL IVPB SCH ×2 (09:17→21:37)
[2023-04-22] MEDS: FLUDROCORTISONE ACETATE 0.1 MG TABLET (FP) PO SCH ×2 (09:18→21:38)
[2023-04-22] MEDS: LACTULOSE 20 GM/30 ML UDC (FOR ORAL USE ONLY) PO SCH ×2 (09:18→21:38)
[2023-04-22] MEDS: DEXAMETHASONE SOD PHOSPHATE 4 MG/1 ML VIAL IVPUSH SCH ×2 (09:18→21:38)
[2023-04-22] MEDS: MUPIROCIN 2% TOPICAL OINTMENT FOR DECOLONIZATION NS SCH ×2 (09:19→21:39)
[2023-04-22 10:28] LABS: ANISOCYTOSIS 0; HELMET CELLS 0; HOWELL-JOLLY BODIES 0; MACROCYTOSIS 0; OVALOCYTE 0; ROULEAU 0; SICKELED CELLS 0; TARGET CELLS 0; TEAR DROP CELLS 0; TOXIC GRANULATION 0
[2023-04-22] MEDS ORDERED: POTASSIUM PHOSPHATE 30 MM in DEXTROSE 5%-WATER - 500 ML IVPB ONE (16:00)
[2023-04-22] MEDS: SODIUM CHLORIDE 0.45% 1,000 ML IV SCH (17:09)
[2023-04-22] MEDS: CHLORHEXIDINE GLUCONATE 4% CLEANSER FOR DECOLONIZATION TP SCH (21:37)
[2023-04-23] MEDS: PIPERACILLIN/TAZOB 2.25 GM 2.25 GM in DEXTROSE 5%-WATER - 50 ML IVPB SCH ×3 (01:40→17:05)
[2023-04-23] MEDS: MAG HYDROX/AL HYDROX/SIMETH 30 ML UNIT-DOSE CUP PO SCH ×3 (05:37→22:16)
[2023-04-23 07:39] LABS: BLOOD UREA NITROGEN 19.8 mg/dL (7-18); CALCIUM 8.2 mg/dL (8.5-10.1); MAGNESIUM 2.6 mg/dL (1.8-2.4)
[2023-04-23 07:43] LABS: CREATININE 0.7 mg/dL (0.55-1.3); PHOSPHOROUS 2.4 mg/dL (2.5-4.9)
[2023-04-23 07:59] LABS: HEMATOCRIT 28.9 % (35.4-49); HEMOGLOBIN 9.6 GM/dL (11.7-16.9); MCH 30.7 pg (25.7-33.7); MCHC 33.1 g/dl (32.0-35.9); MEAN PLT VOLUME 10.9 fl (7.5-11.1); PLATELET COUNT 80 10^3/uL (134-434); RBC 3.11 M/mm3 (4.00-5.60); RDW 16.4 % (11.9-15.9); WHITE BLOOD COUNT 9.8 K/mm3 (4.0-10.0)
[2023-04-23] MEDS: ALBUTEROL SO4 2.5/IPRATROPIUM 0.5 INH SOL 3 ML VIAL.NEB. NEB SCH ×4 (08:20→20:58)
[2023-04-23] MEDS: BUDESONIDE 0.5 MG/2 ML INH SUSP VIAL NEB SCH ×2 (08:21→20:58)
[2023-04-23] MEDS: MUPIROCIN 2% TOPICAL OINTMENT FOR DECOLONIZATION NS SCH ×2 (09:47→22:17)
[2023-04-23] MEDS: LACTULOSE 20 GM/30 ML UDC (FOR ORAL USE ONLY) PO SCH ×2 (09:47→22:16)
[2023-04-23] MEDS: PANTOPRAZOLE SODIUM 40 MG VIAL IVPUSH SCH (09:48)
[2023-04-23] MEDS: levETIRAcetam 500 MG/5 ML INJECTION VIAL IVPB SCH ×2 (09:50→22:16)
[2023-04-23] MEDS: DEXAMETHASONE SOD PHOSPHATE 4 MG/1 ML VIAL IVPUSH SCH ×2 (09:52→22:16)
[2023-04-23] MEDS: lamoTRIgine 25 MG TABLET GT SCH ×2 (09:53→22:16)
[2023-04-23] MEDS: FLUDROCORTISONE ACETATE 0.1 MG TABLET (FP) PO SCH ×2 (09:53→22:17)
[2023-04-23 10:09] LABS: ANISOCYTOSIS 0; HELMET CELLS 0; HOWELL-JOLLY BODIES 0; MACROCYTOSIS 0; OVALOCYTE 0; ROULEAU 0; SICKELED CELLS 0; TARGET CELLS 0; TEAR DROP CELLS 0; TOXIC GRANULATION 0
[2023-04-23] MEDS: MIDAZOLAM IN 0.9 % SOD.CHLORID 100 MG/100 ML PLAST..BAG IVPB SCH ×2 (13:24→22:54)
[2023-04-23] MEDS: SODIUM CHLORIDE 0.45% 1,000 ML IV SCH (13:25)
[2023-04-23 13:26] VITALS: BMI 30.7
[2023-04-23] MEDS: CHLORHEXIDINE GLUCONATE 4% CLEANSER FOR DECOLONIZATION TP SCH (22:17)
[2023-04-24] MEDS: PIPERACILLIN/TAZOB 2.25 GM 2.25 GM in DEXTROSE 5%-WATER - 50 ML IVPB SCH ×3 (01:29→17:21)
[2023-04-24] MEDS: MAG HYDROX/AL HYDROX/SIMETH 30 ML UNIT-DOSE CUP PO SCH ×3 (05:13→21:53)
[2023-04-24] MEDS: MIDAZOLAM IN 0.9 % SOD.CHLORID 100 MG/100 ML PLAST..BAG IVPB SCH ×2 (05:13→19:41)
[2023-04-24 07:16] LABS: HEMATOCRIT 30.4 % (35.4-49); MCH 30.8 pg (25.7-33.7); MCHC 33.1 g/dl (32.0-35.9); MEAN CELL VOLUME 93.2 fl (80-96); MEAN PLT VOLUME 10.2 fl (7.5-11.1); PLATELET COUNT 91 10^3/uL (134-434); RBC 3.26 M/mm3 (4.00-5.60); RDW 16.2 % (11.9-15.9); WHITE BLOOD COUNT 10.4 K/mm3 (4.0-10.0)
[2023-04-24 07:35] LABS: POTASSIUM 4.1 mmol/L (3.5-5.1)
[2023-04-24 07:44] LABS: ALBUMIN 2.1 g/dl (3.4-5.0); BLOOD UREA NITROGEN 20.6 mg/dL (7-18); CALCIUM 8.2 mg/dL (8.5-10.1); MAGNESIUM 2.8 mg/dL (1.8-2.4)
[2023-04-24 07:47] LABS: CREATININE 0.7 mg/dL (0.55-1.3); PHOSPHOROUS 1.8 mg/dL (2.5-4.9)
[2023-04-24] MEDS: ALBUTEROL SO4 2.5/IPRATROPIUM 0.5 INH SOL 3 ML VIAL.NEB. NEB SCH ×4 (07:47→20:35)
[2023-04-24] MEDS: BUDESONIDE 0.5 MG/2 ML INH SUSP VIAL NEB SCH ×2 (07:47→20:35)
[2023-04-24 07:49] LABS: BILIRUBIN,TOTAL 0.4 mg/dL (0.2-1); TOT PROT 5.2 g/dl (6.4-8.2)
[2023-04-24] MEDS: levETIRAcetam 500 MG/5 ML INJECTION VIAL IVPB SCH (09:17)
[2023-04-24] MEDS: DEXAMETHASONE SOD PHOSPHATE 4 MG/1 ML VIAL IVPUSH SCH ×2 (09:17→21:53)
[2023-04-24] MEDS: LACTULOSE 20 GM/30 ML UDC (FOR ORAL USE ONLY) PO SCH ×2 (09:18→21:53)
[2023-04-24] MEDS: PANTOPRAZOLE SODIUM 40 MG VIAL IVPUSH SCH (09:18)
[2023-04-24] MEDS: lamoTRIgine 25 MG TABLET GT SCH ×2 (09:18→21:54)
[2023-04-24] MEDS: FLUDROCORTISONE ACETATE 0.1 MG TABLET (FP) PO SCH ×2 (09:18→21:54)
[2023-04-24] MEDS: MUPIROCIN 2% TOPICAL OINTMENT FOR DECOLONIZATION NS SCH (09:18)
[2023-04-24] MEDS ORDERED: FUROSEMIDE 40 MG/4 ML INJECTABLE VIAL IVPUSH ONE (09:56)
[2023-04-24 11:00] LABS: ANISOCYTOSIS 2+; CORRECTED WBC 8.89 K/mm3; MACROCYTOSIS 0; OVALOCYTE 1+; TEAR DROP CELLS 1+
[2023-04-24] MEDS: NAPH,MB-DB/K PH,MBDB POWDER PACKET PO SCH ×2 (13:44→21:54)
[2023-04-24] MEDS: levETIRAcetam 500 MG/5 ML ORAL SOLUTION (UNIT-DOSE CUPS) GT SCH (21:54)
[2023-04-24] MEDS: CHLORHEXIDINE GLUCONATE 4% CLEANSER FOR DECOLONIZATION TP SCH (21:54)
[2023-04-25] MEDS: PIPERACILLIN/TAZOB 2.25 GM 2.25 GM in DEXTROSE 5%-WATER - 50 ML IVPB SCH ×3 (01:27→17:02)
[2023-04-25] MEDS: NAPH,MB-DB/K PH,MBDB POWDER PACKET PO SCH (05:27)
[2023-04-25] MEDS: MAG HYDROX/AL HYDROX/SIMETH 30 ML UNIT-DOSE CUP PO SCH ×3 (05:27→21:55)
[2023-04-25 07:49] LABS: HEMATOCRIT 30.7 % (35.4-49); HEMOGLOBIN 10.3 GM/dL (11.7-16.9); MCH 31.3 pg (25.7-33.7); MCHC 33.7 g/dl (32.0-35.9); MEAN CELL VOLUME 93.1 fl (80-96); MEAN PLT VOLUME 10.5 fl (7.5-11.1); PLATELET COUNT 120 10^3/uL (134-434); RBC 3.29 M/mm3 (4.00-5.60)
[2023-04-25 07:57] LABS: CALCIUM 8.3 mg/dL (8.5-10.1)
[2023-04-25 07:58] LABS: ALBUMIN 2.2 g/dl (3.4-5.0); BLOOD UREA NITROGEN 21.9 mg/dL (7-18); MAGNESIUM 2.6 mg/dL (1.8-2.4)
[2023-04-25 08:01] LABS: CREATININE 0.7 mg/dL (0.55-1.3); PHOSPHOROUS 2.5 mg/dL (2.5-4.9)
[2023-04-25 08:02] LABS: BILIRUBIN,TOTAL 0.3 mg/dL (0.2-1); TOT PROT 5.2 g/dl (6.4-8.2)
[2023-04-25] MEDS ORDERED: DEXAMETHASONE SOD PHOSPHATE 4 MG/1 ML VIAL IVPUSH SCH ×2 (08:15→08:16)
[2023-04-25] MEDS: ALBUTEROL SO4 2.5/IPRATROPIUM 0.5 INH SOL 3 ML VIAL.NEB. NEB SCH ×4 (08:40→20:30)
[2023-04-25] MEDS: BUDESONIDE 0.5 MG/2 ML INH SUSP VIAL NEB SCH ×2 (08:40→20:30)
[2023-04-25 09:31] LABS: ANISOCYTOSIS 1+; CORRECTED WBC 8.33 K/mm3; MACROCYTOSIS 1+
[2023-04-25] MEDS: PANTOPRAZOLE SODIUM 40 MG VIAL IVPUSH SCH (10:03)
[2023-04-25] MEDS: levETIRAcetam 500 MG/5 ML ORAL SOLUTION (UNIT-DOSE CUPS) GT SCH ×2 (10:03→21:55)
[2023-04-25] MEDS: ENOXAPARIN NA (PORCINE) 40 MG/0.4 ML DISP.SYRIN SQ SCH (10:03)
[2023-04-25] MEDS: lamoTRIgine 25 MG TABLET GT SCH ×2 (10:03→21:56)
[2023-04-25] MEDS: DEXAMETHASONE SOD PHOSPHATE 4 MG/1 ML VIAL IVPUSH SCH (10:04)
[2023-04-25] MEDS: LACTULOSE 20 GM/30 ML UDC (FOR ORAL USE ONLY) PO SCH ×2 (10:04→21:56)
[2023-04-25] MEDS ORDERED: FUROSEMIDE 40 MG/4 ML INJECTABLE VIAL IVPUSH ONE (10:15)
[2023-04-25] MEDS: INSULIN SLIDING SCALE (NOVOLOG) 1 VIAL SQ SCH ×2 (13:54→17:02)
[2023-04-25] MEDS ORDERED: SODIUM CHLORIDE 250 ML IV STA (14:17)
[2023-04-25] MEDS: CHLORHEXIDINE GLUCONATE 4% CLEANSER FOR DECOLONIZATION TP SCH (21:56)
[2023-04-26] MEDS: PIPERACILLIN/TAZOB 2.25 GM 2.25 GM in DEXTROSE 5%-WATER - 50 ML IVPB SCH ×3 (01:58→18:07)
[2023-04-26] MEDS: MAG HYDROX/AL HYDROX/SIMETH 30 ML UNIT-DOSE CUP PO SCH ×3 (05:56→21:25)
[2023-04-26] MEDS: INSULIN SLIDING SCALE (NOVOLOG) 1 VIAL SQ SCH ×3 (06:13→17:58)
[2023-04-26 07:11] LABS: HEMATOCRIT 31.1 % (35.4-49); HEMOGLOBIN 10.2 GM/dL (11.7-16.9); MCH 30.7 pg (25.7-33.7); MCHC 32.9 g/dl (32.0-35.9); MEAN CELL VOLUME 93.2 fl (80-96); MEAN PLT VOLUME 9.5 fl (7.5-11.1); PLATELET COUNT 156 10^3/uL (134-434); RBC 3.34 M/mm3 (4.00-5.60); RDW 15.8 % (11.9-15.9); WHITE BLOOD COUNT 13.5 K/mm3 (4.0-10.0)
[2023-04-26 07:26] LABS: POTASSIUM 3.2 mmol/L (3.5-5.1)
[2023-04-26 07:28] LABS: ALBUMIN 2.3 g/dl (3.4-5.0); BLOOD UREA NITROGEN 17.6 mg/dL (7-18); CALCIUM 8.8 mg/dL (8.5-10.1)
[2023-04-26 07:29] LABS: MAGNESIUM 2.2 mg/dL (1.8-2.4)
[2023-04-26 07:31] LABS: CREATININE 0.7 mg/dL (0.55-1.3)
[2023-04-26 07:33] LABS: BILIRUBIN,TOTAL 0.3 mg/dL (0.2-1); TOT PROT 5.2 g/dl (6.4-8.2)
[2023-04-26] MEDS ORDERED: POTASSIUM CHLORIDE ORAL LIQUID 20 MEQ/15 ML GT ONE (08:00)
[2023-04-26] MEDS: ALBUTEROL SO4 2.5/IPRATROPIUM 0.5 INH SOL 3 ML VIAL.NEB. NEB SCH ×4 (09:00→20:46)
[2023-04-26] MEDS: BUDESONIDE 0.5 MG/2 ML INH SUSP VIAL NEB SCH ×2 (09:00→20:45)
[2023-04-26] MEDS: lamoTRIgine 25 MG TABLET GT SCH ×2 (09:27→21:23)
[2023-04-26] MEDS: PANTOPRAZOLE SODIUM 40 MG VIAL IVPUSH SCH (09:27)
[2023-04-26] MEDS: levETIRAcetam 500 MG/5 ML ORAL SOLUTION (UNIT-DOSE CUPS) GT SCH ×2 (09:27→21:24)
[2023-04-26] MEDS: ENOXAPARIN NA (PORCINE) 40 MG/0.4 ML DISP.SYRIN SQ SCH (09:27)
[2023-04-26] MEDS: DEXAMETHASONE SOD PHOSPHATE 4 MG/1 ML VIAL IVPUSH SCH (09:28)
[2023-04-26] MEDS ORDERED: FUROSEMIDE 40 MG/4 ML INJECTABLE VIAL IVPUSH ONE (09:31)
[2023-04-26] MEDS ORDERED: SCOPOLAMINE HYDROBROMIDE 1 PATCH PATCH.TD72 TD SCH (09:45)
[2023-04-26 10:36] LABS: ANISOCYTOSIS 1+; MACROCYTOSIS 0
[2023-04-26] MEDS: CHLORHEXIDINE GLUCONATE 4% CLEANSER FOR DECOLONIZATION TP SCH (21:23)
[2023-04-27] MEDS: PIPERACILLIN/TAZOB 2.25 GM 2.25 GM in DEXTROSE 5%-WATER - 50 ML IVPB SCH ×2 (01:11→09:24)
[2023-04-27] MEDS: MAG HYDROX/AL HYDROX/SIMETH 30 ML UNIT-DOSE CUP PO SCH ×3 (05:50→21:18)
[2023-04-27] MEDS: INSULIN SLIDING SCALE (NOVOLOG) 1 VIAL SQ SCH ×3 (06:00→17:57)
[2023-04-27 07:21] LABS: POTASSIUM 3.7 mmol/L (3.5-5.1)
[2023-04-27 07:27] LABS: ALBUMIN 2.2 g/dl (3.4-5.0); CALCIUM 8.7 mg/dL (8.5-10.1)
[2023-04-27 07:28] LABS: BLOOD UREA NITROGEN 16.8 mg/dL (7-18)
[2023-04-27 07:30] LABS: CREATININE 0.7 mg/dL (0.55-1.3); PHOSPHOROUS 3.8 mg/dL (2.5-4.9)
[2023-04-27 07:32] LABS: BILIRUBIN,TOTAL 0.4 mg/dL (0.2-1); TOT PROT 5.1 g/dl (6.4-8.2)
[2023-04-27 07:42] LABS: HEMATOCRIT 30.3 % (35.4-49); MCH 30.3 pg (25.7-33.7); MCHC 32.9 g/dl (32.0-35.9); MEAN CELL VOLUME 91.9 fl (80-96); MEAN PLT VOLUME 8.7 fl (7.5-11.1); PLATELET COUNT 174 10^3/uL (134-434); RBC 3.29 M/mm3 (4.00-5.60); RDW 16.3 % (11.9-15.9); WHITE BLOOD COUNT 11.7 K/mm3 (4.0-10.0)
[2023-04-27] MEDS: ALBUTEROL SO4 2.5/IPRATROPIUM 0.5 INH SOL 3 ML VIAL.NEB. NEB SCH ×4 (07:50→20:05)
[2023-04-27] MEDS: BUDESONIDE 0.5 MG/2 ML INH SUSP VIAL NEB SCH ×2 (08:00→20:05)
[2023-04-27] MEDS: ENOXAPARIN NA (PORCINE) 40 MG/0.4 ML DISP.SYRIN SQ SCH (09:20)
[2023-04-27] MEDS: PANTOPRAZOLE SODIUM 40 MG VIAL IVPUSH SCH (09:21)
[2023-04-27] MEDS: lamoTRIgine 25 MG TABLET GT SCH ×2 (09:21→21:18)
[2023-04-27] MEDS: levETIRAcetam 500 MG/5 ML ORAL SOLUTION (UNIT-DOSE CUPS) GT SCH ×2 (09:21→21:18)
[2023-04-27] MEDS: DEXAMETHASONE SOD PHOSPHATE 4 MG/1 ML VIAL IVPUSH SCH (09:22)
[2023-04-27 10:31] LABS: ANISOCYTOSIS 1+; MACROCYTOSIS 0
[2023-04-27] MEDS ORDERED: SODIUM CHLORIDE 250 ML IV STA (16:10)
[2023-04-27] MEDS ORDERED: INSULIN (NOVOLOG) ASPART 100 UNITS/ML 10ML VIAL ONE (18:19)
[2023-04-27] MEDS: CHLORHEXIDINE GLUCONATE 4% CLEANSER FOR DECOLONIZATION TP SCH (21:18)
[2023-04-28] MEDS: MAG HYDROX/AL HYDROX/SIMETH 30 ML UNIT-DOSE CUP PO SCH ×2 (06:05→13:56)
[2023-04-28] MEDS: INSULIN SLIDING SCALE (NOVOLOG) 1 VIAL SQ SCH ×3 (06:05→18:09)
[2023-04-28 07:23] LABS: BASO % 0.2 % (0-2.0); EOS % 0.1 % (0-4.5); HEMATOCRIT 28.8 % (35.4-49); HEMOGLOBIN 9.8 GM/dL (11.7-16.9); LYMPH % 34.6 % (8-40); MCH 31.2 pg (25.7-33.7); MCHC 33.9 g/dl (32.0-35.9); MEAN PLT VOLUME 9.1 fl (7.5-11.1); MONO % 6.3 % (3.8-10.2); NEUT % 58.8 % (42.8-82.8); PLATELET COUNT 201 10^3/uL (134-434); RBC 3.13 M/mm3 (4.00-5.60); RDW 15.6 % (11.9-15.9); WHITE BLOOD COUNT 8.1 K/mm3 (4.0-10.0)
[2023-04-28 07:38] LABS: POTASSIUM 3.6 mmol/L (3.5-5.1)
[2023-04-28 07:44] LABS: ALBUMIN 2.1 g/dl (3.4-5.0); CALCIUM 8.7 mg/dL (8.5-10.1)
[2023-04-28 07:48] LABS: CREATININE 0.5 mg/dL (0.55-1.3)
[2023-04-28 07:49] LABS: BILIRUBIN,TOTAL 0.3 mg/dL (0.2-1); TOT PROT 4.9 g/dl (6.4-8.2)
[2023-04-28] MEDS: ALBUTEROL SO4 2.5/IPRATROPIUM 0.5 INH SOL 3 ML VIAL.NEB. NEB SCH ×4 (08:08→20:32)
[2023-04-28] MEDS: BUDESONIDE 0.5 MG/2 ML INH SUSP VIAL NEB SCH ×2 (08:09→20:24)
[2023-04-28] MEDS: lamoTRIgine 25 MG TABLET GT SCH ×2 (09:48→21:22)
[2023-04-28] MEDS: ENOXAPARIN NA (PORCINE) 40 MG/0.4 ML DISP.SYRIN SQ SCH (09:48)
[2023-04-28] MEDS: levETIRAcetam 500 MG/5 ML ORAL SOLUTION (UNIT-DOSE CUPS) GT SCH ×2 (09:49→21:22)
[2023-04-28] MEDS: PANTOPRAZOLE SODIUM 40 MG VIAL IVPUSH SCH (09:49)
[2023-04-28] MEDS: DEXAMETHASONE SOD PHOSPHATE 4 MG/1 ML VIAL IVPUSH SCH (09:49)
[2023-04-28] MEDS ORDERED: diazePAM RECTAL GEL 10 MG KIT (PRE-CALIBRATED) RC PRN (15:40)
[2023-04-28] MEDS: PIPERACILLIN/TAZOB 2.25 GM 2.25 GM in DEXTROSE 5%-WATER - 50 ML IVPB SCH (19:09)
[2023-04-28] MEDS: LACTULOSE 20 GM/30 ML UDC (FOR ORAL USE ONLY) GT SCH (21:23)
[2023-04-28] MEDS: MAG HYDROX/AL HYDROX/SIMETH 30 ML UNIT-DOSE CUP GT SCH (21:24)
[2023-04-28] MEDS ORDERED: CHLORHEXIDINE GLUCONATE 4% CLEANSER FOR DECOLONIZATION TP SCH (22:00)
[2023-04-29] MEDS: PIPERACILLIN/TAZOB 2.25 GM 2.25 GM in DEXTROSE 5%-WATER - 50 ML IVPB SCH ×2 (02:05→09:23)
[2023-04-29] MEDS: INSULIN SLIDING SCALE (NOVOLOG) 1 VIAL SQ SCH ×3 (06:20→16:40)
[2023-04-29] MEDS: MAG HYDROX/AL HYDROX/SIMETH 30 ML UNIT-DOSE CUP GT SCH ×3 (06:20→22:22)
[2023-04-29] MEDS: BUDESONIDE 0.5 MG/2 ML INH SUSP VIAL NEB SCH ×2 (07:30→20:13)
[2023-04-29] MEDS: ALBUTEROL SO4 2.5/IPRATROPIUM 0.5 INH SOL 3 ML VIAL.NEB. NEB SCH ×4 (07:35→20:24)
[2023-04-29] MEDS: LACTULOSE 20 GM/30 ML UDC (FOR ORAL USE ONLY) GT SCH ×2 (09:23→22:17)
[2023-04-29] MEDS: levETIRAcetam 500 MG/5 ML ORAL SOLUTION (UNIT-DOSE CUPS) GT SCH ×2 (09:23→22:18)
[2023-04-29] MEDS: PANTOPRAZOLE SODIUM 40 MG VIAL IVPUSH SCH (09:23)
[2023-04-29] MEDS: ENOXAPARIN NA (PORCINE) 40 MG/0.4 ML DISP.SYRIN SQ SCH (09:24)
[2023-04-29] MEDS: SCOPOLAMINE HYDROBROMIDE 1 PATCH PATCH.TD72 TD SCH (09:24)
[2023-04-29] MEDS: lamoTRIgine 25 MG TABLET GT SCH ×2 (09:24→22:19)
[2023-04-29] MEDS ORDERED: DEXAMETHASONE SOD PHOSPHATE 4 MG/1 ML VIAL IVPUSH SCH ×2 (10:00)
[2023-04-29] MEDS: predniSONE 5 MG/5 ML ORAL SOLN- UNIT-DOSE CUP GT SCH (13:09)
[2023-04-30] MEDS: MAG HYDROX/AL HYDROX/SIMETH 30 ML UNIT-DOSE CUP GT SCH ×3 (06:27→21:59)
[2023-04-30] MEDS: INSULIN SLIDING SCALE (NOVOLOG) 1 VIAL SQ SCH ×3 (06:27→17:58)
[2023-04-30] MEDS: ALBUTEROL SO4 2.5/IPRATROPIUM 0.5 INH SOL 3 ML VIAL.NEB. NEB SCH ×4 (07:21→20:10)
[2023-04-30] MEDS: BUDESONIDE 0.5 MG/2 ML INH SUSP VIAL NEB SCH ×2 (07:21→20:24)
[2023-04-30] MEDS: levETIRAcetam 500 MG/5 ML ORAL SOLUTION (UNIT-DOSE CUPS) GT SCH ×2 (10:01→21:59)
[2023-04-30] MEDS: LACTULOSE 20 GM/30 ML UDC (FOR ORAL USE ONLY) GT SCH ×2 (10:01→21:59)
[2023-04-30] MEDS: lamoTRIgine 25 MG TABLET GT SCH ×2 (10:01→21:59)
[2023-04-30] MEDS: PANTOPRAZOLE SODIUM 40 MG VIAL IVPUSH SCH (10:01)
[2023-04-30] MEDS: predniSONE 5 MG/5 ML ORAL SOLN- UNIT-DOSE CUP GT SCH (10:02)
[2023-04-30] MEDS: ENOXAPARIN NA (PORCINE) 40 MG/0.4 ML DISP.SYRIN SQ SCH (10:07)
[2023-04-30 11:29] LABS: BASO % 0.3 % (0-2.0); EOS % 0.3 % (0-4.5); HEMATOCRIT 31.5 % (35.4-49); HEMOGLOBIN 10.5 GM/dL (11.7-16.9); LYMPH % 40.8 % (8-40); MCH 30.4 pg (25.7-33.7); MCHC 33.1 g/dl (32.0-35.9); MEAN CELL VOLUME 91.6 fl (80-96); MEAN PLT VOLUME 9.5 fl (7.5-11.1); MONO % 9.2 % (3.8-10.2); NEUT % 49.4 % (42.8-82.8); PLATELET COUNT 267 10^3/uL (134-434); RBC 3.44 M/mm3 (4.00-5.60); RDW 15.8 % (11.9-15.9); WHITE BLOOD COUNT 7.4 K/mm3 (4.0-10.0)
[2023-04-30 11:36] LABS: POTASSIUM 3.5 mmol/L (3.5-5.1)
[2023-04-30 11:39] LABS: CALCIUM 9.1 mg/dL (8.5-10.1)
[2023-04-30 11:40] LABS: BLOOD UREA NITROGEN 10.5 mg/dL (7-18)
[2023-04-30 11:42] LABS: CREATININE 0.6 mg/dL (0.55-1.3)
[2023-04-30 11:43] LABS: BILIRUBIN,TOTAL 0.5 mg/dL (0.2-1)
[2023-04-30 11:44] LABS: TOT PROT 5.8 g/dl (6.4-8.2)
[2023-04-30 11:47] LABS: ALBUMIN 2.7 g/dl (3.4-5.0)
[2023-05-01] MEDS: INSULIN SLIDING SCALE (NOVOLOG) 1 VIAL SQ SCH ×3 (06:36→16:33)
[2023-05-01] MEDS: MAG HYDROX/AL HYDROX/SIMETH 30 ML UNIT-DOSE CUP GT SCH ×3 (06:36→22:52)
[2023-05-01] MEDS: BUDESONIDE 0.5 MG/2 ML INH SUSP VIAL NEB SCH ×2 (07:10→20:51)
[2023-05-01] MEDS: ALBUTEROL SO4 2.5/IPRATROPIUM 0.5 INH SOL 3 ML VIAL.NEB. NEB SCH ×4 (07:10→20:44)
[2023-05-01] MEDS: lamoTRIgine 25 MG TABLET GT SCH ×2 (09:30→22:52)
[2023-05-01] MEDS: PANTOPRAZOLE SODIUM 40 MG VIAL IVPUSH SCH (09:30)
[2023-05-01] MEDS: LACTULOSE 20 GM/30 ML UDC (FOR ORAL USE ONLY) GT SCH ×2 (09:30→22:52)
[2023-05-01] MEDS: levETIRAcetam 500 MG/5 ML ORAL SOLUTION (UNIT-DOSE CUPS) GT SCH ×2 (09:30→22:52)
[2023-05-01] MEDS: ENOXAPARIN NA (PORCINE) 40 MG/0.4 ML DISP.SYRIN SQ SCH (09:30)
[2023-05-01] MEDS: predniSONE 5 MG/5 ML ORAL SOLN- UNIT-DOSE CUP GT SCH (09:30)
[2023-05-02] MEDS: MAG HYDROX/AL HYDROX/SIMETH 30 ML UNIT-DOSE CUP GT SCH ×3 (06:19→22:15)
[2023-05-02] MEDS: INSULIN SLIDING SCALE (NOVOLOG) 1 VIAL SQ SCH ×3 (06:20→16:26)
[2023-05-02] MEDS: ALBUTEROL SO4 2.5/IPRATROPIUM 0.5 INH SOL 3 ML VIAL.NEB. NEB SCH ×4 (10:08→20:40)
[2023-05-02] MEDS: BUDESONIDE 0.5 MG/2 ML INH SUSP VIAL NEB SCH ×2 (10:08→20:45)
[2023-05-02] MEDS: lamoTRIgine 25 MG TABLET GT SCH ×2 (10:21→22:15)
[2023-05-02] MEDS: levETIRAcetam 500 MG/5 ML ORAL SOLUTION (UNIT-DOSE CUPS) GT SCH ×2 (10:22→22:15)
[2023-05-02] MEDS: PANTOPRAZOLE SODIUM 40 MG VIAL IVPUSH SCH (10:22)
[2023-05-02] MEDS: LACTULOSE 20 GM/30 ML UDC (FOR ORAL USE ONLY) GT SCH ×2 (10:22→22:14)
[2023-05-02] MEDS: predniSONE 5 MG/5 ML ORAL SOLN- UNIT-DOSE CUP GT SCH (10:23)
[2023-05-02] MEDS: SCOPOLAMINE HYDROBROMIDE 1 PATCH PATCH.TD72 TD SCH (10:23)
[2023-05-02] MEDS: ENOXAPARIN NA (PORCINE) 40 MG/0.4 ML DISP.SYRIN SQ SCH (10:23)
[2023-05-03] MEDS: MAG HYDROX/AL HYDROX/SIMETH 30 ML UNIT-DOSE CUP GT SCH ×2 (05:53→15:32)
[2023-05-03] MEDS: INSULIN SLIDING SCALE (NOVOLOG) 1 VIAL SQ SCH ×2 (06:06→12:02)
[2023-05-03] MEDS ORDERED: INSULIN (NOVOLOG) ASPART 100 UNITS/ML 10ML VIAL ONE (06:27)
[2023-05-03] MEDS ORDERED: INSULIN (LEVEMIR) 100 UNITS/ML UNITS SQ ONE (06:27)
[2023-05-03] MEDS: ALBUTEROL SO4 2.5/IPRATROPIUM 0.5 INH SOL 3 ML VIAL.NEB. NEB SCH ×2 (07:30→11:52)
[2023-05-03] MEDS: BUDESONIDE 0.5 MG/2 ML INH SUSP VIAL NEB SCH (07:30)
[2023-05-03] MEDS ORDERED: DEXAMETHASONE SOD PHOSPHATE 4 MG/1 ML VIAL IVPUSH SCH ×2 (10:00)
[2023-05-03] MEDS: levETIRAcetam 500 MG/5 ML ORAL SOLUTION (UNIT-DOSE CUPS) GT SCH (10:45)
[2023-05-03] MEDS: LACTULOSE 20 GM/30 ML UDC (FOR ORAL USE ONLY) GT SCH (10:46)
[2023-05-03] MEDS: predniSONE 5 MG/5 ML ORAL SOLN- UNIT-DOSE CUP GT SCH (10:46)
[2023-05-03] MEDS: ENOXAPARIN NA (PORCINE) 40 MG/0.4 ML DISP.SYRIN SQ SCH (10:46)
[2023-05-03] MEDS: lamoTRIgine 25 MG TABLET GT SCH (10:46)
[2023-05-03] MEDS ORDERED: PANTOPRAZOLE SOD 40 MG SUSPENSION PACKET PO SCH (11:30)
[2023-05-03] MEDS: PANTOPRAZOLE SODIUM 40 MG VIAL IVPUSH SCH (11:42)
[2023-05-03 13:53] VITALS: BP 94/62; PULSE 61; RESP 18; TEMP 98.2
[2023-05-07] MEDS ORDERED: predniSONE 5 MG/5 ML ORAL SOLN- UNIT-DOSE CUP GT SCH (10:00)
[2023-05-07] MEDS ORDERED: predniSONE 1 MG TABLET (FP) PO SCH (10:00)
== END 2023-05-03 14:10 | disposition home or self-care (01) | DRG 720 ==
LOC: JER 15:05 → JERBED 19:07 → JICU 20:23 → J6S 04-28 17:09
PROVIDERS: ADMIT Internal Medicine; ATTEND Internal Medicine
PROC: 06HM33Z Insertion of Infusion Device into Right Femoral Vein, Percutaneous Approach (ICD-10-PCS; principal; 2023-04-19)
PROC: 0BH17EZ Insertion of Endotracheal Airway into Trachea, Via Natural or Artificial Opening (ICD-10-PCS; 2023-04-19)
PROC: 5A1955Z Respiratory Ventilation, Greater than 96 Consecutive Hours (ICD-10-PCS; 2023-04-19)
DX: A41.51 Sepsis due to Escherichia coli [E. coli] (principal); R65.21 Severe sepsis with septic shock; J45.909 Unspecified asthma, uncomplicated; E27.40 Unspecified adrenocortical insufficiency; R53.2 Functional quadriplegia; G40.909 Epilepsy, unspecified, not intractable, without status epilepticus; G80.9 Cerebral palsy, unspecified; K21.9 Gastro-esophageal reflux disease without esophagitis; E87.5 Hyperkalemia; E87.0 Hyperosmolality and hypernatremia; E87.29 Other acidosis; J69.0 Pneumonitis due to inhalation of food and vomit; J96.01 Acute respiratory failure with hypoxia; I24.8 Other forms of acute ischemic heart disease; N17.9 Acute kidney failure, unspecified; R68.0 Hypothermia, not associated with low environmental temperature; K76.0 Fatty (change of) liver, not elsewhere classified; H54.8 Legal blindness, as defined in USA; F79 Unspecified intellectual disabilities; R00.1 Bradycardia, unspecified; D69.6 Thrombocytopenia, unspecified; R94.5 Abnormal results of liver function studies; R13.19 Other dysphagia; D64.9 Anemia, unspecified
CPT/HCPCS: 0241U-QW; 36415; 36600; 71045-TC-FY; 74176-TC; 80048; 80053; 81003; 82553; 82803; 82962; 83605; 83735; 84100; 84439; 84443; 85025; 85027; 85610; 85730; 87040; 87070; 87077; 87086; 87186; 87205; 87635; 93005; 93010; 94002; 94640; 94761; 99291; 99292; J1644; J3490

== ENCOUNTER 2023-08-29 04:53 | Inpatient (IN) | payer OTHER ==
[2023-08-29] MEDS ORDERED: levETIRAcetam 500 MG/5 ML INJECTION VIAL IVPB ONE ×2 (06:07→06:08)
[2023-08-29 06:47] LABS: BASO % 0.8 % (0-2.0); EOS % 1.4 % (0-4.5); HEMOGLOBIN 12.3 GM/dL (11.7-16.9); LYMPH % 46.7 % (8-40); MCH 29.6 pg (25.7-33.7); MCHC 32.4 g/dl (32.0-35.9); MEAN CELL VOLUME 91.4 fl (80-96); MEAN PLT VOLUME 9.5 fl (7.5-11.1); MONO % 12.5 % (3.8-10.2); NEUT % 38.6 % (42.8-82.8); PLATELET COUNT 231 10^3/uL (134-434); RBC 4.16 M/mm3 (4.00-5.60); RDW 16.3 % (11.9-15.9); WHITE BLOOD COUNT 5.5 K/mm3 (4.0-10.0)
[2023-08-29 07:07] LABS: POTASSIUM 3.9 mmol/L (3.5-5.1)
[2023-08-29 07:09] LABS: CALCIUM 9.9 mg/dL (8.5-10.1)
[2023-08-29 07:10] LABS: ALBUMIN 3.5 g/dl (3.4-5.0); MAGNESIUM 2.1 mg/dL (1.8-2.4)
[2023-08-29 07:13] LABS: CREATININE 0.6 mg/dL (0.55-1.3)
[2023-08-29 07:14] LABS: BILIRUBIN,TOTAL 0.2 mg/dL (0.2-1); TOT PROT 6.9 g/dl (6.4-8.2)
[2023-08-29] MEDS ORDERED: diazePAM RECTAL GEL 10 MG KIT (PRE-CALIBRATED) RC PRN (11:04)
[2023-08-29] MEDS ORDERED: lamoTRIgine 25 MG TABLET GT SCH (11:04)
[2023-08-29] MEDS ORDERED: predniSONE 5 MG TABLET (UD) GT SCH (11:15)
[2023-08-29] MEDS ORDERED: lamoTRIgine 100 MG TABLET ONE (12:54)
[2023-08-29] MEDS ORDERED: ENOXAPARIN NA (PORCINE) 40 MG/0.4 ML DISP.SYRIN SQ ONE (12:55)
[2023-08-29] MEDS ORDERED: lamoTRIgine 25 MG TABLET ONE (12:55)
[2023-08-29] MEDS ORDERED: [UNRECOGNIZED DRUG - OTHER] GT SCH (13:15)
[2023-08-29] MEDS: ENOXAPARIN NA (PORCINE) 40 MG/0.4 ML DISP.SYRIN SQ SCH (13:49)
[2023-08-29] MEDS ORDERED: MAG HYDROX/AL HYDROX/SIMETH 30 ML UNIT-DOSE CUP ONE (16:47)
[2023-08-29] MEDS: MAG HYDROX/AL HYDROX/SIMETH 30 ML UNIT-DOSE CUP PEG SCH (16:48)
[2023-08-29] MEDS ORDERED: SIMETHICONE 80 MG TAB.CHEW (FP) PO ONE (20:49)
[2023-08-29 21:23] VITALS: BMI 23.6
[2023-08-29] MEDS ORDERED: LAMOTRIGINE 100 MG, LAMOTRIGINE 50 MG GT SCH (22:30)
[2023-08-30] MEDS: MAG HYDROX/AL HYDROX/SIMETH 30 ML UNIT-DOSE CUP PEG SCH ×4 (00:30→21:29)
[2023-08-30 09:22] LABS: BASO % 0.5 % (0-2.0); EOS % 2.7 % (0-4.5); HEMATOCRIT 37.3 % (35.4-49); HEMOGLOBIN 12.1 GM/dL (11.7-16.9); MCH 29.9 pg (25.7-33.7); MCHC 32.5 g/dl (32.0-35.9); MEAN CELL VOLUME 91.9 fl (80-96); MEAN PLT VOLUME 9.4 fl (7.5-11.1); NEUT % 33.8 % (42.8-82.8); PLATELET COUNT 196 10^3/uL (134-434); RBC 4.06 M/mm3 (4.00-5.60); RDW 16.5 % (11.9-15.9); WHITE BLOOD COUNT 3.7 K/mm3 (4.0-10.0)
[2023-08-30 09:44] LABS: CALCIUM 9.6 mg/dL (8.5-10.1)
[2023-08-30 09:49] LABS: BLOOD UREA NITROGEN 10.7 mg/dL (7-18); MAGNESIUM 1.8 mg/dL (1.8-2.4)
[2023-08-30 09:52] LABS: ALBUMIN 3.4 g/dl (3.4-5.0); CREATININE 0.6 mg/dL (0.55-1.3); PHOSPHOROUS 3.4 mg/dL (2.5-4.9)
[2023-08-30 09:53] LABS: BILIRUBIN,TOTAL 0.3 mg/dL (0.2-1); TOT PROT 6.8 g/dl (6.4-8.2)
[2023-08-30] MEDS ORDERED: PYRIDOXINE HCL (B-6) 100 MG TABLET PEG SCH (10:00)
[2023-08-30] MEDS: lamoTRIgine 100 MG TABLET GT SCH ×2 (10:30→21:29)
[2023-08-30] MEDS: LACTULOSE 20 GM/30 ML UDC (FOR ORAL USE ONLY) GT SCH (10:31)
[2023-08-30] MEDS: BISACODYL 10 MG SUPP.RECT RC SCH (10:34)
[2023-08-30] MEDS: ENOXAPARIN NA (PORCINE) 40 MG/0.4 ML DISP.SYRIN SQ SCH (10:35)
[2023-08-30] MEDS: predniSONE 1 MG TABLET (FP) GT SCH (10:35)
[2023-08-30] MEDS: PYRIDOXINE HCL (B-6) 50 MG TABLET (FP) PEG SCH (10:36)
[2023-08-30] MEDS ORDERED: MAGNESIUM SULF 50% (8.12 MEQ/2 ML-1 GM VIAL) IVPB ONE (14:15)
[2023-08-31] MEDS: MAG HYDROX/AL HYDROX/SIMETH 30 ML UNIT-DOSE CUP PEG SCH ×3 (06:08→21:36)
[2023-08-31 10:42] LABS: HEMATOCRIT 37.3 % (35.4-49); HEMOGLOBIN 12.1 GM/dL (11.7-16.9); MCH 29.5 pg (25.7-33.7); MCHC 32.5 g/dl (32.0-35.9); MEAN PLT VOLUME 9.6 fl (7.5-11.1); PLATELET COUNT 212 10^3/uL (134-434); RBC 4.09 M/mm3 (4.00-5.60); RDW 16.8 % (11.9-15.9); WHITE BLOOD COUNT 3.7 K/mm3 (4.0-10.0)
[2023-08-31] MEDS: ENOXAPARIN NA (PORCINE) 40 MG/0.4 ML DISP.SYRIN SQ SCH (10:55)
[2023-08-31 10:58] LABS: POTASSIUM 3.7 mmol/L (3.5-5.1)
[2023-08-31] MEDS: PYRIDOXINE HCL (B-6) 50 MG TABLET (FP) PEG SCH (10:58)
[2023-08-31] MEDS: predniSONE 1 MG TABLET (FP) GT SCH (10:59)
[2023-08-31] MEDS: CALCIUM 500MG/VIT-D 200 UNITS COMBO TABLET (FP) GT SCH (10:59)
[2023-08-31] MEDS: lamoTRIgine 100 MG TABLET GT SCH ×2 (10:59→21:36)
[2023-08-31] MEDS: BISACODYL 10 MG SUPP.RECT RC SCH (11:00)
[2023-08-31] MEDS: LACTULOSE 20 GM/30 ML UDC (FOR ORAL USE ONLY) GT SCH (11:00)
[2023-08-31 11:02] LABS: ALBUMIN 3.4 g/dl (3.4-5.0); BLOOD UREA NITROGEN 6.3 mg/dL (7-18); CALCIUM 8.7 mg/dL (8.5-10.1); MAGNESIUM 2.2 mg/dL (1.8-2.4)
[2023-08-31 11:05] LABS: CREATININE 0.6 mg/dL (0.55-1.3); PHOSPHOROUS 2.9 mg/dL (2.5-4.9)
[2023-08-31 11:07] LABS: BILIRUBIN,TOTAL 0.3 mg/dL (0.2-1); TOT PROT 6.8 g/dl (6.4-8.2)
[2023-08-31 18:16] VITALS: RESP 18
[2023-09-01] MEDS: MAG HYDROX/AL HYDROX/SIMETH 30 ML UNIT-DOSE CUP PEG SCH (06:23)
[2023-09-01 08:44] VITALS: BP 95/55; PULSE 52; TEMP 97.2
[2023-09-01 10:17] LABS: HEMATOCRIT 37.3 % (35.4-49); HEMOGLOBIN 11.9 GM/dL (11.7-16.9); MCH 29.3 pg (25.7-33.7); MCHC 31.9 g/dl (32.0-35.9); MEAN CELL VOLUME 91.9 fl (80-96); MEAN PLT VOLUME 9.5 fl (7.5-11.1); PLATELET COUNT 181 10^3/uL (134-434); RBC 4.06 M/mm3 (4.00-5.60); RDW 16.8 % (11.9-15.9); WHITE BLOOD COUNT 3.9 K/mm3 (4.0-10.0)
[2023-09-01 10:36] LABS: POTASSIUM 3.7 mmol/L (3.5-5.1)
[2023-09-01] MEDS: LACTULOSE 20 GM/30 ML UDC (FOR ORAL USE ONLY) GT SCH (10:38)
[2023-09-01 10:39] LABS: CALCIUM 8.7 mg/dL (8.5-10.1)
[2023-09-01] MEDS: BISACODYL 10 MG SUPP.RECT RC SCH (10:39)
[2023-09-01] MEDS: lamoTRIgine 100 MG TABLET GT SCH (10:39)
[2023-09-01] MEDS: CALCIUM 500MG/VIT-D 200 UNITS COMBO TABLET (FP) GT SCH (10:39)
[2023-09-01] MEDS: ENOXAPARIN NA (PORCINE) 40 MG/0.4 ML DISP.SYRIN SQ SCH (10:39)
[2023-09-01 10:40] LABS: ALBUMIN 3.2 g/dl (3.4-5.0); BLOOD UREA NITROGEN 7.2 mg/dL (7-18); MAGNESIUM 2.4 mg/dL (1.8-2.4)
[2023-09-01 10:43] LABS: PHOSPHOROUS 2.8 mg/dL (2.5-4.9)
[2023-09-01] MEDS: predniSONE 1 MG TABLET (FP) GT SCH (10:43)
[2023-09-01] MEDS: PYRIDOXINE HCL (B-6) 50 MG TABLET (FP) PEG SCH (10:43)
[2023-09-01 10:44] LABS: BILIRUBIN,TOTAL 0.3 mg/dL (0.2-1); CREATININE 0.5 mg/dL (0.55-1.3); TOT PROT 6.4 g/dl (6.4-8.2)
== END 2023-09-01 12:45 | DRG 53 ==
LOC: JER 04:53 → OBSVTOIN 10:29 → JERBED 10:29 → J6S 20:06
PROVIDERS: ADMIT Internal Medicine; ATTEND Internal Medicine
DX: G40.909 Epilepsy, unspecified, not intractable, without status epilepticus (principal); R53.2 Functional quadriplegia; G80.9 Cerebral palsy, unspecified; H54.8 Legal blindness, as defined in USA; K21.9 Gastro-esophageal reflux disease without esophagitis; M81.0 Age-related osteoporosis without current pathological fracture; J45.909 Unspecified asthma, uncomplicated; F73 Profound intellectual disabilities; R13.19 Other dysphagia; E27.40 Unspecified adrenocortical insufficiency; G93.89 Other specified disorders of brain; Z93.1 Gastrostomy status
CPT/HCPCS: 0241U-QW; 36415; 70450-TC; 71045-TC-FY; 80053; 80177; 82550; 83605; 83735; 84100; 84146; 84484; 85025; 85027; 87635; 93005; 93010; 99285-25

== ENCOUNTER 2024-05-22 06:47 | Inpatient (IN) | payer OTHER ==
[2024-05-22 08:04] LABS: BASO % 0.4 % (0-2.0); EOS % 1.4 % (0-4.5); HEMATOCRIT 36.1 % (35.4-49); HEMOGLOBIN 12.2 GM/dL (11.7-16.9); LYMPH % 27.6 % (8-40); MCH 30.5 pg (25.7-33.7); MCHC 33.8 g/dl (32.0-35.9); MEAN PLT VOLUME 9.5 fl (7.5-11.1); MONO % 12.6 % (3.8-10.2); PLATELET COUNT 121 10^3/uL (134-434); RDW 15.9 % (11.9-15.9); WHITE BLOOD COUNT 6.3 K/mm3 (4.0-10.0)
[2024-05-22 08:05] LABS: CHLORIDE 87 mmol/L (98-107); POTASSIUM 3.7 mmol/L (3.5-5.1); SODIUM 136 mmol/L (136-145)
[2024-05-22 08:07] LABS: BLOOD UREA NITROGEN 32.9 mg/dL (7-18); GLUCOSE,RANDOM 87 mg/dL (74-106); MAGNESIUM 4.4 mg/dL (1.8-2.4)
[2024-05-22 08:10] LABS: CREATININE 1.5 mg/dL (0.55-1.3); PHOSPHOROUS 4.7 mg/dL (2.5-4.9); SGOT/AST 21 U/L (15-37); SGPT/ALT 38 U/L (13-61)
[2024-05-22 08:12] LABS: BILIRUBIN,TOTAL 0.3 mg/dL (0.2-1)
[2024-05-22 08:13] LABS: ALK PHOS 120 U/L (45-117)
[2024-05-22 08:26] LABS: ALBUMIN 3.2 g/dl (3.4-5.0); ANION GAP 4 mmol/L (4-13); CALCIUM 12.1 mg/dL (8.5-10.1); CO2 > 45 mmol/L (21-32)
[2024-05-22 08:34] LABS: EPI CELLS >36 /uL (0-25.1); HYALINE CASTS 1 /uL (0-3.1); PH,URINE 8.5 (5.0-8.0); URINE APPEARANCE CLOUDY; URINE BACTERIA 39 /uL (0-1359); URINE BILIRUBIN NEGATIVE (NEGATIVE); URINE COLOR YELLOW; URINE GLUCOSE (UA) NEGATIVE (NEGATIVE); URINE KETONE NEGATIVE (NEGATIVE); URINE LEUK ESTERASE NEGATIVE (NEGATIVE); URINE NITRITE NEGATIVE (NEGATIVE); URINE PROTEIN TRACE (NEGATIVE); URINE RBC 51 /uL (0-23.9); URINE UROBILINOGEN 0.2 mg/dL (0.2-1.0); URINE WBC 39 /uL (0-25.8)
[2024-05-22 08:53] LABS: INR 0.87 (0.83-1.09); PROTHROMBIN TIME (PATIENT) 9.9 SEC (9.7-13.0)
[2024-05-22] MEDS: LORazepam 2 MG/ML SDV VIAL IVPUSH ONE (09:33)
[2024-05-22] MEDS ORDERED: PIPERACILLIN/TAZOB 4.5 GM 4.5 GM/100 ML BAG IVPB ONE (09:38)
[2024-05-22] MEDS: SODIUM CHLORIDE 0.9% 500 ML INFUS.BAG IV ONE ×2 (09:39→10:24)
[2024-05-22] MEDS: PIPERACILLIN/TAZOB 4.5 GM 4.5 GM in DEXTROSE 5%-WATER 100 ML IVPB ONE (09:42)
[2024-05-22] MEDS ORDERED: VANCOMYCIN 1 GRAM (PRE-DOCKED) 1,000 MG/250 ML BAG IVPB ONE (10:17)
[2024-05-22] MEDS: VANCOMYCIN 1,000 MG in DEXTROSE 5%-WATER - 250 ML IVPB ONE (10:24)
[2024-05-22] MEDS ORDERED: DEXAMETHASONE SOD PHOSPHATE 4 MG/1 ML VIAL ONE (10:26)
[2024-05-22] MEDS: predniSONE 5 MG/5 ML ORAL SOLN- UNIT-DOSE CUP PO ONE (11:31)
[2024-05-22] MEDS ORDERED: HYDROCORTISONE SOD SUCCINATE 100 MG/2 ML VIAL ONE (11:44)
[2024-05-22] MEDS: HYDROCORTISONE SOD SUCCINATE 100 MG/2 ML VIAL IVPB ONE (11:49)
[2024-05-22] MEDS ORDERED: NAPHAZOLINE/PHENIRAMINE OPHTHALMIC 15 ML BOTTLE OU PRN (12:58)
[2024-05-22] MEDS ORDERED: ZINC OXIDE 20% TOPICAL OINTMENT 30 GM TUBE TP PRN (13:00)
[2024-05-22] MEDS ORDERED: DOPAMINE 400 MG/D5W - 400,000 MCG/250 ML INFUS.BAG IVPB SCH (13:00)
[2024-05-22] MEDS: DOPAMINE 400 MG/D5W - 400,000 MCG/250 ML INFUS.BAG IVPB SCH (13:06)
[2024-05-22] MEDS: PIPERACILLIN/TAZOB 3.375 GM 3.375 GM in DEXTROSE 5%-WATER - 50 ML IVPB SCH (13:40)
[2024-05-22] MEDS: LACTULOSE 20 GM/30 ML UDC (FOR ORAL USE ONLY) GT SCH (15:47)
[2024-05-22] MEDS: levETIRAcetam 500 MG/5 ML INJECTION VIAL IVPB ONE (15:49)
[2024-05-22] MEDS ORDERED: HYDROCORTISONE SOD SUCCINATE 100 MG/2 ML VIAL IVPUSH SCH (18:00)
[2024-05-22] MEDS: lamoTRIgine 100 MG TABLET GT SCH (19:29)
[2024-05-22] MEDS ORDERED: diazePAM RECTAL GEL 10 MG KIT (PRE-CALIBRATED) RC PRN (20:23)
[2024-05-22] MEDS: HYDROCORTISONE SOD SUCCINATE 100 MG/2 ML VIAL IVPUSH SCH (22:07)
[2024-05-22] MEDS: CHLORHEXIDINE GLUCONATE 4% CLEANSER FOR DECOLONIZATION TP SCH (22:08)
[2024-05-22] MEDS: MUPIROCIN 2% TOPICAL OINTMENT FOR DECOLONIZATION NS SCH (22:08)
[2024-05-23] MEDS: SODIUM CHLORIDE 1,000 ML IV SCH (06:44)
[2024-05-23 07:32] LABS: CHLORIDE 97 mmol/L (98-107); POTASSIUM 4.2 mmol/L (3.5-5.1); SODIUM 140 mmol/L (136-145)
[2024-05-23 07:34] LABS: BASO % 0.2 % (0-2.0); HEMATOCRIT 36.1 % (35.4-49); HEMOGLOBIN 12.1 GM/dL (11.7-16.9); LYMPH % 12.6 % (8-40); MCH 30.4 pg (25.7-33.7); MCHC 33.4 g/dl (32.0-35.9); MEAN CELL VOLUME 91.1 fl (80-96); MEAN PLT VOLUME 10.1 fl (7.5-11.1); MONO % 2.1 % (3.8-10.2); NEUT % 85.1 % (42.8-82.8); PLATELET COUNT 129 10^3/uL (134-434); RBC 3.96 M/mm3 (4.00-5.60); RDW 15.8 % (11.9-15.9); WHITE BLOOD COUNT 5.8 K/mm3 (4.0-10.0)
[2024-05-23 07:35] LABS: ANION GAP 5 mmol/L (4-13); BLOOD UREA NITROGEN 27.8 mg/dL (7-18); CALCIUM 10.5 mg/dL (8.5-10.1); CO2 38 mmol/L (21-32); GLUCOSE,RANDOM 99 mg/dL (74-106)
[2024-05-23 07:38] LABS: CREATININE 1.4 mg/dL (0.55-1.3); PHOSPHOROUS 3.8 mg/dL (2.5-4.9); SGOT/AST 28 U/L (15-37); SGPT/ALT 37 U/L (13-61)
[2024-05-23 07:40] LABS: BILIRUBIN,TOTAL 0.4 mg/dL (0.2-1); TOT PROT 6.3 g/dl (6.4-8.2)
[2024-05-23 07:42] LABS: ALK PHOS 117 U/L (45-117)
[2024-05-23] MEDS: POLYETHYLENE GLYCOL (HEALTHYLAX) 3350 17 GM PACKET PEG SCH (09:49)
[2024-05-23] MEDS: levETIRAcetam 500 MG/5 ML INJECTION VIAL IVPB SCH (09:49)
[2024-05-23] MEDS: PYRIDOXINE HCL (B-6) 100 MG TABLET PEG SCH (09:50)
[2024-05-23] MEDS: HYDROCORTISONE SOD SUCCINATE 100 MG/2 ML VIAL IVPUSH SCH (18:26)
[2024-05-24 08:25] LABS: POTASSIUM 3.5 mmol/L (3.5-5.1)
[2024-05-24 08:27] LABS: CALCIUM 9.4 mg/dL (8.5-10.1)
[2024-05-24 08:29] LABS: ALBUMIN 2.8 g/dl (3.4-5.0); BASO % 0.1 % (0-2.0); BLOOD UREA NITROGEN 27.4 mg/dL (7-18); HEMATOCRIT 30.6 % (35.4-49); HEMOGLOBIN 10.3 GM/dL (11.7-16.9); LYMPH % 14.6 % (8-40); MAGNESIUM 2.8 mg/dL (1.8-2.4); MCHC 33.8 g/dl (32.0-35.9); MEAN CELL VOLUME 91.9 fl (80-96); MEAN PLT VOLUME 9.5 fl (7.5-11.1); MONO % 4.9 % (3.8-10.2); NEUT % 80.4 % (42.8-82.8); PLATELET COUNT 109 10^3/uL (134-434); RBC 3.33 M/mm3 (4.00-5.60); RDW 15.7 % (11.9-15.9); WHITE BLOOD COUNT 7.6 K/mm3 (4.0-10.0)
[2024-05-24 08:31] LABS: CREATININE 1.4 mg/dL (0.55-1.3); PHOSPHOROUS 2.1 mg/dL (2.5-4.9)
[2024-05-24 08:33] LABS: BILIRUBIN,TOTAL 0.4 mg/dL (0.2-1); TOT PROT 5.9 g/dl (6.4-8.2)
[2024-05-24] MEDS: PYRIDOXINE HCL (B-6) 50 MG TABLET (FP) PEG SCH (10:00)
[2024-05-24] MEDS: MIDODRINE HCL 2.5 MG TABLET GT SCH (10:23)
[2024-05-24] MEDS: NAPH,MB-DB/K PH,MBDB POWDER PACKET PO ONE (10:25)
[2024-05-24] MEDS: ZINC OXIDE 20% TOPICAL OINTMENT 30 GM TUBE TP PRN (11:25)
[2024-05-24] MEDS: MIDODRINE HCL 5 MG TABLET GT SCH (13:28)
[2024-05-24] MEDS: SODIUM CHLORIDE 0.45% 1,000 ML IV SCH (13:44)
[2024-05-24] MEDS ORDERED: ATROPINE SULFATE 1 MG/10 ML DISP.SYRIN ONE (19:41)
[2024-05-25 07:29] LABS: BASO % 0.2 % (0-2.0); HEMATOCRIT 29.8 % (35.4-49); HEMOGLOBIN 9.9 GM/dL (11.7-16.9); LYMPH % 20.7 % (8-40); MCH 30.5 pg (25.7-33.7); MCHC 33.2 g/dl (32.0-35.9); MEAN CELL VOLUME 91.9 fl (80-96); MEAN PLT VOLUME 9.1 fl (7.5-11.1); MONO % 5.5 % (3.8-10.2); NEUT % 73.6 % (42.8-82.8); PLATELET COUNT 93 10^3/uL (134-434); RBC 3.24 M/mm3 (4.00-5.60)
[2024-05-25 07:47] LABS: POTASSIUM 3.7 mmol/L (3.5-5.1)
[2024-05-25 07:53] LABS: ALBUMIN 2.6 g/dl (3.4-5.0); BLOOD UREA NITROGEN 27.7 mg/dL (7-18); CALCIUM 8.9 mg/dL (8.5-10.1); MAGNESIUM 2.8 mg/dL (1.8-2.4)
[2024-05-25 07:56] LABS: CREATININE 1.1 mg/dL (0.55-1.3); PHOSPHOROUS 2.2 mg/dL (2.5-4.9)
[2024-05-25 07:58] LABS: BILIRUBIN,TOTAL 0.3 mg/dL (0.2-1); TOT PROT 5.6 g/dl (6.4-8.2)
[2024-05-25] MEDS: HYDROCORTISONE SOD SUCCINATE 100 MG/2 ML VIAL IVPUSH SCH (17:29)
[2024-05-25] MEDS: DOPAMINE 400 MG/D5W - 400,000 MCG/250 ML INFUS.BAG IVPB SCH (19:03)
[2024-05-26 08:18] LABS: POTASSIUM 3.2 mmol/L (3.5-5.1)
[2024-05-26 08:27] LABS: CALCIUM 8.4 mg/dL (8.5-10.1); MAGNESIUM 2.6 mg/dL (1.8-2.4)
[2024-05-26 08:28] LABS: BLOOD UREA NITROGEN 20.9 mg/dL (7-18)
[2024-05-26 08:30] LABS: PHOSPHOROUS 1.4 mg/dL (2.5-4.9)
[2024-05-26 08:31] LABS: CREATININE 0.8 mg/dL (0.55-1.3)
[2024-05-26 08:32] LABS: HEMATOCRIT 32.8 % (35.4-49); HEMOGLOBIN 11.1 GM/dL (11.7-16.9); MCH 30.8 pg (25.7-33.7); MCHC 33.7 g/dl (32.0-35.9); MEAN CELL VOLUME 91.3 fl (80-96); MEAN PLT VOLUME 9.2 fl (7.5-11.1); PLATELET COUNT 108 10^3/uL (134-434); RBC 3.59 M/mm3 (4.00-5.60); RDW 15.5 % (11.9-15.9)
[2024-05-26 08:34] LABS: WHITE BLOOD COUNT 12.6 K/mm3 (4.0-10.0)
[2024-05-26] MEDS: KCL 10 MEQ IVPB 10 MEQ/100 ML INFUS.BAG IVPB SCH (13:43)
[2024-05-26] MEDS: POTASSIUM PHOSPHATE 30 MM in DEXTROSE 5%-WATER - 500 ML IVPB ONE (15:08)
[2024-05-26 15:29] VITALS: BMI 23.1
[2024-05-26] MEDS: MIDODRINE HCL 2.5 MG TABLET GT SCH (17:52)
[2024-05-27 07:34] LABS: HEMATOCRIT 32.8 % (35.4-49); HEMOGLOBIN 11.1 GM/dL (11.7-16.9); MCH 30.8 pg (25.7-33.7); MCHC 33.9 g/dl (32.0-35.9); MEAN CELL VOLUME 90.7 fl (80-96); MEAN PLT VOLUME 7.5 fl (7.5-11.1); PLATELET COUNT 148 10^3/uL (134-434); RBC 3.62 M/mm3 (4.00-5.60); RDW 15.5 % (11.9-15.9)
[2024-05-27 07:46] LABS: ALBUMIN 2.9 g/dl (3.4-5.0); CALCIUM 8.6 mg/dL (8.5-10.1); MAGNESIUM 2.6 mg/dL (1.8-2.4)
[2024-05-27 07:47] LABS: BLOOD UREA NITROGEN 12.8 mg/dL (7-18)
[2024-05-27 07:49] LABS: CREATININE 0.7 mg/dL (0.55-1.3); PHOSPHOROUS 1.5 mg/dL (2.5-4.9)
[2024-05-27 07:51] LABS: BILIRUBIN,TOTAL 0.4 mg/dL (0.2-1)
[2024-05-27 08:52] LABS: ANISOCYTOSIS 0; MACROCYTOSIS 0
[2024-05-27] MEDS: AMINO ACIDS/PROTEIN HYDROLYS 30 ML LIQUID.PKT PO SCH (09:44)
[2024-05-27] MEDS: POTASSIUM CHLORIDE ORAL LIQUID 20 MEQ/15 ML GT ONE (09:44)
[2024-05-27] MEDS: NAPH,MB-DB/K PH,MBDB POWDER PACKET GT ONE (09:50)
[2024-05-27] MEDS: DOPAMINE HCL 400,000 MCG in SODIUM CHLORIDE 240 ML IV SCH (12:21)
[2024-05-27] MEDS: DOPAMINE 400 MG/D5W - 400,000 MCG/250 ML INFUS.BAG IVPB SCH (13:21)
[2024-05-28 07:48] LABS: HEMATOCRIT 30.6 % (35.4-49); HEMOGLOBIN 10.4 GM/dL (11.7-16.9); MCH 31.1 pg (25.7-33.7); MEAN CELL VOLUME 91.5 fl (80-96); MEAN PLT VOLUME 7.8 fl (7.5-11.1); PLATELET COUNT 142 10^3/uL (134-434); RBC 3.34 M/mm3 (4.00-5.60); RDW 15.5 % (11.9-15.9); WHITE BLOOD COUNT 7.8 K/mm3 (4.0-10.0)
[2024-05-28 08:07] LABS: CHLORIDE 100 mmol/L (98-107); POTASSIUM 3.2 mmol/L (3.5-5.1); SODIUM 142 mmol/L (136-145)
[2024-05-28 08:14] LABS: CALCIUM 7.7 mg/dL (8.5-10.1)
[2024-05-28 08:15] LABS: ALBUMIN 2.5 g/dl (3.4-5.0); ANION GAP 3 mmol/L (4-13); CO2 39 mmol/L (21-32); GLUCOSE,RANDOM 181 mg/dL (74-106); MAGNESIUM 2.6 mg/dL (1.8-2.4)
[2024-05-28 08:17] LABS: CREATININE 0.6 mg/dL (0.55-1.3); SGPT/ALT 73 U/L (13-61)
[2024-05-28 08:18] LABS: SGOT/AST 39 U/L (15-37)
[2024-05-28 08:19] LABS: BILIRUBIN,TOTAL 0.3 mg/dL (0.2-1); TOT PROT 5.4 g/dl (6.4-8.2)
[2024-05-28 08:20] LABS: ALK PHOS 99 U/L (45-117)
[2024-05-28 08:21] LABS: PHOSPHOROUS 0.9 mg/dL (2.5-4.9)
[2024-05-28] MEDS: POTASSIUM CHLORIDE ORAL LIQUID 20 MEQ/15 ML GT ONE (10:00)
[2024-05-28] MEDS: NAPH,MB-DB/K PH,MBDB POWDER PACKET GT ONE (10:00)
[2024-05-28 10:06] LABS: ANISOCYTOSIS 0; MACROCYTOSIS 0
[2024-05-28 10:12] LABS: PLATELET ESTIMATE ADEQUATE
[2024-05-28] MEDS: NAPH,MB-DB/K PH,MBDB POWDER PACKET GT SCH ×2 (14:52→22:55)
[2024-05-28] MEDS: SODIUM PHOSPHATE - 20 MM in SODIUM CHLORIDE 250 ML IVPB ONE (15:17)
[2024-05-28] MEDS: MIDODRINE HCL 5 MG TABLET GT SCH (18:37)
[2024-05-28] MEDS ORDERED: NAPHAZOLINE/PHENIRAMINE OPHTHALMIC 15 ML BOTTLE OU PRN (19:03)
[2024-05-28] MEDS ORDERED: ZINC OXIDE 20% TOPICAL OINTMENT 30 GM TUBE TP PRN (19:03)
[2024-05-28] MEDS: SODIUM CHLORIDE 0.45% 1,000 ML IV SCH (21:00)
[2024-05-28] MEDS ORDERED: CHLORHEXIDINE GLUCONATE 4% CLEANSER FOR DECOLONIZATION TP SCH (22:00)
[2024-05-28] MEDS: POLYETHYLENE GLYCOL (HEALTHYLAX) 3350 17 GM PACKET PEG SCH (22:54)
[2024-05-28] MEDS: levETIRAcetam 500 MG/5 ML INJECTION VIAL IVPB SCH (22:55)
[2024-05-28] MEDS: lamoTRIgine 100 MG TABLET GT SCH (22:55)
[2024-05-29] MEDS: HYDROCORTISONE SOD SUCCINATE 100 MG/2 ML VIAL IVPUSH SCH (01:34)
[2024-05-29] MEDS: PIPERACILLIN/TAZOB 3.375 GM 3.375 GM in DEXTROSE 5%-WATER - 50 ML IVPB SCH (01:34)
[2024-05-29 06:33] LABS: BASO % 0.2 % (0-2.0); EOS % 0.1 % (0-4.5); HEMATOCRIT 29.1 % (35.4-49); HEMOGLOBIN 9.7 GM/dL (11.7-16.9); LYMPH % 33.3 % (8-40); MCH 30.8 pg (25.7-33.7); MCHC 33.4 g/dl (32.0-35.9); MEAN CELL VOLUME 92.2 fl (80-96); MEAN PLT VOLUME 8.5 fl (7.5-11.1); MONO % 9.4 % (3.8-10.2); PLATELET COUNT 141 10^3/uL (134-434); RBC 3.16 M/mm3 (4.00-5.60); RDW 15.6 % (11.9-15.9); WHITE BLOOD COUNT 9.1 K/mm3 (4.0-10.0)
[2024-05-29 07:09] LABS: ALBUMIN 2.4 g/dl (3.4-5.0); BLOOD UREA NITROGEN 14.1 mg/dL (7-18); CALCIUM 7.5 mg/dL (8.5-10.1); MAGNESIUM 2.5 mg/dL (1.8-2.4)
[2024-05-29 07:13] LABS: CREATININE 0.5 mg/dL (0.55-1.3); PHOSPHOROUS 1.3 mg/dL (2.5-4.9)
[2024-05-29 07:14] LABS: BILIRUBIN,TOTAL 0.2 mg/dL (0.2-1)
[2024-05-29 07:15] LABS: TOT PROT 4.8 g/dl (6.4-8.2)
[2024-05-29] MEDS: AMINO ACIDS/PROTEIN HYDROLYS 30 ML LIQUID.PKT PO SCH (10:52)
[2024-05-29] MEDS: POTASSIUM CHLORIDE ORAL LIQUID 20 MEQ/15 ML GT ONE (10:52)
[2024-05-29] MEDS: LACTULOSE 20 GM/30 ML UDC (FOR ORAL USE ONLY) GT SCH (10:53)
[2024-05-29] MEDS: PYRIDOXINE HCL (B-6) 50 MG TABLET (FP) PEG SCH (10:54)
[2024-05-29] MEDS: TUBE FEED DECLOGGING SOLUTION 12,000 UNITS GT ONE (15:30)
[2024-05-29] MEDS: KCL 10 MEQ IVPB 10 MEQ/100 ML INFUS.BAG IVPB SCH (16:53)
[2024-05-29] MEDS: POTASSIUM PHOSPHATE 45 MM in SODIUM CHLORIDE 500 ML IVPB ONE (17:49)
[2024-05-30 08:28] LABS: BASO % 0.2 % (0-2.0); EOS % 0.2 % (0-4.5); HEMATOCRIT 31.8 % (35.4-49); HEMOGLOBIN 10.9 GM/dL (11.7-16.9); LYMPH % 39.7 % (8-40); MCH 31.2 pg (25.7-33.7); MCHC 34.3 g/dl (32.0-35.9); MEAN CELL VOLUME 91.1 fl (80-96); MEAN PLT VOLUME 9.6 fl (7.5-11.1); MONO % 7.3 % (3.8-10.2); NEUT % 52.6 % (42.8-82.8); PLATELET COUNT 94 10^3/uL (134-434); RBC 3.49 M/mm3 (4.00-5.60); RDW 15.6 % (11.9-15.9); WHITE BLOOD COUNT 10.9 K/mm3 (4.0-10.0)
[2024-05-30 08:37] LABS: POTASSIUM 3.4 mmol/L (3.5-5.1)
[2024-05-30 08:41] LABS: ALBUMIN 2.6 g/dl (3.4-5.0); CALCIUM 7.4 mg/dL (8.5-10.1)
[2024-05-30 08:42] LABS: BLOOD UREA NITROGEN 12.1 mg/dL (7-18); MAGNESIUM 2.2 mg/dL (1.8-2.4)
[2024-05-30 08:44] LABS: PHOSPHOROUS 1.6 mg/dL (2.5-4.9)
[2024-05-30 08:45] LABS: CREATININE 0.5 mg/dL (0.55-1.3)
[2024-05-30 08:47] LABS: BILIRUBIN,TOTAL 0.2 mg/dL (0.2-1); TOT PROT 5.2 g/dl (6.4-8.2)
[2024-05-30] MEDS: DEXTROSE 5%-NORMAL SALINE 1,000 ML IV SCH (10:29)
[2024-05-30] MEDS: SODIUM CHLORIDE 1,000 ML IV SCH (10:45)
[2024-05-30 12:36] VITALS: RESP 18
[2024-05-30] MEDS: NAPH,MB-DB/K PH,MBDB POWDER PACKET GT SCH (15:18)
[2024-05-30] MEDS: HYDROCORTISONE SOD SUCCINATE 100 MG/2 ML VIAL IVPUSH SCH (17:00)
[2024-05-31 09:22] LABS: BASO % 0.1 % (0-2.0); EOS % 0.2 % (0-4.5); HEMATOCRIT 26.1 % (35.4-49); HEMOGLOBIN 8.8 GM/dL (11.7-16.9); LYMPH % 27.2 % (8-40); MCH 30.9 pg (25.7-33.7); MCHC 33.6 g/dl (32.0-35.9); MEAN CELL VOLUME 91.9 fl (80-96); MEAN PLT VOLUME 8.6 fl (7.5-11.1); NEUT % 67.5 % (42.8-82.8); PLATELET COUNT 149 10^3/uL (134-434); RBC 2.84 M/mm3 (4.00-5.60); RDW 15.9 % (11.9-15.9); WHITE BLOOD COUNT 6.1 K/mm3 (4.0-10.0)
[2024-05-31 09:47] LABS: POTASSIUM 3.5 mmol/L (3.5-5.1)
[2024-05-31 09:51] LABS: ALBUMIN 2.3 g/dl (3.4-5.0); BLOOD UREA NITROGEN 10.6 mg/dL (7-18)
[2024-05-31 09:54] LABS: CREATININE 0.4 mg/dL (0.55-1.3); PHOSPHOROUS 1.8 mg/dL (2.5-4.9)
[2024-05-31 09:56] LABS: BILIRUBIN,TOTAL 0.2 mg/dL (0.2-1); TOT PROT 4.8 g/dl (6.4-8.2)
[2024-05-31 10:27] LABS: CALCIUM 7.2 mg/dL (8.5-10.1)
[2024-05-31 12:31] LABS: HIV INTERPRETATION NEGATIVE (NEGATIVE)
[2024-05-31] MEDS: SODIUM PHOSPHATE - 30 MM in SODIUM CHLORIDE 500 ML IVPB ONE (12:52)
[2024-05-31 13:52] VITALS: BP 98/58; PULSE 43; TEMP 97.4
== END 2024-05-31 18:47 | DRG 720 ==
LOC: JER 06:47 → JERBED 09:18 → JICU 14:28 → J4S 05-28 18:35
PROVIDERS: ADMIT Internal Medicine; ATTEND Internal Medicine
DX: A41.9 Sepsis, unspecified organism (principal); R65.21 Severe sepsis with septic shock; R53.2 Functional quadriplegia; N17.9 Acute kidney failure, unspecified; E83.39 Other disorders of phosphorus metabolism; R56.9 Unspecified convulsions; E83.41 Hypermagnesemia; E27.40 Unspecified adrenocortical insufficiency; E83.52 Hypercalcemia; I95.9 Hypotension, unspecified; K94.23 Gastrostomy malfunction; T68.XXXA Hypothermia, initial encounter; X58.XXXA Exposure to other specified factors, initial encounter; Y93.9 Activity, unspecified; Y92.89 Other specified places as the place of occurrence of the external cause; Y99.9 Unspecified external cause status; Y83.9 Surgical procedure, unspecified as the cause of abnormal reaction of the patient, or of later complication, without mention of misadventure at the time of the procedure; E87.6 Hypokalemia; G80.9 Cerebral palsy, unspecified; E86.0 Dehydration; R00.1 Bradycardia, unspecified; R31.0 Gross hematuria; K21.9 Gastro-esophageal reflux disease without esophagitis; R09.02 Hypoxemia
CPT/HCPCS: 0241U-QW; 36415; 70450-TC; 71045-TC-FY; 74018-TC-FY; 76775-TC; 80048; 80053; 80175; 80177; 81003; 82550; 82553; 82962; 83605; 83735; 83970; 84100; 84439; 84443; 85025; 85027; 85610; 85730; 87040; 87086; 87340; 87389; 87522; 87635; 93005; 93010; 93306-TC; 95816; 99285-25